=== PATIENT | female | born 1940 | race Caucasian/White ===

== ENCOUNTER → 2016-03-11 | Outpatient (CLI) | payer MEDICARE, OTHER ==
[~2016-03-11] MED LIST: ACET-2267 PO; ALPR0.25 PO; ANTIBIOTIC; APIX5TAB PO; ASPI-84 PO; CIPRO; CLIN300C3 PO; DILT180C54 PO; DILT240C53 PO; DILT240C90 PO; DOXY100C2 PO; FURO40TA4 PO; HYDR-2997 PO; METO50TA7 PO; POTA10CA43 PO; POTA10TA10 PO; SULF1TAB35 PO; Sotalol Hcl PO; WRF5T PO
--- OUTSIDE RECORDS SUMMARY | 2016-03-11 11:47 | XMS REPORT | Continuity of Care Document ---
Author Author [facility] Organization [facility] Address Unknown Phone Unavailable Support Name Relationship Address Phone ZAHRAA LOPEZ Caregiver [address] [place] [address] JUAN INGRAM Next Of Kin [address] [place] [address] Insurance Providers Payer Name Policy Number Subscriber Name Relationship Wps Medicare [id number] EdgardoStacey Menard 18 Self / Same As Patient Enter Insurance Name [id number] Stacey Hayes 18 Self / Same As Patient Advance Directives Directive Response Recorded Date/Time Advance Directives No 01/20/10 8:50pm Health Care Power of Catering Chef No 01/20/10 8:50pm Problems No known problems or medical conditions. Medications Medication Dose Route Sig Days/Qty Instructions Order Date Discontinued Date Status Aspirin 81 Mg PO DAILY 07/02/09 Active Metoprolol Succinate 50 Mg PO DAILY 07/02/09 Active Warfarin Sodium 5 Mg PO DAILY@18 01/20/10 03/30/10 Discontinued [Cipro] 01/20/10 01/26/10 Discontinued [Another Antibiotic] 01/20/10 01/26/10 Discontinued Doxycycline Hyclate (Vibramycin) 1 Each PO TWICE A DAY 20 Qty 01/26/10 03/30/10 Discontinued Clindamycin HCl 1 Each PO THREE TIMES A DAY 21 Qty 01/26/10 03/30/10 Discontinued Acetaminophen/Hydrocodone Bitart 1 - 2 Each PO Q 4 - 6 HRS PRN 30 Qty 03/30/10 Active Social History Social History Problem Response Recorded Date/Time Recent Foreign Travel No 01/07/2014 1:13pm Hospital Discharge Instructions No hospital discharge instructions. Plan of Care No plan of care. Functional Status No functional status results. Allergies, Adverse Reactions, Alerts Allergen Type Severity Reaction Status Last Updated No Known Drug Allergies Active 07/06/09 Immunizations No immunization records. Vital Signs No known vital signs results. Results No known relevant diagnostic tests, laboratory data and/or discharge summary. Procedures Procedure Status Date Provider(s) 48 hour Holter monitoring completed 01/07/14 ZAHRAA LOPEZ DO 48 hour Holter monitoring completed 01/07/14 ZAHRAA LOPEZ DO Encounters Encounter Location Date/Time Discharged Recurring Via [facility] 01/07/14 1:15pm
--- NOTE | 2016-03-11 12:27 | Diagnostic Imaging Report ---
EXAMINATION: Bilateral lower extremity duplex venous ultrasound. TECHNIQUE: DVT protocol. Multiple sonographic images with color Doppler and waveform interrogation were performed of the lower extremity veins, bilaterally, with compression and augmentation maneuvers. INDICATION: Bilateral leg swelling. FINDINGS: The lower extremity veins from the common femoral veins to below the knee veins were examined with normal color-flow, compressibility and normal waveform demonstrated. The great saphenous vein bilaterally is patent. IMPRESSION: No evidence of DVT in either lower extremity. Dictated by: Dictated on workstation # [id number]
[2016-03-11 12:42] LABS: ANION GAP 9 MMOL/L (5-14); BLOOD UREA NITROGEN 13 MG/DL (7-18); BUN/CREATININE RATIO 16; CALCIUM 10.9 MG/DL (8.5-10.1); CARBON DIOXIDE 28 MMOL/L (21-32); CHLORIDE 102 MMOL/L (98-107); GFR ESTIMATED > 60; GLUCOSE 94 MG/DL (70-105); MAGNESIUM 2.3 MG/DL (1.8-2.4); POTASSIUM 3.6 MMOL/L (3.6-5.0); SODIUM 139 MMOL/L (135-145)
== END ==
LOC: RAD 11:45
PROVIDERS: ATTEND Nurse Practitioner Family
DX: R60.0 Localized edema (principal); I48.0 Paroxysmal atrial fibrillation; I50.33 Acute on chronic diastolic (congestive) heart failure; Z79.01 Long term (current) use of anticoagulants
CPT/HCPCS: 36415; 80048; 83735; 93970

== ENCOUNTER → 2016-03-18 | Outpatient (CLI) | payer MEDICARE, OTHER ==
--- OUTSIDE RECORDS SUMMARY | 2016-03-18 14:29 | XMS REPORT | Continuity of Care Document ---
Author Author [facility] Organization [facility] Address Unknown Phone Unavailable Support Name Relationship Address Phone ZAHRAA LOPEZ Caregiver [address] [place] [address] JUAN INGRAM Next Of Kin [address] [place] [address] Insurance Providers Payer Name Policy Number Subscriber Name Relationship Wps Medicare [id number] EdgardoStacey Menard 18 Self / Same As Patient Enter Insurance Name [id number] Stacey Hayes 18 Self / Same As Patient Advance Directives Directive Response Recorded Date/Time Advance Directives No 01/20/10 8:50pm Health Care Power of Pipe Organ Tuner And Repairer No 01/20/10 8:50pm Problems No known problems [...] Encounters Encounter Location Date/Time Discharged Recurring Via [facility] 01/07/14 1:15pm
[2016-03-18 15:01] LABS: ANION GAP 8 MMOL/L (5-14); BLOOD UREA NITROGEN 12 MG/DL (7-18); BUN/CREATININE RATIO 15; CARBON DIOXIDE 27 MMOL/L (21-32); CHLORIDE 101 MMOL/L (98-107); CREATININE SERUM 0.81 MG/DL (0.60-1.30); GFR ESTIMATED > 60; GLUCOSE 92 MG/DL (70-105); SODIUM 136 MMOL/L (135-145)
[2016-03-18 15:08] LABS: DIGOXIN 0.94 NG/ML (0.80-2.00)
== END ==
LOC: LAB 14:25
PROVIDERS: ATTEND Internal Medicine Cardiovascular Disease
DX: I50.33 Acute on chronic diastolic (congestive) heart failure (principal); I48.0 Paroxysmal atrial fibrillation; R60.0 Localized edema; Z79.01 Long term (current) use of anticoagulants
CPT/HCPCS: 36415; 80048; 80162

== ENCOUNTER → 2016-03-25 | Outpatient (CLI) | payer MEDICARE, OTHER ==
[~2016-03-25] MED LIST changes: +CATHETER FLUSH 10 ML SYR IV PRN; +REGADENOSON 0.4 MG/5 ML SYR (LEXISCAN) IV ONE
--- OUTSIDE RECORDS SUMMARY | 2016-03-25 07:17 | XMS REPORT | Continuity of Care Document ---
Author Author [facility] Organization [facility] Address Unknown Phone Unavailable Support Name Relationship Address Phone ZAHRAA LOPEZ Caregiver [address] [place] [address] JUAN INGRAM Next Of Kin [address] [place] [address] Insurance Providers Payer Name Policy Number Subscriber Name Relationship Wps Medicare [id number] EdgardoStacey Menard 18 Self / Same As Patient Enter Insurance Name [id number] Stacey Hayes 18 Self / Same As Patient Advance Directives Directive Response Recorded Date/Time Advance Directives No 01/20/10 8:50pm Health Care Power of Metal Casting Trades Worker No 01/20/10 8:50pm Problems No known problems [...] Encounters Encounter Location Date/Time Discharged Recurring Via [facility] 01/07/14 1:15pm
[2016-03-25 08:51] VITALS: BP 148/76
--- NOTE | 2016-03-29 10:23 | STRESS TEST ---
PROCEDURE PHYSICIAN: MADI SNEED RESTING AND POST REGADENOSON TECHNETIUM 99M TETROFOSMIN SPECT CT IMAGING DATE OF PROCEDURE: 03/25/2016 ORDERING PHYSICIAN: Radha Tena APRN PRIMARY PHYSICIAN: Dr. Weeks OTHER PHYSICIAN: Dr. Sneed CLINICAL DIAGNOSIS: Acute and chronic congestive heart failure, atrial fibrillation. Baseline images were carried out after injection of 10.97 mCi technetium 99m tetrofosmin. This was followed by 0.4 mg of regadenoson and 31.4 mCi of tetrofosmin for stress imaging. The electrocardiogram showed sinus rhythm with nonspecific ST abnormality at baseline that did not change significantly with regadenoson infusion. Review of images at rest and following stress, does not indicate perfusion defects consistent with significant myocardial ischemia or infarction. Gated images show normal global left ventricular systolic function with normal regional wall motion. Left ventricular ejection fraction is calculated to be 63%. Left end-diastolic volume is 42 mL. TID is absent (1.02). CONCLUSION: 1. No evidence of any significant myocardial ischemia or infarction on this study. 2. Normal regional wall motion. 3. Normal global left ventricular systolic function with a calculated ejection fraction of 63%. Job ID: [id number] Dictated Date: 03/29/2016 09:15:00 It Teacher Date: 03/29/2016 10:16:22 / jesus
== END ==
LOC: CARD 07:14
PROVIDERS: ATTEND Nurse Practitioner Family
DX: I48.0 Paroxysmal atrial fibrillation (principal); I50.33 Acute on chronic diastolic (congestive) heart failure; R60.0 Localized edema; Z79.01 Long term (current) use of anticoagulants
CPT/HCPCS: 78452; 93017

== ENCOUNTER → 2016-04-02 | Outpatient (CLI) | payer MEDICARE, OTHER ==
[~2016-04-02] MED LIST changes: -CATHETER FLUSH 10 ML SYR IV PRN; -REGADENOSON 0.4 MG/5 ML SYR (LEXISCAN) IV ONE
--- OUTSIDE RECORDS SUMMARY | 2016-04-02 12:49 | XMS REPORT | Continuity of Care Document ---
Author Author [facility] Organization [facility] Address Unknown Phone Unavailable Support Name Relationship Address Phone ZAHRAA LOPEZ Caregiver [address] [place] [address] JUAN INGRAM Next Of Kin [address] [place] [address] Insurance Providers Payer Name Policy Number Subscriber Name Relationship Wps Medicare [id number] EdgardoStacey Menard 18 Self / Same As Patient Enter Insurance Name [id number] Stacey Hayes 18 Self / Same As Patient Advance Directives Directive Response Recorded Date/Time Advance Directives No 01/20/10 8:50pm Health Care Power of Marking Stitcher No 01/20/10 8:50pm Problems No known problems [...] Encounters Encounter Location Date/Time Discharged Recurring Via [facility] 01/07/14 1:15pm
== END ==
LOC: RT 12:46
PROVIDERS: ATTEND Internal Medicine Critical Care Medicine
DX: I48.91 Unspecified atrial fibrillation (principal); R00.2 Palpitations; R06.83 Snoring; E66.9 Obesity, unspecified
CPT/HCPCS: 94060; 94726; 94729

== ENCOUNTER 2016-04-13 13:14 | Day surgery (SDC) | payer MEDICARE, OTHER ==
[~2016-04-13] VITALS: Ht 162.6 cm; Wt 87.5 kg
[2016-04-13] VITALS (7 sets, daily range): BP systolic 134–148; BP diastolic 80–100
[~2016-04-13 13:14] MED LIST changes: -ACET-2267 PO; -DILT180C54 PO; -DILT240C53 PO; -FURO40TA4 PO; -POTA10CA43 PO; -POTA10TA10 PO; -SULF1TAB35 PO; -Sotalol Hcl PO
--- OUTSIDE RECORDS SUMMARY | 2016-04-13 13:18 | XMS REPORT | Continuity of Care Document ---
Author Author [facility] Organization [facility] Address Unknown Phone Unavailable Support Name Relationship Address Phone ZAHRAA LOPEZ Caregiver [address] [place] [address] JUAN INGRAM Next Of Kin [address] [place] [address] Insurance Providers Payer Name Policy Number Subscriber Name Relationship Wps Medicare [id number] EdgardoStacey Menard 18 Self / Same As Patient Enter Insurance Name [id number] Stacey Hayes 18 Self / Same As Patient Advance Directives Directive Response Recorded Date/Time Advance Directives No 01/20/10 8:50pm Health Care Power of Software Development Advisor No 01/20/10 8:50pm Problems No known problems [...] Encounters Encounter Location Date/Time Discharged Recurring Via [facility] 01/07/14 1:15pm
--- OUTSIDE RECORDS SUMMARY | 2016-04-13 13:18 | XMS REPORT | Continuity of Care Document ---
Author Author [facility] Organization [facility] Address Unknown Phone Unavailable Support Name Relationship Address Phone ZAHRAA LOPEZ Caregiver [address] [place] [address] JUAN INGRAM Next Of Kin [address] [place] [address] Insurance Providers Payer Name Policy Number Subscriber Name Relationship Wps Medicare [id number] EdgardoStacey Menard 18 Self / Same As Patient Enter Insurance Name [id number] Stacey Hayes 18 Self / Same As Patient Advance Directives Directive Response Recorded Date/Time Advance Directives No 01/20/10 8:50pm Health Care Power of Group Sales Coordinator No 01/20/10 8:50pm Problems No known problems [...] Encounters Encounter Location Date/Time Discharged Recurring Via [facility] 01/07/14 1:15pm
[2016-04-13] MEDS ORDERED: NS IV 1000 ML 1,000 ML ONE (13:52)
[2016-04-13] MEDS ORDERED: NS IV 1000 ML 1,000 ML IV SCH (14:15)
[2016-04-13] MEDS ORDERED: MIDAZOLAM 5 MG/5 ML (VERSED) VIAL ONE (14:31)
[2016-04-13] MEDS ORDERED: proPOfol 200 MG/20 ML (DIPRIVAN) VIAL IV ONE (14:31)
[2016-04-13] MEDS ORDERED: DILT240C53 PO (14:39)
[2016-04-13] MEDS ORDERED: FURO40TA4 PO (14:39)
[2016-04-13] MEDS ORDERED: APIX5TAB PO (14:39)
[2016-04-13] MEDS ORDERED: POTA10CA43 PO (14:39)
--- NOTE | 2016-04-13 14:58 | Progress Note-Standard ---
Standard Progress Note Progress Notes/Assess & Plan Progress/Assessment & Plan Anesthesia Note ([id number]) Called for sedation (MAC) for cardioversion. Versed 1 mg IV and Propofol 40 mg IV given. Pt adequately sedated and unable to open eyes prior to cardioversion. VSS and positive ETCO2 throughout procedure. Pt tolerated the procedure well and returned to SR after cardioversion times one. MARTIN MARRERO DO Apr 13, 2016 14:58
--- NOTE | 2016-04-13 15:41 | Cardiac Procedure Note-CS/ASA ---
Pre-Procedure Note Pre-Op Procedure Note H&P Reviewed The H&P was reviewed, patient examined and no changes noted. Date H&P Reviewed: Apr 13, 2016 Time H&P Reviewed: 15:00 Conscious Sedation Pre-Proced Time Reviewed: 15:00 ASA Class: 3 Airway Mallampati Classification: ([place] appropriate class) I. II. III, IV Lungs Heart ASA score ASA 1: a normal healthy patient ASA 2: a patient with a mild systemic disease (mid diabetes, controlled hypertension, obesity ASA 3: a patient with a severe systemic disease that limits activity (angina , COPD, prior Myocardial infarction) ASA 4: a patient with an incapacitating disease that is a constant threat to life (CHF, renal failure) ASA 5: a moribund patient not expected to survive 24 hrs. (ruptured aneurysm) ASA 6: a declared brain patient whose organs are being harvested. For emergent operations, add the letter E after the classification Grade 1 Sedation Plan: Analgesia, Amnesia, Plan communicated to team members, Discussed options with patient/fam, Discussed risks with patient/fam Note The patient is an appropriate candidate to undergo the planned procedure, sedation, and anesthesia. The patient immediately re-assessed prior to indication. Sailaja BHARDWAJ MD Apr 13, 2016 3:41 pm
--- NOTE | 2016-04-13 15:43 | Progress Note-Post Operative ---
Post-Operative Progess Note Pre-Operative Diagnosis AF with RVR Post-Operative Diagnosis Successful Cardioversion, Sinus rhythm Post-Op Procedure Note Date of Procedure: Apr 13, 2016 Name of Procedure: Direct electrical Cardioversion Procedure Note/Findings single synchronized 200J shock -> successful cardioversion to sinus rhythm. normal neurological exam post procedure. Anesthesia Type please see anesthesia note Sailaja BHARDWAJ MD Apr 13, 2016 3:43 pm
--- NOTE | 2016-04-14 13:25 | PROCEDURE REPORT ---
PROCEDURE PHYSICIAN: JOHNNA BHARDWAJ DIRECT ELECTRICAL CARDIOVERSION DATE OF PROCEDURE: 04/13/2016 PRIMARY MEDICAL SECRETARY TEACHER: Dr. Sneed INDICATION: Atrial fibrillation with rapid ventricular rate. PREOPERATIVE DIAGNOSIS: Atrial fibrillation with rapid ventricular rate. POSTOPERATIVE DIAGNOSIS: Sinus rhythm, successful electrical cardioversion. HISTORY: Ms. Reynoso is a 76-year-old lady with history of atrial fibrillation with rapid ventricular rate. Atrial fibrillation initiated most likely in the last 6 months. Left atrial size is not significantly enlarged. Rhythm controlled therapy is recommended. The patient has been on uninterrupted oral anticoagulation therapy with Eliquis for at least a month. Direct electrical cardioversion was recommended. ANESTHESIA: By anesthesia services. COMPLICATIONS: None. SPECIMENS: None. CONTRAST: None. FLUOROSCOPY: None. PROCEDURE DETAILS: The patient was brought to the Abrading Machine Tender after informed consent was taken. All the risks and complications were explained including the risk of stroke. Electrical cardioversion was carried out with anesthesia support with propofol and benzodiazepine. 200 joules of synchronized shock was delivered through external patches which promptly restored sinus rhythm. The patient tolerated the procedure well and did not have any neurological complication. CONCLUSION: 1. Successful cardioversion. 2. Continue Eliquis and calcium channel liilya. 3. Follow-up office in 10 days. Job ID: [id number] Dictated Date: 04/13/2016 15:11:08 Music Engraver Date: 04/14/2016 13:20:34 / jesus
== END 2016-04-13 16:00 | disposition home or self-care (01) ==
LOC: CATH 13:14
PROVIDERS: ATTEND Internal Medicine Interventional Cardiology
DX: I48.91 Unspecified atrial fibrillation (principal); I10 Essential (primary) hypertension; Z79.01 Long term (current) use of anticoagulants; Z79.899 Other long term (current) drug therapy; Z86.718 Personal history of other venous thrombosis and embolism
CPT/HCPCS: 92960; 93005

== ENCOUNTER 2016-04-28 19:40 | Outpatient (CLI) | payer MEDICARE, OTHER ==
[~2016-04-28 19:40] MED LIST changes: +DILT240C53 PO; +FURO40TA4 PO; +POTA10CA43 PO
--- OUTSIDE RECORDS SUMMARY | 2016-04-28 19:50 | XMS REPORT | Continuity of Care Document ---
Author Author [facility] Organization [facility] Address Unknown Phone Unavailable Support Name Relationship Address Phone ZAHRAA LOPEZ Caregiver [address] [place] [address] JUAN INGRAM Next Of Kin [address] [place] [address] Insurance Providers Payer Name Policy Number Subscriber Name Relationship Wps Medicare [id number] EdgardoStacey Menard 18 Self / Same As Patient Enter Insurance Name [id number] Stacey Hayes 18 Self / Same As Patient Advance Directives Directive Response Recorded Date/Time Advance Directives No 01/20/10 8:50pm Health Care Power of Spread Cutter No 01/20/10 8:50pm Problems No known problems [...] Encounters Encounter Location Date/Time Discharged Recurring Via [facility] 01/07/14 1:15pm
== END 2016-04-29 06:20 | disposition home or self-care (01) ==
LOC: SLEEP 19:40
PROVIDERS: ATTEND Nurse Practitioner Family
DX: G47.9 Sleep disorder, unspecified (principal); R06.83 Snoring; I48.91 Unspecified atrial fibrillation; E66.9 Obesity, unspecified
CPT/HCPCS: 95810

== ENCOUNTER 2016-04-30 08:58 | Outpatient (RCR) | payer MEDICARE, OTHER ==
--- OUTSIDE RECORDS SUMMARY | 2016-04-30 09:01 | XMS REPORT | Continuity of Care Document ---
Author Author [facility] Organization [facility] Address Unknown Phone Unavailable Care Team Providers Care Mill Tender Warm Up Name Role Phone ZAHRAA LOPEZ DO PCP Insurance Providers Payer Name Policy Number Subscriber Name Relationship Wps Medicare [id number] Stacey Hayes 18 Self / Same As Patient Enter Insurance Name [id number] Stacey Hayes 18 Self / Same As Patient Advance Directives Directive Response Recorded Date/Time Advance Directives No 04/13/16 2:07pm Health Care Power of Spoke Maker No 04/13/16 2:07pm Organ Donor No 04/13/16 2:07pm Problems Active Problems Medical Problem Onset Date Status Paroxysmal a-fib Unknown Acute Medications Current Home Medications Medication Dose Units Route Directions Days/Qty Instructions Start Date Alprazolam 0.25 Mg 0.25 Mg Oral Bedtime as needed for Anxiety Apixaban 5 Mg 5 Mg Oral Twice A Day 04/13/16 Diltiazem Hcl 240 Mg 240 Mg Oral Daily 04/13/16 Furosemide 40 Mg 40 Mg Oral Daily as needed for Swelling 04/13/16 Potassium Chloride 10 Meq 10 Meq Oral Prn With Furosemide 04/13/16 Past Home Medications Medication Directions Ordered Status Aspirin 81 Mg Tablet., 81 Mg Oral Daily 07/02/09 Discontinued Metoprolol Succinate 50 Mg Tab, 50 Mg Oral Daily 07/02/09 Discontinued Warfarin Sodium 5 Mg Tab, 5 Mg Oral Daily@18 01/20/10 Discontinued [Cipro] , 01/20/10 Discontinued [Another Antibiotic] , 01/20/10 Discontinued Doxycycline Hyclate (Vibramycin) 100 Mg Capsule, 1 Each Oral Twice A Day 26/12 Discontinued Clindamycin Hcl 300 Mg Capsule, 1 Each Oral Three Times A Day 01/26/10 Discontinued Acetaminophen/Hydrocodone Bitart 1 Tab Tablet, 1 - 2 Each Oral Q 4 - 6 Hrs Prn 03/30/10 Discontinued Diltiazem Hcl 240 Mg Cap.er.24h, 240 Mg Oral Daily 02/21/16 Discontinued Apixaban 5 Mg Tablet, 5 Mg Oral Bid@02/21/16 Discontinued Social History Social History Problem Response Recorded Date/Time Recent Foreign Travel No 03/29/2016 9:44am Recent Hopitalizations No 02/19/2016 5:22pm Hospital Discharge Instructions No hospital discharge instructions. Plan of Care Discharge Date 04/29/16 6:20am Prescriptions See Medication Section Functional Status No functional status results. Allergies, Adverse Reactions, Alerts No known allergies. Immunizations No immunization records. Vital Signs Acute Vital Signs Vital Response Date/Time Temperature (Fahrenheit) 97.6 degrees F (97.6 - 99.5) 04/13/2016 2:08pm Temperature (Calculated Celsius) 36.68824 degrees C (36.4 - 37.5) 04/13/2016 2:08pm Temperature Source Tympanic 04/13/2016 2:08pm Pulse Rate (adult) 81 bpm (60 - 90) 04/13/2016 3:32pm Respiratory Rate 16 bpm (12 - 24) 04/13/2016 3:32pm O2 Sat by Pulse Oximetry 98 % (88 - 100) 04/13/2016 3:32pm Blood Pressure 144/80 mm Hg 04/13/2016 3:32pm Blood Pressure Mean 101 mm Hg 04/13/2016 3:32pm Pain Numeric Pain Scale 0-No Pain 04/13/2016 3:40pm Height (Feet) 5 feet 04/13/2016 2:12pm Height (Inches) 4.00 inches 04/13/2016 2:12pm Height (Calculated Centimeters) 162.539231 cm 04/13/2016 2:12pm Weight (Pounds) 193 pounds 04/13/2016 2:12pm Weight (Ounces) 0.0 oz 04/13/2016 2:12pm Weight (Calculated Grams) 93944.33 gm 04/13/2016 2:12pm Weight (Calculated Kilograms) 87.367254 kilograms 04/13/2016 2:12pm Calculated BMI 33.1 04/13/2016 2:12pm Results No known relevant diagnostic tests, laboratory data and/or discharge summary. Procedures Procedure Status Date Provider(s) Tracing only of electrocardiogram Completed 04/13/16 Sailaja BHARDWAJ MD Tracing only of electrocardiogram Completed 04/13/16 Sailaja BHARDWAJ MD Encounters Encounter Location Arrival/Admit Date Discharge/Depart Date Attending Provider Departed Clinic [facility] 04/28/16 7:40pm 04/29/16 6: 20am DAREK TORRES APRN Departed [facility] 04/13/16 1:14pm 4:00pm Sailaja BHARDWAJ MD Registered Clinic [facility] 04/02/16 12:46pm SINCERE PULIDO DO
[2016-06-30] MEDS ORDERED: DILT180C54 PO (08:30)
[2016-06-30] MEDS ORDERED: ACET-2267 PO (08:30)
[2016-06-30] MEDS ORDERED: POTA10TA10 PO (08:30)
[2016-07-03] MEDS ORDERED: Sotalol Hcl PO (07:48)
[2016-07-03] MEDS ORDERED: SULF1TAB35 PO (09:30)
== END 2016-07-29 | disposition home or self-care (01) ==
LOC: CARD 08:58
PROVIDERS: ATTEND Internal Medicine Interventional Cardiology
DX: I48.0 Paroxysmal atrial fibrillation (principal)
CPT/HCPCS: 93270

== ENCOUNTER → 2016-05-01 | Outpatient (CLI) | payer MEDICARE, OTHER ==
[~2016-05-01] MED LIST changes: +ACET-2267 PO; +DILT180C54 PO; +POTA10TA10 PO; +SULF1TAB35 PO; +Sotalol Hcl PO
--- OUTSIDE RECORDS SUMMARY | 2016-05-01 09:16 | XMS REPORT | Continuity of Care Document ---
Author Author [facility] Organization [facility] Address Unknown Phone Unavailable Care Team Providers Care Enterer Name Role Phone ZAHRAA LOPEZ DO PCP Insurance Providers Payer Name Policy Number Subscriber Name Relationship Wps Medicare [id number] Stacey Hayes 18 Self / Same As Patient Enter Insurance Name [id number] Stacey Hayes 18 Self / Same As Patient Advance Directives Directive Response Recorded Date/Time Advance Directives No 04/13/16 2:07pm Health Care Power of Computational Physicist No 04/13/16 2:07pm Organ Donor No 04/13/16 [...] - 99.5) 04/13/2016 2:08pm Temperature (Calculated Celsius) 36.45836 degrees C (36.4 - 37.5) 04/13/2016 2:08pm [...] 4.00 inches 04/13/2016 2:12pm Height (Calculated Centimeters) 162.727869 cm 04/13/2016 2:12pm Weight (Pounds) 193 pounds 04/13/2016 2:12pm Weight (Ounces) 0.0 oz 04/13/2016 2:12pm Weight (Calculated Grams) 71057.33 gm 04/13/2016 2:12pm Weight (Calculated Kilograms) 87.533401 kilograms 04/13/2016 2:12pm Calculated BMI 33.1 04/13/2016 2:12pm Results No known relevant diagnostic tests, laboratory data and/or discharge summary. Procedures Procedure Status Date Provider(s) Tracing only of electrocardiogram Completed 04/13/16 Sailaja BHARDWAJ MD Tracing only of electrocardiogram Completed 04/13/16 Sailaja BHARDWAJ MD Encounters Encounter Location Arrival/Admit Date Discharge/Depart Date Attending Provider Departed Clinic [facility] 04/28/16 7:40pm 04/29/16 6: 20am DAREK TORRES APRN Departed Surgical Day [facility] 04/13/16 1:14pm 4:00pm Sailaja BHARDWAJ MD Registered Clinic [facility] 04/02/16 12:46pm SINCERE PULIDO DO
--- NOTE | 2016-05-01 13:51 | Diagnostic Imaging Report ---
PROCEDURE: MRI left joint lower extremity without contrast. TECHNIQUE: Multiplanar, multisequence non contrast-enhanced MRI of the left lower extremity was accomplished. EXAMINATION: MRI of the left knee without contrast 05/01/2016. FINDINGS: There is diffuse heterogeneity of the bone marrow signal nonspecific in nature but perhaps normal for patient. An infiltrative process or anemic process can cause a similar appearance and clinical correlation is recommended. The ACL and PCL are intact. Extensor mechanism is unremarkable. The MCL is intact. The lateral collateral ligament complex is also intact. There is a moderate sized joint effusion. Moderate-sized Pennington's cyst is also seen which contains multiple septations. There is adjacent edema tracking medially and inferiorly into the calf perhaps due to recent leakage. There are cystic collections within the posterior aspect of the knee most consistent with ganglia. Some of these contain internal hypointensities consistent with most likely loose bodies. Similar findings noted adjacent to the fibular head. There is nonspecific edema within the anterior soft tissues of the knee. There is diffuse high signal throughout the posterior horn of the medial meniscus consistent with a horizontal oblique tear with a radial component also noted. This extends to involve portions of the meniscal body as well. There is high signal within the posterior horn and anterior horn of the lateral meniscus also seen. These appear to represent myxoid degeneration. There is diffuse subchondral edema within the medial tibial plateau. A more focal cystic changes within the medial tibial plateau noted perhaps subchondral cyst associated with degenerative disease. The more diffuse edema is likely reactive less likely due to bone contusion correlate for any recent injury. There is loss of cartilage in the medial joint compartment with a small focal defects of at least 75% cartilaginous loss along the medial femoral condyle and adjacent medial tibial plateau. Moderate thinning of the cartilage in the lateral joint compartment also noted. There is marked loss of cartilage in the patellofemoral joint space with areas of near complete loss of cartilage overlying the patella. Subchondral edema and cystic change in the patella also seen. IMPRESSION: 1. 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 2. Ligaments and tendons intact. 3. 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 4. Moderate-sized Pennington's cyst with other incidental findings as discussed above. 5. Nonspecific edema within the tibial plateau medially most likely due to the adjacent degenerative findings. If there's been recent injury focal contusion is another possibility. No fracture line appreciated. Other bone marrow changes as discussed above. Dictated by: Dictated on workstation # [id number]
== END ==
LOC: RAD 09:11
PROVIDERS: ATTEND Orthopaedic Surgery
DX: M17.12 Unilateral primary osteoarthritis, left knee (principal)
CPT/HCPCS: 73721

== ENCOUNTER → 2016-06-10 | Day surgery (SDC) | payer MEDICARE, OTHER ==
[~2016-06-10] VITALS: Ht 162.6 cm; Wt 87.5 kg
[~2016-06-10] MED LIST changes: +LIDOCAINE 1% INJ 20 ML (XYLOCAINE) VIAL ONE
--- NOTE | 2016-06-10 11:44 | Cardiac Procedure Note-CS/ASA ---
Pre-Procedure Note Pre-Op Procedure Note H&P Reviewed The H&P was reviewed, patient examined and no changes noted. Date H&P Reviewed: Jun 10, 2016 Time H&P Reviewed: 11:00 Conscious Sedation Pre-Proced Time Reviewed: 11:00 ASA Class: 2 Airway Mallampati Classification: ([place] appropriate class) I. II. III, IV Lungs Heart ASA score ASA 1: a normal healthy patient ASA 2: a patient with a mild systemic disease (mid diabetes, controlled hypertension, obesity ASA 3: a patient with a severe systemic disease that limits activity (angina , COPD, prior Myocardial infarction) ASA 4: a patient with an incapacitating disease that is a constant threat to life (CHF, renal failure) ASA 5: a moribund patient not expected to survive 24 hrs. (ruptured aneurysm) ASA 6: a declared brain patient whose organs are being harvested. For emergent operations, add the letter E after the classification Grade 1 Sedation Plan: Analgesia (with local anesthesia only), Plan communicated to team members, Discussed options with patient/fam, Discussed risks with patient/ fam Note The patient is an appropriate candidate to undergo the planned procedure, sedation, and anesthesia. The patient immediately re-assessed prior to indication. Sailaja BHARDWAJ MD Jun 10, 2016 11:44 am
--- NOTE | 2016-06-10 11:46 | Cardiology Post Procedure Note ---
Post-Procedure Note Post-Op Procedure Note Procedure Start Date: Jun 10, 2016 Procedure Start Time: 11:30 Name of Procedure: Implantable loop Recorder placement Findings/Procedure Note [facility] surveillance recommended for atrial fibrillation. Biotronik implantable loop recorder placed. Estimated blood loss (mL): none Contrast Amount: none Post-Operative Diagnosis Post-operative diagnosis: successful ILR placement Sailaja BHARDWAJ MD Jun 10, 2016 11:46 am
[2016-06-10 12:03] VITALS: BP 145/77
--- NOTE | 2016-06-11 08:08 | PROCEDURE REPORT ---
PROCEDURE PHYSICIAN: JOHNNA KING IMPLANTABLE LOOP RECORDER DATE OF PROCEDURE: 06/10/2016 PERFORMING PHYSICIAN: Dr. Clement King. 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 PREOPERATIVE DIAGNOSIS: Atrial fibrillation. POSTOPERATIVE DIAGNOSIS: Atrial fibrillation, status post implantation of a Biotronik implantable loop recorder. PROCEDURE DETAILS: The patient is a 76-year-old lady with a history of possible atrial fibrillation. 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 Implantable loop recorder was discussed and agreed with the patient. Informed consent was taken. All the risks and complications were discussed at length. The patient was draped and prepped in the usual sterile fashion. Local anesthesia was with lidocaine, which was given in the substernal area close to the 4th intercostal space. Biotronik loop monitor was implanted according to the protocol. The wound was closed with Dermabond and three non-reabsorbable sutures. There were no complications at procedure. The patient tolerated the procedure. The device was interrogated with voltage of 1.38 mini volt of R-wave ANESTHESIA: Local anesthesia with lidocaine. COMPLICATIONS: None. Contrast/fluoroscopy: None. CONCLUSION: 1. 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 2. No complication and the patient tolerated the procedure well. 3. The patient will come to our office for suture removal in one week. Job ID: [id number] Dictated Date: 06/10/2016 13:24:27 Bag Filler Date: 06/11/2016 08:02:13 / jesus
--- OUTSIDE RECORDS SUMMARY | 2016-07-11 21:16 | XMS REPORT | Continuity of Care Document ---
Author Author [facility] Organization [facility] Address Unknown Phone Unavailable Allergies Active Description Code Type Severity Reaction Onset Reported/Identified Relationship to Patient Clinical Status Yes No Known Drug Allergies [id number] Drug Allergy Unknown N/ A 07/06/2009 Medications Problems Date Dx Coded Attending Type Code Diagnosis Diagnosed By 11/12/2009 Ot 453.40 01/25/2010 Ot 401.9 01/25/2010 Ot 682.2 01/25/2010 Ot 682.6 01/25/2010 Ot 790.92 01/25/2010 Ot V12.51 01/25/2010 Ot V58.61 03/10/2010 Ot 453.40 03/30/2010 Ot 922.1 03/30/2010 Ot 923.00 03/30/2010 Ot 923.03 03/30/2010 Ot 959.11 03/30/2010 Ot E000.8 03/30/2010 Ot E029.9 03/30/2010 Ot E849.0 03/30/2010 Ot E888.8 03/06/2014 GELLENDER DOZAHRAA Ot 785.1 04/07/2014 GELLENDER DOZAHRAA Ot 785.1 PALPITATIONS 04/10/2014 Ot 729.81 04/10/2014 Ot V12.51 04/10/2014 GELLENDER DOZAHRAA Ot 786.2 04/10/2014 GELLENDER DOZAHRAA Ot 729.5 04/10/2014 GELLENDER DOZAHRAA Ot V76.12 04/10/2014 GELLENDER DOZAHRAA Ot 785.1 04/10/2014 GELLENDER DOZAHRAA Ot 959.3 04/10/2014 GELLENDER DOZAHRAA Ot E000.8 04/10/2014 GELLENDER DOZAHRAA Ot E849.0 04/10/2014 GELLENDER DOZAHRAA Ot E888.9 04/10/2014 GELLENDER DOZAHRAA Ot 959.3 04/10/2014 GELLENDER DO, ZAHRAA Suero Ot E000.8 04/10/2014 GELLENDER DO, ZAHRAA Suero Ot E849.0 04/10/2014 GELLENDER DO, ZAHRAA Suero Ot E888.9 05/01/2014 GELLENDER DO, ZAHRAA Suero Ot 959.3 05/01/2014 GELLENDER DO, ZAHRAA Suero Ot E000.8 05/01/2014 GELLENDER DO, ZAHRAA Suero Ot E849.0 05/01/2014 GELLENDER DO, ZAHRAA Suero Ot E888.9 06/13/2014 Ot 729.81 06/13/2014 Ot V12.51 06/13/2014 GELLENDER DO, ZAHRAA Suero Ot 786.2 06/13/2014 GELLENDER DO, ZAHRAA Suero Ot 729.5 06/13/2014 GELLENDER DO, ZAHRAA Suero Ot V76.12 06/13/2014 GELLENDER DO, ZAHRAA Suero Ot 785.1 06/13/2014 GELLENDER DO, ZAHRAA Suero Ot 959.3 06/13/2014 GELLENDER DO, ZAHRAA Suero Ot E000.8 06/13/2014 GELLENDER DO, ZAHRAA Suero Ot E849.0 06/13/2014 GELLENDER DO, ZAHRAA Suero Ot E888.9 06/13/2014 GELLENDER DO, ZAHRAA Suero Ot 813.42 06/13/2014 GELLENDER DO, ZAHRAA Suero Ot 815.02 06/13/2014 GELLENDER DO, ZAHRAA Suero Ot E000.8 06/13/2014 GELLENDER DO, ZAHRAA Suero Ot E849.8 06/13/2014 GELLENDER DO, ZAHRAA Suero Ot E888.9 06/17/2014 Ot 793.81 06/17/2014 Ot V10.3 06/17/2014 Ot V12.51 06/17/2014 Ot 453.40 06/17/2014 Ot 453.40 06/17/2014 Ot 793.81 06/17/2014 Ot 453.40 06/17/2014 Ot 793.82 06/17/2014 Ot V76.12 06/17/2014 Ot 793.80 06/17/2014 Ot 729.5 06/17/2014 Ot 729.81 06/17/2014 Ot V12.51 06/17/2014 Ot 729.81 06/17/2014 Ot V12.51 06/17/2014 GELLENDER DO, ZAHRAA Suero Ot 786.2 06/17/2014 GELLENDER DO, ZAHRAA Suero Ot 729.5 06/17/2014 GELLENDER DO, ZAHRAA Suero Ot V76.12 06/17/2014 GELLENDER DO, ZAHRAA Suero Ot 785.1 06/17/2014 GELLENDER DO, ZAHRAA Suero Ot 959.3 06/17/2014 GELLENDER DO, ZAHRAA Suero Ot E000.8 06/17/2014 GELLENDER DO, ZAHRAA Suero Ot E849.0 06/17/2014 GELLENDER DO, ZAHRAA Suero Ot E888.9 06/17/2014 GELLENDER DO, ZAHRAA Suero Ot 813.42 06/17/2014 GELLENDER DO, ZAHRAA Suero Ot 815.02 06/17/2014 GELLENDER DO, ZAHRAA Suero Ot E000.8 06/17/2014 GELLENDER DO, ZAHRAA Suero Ot E849.8 06/17/2014 GELLENDER DO, ZAHRAA Suero Ot E888.9 07/03/2014 GELLENDER DO, ZAHRAA Suero Ot 813.42 07/03/2014 GELLENDER DO, ZAHRAA Suero Ot 815.02 07/03/2014 GELLENDER DO, ZAHRAA Suero Ot E000.8 07/03/2014 GELLENDER DO, ZAHRAA Suero Ot E849.8 07/03/2014 GELLENDER DO, ZAHRAA Suero Ot E888.9 08/04/2014 GELLENDER DO, ZAHRAA Suero Ot 729.81 08/04/2014 GELLENDER DO, ZAHRAA Suero Ot V45.89 10/10/2014 GELLENDER DO, ZAHRAA Suero Ot 727.51 10/10/2014 GELLENDER DO, ZAHRAA Suero Ot 729.81 01/05/2016 Ot 793.82 INCONCLUSIVE MAMMOGRAM 01/05/2016 Ot V76.12 OTH SCREEN MAMMO-MALIGN NEOPLASM OF AGUSTO 01/05/2016 Ot 793.80 UNSPEC ABNORMAL MAMMOGRAM 01/05/2016 Ot 729.5 PAIN IN LIMB 01/05/2016 Ot 729.81 SWELLING OF LIMB 01/05/2016 Ot V12.51 HX-VENOUS THROMBOSIS EMBOLISM 01/05/2016 Ot 729.81 SWELLING OF LIMB 01/05/2016 Ot V12.51 HX-VENOUS THROMBOSIS EMBOLISM 01/05/2016 GELLENDER DO, ZAHRAA Suero Ot 786.2 COUGH 01/05/2016 GELLENDER DO, ZAHRAA Suero Ot 729.5 PAIN IN LIMB 01/05/2016 GELLENDER DO, ZAHRAA Suero Ot V76.12 OTH SCREEN MAMMO-MALIGN NEOPLASM OF [place]USTO 01/05/2016 GELLENDER DO, ZAHRAA Suero Ot 785.1 PALPITATIONS 01/05/2016 GELLENDER DO, ZAHRAA Suero Ot 959.3 ELB/FOREARM/WRST INJ NOS 01/05/2016 GELLENDER DO, ZAHRAA Suero Ot E000.8 OTHER EXTERNAL CAUSE STATUS 01/05/2016 GELLENDER DO, ZAHRAA Suero Ot E849.0 ACCIDENT IN HOME 01/05/2016 GELLENDER DO, ZAHRAA Suero Ot E888.9 FALL NOS 01/05/2016 GELLENDER DO, ZAHRAA Suero Ot 813.42 FX DISTAL RADIUS NEC-CL 01/05/2016 GELLENDER DO, ZAHRAA Suero Ot 815.02 FX METACARP BASE NEC-CL 01/05/2016 GELLENDER DO, ZAHRAA Suero Ot E000.8 OTHER EXTERNAL CAUSE STATUS 01/05/2016 GELLENDER DO, ZAHRAA Suero Ot E849.[address] NEC 01/05/2016 GELLENDER DO, ZAHRAA Suero Ot E888.9 FALL NOS 01/05/2016 KAYLALENDER DO, ZAHRAA Suero Ot 729.81 SWELLING OF LIMB 01/05/2016 GELLENDER DO, ZAHRAA Suero Ot V45.89 POSTSURGICAL STATES NEC 01/05/2016 GELLENDER DO, ZAHRAA Suero Ot 727.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 01/05/2016 GELLENDER DO, ZAHRAA Suero Ot 729.81 SWELLING OF LIMB 01/06/2016 GELLENDER DO, ZAHRAA Suero Ot R07.89 OTHER CHEST PAIN 01/11/2016 GELLENDER DO, ZAHRAA Sueor Ot R07.89 OTHER CHEST PAIN 01/27/2016 GELLENDER DOZAHRAA Ot R07.89 OTHER CHEST PAIN 02/21/2016 GELLENDER DO, ZAHRAA Suero Ot I05.9 RHEUMATIC MITRAL VALVE DISEASE, UNSPECIF 02/21/2016 GELLENDER DOZAHRAA Ot I11.0 HYPERTENSIVE HEART DISEASE WITH HEART FA 02/21/2016 GELLENDER DOZAHRAA Ot I48.0 PAROXYSMAL ATRIAL FIBRILLATION 02/21/2016 GELLENDER DO, ZAHRAA A Ot I50.31 ACUTE DIASTOLIC (CONGESTIVE) HEART FAILU 02/21/2016 GELLENDER DO, ZAHRAA Suero Ot I87.2 VENOUS INSUFFICIENCY (CHRONIC) ( PERIPHER 02/21/2016 GELLENDER DO, ZAHRAA Suero Ot Z86.718 PERSONAL HISTORY OF OTHER VENOUS THROMBO 02/21/2016 GELLENDER DO, ZAHRAA Suero Ot I05.9 RHEUMATIC MITRAL VALVE DISEASE, UNSPECIF 02/21/2016 GELLENDER DO, ZAHRAA A Ot I11.0 HYPERTENSIVE HEART DISEASE WITH HEART FA 02/21/2016 GELLENDER DO, ZAHRAA A Ot I48.0 PAROXYSMAL ATRIAL FIBRILLATION 02/21/2016 GELLENDER DO, ZAHRAA A Ot I50.31 ACUTE DIASTOLIC (CONGESTIVE) HEART FAILU 02/21/2016 GELLENDER DO, ZAHRAA Suero Ot I87.2 VENOUS INSUFFICIENCY (CHRONIC) ( PERIPHER 02/21/2016 GELLENDER DO, ZAHRAA Suero Ot Z86.718 PERSONAL HISTORY OF OTHER VENOUS THROMBO 02/21/2016 GELLENDER DO, ZAHRAA Suero Ot I05.9 RHEUMATIC MITRAL VALVE DISEASE, UNSPECIF 02/21/2016 GELLENDER DO, ZAHRAA Suero Ot I11.0 HYPERTENSIVE HEART DISEASE WITH HEART FA 02/21/2016 GELLENDER DO, ZAHRAA A Ot I48.0 PAROXYSMAL ATRIAL FIBRILLATION 02/21/2016 GELLENDER DO, ZAHRAA A Ot I50.31 ACUTE DIASTOLIC (CONGESTIVE) HEART FAILU 02/21/2016 GELLENDER DO, ZAHRAA Suero Ot I87.2 VENOUS INSUFFICIENCY (CHRONIC) ( PERIPHER 02/21/2016 GELLENDER DO, ZAHRAA Suero Ot Z86.718 PERSONAL HISTORY OF OTHER VENOUS THROMBO 02/21/2016 GELLENDER DO, ZAHRAA Suero Ot I05.9 RHEUMATIC MITRAL VALVE DISEASE, UNSPECIF 02/21/2016 GELLENDER DO, ZAHRAA A Ot I11.0 HYPERTENSIVE HEART DISEASE WITH HEART FA 02/21/2016 GELLENDER DO, ZAHRAA A Ot I48.0 PAROXYSMAL ATRIAL FIBRILLATION 02/21/2016 GELLENDER DO, ZAHRAA A Ot I50.31 ACUTE DIASTOLIC (CONGESTIVE) HEART FAILU 02/21/2016 GELLENDER DO, ZAHRAA A Ot I87.2 VENOUS INSUFFICIENCY (CHRONIC) ( PERIPHER 02/21/2016 GELLENDER DO, ZAHRAA Nimo Ot Z86.718 PERSONAL HISTORY OF OTHER VENOUS THROMBO 03/04/2016 FRANCISCO GALARZA Ot I07.1 RHEUMATIC TRICUSPID INSUFFICIENCY 03/04/2016 BAIMATROYFRANCISCO L SANITATION ENGINEER Ot I34.0 NONRHEUMATIC MITRAL (VALVE) INSUFFICIENC 03/04/2016 BAIMA, FRANCISCO L SANITATION ENGINEER Ot I48.0 PAROXYSMAL ATRIAL FIBRILLATION 03/04/2016 BAIMA, FRANCISCO L SANITATION ENGINEER Ot Z79.01 MCC (CURRENT) USE OF ANTICOAGULANT 03/04/2016 BAIMA, FRANCISCO L SANITATION ENGINEER Ot I07.1 RHEUMATIC TRICUSPID INSUFFICIENCY 03/04/2016 BAIMA, FRANCISCO L SANITATION ENGINEER Ot I34.0 NONRHEUMATIC MITRAL (VALVE) INSUFFICIENC 03/04/2016 BAIMA, FRANCISCO L SANITATION ENGINEER Ot I48.0 PAROXYSMAL ATRIAL FIBRILLATION 03/04/2016 BAIMA, FRANCISCO L SANITATION ENGINEER Ot Z79.01 MCC (CURRENT) USE OF ANTICOAGULANT 03/05/2016 BAIMATROYFRANCISCO L SANITATION ENGINEER Ot I07.1 RHEUMATIC TRICUSPID INSUFFICIENCY 03/05/2016 BAIMA, FRANCISCO L SANITATION ENGINEER Ot I34.0 NONRHEUMATIC MITRAL (VALVE) INSUFFICIENC 03/05/2016 BAIMA FRANCISCO L SANITATION ENGINEER Ot I48.0 PAROXYSMAL ATRIAL FIBRILLATION 03/05/2016 BAIMA, FRANCISCO L SANITATION ENGINEER Ot Z79.01 MACHINERY MECHANIC (CURRENT) USE OF ANTICOAGULANT 03/05/2016 NATHANIELMAFRANCISCO L SANITATION ENGINEER Ot I07.1 RHEUMATIC TRICUSPID INSUFFICIENCY 03/05/2016 BAIMA, FRANCISCO L SANITATION ENGINEER Ot I34.0 NONRHEUMATIC MITRAL (VALVE) INSUFFICIENC 03/05/2016 BAIMA, FRANCISCO L SANITATION ENGINEER Ot I48.0 PAROXYSMAL ATRIAL FIBRILLATION 03/05/2016 BAIMA, FRANCISCO L SANITATION ENGINEER Ot Z79.01 MACHINERY MECHANIC (CURRENT) USE OF ANTICOAGULANT 03/12/2016 BAIMA, FRANCISCO L SANITATION ENGINEER Ot I48.0 PAROXYSMAL ATRIAL FIBRILLATION 03/12/2016 BAIMA, FRANCISCO L SANITATION ENGINEER Ot I50.33 ACUTE ON CHRONIC DIASTOLIC (CONGESTIVE ) 03/12/2016 BAIMA, FRANCISCO L SANITATION ENGINEER Ot R60.0 LOCALIZED EDEMA 03/12/2016 BAIMA, FRANCISCO L SANITATION ENGINEER Ot Z79.01 MACHINERY MECHANIC (CURRENT) USE OF ANTICOAGULANT 03/12/2016 BAIMA, FRANCISCO L SANITATION ENGINEER Ot I48.0 PAROXYSMAL ATRIAL FIBRILLATION 03/12/2016 BAIMA, FRANCISCO L SANITATION ENGINEER Ot I50.33 ACUTE ON CHRONIC DIASTOLIC (CONGESTIVE ) 03/12/2016 BAIFRANCISCO RODRIGUEZ L SANITATION ENGINEER Ot R60.0 LOCALIZED EDEMA 03/12/2016 BAIMA, FRANCISCO L SANITATION ENGINEER Ot Z79.01 MACHINERY MECHANIC (CURRENT) USE OF ANTICOAGULANT 03/17/2016 BAIMA, FRANCISCO L SANITATION ENGINEER Ot I48.0 PAROXYSMAL ATRIAL FIBRILLATION 03/17/2016 BAIMA, FRANCISCO L SANITATION ENGINEER Ot I50.33 ACUTE ON CHRONIC DIASTOLIC (CONGESTIVE ) 03/17/2016 BAIMATROYFRANCISCO L SANITATION ENGINEER Ot R60.0 LOCALIZED EDEMA 03/17/2016 BAIMA, FRANCISOC L SANITATION ENGINEER Ot Z79.01 MACHINERY MECHANIC (CURRENT) USE OF ANTICOAGULANT 03/19/2016 TANNA ECHAVARRIA FACBladimir, ALI FACP CCDS Ot I48.0 PAROXYSMAL ATRIAL FIBRILLATION 03/19/2016 TANNA ECHAVARRIA FACBladimir, ALI FACP CCDS Ot I50.33 ACUTE ON CHRONIC DIASTOLIC ( CONGESTIVE) 03/19/2016 TANNA ECHAVARRIA FACBladimir, ALI FACP CCDS Ot R60.0 LOCALIZED EDEMA 03/19/2016 TANNA ECHAVARRIA FACBladimir, ALI FACP CCDS Ot Z79.01 MACHINERY MECHANIC (CURRENT) USE OF ANTICOAGULANT 03/26/2016 NATHANIELFRANCISCO RODRIGUEZ L SANITATION ENGINEER Ot I07.1 RHEUMATIC TRICUSPID INSUFFICIENCY 03/26/2016 BAIMAFRANCISCO L SANITATION ENGINEER Ot I34.0 NONRHEUMATIC MITRAL (VALVE) INSUFFICIENC 03/26/2016 BAIMATROYFRANCISCO L SANITATION ENGINEER Ot I48.0 PAROXYSMAL ATRIAL FIBRILLATION 03/26/2016 BAIMA, FRANCICSO L SANITATION ENGINEER Ot Z79.01 MACHINERY MECHANIC (CURRENT) USE OF ANTICOAGULANT 03/26/2016 BAIMA FRANCISCO L SANITATION ENGINEER Ot I48.0 PAROXYSMAL ATRIAL FIBRILLATION 03/26/2016 BAIMA, FRANCISCO L SANITATION ENGINEER Ot I50.33 ACUTE ON CHRONIC DIASTOLIC (CONGESTIVE ) 03/26/2016 BAIMAFRANCISCO L SANITATION ENGINEER Ot R60.0 LOCALIZED EDEMA 03/26/2016 BAIMA, FRANCISCO L SANITATION ENGINEER Ot Z79.01 MACHINERY MECHANIC (CURRENT) USE OF ANTICOAGULANT 03/26/2016 BAIMA, FRANCISCO L SANITATION ENGINEER Ot I48.0 PAROXYSMAL ATRIAL FIBRILLATION 03/26/2016 BAIMA, FRANCISCO L SANITATION ENGINEER Ot I50.33 ACUTE ON CHRONIC DIASTOLIC (CONGESTIVE ) 03/26/2016 BAIMA FRANCISCO L SANITATION ENGINEER Ot R60.0 LOCALIZED EDEMA 03/26/2016 BAIMAFRANCISCO SANITATION ENGINEER Ot Z79.01 MCC (CURRENT) USE OF ANTICOAGULANT 03/29/2016 BAIMAFRANCISCO L SANITATION ENGINEER Ot I48.0 PAROXYSMAL ATRIAL FIBRILLATION 03/29/2016 BAIMAFRANCISCO L SANITATION ENGINEER Ot I50.33 ACUTE ON CHRONIC DIASTOLIC (CONGESTIVE ) 03/29/2016 BAIMAFRANCISCO L SANITATION ENGINEER Ot R60.0 LOCALIZED EDEMA 03/29/2016 BAIMA FRANCISCO L SANITATION ENGINEER Ot Z79.01 MCC (CURRENT) USE OF ANTICOAGULANT 04/01/2016 BAIMAFRANCISCO L SANITATION ENGINEER Ot I48.0 PAROXYSMAL ATRIAL FIBRILLATION 04/01/2016 BAIMATROYFRANCISCO L SANITATION ENGINEER Ot I50.33 ACUTE ON CHRONIC DIASTOLIC (CONGESTIVE ) 04/01/2016 BAIMAFRANCISCO SANITATION ENGINEER Ot R60.0 LOCALIZED EDEMA 04/01/2016 BAIMAFRANCISCO SANITATION ENGINEER Ot Z79.01 MCC (CURRENT) USE OF ANTICOAGULANT 04/02/2016 DAREK TORRES APRN Ot E66.9 OBESITY, UNSPECIFIED 04/02/2016 DAREK TORRES IT DISASTER RECOVERY MANAGER Ot G47.9 SLEEP DISORDER, UNSPECIFIED 04/02/2016 DAREK TORRES IT DISASTER RECOVERY MANAGER Ot I48.91 UNSPECIFIED ATRIAL FIBRILLATION 04/05/2016 SINCERE PULIDO DO Ot E66.9 OBESITY, UNSPECIFIED 04/05/2016 SINCERE PULIDO DO Ot I48.91 UNSPECIFIED ATRIAL FIBRILLATION 04/05/2016 SINCERE PULIDO DO Ot R00.2 PALPITATIONS 04/05/2016 SINCERE PULIDO DO Ot R06.83 SNORING 04/08/2016 TANNA ECHAVARRIA FACC, MADI KIMP CCDS Ot I48.0 PAROXYSMAL ATRIAL FIBRILLATION 04/08/2016 TANNA ECHAVARRIA FACC, MADI FACP CCDS Ot I50.33 ACUTE ON CHRONIC DIASTOLIC ( CONGESTIVE) 04/08/2016 TANNA ECHAVARRIA FACC, MADI FACP CCDS Ot R60.0 LOCALIZED EDEMA 04/08/2016 TANNA ECHAVARRIA FACC, ALI FACP CCDS Ot Z79.01 MACHINERY MECHANIC (CURRENT) USE OF ANTICOAGULANT 04/13/2016 Sailaja BHARDWAJ MD Ot I10 ESSENTIAL (PRIMARY) HYPERTENSION 04/13/2016 Sailaja BHARDWAJ MD Ot I48.91 UNSPECIFIED ATRIAL FIBRILLATION 04/13/2016 Sailaja BHARDWAJ MD Ot Z79.01 MCC (CURRENT) USE OF ANTICOAGULANT 04/13/2016 Sailaja BHARDWAJ MD Ot Z79.899 OTHER MACHINERY MECHANIC (CURRENT) DRUG THERAPY 04/13/2016 Sailaja BHARDWAJ MD Ot Z86.718 PERSONAL HISTORY OF OTHER VENOUS THROMBO 04/15/2016 FRANCISCO GALARZA SANITATION ENGINEER Ot I48.0 PAROXYSMAL ATRIAL FIBRILLATION 04/15/2016 FRANCISCO GALARZA SANITATION ENGINEER Ot I50.33 ACUTE ON CHRONIC DIASTOLIC (CONGESTIVE ) 04/15/2016 FRANCISCO GALARZA SANITATION ENGINEER Ot R60.0 LOCALIZED EDEMA 04/15/2016 FRANCISCO GALARZAP Ot Z79.01 MACHINERY MECHANIC (CURRENT) USE OF ANTICOAGULANT 04/15/2016 Sailaja BHARDWAJ MD Ot I10 ESSENTIAL (PRIMARY) HYPERTENSION 04/15/2016 Sailaja BHARDWAJ MD Ot I48.91 UNSPECIFIED ATRIAL FIBRILLATION 04/15/2016 Sailaja BHARDWAJ MD Ot Z79.01 MACHINERY MECHANIC (CURRENT) USE OF ANTICOAGULANT 04/15/2016 Sailaja BHARDWAJ MD Ot Z79.899 OTHER MCC (CURRENT) DRUG THERAPY 04/15/2016 Sailaja BHARDWAJ MD Ot Z86.718 PERSONAL HISTORY OF OTHER VENOUS THROMBO 04/27/2016 SINCERE PULIDO DO Ot E66.9 OBESITY, UNSPECIFIED 04/27/2016 SINCERE PULIDO DO Ot I48.91 UNSPECIFIED ATRIAL FIBRILLATION 04/27/2016 SINCERE PULIDO DO Ot R00.2 PALPITATIONS 04/27/2016 SINCERE PULIDO DO Ot R06.83 SNORING 04/29/2016 DAREK TORRES APRN Ot E66.9 OBESITY, UNSPECIFIED 04/29/2016 DAREK TORRES APRN Ot G47.9 SLEEP DISORDER, UNSPECIFIED 04/29/2016 DAREK TORRES APRN Ot I48.91 UNSPECIFIED ATRIAL FIBRILLATION 04/29/2016 DAREK TORRES APRN Ot R06.83 SNORING 05/04/2016 ALFONZO ALVAREZ DO Ot M17.12 UNILATERAL PRIMARY OSTEOARTHRITIS, LEFT 05/05/2016 DAREK TORRES IT DISASTER RECOVERY MANAGER Ot E66.9 OBESITY, UNSPECIFIED 05/05/2016 MELISSABUD PARKSINE Cliff IT DISASTER RECOVERY MANAGER Ot G47.9 SLEEP DISORDER, UNSPECIFIED 05/05/2016 MELISSABUDDAREK Cliff IT DISASTER RECOVERY MANAGER Ot I48.91 UNSPECIFIED ATRIAL FIBRILLATION 05/05/2016 MELISSABUDDAREK Cliff IT DISASTER RECOVERY MANAGER Ot R06.83 SNORING 05/05/2016 MELISSABUD PARKSINE Cliff IT DISASTER RECOVERY MANAGER Ot E66.9 OBESITY, UNSPECIFIED 05/05/2016 MELISSA DAREK Cliff IT DISASTER RECOVERY MANAGER Ot G47.9 SLEEP DISORDER, UNSPECIFIED 05/05/2016 MELISSABUDDAREK Cliff IT DISASTER RECOVERY MANAGER Ot I48.91 UNSPECIFIED ATRIAL FIBRILLATION 05/05/2016 BUD TORRESINE Cliff IT DISASTER RECOVERY MANAGER Ot R06.83 SNORING 05/06/2016 ANTONIO DO, ALFONZO F Ot M17.12 UNILATERAL PRIMARY OSTEOARTHRITIS, LEFT 05/07/2016 ANTONIO DO, ALFONZO F Ot M17.12 UNILATERAL PRIMARY OSTEOARTHRITIS, LEFT 05/27/2016 ANTONIO DO, ALFONZO F Ot M17.12 UNILATERAL PRIMARY OSTEOARTHRITIS, LEFT 06/14/2016 LASHAE ECHAVARRIA, Sailaja JEFFERS Ot I48.0 PAROXYSMAL ATRIAL FIBRILLATION 07/02/2016 GELLENDER DO, ZAHRAA Suero Ot G89.18 OTHER ACUTE POSTPROCEDURAL PAIN 07/02/2016 GELLENDER DOZAHRAA Ot I10 ESSENTIAL (PRIMARY) HYPERTENSION 07/02/2016 GELLENDER DO, ZAHRAA Suero Ot I34.9 NONRHEUMATIC MITRAL VALVE DISORDER, UNSP 07/02/2016 GELLENDER DO, ZAHRAA Suero Ot I48.0 PAROXYSMAL ATRIAL FIBRILLATION 07/02/2016 GELLENDER DO, ZAHRAA Suero Ot I95.9 HYPOTENSION, UNSPECIFIED 07/02/2016 GELLENDER DO, ZAHRAA Suero Ot M19.91 PRIMARY OSTEOARTHRITIS, UNSPECIFIED SITE 07/02/2016 GELLENDER DOZAHRAA Ot M79.662 PAIN IN LEFT LOWER LEG 07/02/2016 GELLENDER DOZAHRAA Ot R12 HEARTBURN 07/02/2016 GELLENDER DOZAHRAA Ot R19.5 OTHER FECAL ABNORMALITIES 07/02/2016 GELLENDER DOZAHRAA Ot Z79.01 MCC (CURRENT) USE OF ANTICOAGULANT 07/03/2016 GELLENDER DOZAHRAA Ot G89.18 OTHER ACUTE POSTPROCEDURAL PAIN 07/03/2016 GELLENDER DO, ZAHRAA Suero Ot I10 ESSENTIAL (PRIMARY) HYPERTENSION 07/03/2016 GELLENDER DO, ZAHRAA Suero Ot I34.9 NONRHEUMATIC MITRAL VALVE DISORDER, UNSP 07/03/2016 GELLENDER DO, ZAHRAA Suero Ot I48.0 PAROXYSMAL ATRIAL FIBRILLATION 07/03/2016 GELLENDER DO, ZAHRAA Suero Ot I95.9 HYPOTENSION, UNSPECIFIED 07/03/2016 GELLENDER DO, ZAHRAA Suero Ot M19.91 PRIMARY OSTEOARTHRITIS, UNSPECIFIED SITE 07/03/2016 GELLENDER DO, ZAHRAA Suero Ot M79.662 PAIN IN LEFT LOWER LEG 07/03/2016 GELLENDER DO, ZAHRAA Suero Ot R12 HEARTBURN 07/03/2016 GELLENDER DO, ZAHRAA Suero Ot R19.5 OTHER FECAL ABNORMALITIES 07/03/2016 GELLENDER DO, ZAHRAA Suero Ot Z79.01 MCC (CURRENT) USE OF ANTICOAGULANT 07/03/2016 GELLENDER DO, ZAHRAA Suero Ot G89.18 OTHER ACUTE POSTPROCEDURAL PAIN 07/03/2016 GELLENDER DO, ZAHRAA Suero Ot I08.1 RHEUMATIC DISORDERS OF BOTH MITRAL AND T 07/03/2016 GELLENDER DO, ZAHRAA Suero Ot I10 ESSENTIAL (PRIMARY) HYPERTENSION 07/03/2016 GELLENDER DO, ZAHRAA Suero Ot I48.0 PAROXYSMAL ATRIAL FIBRILLATION 07/03/2016 GELLENDER DO, ZAHRAA Suero Ot I95.9 HYPOTENSION, UNSPECIFIED 07/03/2016 GELLENDER DO, ZAHRAA Suero Ot J32.9 CHRONIC SINUSITIS, UNSPECIFIED 07/03/2016 GELLENDER DO, ZAHRAA Suero Ot M19.91 PRIMARY OSTEOARTHRITIS, UNSPECIFIED SITE 07/03/2016 GELLENDER DO, ZAHRAA Suero Ot M79.662 PAIN IN LEFT LOWER LEG 07/03/2016 GELLENDER DO, ZAHRAA Suero Ot R12 HEARTBURN 07/03/2016 GELLENDER DO, ZAHRAA Suero Ot R19.5 OTHER FECAL ABNORMALITIES 07/03/2016 GELLENDER DO, ZAHRAA Suero Ot Z79.01 MCC (CURRENT) USE OF ANTICOAGULANT 07/05/2016 GELLENDER DO, ZAHRAA Suero Ot R05 COUGH 07/08/2016 GELLENDER DO, ZAHRAA Suero Ot R05 COUGH Procedures Code Description Performed By Performed On [id number] HINDU OF CARDIAC RHYTHM, SINGLE 07/01/2016 Results Test Result Range Serum or plasma troponin i.cardiac measurement (mass/volume) - 01/05/16 15:50 Serum or plasma troponin i.cardiac measurement (mass/volume) < ng/mL <0.30 Complete blood count (CBC) with automated white blood cell (WBC) differential - 02/19/16 12:55 Blood leukocytes automated count (number/volume) 4.5 10*3/ uL 4.3-11.0 Blood erythrocytes automated count (number/volume) 3.85 10*6 /uL 4.35-5.85 Venous blood hemoglobin measurement (mass/volume) 12.3 g/dL 11.5-16.0 Blood hematocrit (volume fraction) 38 % 35-52 Automated erythrocyte mean corpuscular volume 98 [foz_us] 80-99 Automated erythrocyte mean corpuscular hemoglobin (mass per erythrocyte) 32 pg 25-34 Automated erythrocyte mean corpuscular hemoglobin concentration measurement ( mass/volume) 33 g/dL 32-36 Automated erythrocyte distribution width ratio 14.9 % 10.0-14.5 Automated blood platelet count (count/volume) 217 10*3/uL 130-400 Automated blood platelet mean volume measurement 10.7 [foz_ us] 7.4-10.4 Automated blood neutrophils/100 leukocytes 56 % 42-75 Automated blood lymphocytes/100 leukocytes 32 % 12-44 Blood monocytes/100 leukocytes 10 % 0-12 Automated blood eosinophils/100 leukocytes 2 % 0-10 Automated blood basophils/100 leukocytes 0 % 0-10 Blood neutrophils automated count (number/volume) 2.5 10*3 1.8-7.8 Blood lymphocytes automated count (number/volume) 1.4 10*3 1.0-4.0 Blood monocytes automated count (number/volume) 0.4 10*3 0.0-1.0 Automated eosinophil count 0.1 10*3/uL 0.0-0.3 Automated blood basophil count (count/volume) 0.0 10*3/uL 0.0-0.1 Comprehensive metabolic panel - 02/19/16 12:55 Serum or plasma sodium measurement (moles/volume) 141 mmol/ L 135-145 Serum or plasma potassium measurement (moles/volume) 3.9 mmol/L 3.6-5.0 Serum or plasma chloride measurement (moles/volume) 107 mmol /L 98-107 Carbon dioxide 27 mmol/L 21-32 Serum or plasma anion gap determination (moles/volume) 7 mmol/L 5-14 Serum or plasma urea nitrogen measurement (mass/volume) 15 mg/dL 7-18 Serum or plasma creatinine measurement (mass/volume) 0.77 mg /dL 0.60-1.30 Serum or plasma urea nitrogen/creatinine mass ratio 19 NRG Serum or plasma creatinine measurement with calculation of estimated glomerular filtration rate > NRG Serum or plasma glucose measurement (mass/volume) 99 mg/dL 70-105 Serum or plasma calcium measurement (mass/volume) 10.8 mg/ dL 8.5-10.1 Serum or plasma total bilirubin measurement (mass/volume) 0.5 mg/dL 0.1-1.0 Serum or plasma alkaline phosphatase measurement (enzymatic activity/volume) 64 U/L 40-136 Serum or plasma aspartate aminotransferase measurement (enzymatic activity/ volume) 35 U/L 5-34 Serum or plasma alanine aminotransferase measurement (enzymatic activity/volume ) 45 U/L 0-55 Serum or plasma protein measurement (mass/volume) 6.8 g/dL 6.4-8.2 Serum or plasma albumin measurement (mass/volume) 4.0 g/dL 3.2-4.5 Magnesium - 02/19/16 12:55 Magnesium 2.0 mg/dL 1.8-2.4 Serum or plasma troponin i.cardiac measurement (mass/volume) - 02/19/16 12:55 Serum or plasma troponin i.cardiac measurement (mass/volume) < ng/mL <0.30 THYROID STIMULATING HORMONE - 02/19/16 12:55 THYROID STIMULATING HORMONE 1.94 u[iU]/mL 0.35-4.94 Serum or plasma lithium measurement (moles/volume) - 02/19/16 12:55 BNP level 240.0 pg/mL <100.0 Fibrin D-dimer FEU measurement in platelet poor plasma (mass/volume) - 12:55 Fibrin D-dimer FEU measurement in platelet poor plasma (mass/volume) 1.51 ug/mL 0.00-0.49 Complete urinalysis with reflex to culture - 02/19/16 13:55 Urine color determination YELLOW NRG Urine clarity determination CLEAR NRG Urine pH measurement by test strip 7 5- 9 Specific gravity of urine by test strip 1.015 1.016-1.022 Urine protein assay by test strip, semi-quantitative NEGATIVE NEGATIVE Urine glucose detection by automated test strip NEGATIVE NEGATIVE Erythrocytes detection in urine sediment by light microscopy NEGATIVE NEGATIVE Urine ketones detection by automated test strip NEGATIVE NEGATIVE Urine nitrite detection by test strip NEGATIVE NEGATIVE Urine total bilirubin detection by test strip NEGATIVE NEGATIVE Urine urobilinogen measurement by automated test strip (mass/volume) NORMAL NORMAL Urine leukocyte esterase detection by dipstick NEGATIVE NEGATIVE Automated urine sediment erythrocyte count by microscopy (number/high power field) NONE NRG Automated urine sediment leukocyte count by microscopy (number/high power field ) NONE NRG Bacteria detection in urine sediment by light microscopy NEGATIVE NRG Squamous epithelial cells detection in urine sediment by light microscopy RARE NRG Crystals detection in urine sediment by light microscopy NONE NRG Casts detection in urine sediment by light microscopy NONE NRG Mucus detection in urine sediment by light microscopy NEGATIVE NRG Complete urinalysis with reflex to culture NO NRG Complete blood count (CBC) with automated white blood cell (WBC) differential - 02/20/16 04:15 Blood leukocytes automated count (number/volume) 3.9 10*3/ uL 4.3-11.0 Blood erythrocytes automated count (number/volume) 3.49 10*6 /uL 4.35-5.85 Venous blood hemoglobin measurement (mass/volume) 11.1 g/dL 11.5-16.0 Blood hematocrit (volume fraction) 34 % 35-52 Automated erythrocyte mean corpuscular volume 98 [foz_us] 80-99 Automated erythrocyte mean corpuscular hemoglobin (mass per erythrocyte) 32 pg 25-34 Automated erythrocyte mean corpuscular hemoglobin concentration measurement ( mass/volume) 33 g/dL 32-36 Automated erythrocyte distribution width ratio 14.9 % 10.0-14.5 Automated blood platelet count (count/volume) 196 10*3/uL 130-400 Automated blood platelet mean volume measurement 10.2 [foz_ us] 7.4-10.4 Automated blood neutrophils/100 leukocytes 44 % 42-75 Automated blood lymphocytes/100 leukocytes 42 % 12-44 Blood monocytes/100 leukocytes 11 % 0-12 Automated blood eosinophils/100 leukocytes 3 % 0-10 Automated blood basophils/100 leukocytes 0 % 0-10 Blood neutrophils automated count (number/volume) 1.7 10*3 1.8-7.8 Blood lymphocytes automated count (number/volume) 1.6 10*3 1.0-4.0 Blood monocytes automated count (number/volume) 0.4 10*3 0.0-1.0 Automated eosinophil count 0.1 10*3/uL 0.0-0.3 Automated blood basophil count (count/volume) 0.0 10*3/uL 0.0-0.1 Whole blood basic metabolic panel - 02/20/16 04:15 Serum or plasma sodium measurement (moles/volume) 141 mmol/ L 135-145 Serum or plasma potassium measurement (moles/volume) 3.4 mmol/L 3.6-5.0 Serum or plasma chloride measurement (moles/volume) 108 mmol /L 98-107 Carbon dioxide 25 mmol/L 21-32 Serum or plasma anion gap determination (moles/volume) 8 mmol/L 5-14 Serum or plasma urea nitrogen measurement (mass/volume) 13 mg/dL 7-18 Serum or plasma creatinine measurement (mass/volume) 0.61 mg /dL 0.60-1.30 Serum or plasma urea nitrogen/creatinine mass ratio 21 NRG Serum or plasma creatinine measurement with calculation of estimated glomerular filtration rate > NRG Serum or plasma glucose measurement (mass/volume) 87 mg/dL 70-105 Serum or plasma calcium measurement (mass/volume) 9.7 mg/dL 8.5-10.1 Serum or plasma phosphate measurement (mass/volume) - 02/20/16 04:15 Serum or plasma phosphate measurement (mass/volume) 2.6 mg/ dL 2.3-4.7 Magnesium - 02/20/16 04:15 Magnesium 2.1 mg/dL 1.8-2.4 Complete blood count (CBC) with automated white blood cell (WBC) differential - 02/21/16 04:16 Blood leukocytes automated count (number/volume) 4.8 10*3/ uL 4.3-11.0 Blood erythrocytes automated count (number/volume) 3.61 10*6 /uL 4.35-5.85 Venous blood hemoglobin measurement (mass/volume) 11.5 g/dL 11.5-16.0 Blood hematocrit (volume fraction) 36 % 35-52 Automated erythrocyte mean corpuscular volume 98 [foz_us] 80-99 Automated erythrocyte mean corpuscular hemoglobin (mass per erythrocyte) 32 pg 25-34 Automated erythrocyte mean corpuscular hemoglobin concentration measurement ( mass/volume) 32 g/dL 32-36 Automated erythrocyte distribution width ratio 15.0 % 10.0-14.5 Automated blood platelet count (count/volume) 202 10*3/uL 130-400 Automated blood platelet mean volume measurement 10.5 [foz_ us] 7.4-10.4 Automated blood neutrophils/100 leukocytes 47 % 42-75 Automated blood lymphocytes/100 leukocytes 41 % 12-44 Blood monocytes/100 leukocytes 9 % 0-12 Automated blood eosinophils/100 leukocytes 3 % 0-10 Automated blood basophils/100 leukocytes 0 % 0-10 Blood neutrophils automated count (number/volume) 2.3 10*3 1.8-7.8 Blood lymphocytes automated count (number/volume) 2.0 10*3 1.0-4.0 Blood monocytes automated count (number/volume) 0.5 10*3 0.0-1.0 Automated eosinophil count 0.1 10*3/uL 0.0-0.3 Automated blood basophil count (count/volume) 0.0 10*3/uL 0.0-0.1 Comprehensive metabolic panel - 02/21/16 04:16 Serum or plasma sodium measurement (moles/volume) 139 mmol/ L 135-145 Serum or plasma potassium measurement (moles/volume) 3.9 mmol/L 3.6-5.0 Serum or plasma chloride measurement (moles/volume) 111 mmol /L 98-107 Carbon dioxide 22 mmol/L 21-32 Serum or plasma anion gap determination (moles/volume) 6 mmol/L 5-14 Serum or plasma urea nitrogen measurement (mass/volume) 13 mg/dL 7-18 Serum or plasma creatinine measurement (mass/volume) 0.66 mg /dL 0.60-1.30 Serum or plasma urea nitrogen/creatinine mass ratio 20 NRG Serum or plasma creatinine measurement with calculation of estimated glomerular filtration rate > NRG Serum or plasma glucose measurement (mass/volume) 92 mg/dL 70-105 Serum or plasma calcium measurement (mass/volume) 9.6 mg/dL 8.5-10.1 Serum or plasma total bilirubin measurement (mass/volume) 0.5 mg/dL 0.1-1.0 Serum or plasma alkaline phosphatase measurement (enzymatic activity/volume) 59 U/L 40-136 Serum or plasma aspartate aminotransferase measurement (enzymatic activity/ volume) 24 U/L 5-34 Serum or plasma alanine aminotransferase measurement (enzymatic activity/volume ) 31 U/L 0-55 Serum or plasma protein measurement (mass/volume) 5.6 g/dL 6.4-8.2 Serum or plasma albumin measurement (mass/volume) 3.4 g/dL 3.2-4.5 Serum or plasma phosphate measurement (mass/volume) - 02/21/16 04:16 Serum or plasma phosphate measurement (mass/volume) 2.1 mg/ dL 2.3-4.7 Magnesium - 02/21/16 04:16 Magnesium 2.2 mg/dL 1.8-2.4 Complete blood count (CBC) with automated white blood cell (WBC) differential - 06/29/16 18:25 Blood leukocytes automated count (number/volume) 9.4 10*3/ uL 4.3-11.0 Blood erythrocytes automated count (number/volume) 4.30 10*6 /uL 4.35-5.85 Venous blood hemoglobin measurement (mass/volume) 13.4 g/dL 11.5-16.0 Blood hematocrit (volume fraction) 41 % 35-52 Automated erythrocyte mean corpuscular volume 95 [foz_us] 80-99 Automated erythrocyte mean corpuscular hemoglobin (mass per erythrocyte) 31 pg 25-34 Automated erythrocyte mean corpuscular hemoglobin concentration measurement ( mass/volume) 33 g/dL 32-36 Automated erythrocyte distribution width ratio 15.0 % 10.0-14.5 Automated blood platelet count (count/volume) 286 10*3/uL 130-400 Automated blood platelet mean volume measurement 9.9 [foz_us ] 7.4-10.4 Automated blood neutrophils/100 leukocytes 49 % 42-75 Automated blood lymphocytes/100 leukocytes 40 % 12-44 Blood monocytes/100 leukocytes 10 % 0-12 Automated blood eosinophils/100 leukocytes 1 % 0-10 Automated blood basophils/100 leukocytes 0 % 0-10 Blood neutrophils automated count (number/volume) 4.6 10*3 1.8-7.8 Blood lymphocytes automated count (number/volume) 3.7 10*3 1.0-4.0 Blood monocytes automated count (number/volume) 0.9 10*3 0.0-1.0 Automated eosinophil count 0.1 10*3/uL 0.0-0.3 Automated blood basophil count (count/volume) 0.0 10*3/uL 0.0-0.1 Comprehensive metabolic panel - 06/29/16 18:25 Serum or plasma sodium measurement (moles/volume) 140 mmol/ L 135-145 Serum or plasma potassium measurement (moles/volume) 4.0 mmol/L 3.6-5.0 Serum or plasma chloride measurement (moles/volume) 106 mmol /L 98-107 Carbon dioxide 23 mmol/L 21-32 Serum or plasma anion gap determination (moles/volume) 11 mmol/L 5-14 Serum or plasma urea nitrogen measurement (mass/volume) 15 mg/dL 7-18 Serum or plasma creatinine measurement (mass/volume) 0.79 mg /dL 0.60-1.30 Serum or plasma urea nitrogen/creatinine mass ratio 19 NRG Serum or plasma creatinine measurement with calculation of estimated glomerular filtration rate > NRG Serum or plasma glucose measurement (mass/volume) 114 mg/dL 70-105 Serum or plasma calcium measurement (mass/volume) 10.8 mg/ dL 8.5-10.1 Serum or plasma total bilirubin measurement (mass/volume) 0.3 mg/dL 0.1-1.0 Serum or plasma alkaline phosphatase measurement (enzymatic activity/volume) 78 U/L 40-136 Serum or plasma aspartate aminotransferase measurement (enzymatic activity/ volume) 32 U/L 5-34 Serum or plasma alanine aminotransferase measurement (enzymatic activity/volume ) 41 U/L 0-55 Serum or plasma protein measurement (mass/volume) 6.9 g/dL 6.4-8.2 Serum or plasma albumin measurement (mass/volume) 3.9 g/dL 3.2-4.5 Serum or plasma troponin i.cardiac measurement (mass/volume) - 06/29/16 18:25 Serum or plasma troponin i.cardiac measurement (mass/volume) < ng/mL <0.30 Serum or plasma thyrotropin measurement by detection limit <=0.05 miu/l (units/ volume) - 06/29/16 18:25 Serum or plasma thyrotropin measurement by detection limit <=0.05 miu/l (units/ volume) 0.97 u[iU]/mL 0.35-4.94 Magnesium - 06/29/16 18:28 Magnesium 2.2 mg/dL 1.8-2.4 Complete blood count (CBC) with automated white blood cell (WBC) differential - 06/30/16 04:38 Blood leukocytes automated count (number/volume) 6.0 10*3/ uL 4.3-11.0 Blood erythrocytes automated count (number/volume) 3.76 10*6 /uL 4.35-5.85 Venous blood hemoglobin measurement (mass/volume) 11.8 g/dL 11.5-16.0 Blood hematocrit (volume fraction) 36 % 35-52 Automated erythrocyte mean corpuscular volume 96 [foz_us] 80-99 Automated erythrocyte mean corpuscular hemoglobin (mass per erythrocyte) 31 pg 25-34 Automated erythrocyte mean corpuscular hemoglobin concentration measurement ( mass/volume) 33 g/dL 32-36 Automated erythrocyte distribution width ratio 15.2 % 10.0-14.5 Automated blood platelet count (count/volume) 227 10*3/uL 130-400 Automated blood platelet mean volume measurement 9.9 [foz_us ] 7.4-10.4 Automated blood neutrophils/100 leukocytes 40 % 42-75 Automated blood lymphocytes/100 leukocytes 49 % 12-44 Blood monocytes/100 leukocytes 9 % 0-12 Automated blood eosinophils/100 leukocytes 2 % 0-10 Automated blood basophils/100 leukocytes 0 % 0-10 Blood neutrophils automated count (number/volume) 2.4 10*3 1.8-7.8 Blood lymphocytes automated count (number/volume) 2.9 10*3 1.0-4.0 Blood monocytes automated count (number/volume) 0.5 10*3 0.0-1.0 Automated eosinophil count 0.1 10*3/uL 0.0-0.3 Automated blood basophil count (count/volume) 0.0 10*3/uL 0.0-0.1 Whole blood basic metabolic panel - 06/30/16 04:38 Serum or plasma sodium measurement (moles/volume) 142 mmol/ L 135-145 Serum or plasma potassium measurement (moles/volume) 3.9 mmol/L 3.6-5.0 Serum or plasma chloride measurement (moles/volume) 111 mmol /L 98-107 Carbon dioxide 23 mmol/L 21-32 Serum or plasma anion gap determination (moles/volume) 8 mmol/L 5-14 Serum or plasma urea nitrogen measurement (mass/volume) 14 mg/dL 7-18 Serum or plasma creatinine measurement (mass/volume) 0.71 mg /dL 0.60-1.30 Serum or plasma urea nitrogen/creatinine mass ratio 20 NRG Serum or plasma creatinine measurement with calculation of estimated glomerular filtration rate > NRG Serum or plasma glucose measurement (mass/volume) 95 mg/dL 70-105 Serum or plasma calcium measurement (mass/volume) 10.1 mg/ dL 8.5-10.1 Serum or plasma phosphate measurement (mass/volume) - 06/30/16 04:38 Serum or plasma phosphate measurement (mass/volume) 2.5 mg/ dL 2.3-4.7 Magnesium - 06/30/16 04:38 Magnesium 2.1 mg/dL 1.8-2.4 Occult blood panel - gastric fluid - 06/30/16 08:05 Gastric fluid gastrointestinal hemoglobin detection POSITIVE NEGATIVE Complete blood count (CBC) with automated white blood cell (WBC) differential - 07/01/16 03:14 Blood leukocytes automated count (number/volume) 6.9 10*3/ uL 4.3-11.0 Blood erythrocytes automated count (number/volume) 3.89 10*6 /uL 4.35-5.85 Venous blood hemoglobin measurement (mass/volume) 12.2 g/dL 11.5-16.0 Blood hematocrit (volume fraction) 38 % 35-52 Automated erythrocyte mean corpuscular volume 96 [foz_us] 80-99 Automated erythrocyte mean corpuscular hemoglobin (mass per erythrocyte) 31 pg 25-34 Automated erythrocyte mean corpuscular hemoglobin concentration measurement ( mass/volume) 33 g/dL 32-36 Automated erythrocyte distribution width ratio 15.1 % 10.0-14.5 Automated blood platelet count (count/volume) 247 10*3/uL 130-400 Automated blood platelet mean volume measurement 10.1 [foz_ us] 7.4-10.4 Automated blood neutrophils/100 leukocytes 46 % 42-75 Automated blood lymphocytes/100 leukocytes 42 % 12-44 Blood monocytes/100 leukocytes 9 % 0-12 Automated blood eosinophils/100 leukocytes 2 % 0-10 Automated blood basophils/100 leukocytes 0 % 0-10 Blood neutrophils automated count (number/volume) 3.1 10*3 1.8-7.8 Blood lymphocytes automated count (number/volume) 2.9 10*3 1.0-4.0 Blood monocytes automated count (number/volume) 0.6 10*3 0.0-1.0 Automated eosinophil count 0.2 10*3/uL 0.0-0.3 Automated blood basophil count (count/volume) 0.0 10*3/uL 0.0-0.1 Whole blood basic metabolic panel - 07/01/16 03:14 Serum or plasma sodium measurement (moles/volume) 143 mmol/ L 135-145 Serum or plasma potassium measurement (moles/volume) 4.4 mmol/L 3.6-5.0 Serum or plasma chloride measurement (moles/volume) 110 mmol /L 98-107 Carbon dioxide 27 mmol/L 21-32 Serum or plasma anion gap determination (moles/volume) 6 mmol/L 5-14 Serum or plasma urea nitrogen measurement (mass/volume) 15 mg/dL 7-18 Serum or plasma creatinine measurement (mass/volume) 0.81 mg /dL 0.60-1.30 Serum or plasma urea nitrogen/creatinine mass ratio 19 NRG Serum or plasma creatinine measurement with calculation of estimated glomerular filtration rate > NRG Serum or plasma glucose measurement (mass/volume) 98 mg/dL 70-105 Serum or plasma calcium measurement (mass/volume) 10.3 mg/ dL 8.5-10.1 Serum or plasma phosphate measurement (mass/volume) - 07/01/16 03:14 Serum or plasma phosphate measurement (mass/volume) 2.6 mg/ dL 2.3-4.7 Magnesium - 07/01/16 03:14 Magnesium 2.1 mg/dL 1.8-2.4 Complete blood count (CBC) with automated white blood cell (WBC) differential - 07/02/16 03:35 Blood leukocytes automated count (number/volume) 9.3 10*3/ uL 4.3-11.0 Blood erythrocytes automated count (number/volume) 3.70 10*6 /uL 4.35-5.85 Venous blood hemoglobin measurement (mass/volume) 11.5 g/dL 11.5-16.0 Blood hematocrit (volume fraction) 36 % 35-52 Automated erythrocyte mean corpuscular volume 96 [foz_us] 80-99 Automated erythrocyte mean corpuscular hemoglobin (mass per erythrocyte) 31 pg 25-34 Automated erythrocyte mean corpuscular hemoglobin concentration measurement ( mass/volume) 32 g/dL 32-36 Automated erythrocyte distribution width ratio 15.2 % 10.0-14.5 Automated blood platelet count (count/volume) 239 10*3/uL 130-400 Automated blood platelet mean volume measurement 10.1 [foz_ us] 7.4-10.4 Automated blood neutrophils/100 leukocytes 62 % 42-75 Automated blood lymphocytes/100 leukocytes 28 % 12-44 Blood monocytes/100 leukocytes 9 % 0-12 Automated blood eosinophils/100 leukocytes 1 % 0-10 Automated blood basophils/100 leukocytes 0 % 0-10 Blood neutrophils automated count (number/volume) 5.7 10*3 1.8-7.8 Blood lymphocytes automated count (number/volume) 2.6 10*3 1.0-4.0 Blood monocytes automated count (number/volume) 0.9 10*3 0.0-1.0 Automated eosinophil count 0.1 10*3/uL 0.0-0.3 Automated blood basophil count (count/volume) 0.0 10*3/uL 0.0-0.1 Whole blood basic metabolic panel - 07/02/16 03:35 Serum or plasma sodium measurement (moles/volume) 141 mmol/ L 135-145 Serum or plasma potassium measurement (moles/volume) 4.2 mmol/L 3.6-5.0 Serum or plasma chloride measurement (moles/volume) 109 mmol /L 98-107 Carbon dioxide 24 mmol/L 21-32 Serum or plasma anion gap determination (moles/volume) 8 mmol/L 5-14 Serum or plasma urea nitrogen measurement (mass/volume) 13 mg/dL 7-18 Serum or plasma creatinine measurement (mass/volume) 0.71 mg /dL 0.60-1.30 Serum or plasma urea nitrogen/creatinine mass ratio 18 NRG Serum or plasma creatinine measurement with calculation of estimated glomerular filtration rate > NRG Serum or plasma glucose measurement (mass/volume) 94 mg/dL 70-105 Serum or plasma calcium measurement (mass/volume) 10.4 mg/ dL 8.5-10.1 Serum or plasma phosphate measurement (mass/volume) - 07/02/16 03:35 Serum or plasma phosphate measurement (mass/volume) 3.3 mg/ dL 2.3-4.7 Magnesium - 07/02/16 03:35 Magnesium 2.0 mg/dL 1.8-2.4 Complete blood count (CBC) with automated white blood cell (WBC) differential - 07/03/16 03:44 Blood leukocytes automated count (number/volume) 10.4 10*3/ uL 4.3-11.0 Blood erythrocytes automated count (number/volume) 3.71 10*6 /uL 4.35-5.85 Venous blood hemoglobin measurement (mass/volume) 11.7 g/dL 11.5-16.0 Blood hematocrit (volume fraction) 36 % 35-52 Automated erythrocyte mean corpuscular volume 96 [foz_us] 80-99 Automated erythrocyte mean corpuscular hemoglobin (mass per erythrocyte) 32 pg 25-34 Automated erythrocyte mean corpuscular hemoglobin concentration measurement ( mass/volume) 33 g/dL 32-36 Automated erythrocyte distribution width ratio 14.9 % 10.0-14.5 Automated blood platelet count (count/volume) 242 10*3/uL 130-400 Automated blood platelet mean volume measurement 10.1 [foz_ us] 7.4-10.4 Automated blood neutrophils/100 leukocytes 72 % 42-75 Automated blood lymphocytes/100 leukocytes 17 % 12-44 Blood monocytes/100 leukocytes 10 % 0-12 Automated blood eosinophils/100 leukocytes 1 % 0-10 Automated blood basophils/100 leukocytes 0 % 0-10 Blood neutrophils automated count (number/volume) 7.5 10*3 1.8-7.8 Blood lymphocytes automated count (number/volume) 1.8 10*3 1.0-4.0 Blood monocytes automated count (number/volume) 1.1 10*3 0.0-1.0 Automated eosinophil count 0.1 10*3/uL 0.0-0.3 Automated blood basophil count (count/volume) 0.0 10*3/uL 0.0-0.1 Whole blood basic metabolic panel - 07/03/16 03:44 Serum or plasma sodium measurement (moles/volume) 141 mmol/ L 135-145 Serum or plasma potassium measurement (moles/volume) 4.0 mmol/L 3.6-5.0 Serum or plasma chloride measurement (moles/volume) 108 mmol /L 98-107 Carbon dioxide 25 mmol/L 21-32 Serum or plasma anion gap determination (moles/volume) 8 mmol/L 5-14 Serum or plasma urea nitrogen measurement (mass/volume) 12 mg/dL 7-18 Serum or plasma creatinine measurement (mass/volume) 0.70 mg /dL 0.60-1.30 Serum or plasma urea nitrogen/creatinine mass ratio 17 NRG Serum or plasma creatinine measurement with calculation of estimated glomerular filtration rate > NRG Serum or plasma glucose measurement (mass/volume) 103 mg/dL 70-105 Serum or plasma calcium measurement (mass/volume) 10.3 mg/ dL 8.5-10.1 Serum or plasma phosphate measurement (mass/volume) - 07/03/16 03:44 Serum or plasma phosphate measurement (mass/volume) 2.3 mg/ dL 2.3-4.7 Magnesium - 07/03/16 03:44 Magnesium 1.9 mg/dL 1.8-2.4 Complete urinalysis with reflex to culture - 07/03/16 05:15 Urine color determination YELLOW NRG Urine clarity determination CLEAR NRG Urine pH measurement by test strip 6.5 5 -9 Specific gravity of urine by test strip 1.010 1.016-1.022 Urine protein assay by test strip, semi-quantitative NEGATIVE NEGATIVE Urine glucose detection by automated test strip NEGATIVE NEGATIVE Erythrocytes detection in urine sediment by light microscopy 1+ NEGATIVE Urine ketones detection by automated test strip NEGATIVE NEGATIVE Urine nitrite detection by test strip NEGATIVE NEGATIVE Urine total bilirubin detection by test strip NEGATIVE NEGATIVE Urine urobilinogen measurement by automated test strip (mass/volume) NORMAL NORMAL Urine leukocyte esterase detection by dipstick 1+ NEGATIVE Automated urine sediment erythrocyte count by microscopy (number/high power field) [HPF] NRG Automated urine sediment leukocyte count by microscopy (number/high power field ) [HPF] NRG Bacteria detection in urine sediment by light microscopy TRACE NRG Squamous epithelial cells detection in urine sediment by light microscopy 0-2 NRG Crystals detection in urine sediment by light microscopy NONE NRG Casts detection in urine sediment by light microscopy NONE NRG Mucus detection in urine sediment by light microscopy NEGATIVE NRG Complete urinalysis with reflex to culture NO NRG Blood CBC with ordered manual differential panel - 07/05/16 17:58 Blood leukocytes automated count (number/volume) 8.6 10*3/ uL 4.3-11.0 Blood erythrocytes automated count (number/volume) 3.84 10*6 /uL 4.35-5.85 Venous blood hemoglobin measurement (mass/volume) 11.8 g/dL 11.5-16.0 Blood hematocrit (volume fraction) 36 % 35-52 Automated erythrocyte mean corpuscular volume 95 [foz_us] 80-99 Automated erythrocyte mean corpuscular hemoglobin (mass per erythrocyte) 31 pg 25-34 Automated erythrocyte mean corpuscular hemoglobin concentration measurement ( mass/volume) 33 g/dL 32-36 Automated erythrocyte distribution width ratio 14.6 % 10.0-14.5 Automated blood platelet count (count/volume) 273 10*3/uL 130-400 Automated blood platelet mean volume measurement 9.7 [foz_us ] 7.4-10.4 Automated blood neutrophils/100 leukocytes 69 % 42-75 Automated blood lymphocytes/100 leukocytes 22 % 12-44 Blood monocytes/100 leukocytes 5 % NRG Automated blood eosinophils/100 leukocytes 1 % 0-10 Automated blood basophils/100 leukocytes 0 % 0-10 Blood neutrophils automated count (number/volume) 5.9 10*3 1.8-7.8 Blood lymphocytes automated count (number/volume) 1.9 10*3 1.0-4.0 Blood monocytes automated count (number/volume) 0.7 10*3 0.0-1.0 Automated eosinophil count 0.1 10*3/uL 0.0-0.3 Automated blood basophil count (count/volume) 0.0 10*3/uL 0.0-0.1 Manual blood segmented neutrophils/100 leukocytes 69 % NRG Blood band neutrophils/100 leukocytes 0 % NRG Manual blood lymphocytes/100 leukocytes 27 % NRG Manual eosinophils/100 leukocytes in nose 1 % NRG Manual blood basophils/100 leukocytes 0 % NRG Blood lymphocytes variant/100 leukocytes 3 % NRG Blood erythrocyte morphology finding identification NORMAL NRG Encounters ACCT No. Visit Date/Time Discharge Status Pt. Type Provider Facility Loc./Unit Complaint [id number] 06/29/2016 19:31:00 2016 11:45:00 DIS Outpatient ZAHRAA LOPEZ DO [facility] ICU AFIB WITH RVR,PAROXISENAL AFIB,POST OP SIRISHA [id number] 04/28/2016 19:40:00 2016 06:20:00 DIS Outpatient DAREK TORRES APRN [facility] SLEEP PALPITATIONS,SNORING,AFIB [id number] 04/13/2016 13:14:00 2016 16:00:00 DIS Outpatient Sailaja BHARDWAJ MD [facility] CATH AFIB,PALPIATION,SOB [id number] 02/19/2016 16:34:00 2015 13:24:00 DIS Inpatient OMARMARISSA ZAHRAA XIONG [facility] 4TH NEW ONSET A FIB RVR [id number] 09/19/2014 11:33:00 2014 23:59:59 CLS Outpatient JESSICA XIONGZAHRAA Nimo [facility] RAD RIGHT LEG, ANGLE,FOOT SWELLING [id number] 06/17/2014 14:05:00 2014 23:59:59 CLS Outpatient JESSICA XIONGZAHRAA Niom [facility] RAD RT LEG SWELLING [id number] 06/05/2014 13:32:00 2014 23:59:59 CLS Outpatient JESSICA XIONG ZAHRAA Nimo [facility] RAD FELL THIS AM,HURT R WRIST FOREARM [id number] 04/08/2014 14:46:00 2014 23:59:59 CLS Outpatient JESSICA XIONG ZAHRAA Nimo [facility] RAD FALL LAST WEEK HURT R WRIST [id number] 04/08/2014 13:30:00 2014 23:59:59 CLS Preadmit JESSICA XIONG ZAHRAA Nimo [facility] CARD PALPITATIONS [id number] 01/07/2014 13:15:00 2014 00:01:00 DIS Outpatient JESSICA XIONG ZAHRAA Nimo [facility] CARD PALPITATIONS [id number] 12/13/2012 09:17:00 2012 23:59:59 CLS Outpatient JESSICA XIONG ZAHRAA Nimo [facility] RAD SCREENING [id number] 11/29/2012 14:08:00 2012 23:59:59 CLS Outpatient ZAHRAA LOPEZ DO [facility] RAD LT LEG AND THIGH PAIN, KNOT IN LT LEG [id number] 10/09/2012 16:53:00 2012 23:59:59 CLS Outpatient ZAHRAA LOPEZ DO [facility] RAD COUGH NOT GETTING BETTER [id number] 07/05/2016 17:37:00 ACT Outpatient ZAHRAA LOPEZ DO [facility] RAD COUGH, ELEV TEMP [id number] 06/10/2016 10:38:00 ACT Outpatient Sailaja BHARDWAJ MD [facility] CATH PALPITATIONS [id number] 05/01/2016 09:11:00 ACT Outpatient ANTONIO XIONG ALFONZO Johnson [facility] RAD PRIMARY OA LEFT KNEE [id number] 04/30/2016 08:58:00 ACT Outpatient Sailaja BHARDWAJ MD [facility] CARD ATRIAL FIBRILLATION [id number] 04/02/2016 12:46:00 ACT Outpatient SINCERE PULIDO DO [facility] RT PALPITATIONS,SNORING,OBESITY,ATRIAL FIBRILLATION [id number] 03/25/2016 07:14:00 ACT Outpatient FRANCISCO GALARZA [facility] CARD AF,ACUTE ON CHRONIC DIASTOLIC CHF [id number] 03/18/2016 14:25:00 ACT Outpatient TANNA ECHAVARRIA FACC, MADI JEAN CCDS [facility] LAB AF,CHF,BILATERAL EDEMA,CHRONIC ANTICOAGULATION [id number] 03/11/2016 11:45:00 ACT Outpatient FRANCISCO GALARZA [facility] RAD AF,ACUTE ON CHRONIC DIASTOLIC CHF, [id number] 03/03/2016 09:37:00 ACT Outpatient FRANCISCO GALARZA [facility] CARD PAF,CHRONIC ANTICOAGULATION [id number] 01/05/2016 15:39:00 ACT Outpatient ZAHRAA LOPEZ DO [facility] LAB CHEST PAIN [id number] 06/17/2014 14:05:00 Document Registration [id number] 06/17/2014 14:05:00 Document Registration [id number] 06/17/2014 14:05:00 Document Registration [id number] 06/17/2014 14:05:00 Document Registration [id number] 03/22/2012 15:16:00 Document Registration [id number] 02/10/2011 14:38:00 Document Registration [id number] 08/12/2010 08:20:00 Document Registration [id number] 08/05/2010 07:31:00 Document Registration [id number] 03/30/2010 21:20:00 Document Registration [id number] 03/11/2010 00:00:00 Document Registration [id number] 12/10/2009 14:30:00 Document Registration [id number] 11/12/2009 10:56:00 Document Registration [id number] 07/21/2009 10:26:00 Document Registration [id number] 07/17/2009 12:06:00 Document Registration [id number] 01/20/2009 14:30:00 Document Registration
== END ==
LOC: CATH 10:38
PROVIDERS: ATTEND Internal Medicine Interventional Cardiology
DX: I48.91 Unspecified atrial fibrillation (principal); R00.2 Palpitations; Z79.01 Long term (current) use of anticoagulants; Z79.899 Other long term (current) drug therapy
CPT/HCPCS: 33282

== ENCOUNTER 2016-06-29 18:17 | Inpatient (IN) | payer MEDICARE, OTHER ==
[2016-06-29] VITALS (9 sets, daily range): BP systolic 97–125; BP diastolic 56–81
[~2016-06-29] VITALS: Ht 160 cm; Wt 91.1 kg
[~2016-06-29 18:17] MED LIST changes: -ACET-2267 PO; -DILT180C54 PO; -LIDOCAINE 1% INJ 20 ML (XYLOCAINE) VIAL ONE; -POTA10TA10 PO; -SULF1TAB35 PO; -Sotalol Hcl PO
[2016-06-29] MEDS ORDERED: DILTIAZEM 25 MG/5 ML INJ (CARDIZEM) VIAL IVP ONE (18:30)
[2016-06-29] MEDS ORDERED: DILTIAZEM DRIP 100 MG in SODIUM CHLORIDE (ADD-VANTAGE) 100 ML IV SCH (18:30)
[2016-06-29 18:33] LABS: BASOPHILS % (AUTO) 0 % (0-10); EOSINOPHILS # (AUTO) 0.1 10^3/uL (0.0-0.3); EOSINOPHILS % (AUTO) 1 % (0-10); LYMPHOCYTES # (AUTO) 3.7 X 10^3 (1.0-4.0); LYMPHOCYTES % (AUTO) 40 % (12-44); MEAN CORPUSCULAR HEMOGLOBIN 31 PG (25-34); MEAN CORPUSCULAR HGB CONC 33 G/DL (32-36); MEAN CORPUSCULAR VOLUME 95 FL (80-99); MEAN PLATELET VOLUME 9.9 FL (7.4-10.4); MONOCYTES # (AUTO) 0.9 X 10^3 (0.0-1.0); MONOCYTES % (AUTO) 10 % (0-12); NEUTROPHILS # (AUTO) 4.6 X 10^3 (1.8-7.8); NEUTROPHILS % (AUTO) 49 % (42-75); PLATELET COUNT 286 10^3/uL (130-400); WHITE BLOOD COUNT 9.4 10^3/uL (4.3-11.0)
[2016-06-29 18:53] LABS: ALANINE AMINOTRANSFERASE 41 U/L (0-55); ALBUMIN 3.9 G/DL (3.2-4.5); ANION GAP 11 MMOL/L (5-14); ASPARTATE AMINO TRANSFERASE 32 U/L (5-34); BILIRUBIN,TOTAL 0.3 MG/DL (0.1-1.0); BLOOD UREA NITROGEN 15 MG/DL (7-18); BUN/CREATININE RATIO 19; CALCIUM 10.8 MG/DL (8.5-10.1); CARBON DIOXIDE 23 MMOL/L (21-32); CHLORIDE 106 MMOL/L (98-107); CREATININE SERUM 0.79 MG/DL (0.60-1.30); GFR ESTIMATED > 60; GLUCOSE 114 MG/DL (70-105); SODIUM 140 MMOL/L (135-145); TOTAL PROTEIN 6.9 G/DL (6.4-8.2)
--- NOTE | 2016-06-29 18:53 | Diagnostic Imaging Report ---
EXAMINATION: Chest radiograph, portable AP view. DATE: June 29, 2016, at 1840 hours. INDICATION: A 76-year-old female, palpitations for three days. COMPARISON: February 21, 2016. FINDINGS: Stable overall appearance of the cardiomediastinal silhouette. There is no identified pneumothorax. There is no large pleural effusion. There is no identified focal airspace consolidation. IMPRESSION: No identified acute cardiopulmonary abnormality. Dictated by: Dictated on workstation # [id number]
[2016-06-29 19:13] LABS: TROPONIN I < 0.30 NG/ML (<0.30)
--- NOTE | 2016-06-29 19:14 | ED Cardiac General ---
History of Present Illness General Chief Complaint: Cardiac/General Problems Stated Complaint: AFIB Nursing Triage Note: Patient reports that she has an implanted manager telemarketing, patient reports that she has been in and out of afib since tuesday and seen her harness fitter tuesday and had her dose increased. patient reports going back into afib 45 minutes ago with SOA. Source: patient, old records Exam Limitations: no limitations History of Present Illness Time seen by provider: 18:20 Initial Comments This 76-year-old woman presents to the emergency room with complaints of atrial fibrillation with rapid ventricular rate. She has a history of paroxysmal atrial fibrillation requiring electrocardioversion in the past. She has an implanted manager telemarketing and knows that she has been in atrial fibrillation since yesterday. She was seen at Dr. King's office and her Cartia XL dose was increased. She took a 240 mg dose yesterday morning, again yesterday afternoon, and then increase to a 360 mg dose today. She remains in RVR despite increased in dosing. She is anticoagulated with Eliquis. She has had recent surgery including the implanted manager telemarketing about 3 weeks ago and a knee arthroscopically last Tuesday. Heart rate is in the 130s and 140s upon assessment. She denies any chest pain but has been experiencing shortness of breath. Allergies and Home Medications Allergies Coded Allergies: No Known Drug Allergies (Verified , 07/06/09) Home Medications Alprazolam 0.25 Mg Tablet, 0.25 MG PO HS PRN for ANXIETY, (Reported) Apixaban 5 Mg Tablet, 5 MG PO BID, (Reported) Diltiazem HCl 240 Mg Cap.er.24h, 240 MG PO DAILY, (Reported) Furosemide 40 Mg Tablet, 40 MG PO DAILY PRN for SWELLING, (Reported) Potassium Chloride 10 Meq Capsule.er, 10 MEQ PO PRN WITH FUROSEMIDE, (Reported) Review of Systems Constitutional: no symptoms reported EENTM: No Symptoms Reported Respiratory: See HPI Cardiovascular: See HPI Gastrointestinal: No Symptoms Reported Genitourinary: No Symptoms Reported Musculoskeletal: see HPI Skin: no symptoms reported Psychiatric/Neurological: No Symptoms Reported Endocrine: No Symptoms Reported Hematologic/Lymphatic: No Symptoms Reported Past Tnnkuam-Stdgnv-Dzslkh Hx Patient Social History Alcohol Use: Denies Use Recreational Drug Use: No Smoking Status: Never a Smoker Recent Foreign Travel: No Contact w/Someone Who Travel: No Recent Infectious Disease Expo: No Recent Hopitalizations: No Immunizations Up To Date Date of Pneumonia Vaccine: Jan 06, 2016 Date of Influenza Vaccine: Dec 17, 2015 Seasonal Allergies Seasonal Allergies: No Surgeries HX Surgeries: Yes (right rotator cuff tear repair 04/11/09, left rotator cuff repair 5 yrs ago, left knee arthroscopically, implanted manager telemarketing) Surgeries: Appendectomy, Gallbladder, Orthopedic Respiratory Hx Respiratory Disorders: No Cardiovascular Hx Cardiac Disorders: Yes (mitral valve) Cardiac Disorders: Atrial Fibrillation (paroxysmal), Hypertension, Valvular Heart Disease Neurological Hx Neurological Disorders: No Reproductive System Hx Reproductive Disorders: No Genitourinary Hx Genitourinary Disorders: No Gastrointestinal Hx Gastrointestinal Disorders: No Musculoskeletal Hx Musculoskeletal Disorders: Yes Musculoskeletal Disorders: Arthritis Endocrine Hx Endocrine Disorders: No HEENT HX ENT Disorders: No Cancer Hx Cancer: No Psychosocial Hx Psychiatric Problems: No Integumentary HX Skin/Integumentary Disorder: No Blood Transfusions Hx Blood Disorders: No Family Medical History Family Medial History: Diabetes mellitus 19 MOTHER G8 BROTHER G8 SISTER FH: heart disease G8 BROTHER Parkinson's disease G8 BROTHER Physical Exam Vital Signs Vital Sign - Last 12Hours 06/29/16 18:19 Temp 98.8 Pulse 156 Resp 21 B/P (MAP) 131/96 Pulse Ox 98 Capillary Refill : Less Than 3 Seconds General Appearance: No Apparent Distress, WD/WN HEENT: PERRL/EOMI, Normal ENT Inspection Neck: Normal Inspection Respiratory: Lungs Clear, Normal Breath Sounds, No Accessory Muscle Use, No Respiratory Distress Cardiovascular: No Murmur, Irregularly Irregular, Tachycardia Gastrointestinal: Normal Bowel Sounds, Non Tender, Soft Extremity: Swelling (mild lower extremity edema equal bilaterally, left knee edema with well-healing surgical incisions) Neurologic/Psychiatric: Alert, Oriented x3, No Motor/Sensory Deficits, Normal 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/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, 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 Norm as Tested Skin: Normal Color, Warm/Dry, Ecchymosis (over left chest at the implant site) Progress/Results/Core Measures Results/Orders Lab Results Laboratory Tests Test 06/29/16 18:25 06/29/16 18:28 Range/Units White Blood Count 9.4 4.3-11.0 10^3/uL Red Blood Count 4.30 L 4.35-5.85 10^6/uL Hemoglobin 13.4 11.5-16.0 G/DL Hematocrit 41 35-52 % Mean Corpuscular Volume 95 80-99 FL Mean Corpuscular Hemoglobin 31 25-34 PG Mean Corpuscular Hemoglobin Concent 33 32-36 G/DL Red Cell Distribution Width 15.0 H 10.0-14.5 % Platelet Count 286 130-400 10^3/uL Mean Platelet Volume 9.9 7.4-10.4 FL Neutrophils (%) (Auto) 49 42-75 % Lymphocytes (%) (Auto) 40 12-44 % Monocytes (%) (Auto) 10 0-12 % Eosinophils (%) (Auto) 1 0-10 % Basophils (%) (Auto) 0 0-10 % Neutrophils # (Auto) 4.6 1.8-7.8 X 10^3 Lymphocytes # (Auto) 3.7 1.0-4.0 X 10^3 Monocytes # (Auto) 0.9 0.0-1.0 X 10^3 Eosinophils # (Auto) 0.1 0.0-0.3 10^3/uL Basophils # (Auto) 0.0 0.0-0.1 10^3/uL Sodium Level 140 135-145 MMOL/L Potassium Level 4.0 3.6-5.0 MMOL/L Chloride Level 106 98-107 MMOL/L Carbon Dioxide Level 23 21-32 MMOL/L Anion Gap 11 5-14 MMOL/L Blood Urea Nitrogen 15 7-18 MG/DL Creatinine 0.79 0.60-1.30 MG/DL Estimat Glomerular Filtration Rate > 60 BUN/Creatinine Ratio 19 Glucose Level 114 H 70-105 MG/DL Calcium Level 10.8 H 8.5-10.1 MG/DL Total Bilirubin 0.3 0.1-1.0 MG/DL Aspartate Amino Transf (AST/SGOT) 32 5-34 U/L Alanine Aminotransferase (ALT/SGPT) 41 0-55 U/L Alkaline Phosphatase 78 40-136 U/L Troponin I < 0.30 <0.30 NG/ML Total Protein 6.9 6.4-8.2 G/DL Albumin 3.9 3.2-4.5 G/DL TSH [place] Testing 0.97 0.35-4.94 UIU/ML Magnesium Level 2.2 1.8-2.4 MG/DL My Orders Orders - MAURILIO ARCHIBALD MD Saline Lock/Iv-Start (06/29/16 18:27) Ekg Tracing (06/29/16 18:27) Monitor-Rhythm Ecg Trace Only (06/29/16 18:27) Cbc With Automated Diff (06/29/16 18:27) Comprehensive Metabolic Panel (06/29/16 18:27) Thyroid Analyzer (06/29/16 18:27) Troponin I (06/29/16 18:27) Chest 1 View, Ap/Pa Only (06/29/16 18:27) Diltiazem Injection (Cardizem Injection) (06/29/16 18:30) Sodium Chloride (Ad... W/Diltiazem Drip (06/29/16 18:30) Magnesium (06/29/16 18:36) Medications Given in ED Current Medications Medications Dose Ordered Sig/Edgard Route Start Time Stop Time Status Last Admin Dose Admin Diltiazem HCl 10 mg ONCE ONCE IVP 06/29/16 18:30 06/29/16 18:31 DC 06/29/16 18:33 10 MG Vital Signs/I&O Vital Sign - Last 12Hours 06/29/16 06/29/16 18:19 18:33 Temp 98.8 Pulse 156 125 Resp 21 22 B/P (MAP) 131/96 115/85 Pulse Ox 98 99 Blood Pressure Mean: 108 Progress Note #1: Time: 19:15 Progress Note Patient was started on a Cardizem drip with a 10 mg bolus followed by 10 mg per hour. Heart rate is now ranging from the 90s to 120s. The rate has been titrated up to 15 mg per hour. Blood pressure is now 134/94. Progress Note #2: Time: 19:41 Progress Note Patient is being admitted to the ICU on Cardizem drip. Family comments that Dr. King thought postoperative pain may have been a contributing factor to entry and atrial fibrillation. I have written orders for Tylenol for mild pain and hydrocodone for moderate to severe pain. I've also written for elevation of the knee and icing as needed. ECG Initial ECG Impression Date: Jun 29, 2016 Initial ECG Impression Time: 18:21 Initial ECG Rate: 137 Initial ECG Rhythm: A Fib/Flutter Initial ECG Impression: Atrial Fibrillation w/RVR Comment Atrial fibrillation with RVR. No acute ischemic changes. Diagnostic Imaging Diagonstic Imaging: Xray Plain Films/CT/US/NM/MRI: chest Comments Chest x-ray viewed by me and report reviewed. See report below: NAME: DARYA HAYES [facility] REC#: [id number] PT STATUS: REG ER : 1940 PHYSICIAN: MAURILIO ARCHIBALD MD ADMIT DATE: 06/29/16/ER Draft Date of Exam:06/29/16 CHEST 1 VIEW, AP/PA ONLY EXAMINATION: Chest radiograph, portable AP view. DATE: June 29, 2016, at 1840 hours. INDICATION: A 76-year-old female, palpitations for three days. COMPARISON: February 21, 2016. FINDINGS: Stable overall appearance of the cardiomediastinal silhouette. There is no identified pneumothorax. There is no large pleural effusion. There is no identified focal airspace consolidation. IMPRESSION: No identified acute cardiopulmonary abnormality. Dictated on workstation # [id number] Dict: 06/29/161849 Trans: 06/29/161851 [id number] [id number] Interpreted by: GALI BRISCOE MD Departure Communication Time/Spoke to Admitting Phy: 19:25 Communication Case reviewed with Dr. Lopez who is agreeable to admission and cardiology consultation. Time/Spoke to Consulting Physi: 19:20 Communication/Consulting Case reviewed with Dr. Sneed who would like Dr. King consulted for cardiology. Dr. Sneed will take calls until morning. He agrees with the Cardize drip and requests that the patient be NPO after a clear liquid breakfast in preparation for possible electrocardioversion. Impression Impression: Primary Impression: Paroxysmal a-fib Additional Impressions: Atrial fibrillation with rapid ventricular response Postoperative pain, acute, knee Qualified Codes: M25.562 - Pain in left knee Disposition: ADMITTED INPATIENT Condition: Improved Decision to Admit Reason: Admit from ER (General) Decision to Admit/Date: Jun 29, 2016 Time/Decision to Admit Time: 19:00 Departure-Patient Inst. Referrals: ZAHRAA LOPEZ DO (PCP/Family) Primary Care Physician MAURILIO ARCHIBALD MD Jun 29, 2016 19:14
[2016-06-29] MEDS ORDERED: HYDROcodone/APAP 5 MG/325 MG (LORTAB) TAB PO PRN (20:30)
[2016-06-29] MEDS ORDERED: ACETAMINOPHEN 500 MG TAB (TYLENOL) PO PRN (20:30)
[2016-06-29] MEDS: ALPRAZolam 0.25 MG (XANAX) TAB PO SCH (21:08)
[2016-06-29] MEDS: APIXABAN 5 MG (ELIQUIS) TABLET PO SCH (21:09)
[2016-06-30] VITALS (23 sets, daily range): BP systolic 92–126; BP diastolic 51–90
[2016-06-30] MEDS: DILTIAZEM DRIP 100 MG/NS 100 ML IV SCH ×4 (00:25→17:03)
[2016-06-30 04:49] LABS: BASOPHILS % (AUTO) 0 % (0-10); EOSINOPHILS # (AUTO) 0.1 10^3/uL (0.0-0.3); EOSINOPHILS % (AUTO) 2 % (0-10); LYMPHOCYTES # (AUTO) 2.9 X 10^3 (1.0-4.0); LYMPHOCYTES % (AUTO) 49 % (12-44); MEAN CORPUSCULAR HEMOGLOBIN 31 PG (25-34); MEAN CORPUSCULAR HGB CONC 33 G/DL (32-36); MEAN CORPUSCULAR VOLUME 96 FL (80-99); MEAN PLATELET VOLUME 9.9 FL (7.4-10.4); MONOCYTES # (AUTO) 0.5 X 10^3 (0.0-1.0); MONOCYTES % (AUTO) 9 % (0-12); NEUTROPHILS # (AUTO) 2.4 X 10^3 (1.8-7.8); NEUTROPHILS % (AUTO) 40 % (42-75); PLATELET COUNT 227 10^3/uL (130-400); RED BLOOD COUNT 3.76 10^6/uL (4.35-5.85); RED CELL DISTRIBUTION WIDTH 15.2 % (10.0-14.5)
[2016-06-30 05:13] LABS: ANION GAP 8 MMOL/L (5-14); BLOOD UREA NITROGEN 14 MG/DL (7-18); BUN/CREATININE RATIO 20; CALCIUM 10.1 MG/DL (8.5-10.1); CARBON DIOXIDE 23 MMOL/L (21-32); CHLORIDE 111 MMOL/L (98-107); CREATININE SERUM 0.71 MG/DL (0.60-1.30); GFR ESTIMATED > 60; GLUCOSE 95 MG/DL (70-105); MAGNESIUM 2.1 MG/DL (1.8-2.4); PHOSPHORUS 2.5 MG/DL (2.3-4.7); POTASSIUM 3.9 MMOL/L (3.6-5.0); SODIUM 142 MMOL/L (135-145)
[2016-06-30] MEDS: POTASSIUM CL 10MEQ/50ML IVPB 50 ML IV SCH (06:54)
[2016-06-30] MEDS: MAGNESIUM 1 GM/100 ML IVPB 100 ML IV SCH (06:55)
[2016-06-30] MEDS: KCL 20 MEQ TAB (K-DUR) PO SCH (06:55)
--- NOTE | 2016-06-30 08:13 | History & Physicial ---
History of Present Illness History of Present Illness Reason for visit/HPI patient has been in and out of A. fib since last Tuesday. Patient seen measurer on Tuesday and increased Cardizem 240 to360 mg. Patient hasn't implant the assembler latches and springs. Last Tuesday patient had knee surgery arthroscopic patient came out to the emergency room. Patient in A. fib with RVR. Patient admitted. Previous surgeries gallbladder. Patient short of the air with A. fib with RVR Date of Admission Jun 29, 2016 at 19:31 I consulted on this patient on 06/30/16 08:08 Attending Physician Paolo Lopez DO Admitting Physician Paolo Lopez DO Consult Allergies and Home Medications Allergies Coded Allergies: No Known Drug Allergies (Verified , 07/06/09) Home Medications Alprazolam 0.25 Mg Tablet, 0.25 MG PO HS PRN for ANXIETY, (Reported) Apixaban 5 Mg Tablet, 5 MG PO BID, (Reported) Diltiazem HCl 240 Mg Cap.er.24h, 240 MG PO DAILY, (Reported) Furosemide 40 Mg Tablet, 40 MG PO DAILY PRN for SWELLING, (Reported) Potassium Chloride 10 Meq Capsule.er, 10 MEQ PO PRN WITH FUROSEMIDE, (Reported) Past Spzfpms-Twbmjg-Qgpkmn Hx Patient Social History Marrital Status: Employed/Student: employed Alcohol Use: Denies Use Recreational Drug Use: No Smoking Status: Never a Smoker Physical Abuse Screen: No Sexual Abuse: No Recent Foreign Travel: No Contact w/other who traveled: No Recent Hopitalizations: No Recent Infectious Disease Expo: No Immunizations Up To Date Date of Pneumonia Vaccine: Jan 06, 2016 Date of Influenza Vaccine: Dec 17, 2015 Seasonal Allergies Seasonal Allergies: No Surgeries HX Surgeries: Yes (right rotator cuff tear repair 04/11/09, left rotator cuff repair 5 yrs ago, left knee arthroscopically, implanted assembler latches and springs) Surgeries: Appendectomy, Gallbladder, Orthopedic Respiratory Hx Respiratory Disorders: No Cardiovascular Hx Cardiovascular Disorders: Yes (mitral valve) Cardiac Disorders: Atrial Fibrillation (paroxysmal), Hypertension, Valvular Heart Disease Neurological Hx Neurological Disorders: No Reproductive System Hx Reproductive Disorders: No Sexually Transmitted Disease: No HIV/AIDS: No Genitourinary Hx Genitourinary Disorders: No Gastrointestinal Hx Gastrointestinal Disorders: No Musculoskeletal Hx Musculoskeletal Disorders: Yes Musculoskeletal Disorders: Arthritis Endocrine Hx Endocrine Disorders: No HEENT HX ENT Disorders: No Cancer Hx Cancer: No Psychosocial Hx Psychiatric Problems: No Integumentary HX Skin/Integumentary Disorder: No Blood Transfusions Hx Blood Disorders: No Adverse Reaction to a Blood Tr: No Family Medical History Family Hx: Diabetes mellitus 19 MOTHER G8 BROTHER G8 SISTER FH: heart disease G8 BROTHER Parkinson's disease G8 BROTHER Constitutional: weakness EENTM: no symptoms reported Respiratory: short of breath Cardiovascular: other (A. fib with RVR) Gastrointestinal: no symptoms reported, vomiting Genitourinary: no symptoms reported Physical Exam Vital Signs Vital Sign - Last 12Hours 06/29/16 06/29/16 18:19 20:15 Temp 98.8 Pulse 156 Resp 21 B/P (MAP) 131/96 Pulse Ox 98 O2 Delivery Room Air Capillary Refill : Less Than 3 Seconds General Appearance: No Apparent Distress, WD/WN Eyes: Bilateral Eye Normal Inspection HEENT: Normal ENT Inspection Neck: Full Range of Motion, Normal Inspection Respiratory: Chest Non Tender, Lungs Clear, Normal Breath Sounds, No Accessory Muscle Use, No Respiratory Distress Cardiovascular: Irregularly Irregular Gastrointestinal: Non Tender, Soft Assessment/Plan Assessment and Plan A. fib with RVR. Short of the air. Recent knee surgery arthroscopic last Tuesday Problems: Clinical Quality Measures DVT/VTE Risk/Contraindication: Risk Factor Score Per Nursin RFS Level Per Nursing on Admit: 2=Moderate PAOLO LOPEZ DO Jun 30, 2016 08:13
[2016-06-30 08:24] LABS: OCCULT BLOOD NEGATIVE QC NEGATIVE (NEGATIVE); OCCULT BLOOD POSITIVE QC POSITIVE (POSITIVE); OCCULT BLOOD,GASTRIC FLUID POSITIVE (NEGATIVE)
[2016-06-30] MEDS ORDERED: DILT180C54 PO ×2 (08:30)
[2016-06-30] MEDS ORDERED: ACET-2267 PO ×2 (08:30)
[2016-06-30] MEDS ORDERED: POTA10TA10 PO ×2 (08:30)
[2016-06-30] MEDS: APIXABAN 5 MG (ELIQUIS) TABLET PO SCH ×2 (08:54→21:22)
--- NOTE | 2016-06-30 09:04 | Diagnostic Imaging Report ---
EXAMINATION: Portable upright radiograph of the chest. INDICATION: Dyspnea. COMPARISON: 06/29/2016. FINDINGS: The lungs appear clear. There is a track man again seen. The heart size is normal. No effusion or pneumothorax. The mediastinum and trevor appear unremarkable. IMPRESSION: No acute process. Dictated by: Dictated on workstation # [id number]
--- NOTE | 2016-06-30 13:42 | Consultation-Cardiology ---
HPI-Cardiology Cardiology Consultation: Date of Consultation 06/30/16 Date of Admission Attending Physician Paolo Weeks DO Admitting Physician Paolo Weeks DO Consulting Physician Sailaja KING MD HPI: Chief Complaint: Atrial fibrillation with rapid ventricular rate this is a pleasant 75-year-old lady who has history of atrial fibrillation. She was admitted to the hospital on February 18 last year for atrial fibrillation with rapid ventricular rate. According to the patient she was having pounding heart beating, shortness of breath for at least 5 weeks before her admission. She also told me that she was feeling more weak for at least 3 months before the admission. She was started on Eliquis, digoxin and diltiazem. She has been better since the cardioversion with improved functional capacity and less symptoms. However she occasionally feels brief episodes of palpitations. She denies having diabetes or smoking. She has history of hypertension. Her mother had an TN over the age of 65 and also had a permanent pacemaker placement. She has history of DVT. she had a implantable loop recorder recently. Recently she had an episode of significant palpitations with weakness. Device interrogation shows atrial fibrillation with rapid ventricular rate. She is still in atrial fibrillation. I saw her in the office on Tuesday and increase her dose of Cardizem from 240 mg per day to 360 mg a day. However she came to the ER yesterday because of palpitations which were significantly worse. Therefore she was admitted. Review of Systems-Cardiology Review of Systems Constitutional: No As described under HPI, No no symptoms reported, No chills, No fever, No lightheadedness, No malaise, No tiredness, No weight loss, No weight gain, No other Eyes: No As described under HPI, No no symptoms reported, No blindness, No blurred vision, No contact lenses, No drainage, No decreased acuity, No foreign body sensation, No glasses, No inflammation, No pain, No photophobia, No previous injury, No shadows, No tunnel vision, No other, No vision change Ears/Nose/Throat: No As described under HPI, No no symptoms reported, No chronic hearing loss, No epistaxis, No ear discharge, No ear pain, No loose teeth, No mouth pain, No mouth swelling, No nasal drainage, No nose pain, No recent hearing loss, No throat pain, No throat swelling, No ulcerations, No other Respiratory: No no symptoms reported, No As described under HPI, No cough, No orthopnea, No shortness of breath, No SOB with excertion, No SOB at rest, No stridor, No wheezing, No other Cardiovascular: irregular heart rate, palpitations Gastrointestinal: No no symptoms reported, No As described under HPI, No abdomen distended, No abdominal pain, No blood streaked bowels, No constipation , No diarrhea, No difficulty swallowing, No nausea, No poor appetite, No poor fluid intake, No rectal bleeding, No vomiting, No other, No nausea/vomiting/ diarrhea, No stool coloration changes Genitourinary: No no symptoms reported, No As described under HPI, No burning, No dysuria, No discharge, No frequency, No flank pain, No hematuria, No incontinence, No pain, No urgency, No other, No urine frequency changes, No urine coloration changes Musculoskeletal: No no symptoms reported, No As describe under HPI, No back pain, No gout, joint pain, No joint swelling, No muscle pain, No muscle stiffness, No neck pain, No other Skin: No no symptoms reported, No As described under HPI, No change in color, No change in hair/nails, No dryness, No lesions, No lumps, No rash, No other, No skin related problems, No ulcerations, No rash on exposed areas, No ulcerations on exposed areas Psychiatric/Neurological: No As described under HPI, No anxiety, No depression , No emotional problems, No focal weakness, No headache, No no symptoms reported , No numbness, No other, No pre-existing deficit, No seizure, No syncope, No tingling, No tremors, No weakness [id number] Hx Patient Social History Marrital Status: Employed/Student: employed Alcohol Use: Denies Use Recreational Drug Use: No Smoking Status: Never a Smoker Recent Foreign Travel: No Recent Infectious Disease Expo: No Hospitalization with Isolation: Denies Physical Abuse Screen: No Sexual Abuse: No Immunizations Up To Date Date of Pneumonia Vaccine: Jan 06, 2016 Date of Influenza Vaccine: Dec 17, 2015 Past Medical History PMH As described under Assessment. Family Medical History Family History: Diabetes mellitus 19 MOTHER G8 BROTHER G8 SISTER FH: heart disease G8 BROTHER Parkinson's disease G8 BROTHER Allergies and Home Medications Allergies Coded Allergies: No Known Drug Allergies (Verified , 07/06/09) Home Medications Acetaminophen 500 Mg Tablet, 500 MG PO Q4H PRN for PAIN-MILD, (Reported) Alprazolam 0.25 Mg Tablet, 0.25 MG PO HS, (Reported) Apixaban 5 Mg Tablet, 5 MG PO 1000,2200, (Reported) Diltiazem HCl 180 Mg Cap.er.24h, 180 MG PO BID, (Reported) Furosemide 40 Mg Tablet, 40 MG PO DAILY PRN for SWELLING, (Reported) Potassium Chloride 10 Meq Tablet.er, 10 MEQ PO DAILY PRN for WHEN TAKING FUROSEMIDE, (Reported) Physical Exam-Cardiology Physical Exam Vital Signs/I&O Vital Sign - Last 12Hours 06/30/16 06/30/16 06/30/16 06/30/16 02:00 03:00 04:00 05:00 Pulse 75 65 63 73 Resp 14 13 13 14 B/P (MAP) 105/71 97/55 105/59 100/68 Pulse Ox 96 96 95 98 O2 Delivery Room Air Room Air Room Air Room Air 06/30/16 06/30/16 06/30/16 06/30/16 06:00 07:00 08:00 08:00 Temp 97.0 97.7 Pulse 73 79 80 Resp 11 16 B/P (MAP) 114/74 106/59 Pulse Ox 98 97 97 O2 Delivery Room Air Room Air 06/30/16 11:18 Temp 98.6 Intake and Output 06/30/16 00:00 Intake Total 100 ml Balance 100 ml Capillary Refill : Less Than 3 Seconds Constitutional: AAO x 3, well-developed, well-nourished HEENT: PERRL, normal ENT inspection, EOMI Neck: No non-tender, No full range of motion, No supple, No normal inspection, No carotid bruit, No limited range of motion, No lymphadenopathy (R), No lymphadenopathy (L), No tender lateral, No tender midline, No thyromegaly, No other, No carotid pulses are 2 + bilaterally, No with good upstrokes Respiratory: chest expansion is symmetric, chest is bilaterally symmetric, lungs clear to percussion, lungs clear to auscultation Cardiovascular: irregularly irregular, S1 and S2, other (no murmur) Gastrointestinal: No tender, No soft, No round, No distended, No pulsatile mass , No organomegaly, No guarding, No rebound, No tenderness, No hernia, No mass, No audible bowel sounds, No abnormal bowel sounds, No abdominal bruits, No spleenomegaly, No other Rectal: deferred Extremities: No normal range of motion, No non-tender, No normal inspection, No pedal edema, No calf tenderness, No normal capillary refill, No pelvis stable , No calf tenderness, No inflammation, No pedal edema, No slow capillary refill , No swelling, No other, No abrasion, No clubbing, No cyanosis, No ecchymosis, No laceration, No no lower extremity edema bilateral, No significant edema, No tenderness, No wound Neurologic/Psychiatric: No light armored reconnaissance officer II-XII nml as tested, No no motor/sensory deficits, No alert, No normal mood/affect, No oriented x 3, No abnormal cerebellar tests, No abnormal light armored reconnaissance officer II-XII, No abnormal gait, No aphasia, No EOM palsy, No facial droop, No motor weakness, No sensory deficit, No depressed affect, No disoriented x 3, No other, No grossly intact, No power is 5/5 both on sides Skin: No normal color, No warm/dry, No cyanosis, No cool, No diaphoresis, No damp, No ecchymosis, No jaundice, No mottled, No pallor, No rash, No tattoos/ piercings, No ulcerations, No rash on exposed areas, No ulcerations on exposed areas, No other Data Review Labs Laboratory Tests 06/29/16 18:25: White Blood Count 9.4, Red Blood Count 4.30L, Hemoglobin 13.4, Hematocrit 41, Mean Corpuscular Volume 95, Mean Corpuscular Hemoglobin 31, Mean Corpuscular Hemoglobin Concent 33, Red Cell Distribution Width 15.0H, Platelet Count 286, Mean Platelet Volume 9.9, Neutrophils (%) (Auto) 49, Lymphocytes (%) (Auto) 40, Monocytes (%) (Auto) 10, Eosinophils (%) (Auto) 1, Basophils (%) (Auto) 0, Neutrophils # (Auto) 4.6, Lymphocytes # (Auto) 3.7, Monocytes # (Auto) 0.9, Eosinophils # (Auto) 0.1, Basophils # (Auto) 0.0, Sodium Level 140, Potassium Level 4.0, Chloride Level 106, Carbon Dioxide Level 23, Anion Gap 11, Blood Urea Nitrogen 15, Creatinine 0.79, Estimat Glomerular Filtration Rate > 60, BUN/ Creatinine Ratio 19, Glucose Level 114H, Calcium Level 10.8H, Total Bilirubin 0.3, Aspartate Amino Transf (AST/SGOT) 32, Alanine Aminotransferase (ALT/SGPT) 41, Alkaline Phosphatase 78, Troponin I < 0.30, Total Protein 6.9, Albumin 3.9, TSH [place] Testing 0.97 06/29/16 18:28: Magnesium Level 2.2 06/30/16 04:38: White Blood Count 6.0, Red Blood Count 3.76L, Hemoglobin 11.8, Hematocrit 36, Mean Corpuscular Volume 96, Mean Corpuscular Hemoglobin 31, Mean Corpuscular Hemoglobin Concent 33, Red Cell Distribution Width 15.2H, Platelet Count 227, Mean Platelet Volume 9.9, Neutrophils (%) (Auto) 40L, Lymphocytes (%) (Auto) 49H , Monocytes (%) (Auto) 9, Eosinophils (%) (Auto) 2, Basophils (%) (Auto) 0, Neutrophils # (Auto) 2.4, Lymphocytes # (Auto) 2.9, Monocytes # (Auto) 0.5, Eosinophils # (Auto) 0.1, Basophils # (Auto) 0.0, Sodium Level 142, Potassium Level 3.9, Chloride Level 111H, Carbon Dioxide Level 23, Anion Gap 8, Blood Urea Nitrogen 14, Creatinine 0.71, Estimat Glomerular Filtration Rate > 60, BUN/ Creatinine Ratio 20, Glucose Level 95, Calcium Level 10.1, Magnesium Level 2.1, Phosphorus Level 2.5 06/30/16 08:05: Gastric Fluid Occult Blood POSITIVE ECG Impression ECG Initial ECG Impression: Atrial Fibrillation w/RVR A/P-Cardiology Assessment/Admission Diagnosis Atrial fibrillation with rapid ventricular rate Plan She was admitted on February 19, 2016 for atrial fibrillation with rapid ventricular rate. She was started on Eliquis, diltiazem and digoxin with improvement in symptoms. It is likely that her atrial fibrillation initiated around nov 2015 when she started to feel weak. few weeks ago she started to have significant palpitations which led to her admission. She has high blood pressure. Her CHADSVASC score is 4 for age, gender, hypertension. Therefore she does have elevated risk for stroke. Her echocardiogram shows normal ejection fraction with no severe valvular heart disease and left atrial size of 4.9 cm. she does have moderate tricuspid regurgitation. PA pressure was 35 mmHg. Nuclear stress test was performed previously, which did not show any perfusion abnormalities. Holter monitor showed few PVCs and numerous episodes of atrial fibrillation with rapid ventricular rate. Since last weekend she has had atrial fibrillation with rapid ventricular rate. She also complained of fatigue as well. Device interrogation also revealed atrial fibrillation with rapid ventricular rate. Currently her heart rate is well controlled on Cardizem infusion. She is on a small dose of Cardizem infusion 2.5 mg per hour. We will therefore give her her outpatient dose of Cardizem 360 mg and discontinue Cardizem infusion in 4 hours. She will also continue Eliquis. This episode of atrial fibrillation is likely a combination from her knee surgery on Tuesday and post op pain. Transesophageal echocardiogram and electrical cardioversion will be done tomorrow. Informed consent was taken. All the risks and complication were explained in detail. Including the risk of stroke. Thank you for your consultation. Please call me if you have any questions. Amita King MD, FACP, FACC, FSCAI, FHRS, CCDS Interventional Cardiology Cardiac Electrophysiology Vascular Medicine and Endovascular Interventions Clinical Quality Measures DVT/VTE Risk/Contraindication: Risk Factor Score Per Nursin RFS Level Per Nursing on Admit: 2=Moderate Contraindications-Pharm: Other *list below* Sailaja KING MD Jun 30, 2016 1:42 pm
[2016-06-30] MEDS: DILTIAZEM 180 MG (CARDIZEM CD) CAP PO SCH ×2 (15:02→21:22)
[2016-06-30] MEDS: ALPRAZolam 0.25 MG (XANAX) TAB PO SCH (21:22)
[2016-07-01] VITALS (24 sets, daily range): BP systolic 78–142; BP diastolic 46–86
[2016-07-01 03:35] LABS: BASOPHILS % (AUTO) 0 % (0-10); EOSINOPHILS # (AUTO) 0.2 10^3/uL (0.0-0.3); EOSINOPHILS % (AUTO) 2 % (0-10); LYMPHOCYTES # (AUTO) 2.9 X 10^3 (1.0-4.0); LYMPHOCYTES % (AUTO) 42 % (12-44); MEAN CORPUSCULAR HEMOGLOBIN 31 PG (25-34); MEAN CORPUSCULAR HGB CONC 33 G/DL (32-36); MEAN CORPUSCULAR VOLUME 96 FL (80-99); MEAN PLATELET VOLUME 10.1 FL (7.4-10.4); MONOCYTES # (AUTO) 0.6 X 10^3 (0.0-1.0); MONOCYTES % (AUTO) 9 % (0-12); NEUTROPHILS # (AUTO) 3.1 X 10^3 (1.8-7.8); NEUTROPHILS % (AUTO) 46 % (42-75); PLATELET COUNT 247 10^3/uL (130-400); RED BLOOD COUNT 3.89 10^6/uL (4.35-5.85); RED CELL DISTRIBUTION WIDTH 15.1 % (10.0-14.5); WHITE BLOOD COUNT 6.9 10^3/uL (4.3-11.0)
[2016-07-01 04:02] LABS: ANION GAP 6 MMOL/L (5-14); BLOOD UREA NITROGEN 15 MG/DL (7-18); BUN/CREATININE RATIO 19; CALCIUM 10.3 MG/DL (8.5-10.1); CARBON DIOXIDE 27 MMOL/L (21-32); CHLORIDE 110 MMOL/L (98-107); CREATININE SERUM 0.81 MG/DL (0.60-1.30); GFR ESTIMATED > 60; GLUCOSE 98 MG/DL (70-105); MAGNESIUM 2.1 MG/DL (1.8-2.4); PHOSPHORUS 2.6 MG/DL (2.3-4.7); POTASSIUM 4.4 MMOL/L (3.6-5.0); SODIUM 143 MMOL/L (135-145)
[2016-07-01] MEDS: KCL 20 MEQ TAB (K-DUR) PO SCH (04:42)
[2016-07-01] MEDS: MAGNESIUM 1 GM/100 ML IVPB 100 ML IV SCH (04:42)
[2016-07-01] MEDS: POTASSIUM CL 10MEQ/50ML IVPB 50 ML IV SCH (04:42)
--- NOTE | 2016-07-01 07:42 | Progress Note (SOAP) ---
Subjective Subjective/Events-last exam A. fib with RVR. Hypotension today. Gastric outlet blood positive. Put on Protonix. Patient feeling good today. Patient positive. Patient recently been having heartburn at home Objective Exam Vital Signs Date Time Temp Pulse Resp B/P (MAP) Pulse Ox O2 Delivery O2 Flow Rate FiO2 07/01/16 06:00 70 13 78/49 96 Room Air 07/01/16 05:00 81 23 101/69 97 Room Air 07/01/16 04:00 69 16 97/66 94 Room Air 07/01/16 03:00 75 15 92/46 97 Room Air 07/01/16 02:00 83 14 83/56 95 Room Air 07/01/16 01:00 93 12 105/74 95 Room Air 07/01/16 01:00 93 07/01/16 00:00 97.7 93 18 103/66 94 Room Air 06/30/16 23:00 80 18 112/90 95 Room Air 06/30/16 22:00 92 18 121/70 97 Room Air 06/30/16 21:00 90 20 117/74 97 Room Air 06/30/16 20:00 105 20 103/70 92 Room Air 06/30/16 19:00 105 20 103/70 92 Room Air 06/30/16 19:00 105 06/30/16 18:00 92 19 108/61 96 Room Air 06/30/16 17:00 106 14 96/51 96 Room Air 06/30/16 16:00 90 20 106/73 92 Room Air 06/30/16 16:00 98.3 Room Air 06/30/16 15:00 96 19 104/73 96 Room Air 06/30/16 14:00 93 16 113/86 96 Room Air 06/30/16 13:00 80 14 126/85 96 Room Air 06/30/16 13:00 83 06/30/16 11:18 98.6 06/30/16 11:00 80 23 117/83 96 Room Air 06/30/16 10:00 76 23 116/75 92 Room Air 06/30/16 09:00 73 16 116/72 95 Room Air 06/30/16 08:00 97 06/30/16 08:00 97.7 80 16 106/59 97 Room Air I & O 07/01/16 07:00 Intake Total 1250 ml Output Total 2530 ml Balance -1280 ml Capillary Refill : Less Than 3 Seconds General Appearance: No Apparent Distress, WD/WN HEENT: Normal ENT Inspection Neck: Normal Inspection Respiratory: Chest Non Tender, Lungs Clear, Normal Breath Sounds, No Accessory Muscle Use, No Respiratory Distress Cardiovascular: Irregularly Irregular, Other (rate under control) Gastrointestinal: non tender, soft Results Lab Laboratory Tests 06/30/16 08:05: Gastric Fluid Occult Blood POSITIVE 07/01/16 03:14: White Blood Count 6.9, Red Blood Count 3.89L, Hemoglobin 12.2, Hematocrit 38, Mean Corpuscular Volume 96, Mean Corpuscular Hemoglobin 31, Mean Corpuscular Hemoglobin Concent 33, Red Cell Distribution Width 15.1H, Platelet Count 247, Mean Platelet Volume 10.1, Neutrophils (%) (Auto) 46, Lymphocytes (%) (Auto) 42 , Monocytes (%) (Auto) 9, Eosinophils (%) (Auto) 2, Basophils (%) (Auto) 0, Neutrophils # (Auto) 3.1, Lymphocytes # (Auto) 2.9, Monocytes # (Auto) 0.6, Eosinophils # (Auto) 0.2, Basophils # (Auto) 0.0, Sodium Level 143, Potassium Level 4.4, Chloride Level 110H, Carbon Dioxide Level 27, Anion Gap 6, Blood Urea Nitrogen 15, Creatinine 0.81, Estimat Glomerular Filtration Rate > 60, BUN/ Creatinine Ratio 19, Glucose Level 98, Calcium Level 10.3H, Phosphorus Level 2.6 , Magnesium Level 2.1 Assessment/Plan Assessment/Plan Assess & Plan/Chief Complaint A. fib with RVR. Gastric outlet positive for blood. Hypotension Clinical Quality Measures DVT/VTE Risk/Contraindication: Risk Factor Score Per Nursin RFS Level Per Nursing on Admit: 2=Moderate Contraindications-Pharm: Other *list below* ZAHRAA OLPEZ DO Jul 01, 2016 07:42
[2016-07-01] MEDS ORDERED: PANTOPRAZOLE 40 MG (PROTONIX) TAB PO NR (08:00)
[2016-07-01] MEDS: APIXABAN 5 MG (ELIQUIS) TABLET PO SCH ×2 (08:09→21:36)
[2016-07-01] MEDS: DILTIAZEM 180 MG (CARDIZEM CD) CAP PO SCH ×2 (08:09→21:36)
--- NOTE | 2016-07-01 08:21 | Diagnostic Imaging Report ---
Portable upright radiograph of the chest. INDICATION: Dyspnea. FINDINGS: The lungs are clear. The heart size is normal. No effusion or pneumothorax The mediastinum and trevor appear unremarkable. There is a panel monitor seen. IMPRESSION: Unremarkable exam. Dictated by: Dictated on workstation # [id number]
[2016-07-01] MEDS ORDERED: NS IV 500 ML 500 ML ONE (10:14)
[2016-07-01] MEDS ORDERED: MIDAZOLAM 2 MG/2 ML (VERSED) VIAL ONE (10:21)
[2016-07-01] MEDS ORDERED: LIDOCAINE 2% VISCOUS 15 ML UDC ONE (10:21)
[2016-07-01] MEDS ORDERED: proPOfol 200 MG/20 ML (DIPRIVAN) VIAL IV ONE (10:22)
--- NOTE | 2016-07-01 12:38 | Cardiology Progress Note ---
Cardiology SOAP Progress Note Subjective: Improved cardiac-dudley after better rate control. Objective: I&O/Vital Signs Vital Sign - Last 12Hours 07/01/16 07/01/16 07/01/16 07/01/16 01:00 01:00 02:00 03:00 Pulse 93 93 83 75 Resp 12 14 15 B/P (MAP) 105/74 83/56 92/46 Pulse Ox 95 95 97 O2 Delivery Room Air Room Air Room Air 07/01/16 07/01/16 07/01/16 07/01/16 04:00 05:00 06:00 07:01 Pulse 69 81 70 73 Resp 16 23 13 B/P (MAP) 97/66 101/69 78/49 Pulse Ox 94 97 96 O2 Delivery Room Air Room Air Room Air 07/01/16 07/01/16 08:10 11:33 Temp 97.4 Pulse 81 Resp 16 B/P (MAP) 110/71 Pulse Ox 96 94 O2 Delivery Room Air Nasal Cannula O2 Flow Rate 2.00 Intake and Output 07/01/16 00:00 Intake Total 1250 ml Output Total 1300 ml Balance -50 ml Weight (Pounds): 199 Weight (Ounces): 1.0 Weight (Calculated Kilograms): [id number] Constitutional: AAO x 3, well-developed, well-nourished Respiratory: chest expansion is symmetric, chest is bilaterally symmetric, lungs clear to percussion, lungs clear to auscultation Cardiovascular: irregularly irregular, S1 and S2, other (no murmur) Gastrointestional: No tender, No soft, No round, No distended, No pulsatile mass, No organomegaly, No guarding, No rebound, No tenderness, No hernia, No mass, No audible bowel sounds, No abnormal bowel sounds, No abdominal bruits, No spleenomegaly, No other Extremities: No normal range of motion, No non-tender, No normal inspection, No pedal edema, No calf tenderness, No normal capillary refill, No pelvis stable , No calf tenderness, No inflammation, No pedal edema, No slow capillary refill , No swelling, No other, No abrasion, No clubbing, No cyanosis, No ecchymosis, No laceration, No no lower extremity edema bilateral, No significant edema, No tenderness, No wound Neurologic/Psychiatric: No tobacco cutter II-XII nml as tested, No no motor/sensory deficits, No alert, No normal mood/affect, No oriented x 3, No abnormal cerebellar tests, No abnormal tobacco cutter II-XII, No abnormal gait, No aphasia, No EOM palsy, No facial droop, No motor weakness, No sensory deficit, No depressed affect, No disoriented x 3, No other, No grossly intact, No power is 5/5 both on sides Skin: No normal color, No warm/dry, No cyanosis, No cool, No diaphoresis, No damp, No ecchymosis, No jaundice, No mottled, No pallor, No rash, No tattoos/ piercings, No ulcerations, No rash on exposed areas, No ulcerations on exposed areas, No other Results/Procedures: Labs Laboratory Tests 07/01/16 03:14: White Blood Count 6.9, Red Blood Count 3.89L, Hemoglobin 12.2, Hematocrit 38, Mean Corpuscular Volume 96, Mean Corpuscular Hemoglobin 31, Mean Corpuscular Hemoglobin Concent 33, Red Cell Distribution Width 15.1H, Platelet Count 247, Mean Platelet Volume 10.1, Neutrophils (%) (Auto) 46, Lymphocytes (%) (Auto) 42 , Monocytes (%) (Auto) 9, Eosinophils (%) (Auto) 2, Basophils (%) (Auto) 0, Neutrophils # (Auto) 3.1, Lymphocytes # (Auto) 2.9, Monocytes # (Auto) 0.6, Eosinophils # (Auto) 0.2, Basophils # (Auto) 0.0, Sodium Level 143, Potassium Level 4.4, Chloride Level 110H, Carbon Dioxide Level 27, Anion Gap 6, Blood Urea Nitrogen 15, Creatinine 0.81, Estimat Glomerular Filtration Rate > 60, BUN/ Creatinine Ratio 19, Glucose Level 98, Calcium Level 10.3H, Phosphorus Level 2.6 , Magnesium Level 2.1 A/P: Assessment/Dx: Atrial fibrillation with rapid ventricular rate Plan: She was admitted on February 19, 2016 for atrial fibrillation with rapid ventricular rate. She was started on Eliquis, diltiazem and digoxin with improvement in symptoms. It is likely that her atrial fibrillation initiated around nov 2015 when she started to feel weak. few weeks ago she started to have significant palpitations which led to her admission. She has high blood pressure. Her CHADSVASC score is 4 for age, gender, hypertension. Therefore she does have elevated risk for stroke. Her echocardiogram shows normal ejection fraction with no severe valvular heart disease and left atrial size of 4.9 cm. she does have moderate tricuspid regurgitation. PA pressure was 35 mmHg. Nuclear stress test was performed previously, which did not show any perfusion abnormalities. Holter monitor showed few PVCs and numerous episodes of atrial fibrillation with rapid ventricular rate. Atrial fibrillation with rapid ventricular rate. On by mouth Cardizem 360 mg daily. Eliquis for stroke prevention. Transesophageal echocardiogram and cardioversion today. Will start sotalol 80 mg twice a day. She will need to stay inpatient till Tuesday. Thank you for your consultation. Please call me if you have any questions. Amita Bhardwaj MD, FACP, FACC, FSCAI, FHRS, CCDS Interventional Cardiology Cardiac Electrophysiology Vascular Medicine and Endovascular Interventions Sailaja BHARDWAJ MD Jul 01, 2016 12:38 pm
--- NOTE | 2016-07-01 13:00 | Progress Note-Standard ---
Standard Progress Note Progress Notes/Assess & Plan Progress/Assessment & Plan Consulted for sedation during NESTOR/Cardioversion. History obtained from chart and patient. Supplies gathered, pt on monitors and O2. Versed 2mg IV, a total of 150mg of propofol IV given over the time of procedure. Pt tolerated well, VSS. Report to RN care assumed. KAYLA SAUCEDO CRNA Jul 01, 2016 13:00
[2016-07-01] MEDS ORDERED: SOTALOL 80 MG (BETAPACE) TAB PO ONE (14:00)
[2016-07-01] MEDS: ALPRAZolam 0.25 MG (XANAX) TAB PO SCH (21:36)
[2016-07-01] MEDS: SOTALOL 80 MG (BETAPACE) TAB PO SCH (21:36)
[2016-07-01] MEDS: ACETAMINOPHEN 500 MG TAB (TYLENOL) PO PRN (21:57)
[2016-07-02] VITALS (25 sets, daily range): BP systolic 80–132; BP diastolic 50–98
[2016-07-02 04:18] LABS: BASOPHILS % (AUTO) 0 % (0-10); EOSINOPHILS # (AUTO) 0.1 10^3/uL (0.0-0.3); EOSINOPHILS % (AUTO) 1 % (0-10); LYMPHOCYTES # (AUTO) 2.6 X 10^3 (1.0-4.0); LYMPHOCYTES % (AUTO) 28 % (12-44); MEAN CORPUSCULAR HEMOGLOBIN 31 PG (25-34); MEAN CORPUSCULAR HGB CONC 32 G/DL (32-36); MEAN CORPUSCULAR VOLUME 96 FL (80-99); MEAN PLATELET VOLUME 10.1 FL (7.4-10.4); MONOCYTES # (AUTO) 0.9 X 10^3 (0.0-1.0); MONOCYTES % (AUTO) 9 % (0-12); NEUTROPHILS # (AUTO) 5.7 X 10^3 (1.8-7.8); NEUTROPHILS % (AUTO) 62 % (42-75); PLATELET COUNT 239 10^3/uL (130-400); RED CELL DISTRIBUTION WIDTH 15.2 % (10.0-14.5); WHITE BLOOD COUNT 9.3 10^3/uL (4.3-11.0)
--- NOTE | 2016-07-02 04:24 | OPERATIVE REPORT ---
DATE OF SERVICE: 07/01/2016 PROCEDURE: Direct electrical cardioversion. INDICATION: Atrial fibrillation with rapid ventricular rate. PREOPERATIVE DIAGNOSIS: Atrial fibrillation with rapid ventricular rate. POSTOPERATIVE DIAGNOSIS: Successful cardioversion to sinus rhythm. HISTORY: The patient is a 76-year-old lady who presented with atrial fibrillation with rapid ventricular rate. Transesophageal echocardiogram showed no evidence of left atrial or left atrial appendage clot. Therefore, direct electrical cardioversion was recommended. The patient is on Eliquis. ANESTHESIA GIVEN BY: Anesthesia service. COMPLICATION: None. SPECIMENS: None. CONTRAST: None. FLUOROSCOPY: None. PROCEDURE DETAILS: The procedure was done in the ICU after an informed consent was taken. All risks and complications were explained in details especially the risk of stroke. Electrical cardioversion was carried out with anesthesia support with propofol immediately after transesophageal echocardiogram, which did not show any intracardiac thrombus. Then 200 joules of synchronized shock were delivered to external batches which promptly restored sinus rhythm. The patient tolerated the procedure well. CONCLUSION: 1. Successful cardioversion. 2. Continue Eliquis. 3. Start sotalol 80 mg twice a day. Job ID: [id number] DocumentID: [id number] Dictated Date: 07/01/2016 12:58:33 Ammunition Supervisor Date: 07/02/2016 03:24:39 Dictated By: JOHNNA BHARDWAJ MD
[2016-07-02 04:42] LABS: ANION GAP 8 MMOL/L (5-14); BLOOD UREA NITROGEN 13 MG/DL (7-18); BUN/CREATININE RATIO 18; CALCIUM 10.4 MG/DL (8.5-10.1); CARBON DIOXIDE 24 MMOL/L (21-32); CHLORIDE 109 MMOL/L (98-107); CREATININE SERUM 0.71 MG/DL (0.60-1.30); GFR ESTIMATED > 60; GLUCOSE 94 MG/DL (70-105); PHOSPHORUS 3.3 MG/DL (2.3-4.7); POTASSIUM 4.2 MMOL/L (3.6-5.0); SODIUM 141 MMOL/L (135-145)
[2016-07-02] MEDS: MAGNESIUM 1 GM/100 ML IVPB 100 ML IV SCH (06:00)
[2016-07-02] MEDS: POTASSIUM CL 10MEQ/50ML IVPB 50 ML IV SCH (06:00)
[2016-07-02] MEDS: KCL 20 MEQ TAB (K-DUR) PO SCH (06:00)
--- NOTE | 2016-07-02 06:22 | TEE REPORT ---
DATE OF SERVICE: 07/01/2016 PROCEDURE: TRANSESOPHAGEAL ECHOCARDIOGRAM ATTENDING PHYSICIAN: Dr. Weeks. DIAGNOSIS: Atrial fibrillation with rapid ventricular rate. PREOPERATIVE DIAGNOSIS: Atrial fibrillation with rapid ventricular rate. POSTOPERATIVE DIAGNOSES: Atrial fibrillation with rapid ventricular rate, no thrombus noted in left atrium or left atrial appendage. Successful cardioversion. HISTORY OF PRESENT ILLNESS: The patient is a 76-year-old lady who presented with atrial fibrillation with rapid ventricular rate. Since she was not on uninterrupted Eliquis for at least a month: Therefore direct electrical cardioversion is planned after transesophageal echocardiogram. PROCEDURE NOTE: After explaining the procedure to the patient, all pros and cons were explained. All questions were answered. The patient signed an informed consent. The oropharynx was anesthetized using Xylocaine spray. Conscious sedation was performed with the help of anesthesia who gave propofol. Transesophageal echocardiogram probe was introduced through the oropharynx into the esophagus. Multiple views were obtained. At the end of the procedure the NESTOR probe was removed. There was no complication noted. FINDINGS: 1. The study was performed in atrial fibrillation. 2. The left ventricle is normal in size with good contractility with preserved ejection fraction. 3. The left atrium is mildly enlarged. There is no clot or thrombus seen within the left atrium. The left atrial appendage also does not have any evidence of thrombus. Measured velocities in the left atrial appendage are 50 cm/second. 4. The right atrium and RV were also normal in size. 5. The mitral valve is normal in morphology. There is mild to moderate mitral regurgitation noted on color Doppler flow. There is no mitral valve prolapse or stenosis noted. 6. The aortic valve is trileaflet with normal morphology. There is trace aortic regurgitation noted. 7. The tricuspid valve is normal in morphology with trace tricuspid regurgitation. 8. There is no pericardial effusion. 9. The interatrial septum was evaluated using color Doppler flow and agitated saline as a contrast media. There is no evidence of intracardiac shunting including ASD or PFO. 10. Portions of the aorta were evaluated and mild aortic plaque was noted. In the area evaluated there was no dissection or aneurysm seen. CONCLUSION: 1. Study performed in atrial fibrillation. 2. Normal LV systolic function with an EF of 60%. 3. No evidence of left atrial or left atrial appendage clot. 4. Moderate mitral regurgitation is noted. 5. Direct electrical cardioversion is recommended. Job ID: [id number] DocumentID: [id number] Dictated Date: 07/01/2016 12:55:48 Undercover Operator Date: 07/01/2016 17:05:59 Dictated By: JOHNNA BHARDWAJ MD
[2016-07-02] MEDS: PANTOPRAZOLE 40 MG (PROTONIX) TAB PO SCH (07:30)
--- NOTE | 2016-07-02 07:44 | Progress Note (SOAP) ---
Subjective Subjective/Events-last exam patient feeling good today. Patient to be discharged tomorrow morning. Patient was cardioverted yesterday. Patient in sinus rhythm now area Patient put on Sotalol Objective Exam Vital Signs Date Time Temp Pulse Resp B/P (MAP) Pulse Ox O2 Delivery O2 Flow Rate FiO2 07/02/16 06:00 63 17 102/61 96 Room Air 07/02/16 05:00 70 17 82/58 92 Room Air 07/02/16 04:00 62 17 95/60 97 Room Air 07/02/16 03:00 61 13 85/52 94 Room Air 07/02/16 02:00 66 14 88/50 93 Room Air 07/02/16 01:00 66 15 80/53 97 Room Air 07/02/16 01:00 66 07/02/16 00:00 70 14 89/50 95 Room Air 07/01/16 23:00 75 18 102/57 97 Room Air 07/01/16 22:00 80 15 121/74 96 Room Air 07/01/16 21:00 87 21 117/61 97 Room Air 07/01/16 20:00 86 24 132/80 98 Room Air 07/01/16 19:00 92 18 127/70 96 Room Air 07/01/16 19:00 92 07/01/16 18:00 95 27 115/86 95 Room Air 07/01/16 17:00 84 12 113/65 97 Room Air 07/01/16 16:00 98.2 79 17 124/68 98 Room Air 07/01/16 15:37 77 07/01/16 15:00 79 17 119/59 94 Room Air 07/01/16 14:00 82 07/01/16 14:00 84 24 127/70 91 Room Air 07/01/16 13:00 91 11 142/82 100 Room Air 07/01/16 12:15 97.8 07/01/16 12:00 66 15 129/72 99 Room Air 07/01/16 11:33 94 Nasal Cannula 2.00 07/01/16 11:11 84 07/01/16 11:00 89 11 114/72 90 Room Air 07/01/16 10:00 83 26 120/71 99 Room Air 07/01/16 09:00 82 9 114/71 98 Room Air 07/01/16 08:10 97.4 81 16 110/71 96 Room Air I & O 07/02/16 07:00 Intake Total 1680 ml Output Total 1975 ml Balance -295 ml Capillary Refill : Less Than 3 Seconds General Appearance: No Apparent Distress HEENT: Normal ENT Inspection Neck: Full Range of Motion, Normal Inspection Respiratory: Chest Non Tender, Lungs Clear, Normal Breath Sounds, No Accessory Muscle Use, No Respiratory Distress Cardiovascular: Regular Rate, Rhythm, No Murmur Gastrointestinal: non tender, soft Results Lab Laboratory Tests 07/02/16 03:35 Laboratory Tests 07/02/16 03:35: White Blood Count 9.3, Red Blood Count 3.70L, Hemoglobin 11.5, Hematocrit 36, Mean Corpuscular Volume 96, Mean Corpuscular Hemoglobin 31, Mean Corpuscular Hemoglobin Concent 32, Red Cell Distribution Width 15.2H, Platelet Count 239, Mean Platelet Volume 10.1, Neutrophils (%) (Auto) 62, Lymphocytes (%) (Auto) 28 , Monocytes (%) (Auto) 9, Eosinophils (%) (Auto) 1, Basophils (%) (Auto) 0, Neutrophils # (Auto) 5.7, Lymphocytes # (Auto) 2.6, Monocytes # (Auto) 0.9, Eosinophils # (Auto) 0.1, Basophils # (Auto) 0.0, Sodium Level 141, Potassium Level 4.2, Chloride Level 109H, Carbon Dioxide Level 24, Anion Gap 8, Blood Urea Nitrogen 13, Creatinine 0.71, Estimat Glomerular Filtration Rate > 60, BUN/ Creatinine Ratio 18, Glucose Level 94, Calcium Level 10.4H, Phosphorus Level 3.3 , Magnesium Level 2.0 Assessment/Plan Assessment/Plan Assess & Plan/Chief Complaint A. fib with RVR. Gastric outlet positive for blood. Hypotension. . 07/02/16. A. fib with RVR. Patient converted to sinus rhythm yesterday. Patient feeling better. Patient voices no complaints. Patient to be discharged on Tuesday Clinical Quality Measures DVT/VTE Risk/Contraindication: Risk Factor Score Per Nursin RFS Level Per Nursing on Admit: 2=Moderate Contraindications-Pharm: Other *list below* ZAHRAA LOPEZ DO Jul 02, 2016 07:43
--- NOTE | 2016-07-02 08:26 | Cardiology Progress Note ---
Subjective Subjective/Events-last exam patient is laying down in bed, feeling better, denied any chest pain or shortness of breath, still in sinus rhythm Review of Systems General: No Chills, No Night Sweats, No Fatigue, No Malaise, No Appetite, No Other HEENT: No Head Aches, No Visual Changes, No Eye Pain, No Ear Pain, No Dysphasia , No Sinus Congestion, No Post Nasal Drip, No Sore Throat, No Other Pulmonary: No Dyspnea, No Cough, No Pleuritic Chest Pain, No Other Cardiovascular: No: Chest Pain, Edema, Lt Headedness, Orthopnea, Other, Palpitations, Paroxysmal Noc. Dyspnea Objective-Cardiology Exam Last Set of Vital Signs Vital Signs 07/01/16 07/01/16 07/02/16 11:33 16:00 06:00 Temp 98.2 Pulse 63 Resp 17 B/P (MAP) 102/61 Pulse Ox 96 O2 Delivery Room Air O2 Flow Rate 2.00 Capillary Refill : Less Than 3 Seconds I&O Intake and Output 07/02/16 00:00 Intake Total 1280 ml Output Total 2475 ml Balance -1195 ml Intake Oral 1080 ml IV Total 200 ml Output Urine Total 2475 ml General: Alert, Oriented X3, Cooperative HEENT: Atraumatic, PERRLA Neck: Supple, No JVD, No Thyromegaly Lungs: Clear to Auscultation, Normal Air Movement Heart: Regular Rate, Normal S1, Normal S2, No Murmurs Abdomen: Normal Bowel Sounds, Soft, No Tenderness, No Hepatosplenomegaly, No Masses Extremities: No Clubbing, No Cyanosis, No Edema, Normal Pulses, No Tenderness/ Swelling Skin: No Rashes, No Breakdown, No Significant Lesion Neuro: Normal Gait, Normal Speech, Strength at 5/5 X4 Ext, Normal Tone, Sensation Intact Psych/Mental Status: Mental Status NL, Mood NL Results Lab Laboratory Tests 07/02/16 03:35 A/P-Cardiology Admission Diagnosis Paroxysmal atrial fibrillation Palpitation Hypotension Assessment/Plan Paroxysmal atrial fibrillation status post NESTOR with electrical cardioversion, started on sotalol and tolerating it well. EKG showed QT interval to be less than 500, continue to monitor today, possible discharge in the morning. Palpitation, tachycardia, heart rate is better. Hypotension, hold Cardizem and continue on sotalol. Clinical Quality Measures DVT/VTE Risk/Contraindication: Risk Factor Score Per Nursin RFS Level Per Nursing on Admit: 2=Moderate Contraindications-Pharm: Other *list below* HERMINIA GARNICA MD Jul 02, 2016 08:26
--- NOTE | 2016-07-02 08:44 | Diagnostic Imaging Report ---
EXAMINATION: Portable upright radiograph of the chest. INDICATION: Atrial fibrillation. FINDINGS: The heart size is normal. A television receiver analyzer is seen. The lungs are clear. No effusion or pneumothorax. The mediastinum and trevor appear unremarkable. IMPRESSION: No acute process. Dictated by: Dictated on workstation # [id number]
[2016-07-02] MEDS: APIXABAN 5 MG (ELIQUIS) TABLET PO SCH ×2 (09:31→21:29)
[2016-07-02] MEDS: SOTALOL 80 MG (BETAPACE) TAB PO SCH ×2 (09:31→21:29)
[2016-07-02] MEDS: ALPRAZolam 0.25 MG (XANAX) TAB PO SCH (21:29)
[2016-07-02] MEDS: ACETAMINOPHEN 500 MG TAB (TYLENOL) PO PRN (23:39)
[2016-07-03] VITALS (8 sets, daily range): BP systolic 99–121; BP diastolic 40–71
[2016-07-03] MEDS: ACETAMINOPHEN 500 MG TAB (TYLENOL) PO PRN (04:09)
[2016-07-03 04:20] LABS: BASOPHILS % (AUTO) 0 % (0-10); EOSINOPHILS # (AUTO) 0.1 10^3/uL (0.0-0.3); EOSINOPHILS % (AUTO) 1 % (0-10); LYMPHOCYTES # (AUTO) 1.8 X 10^3 (1.0-4.0); LYMPHOCYTES % (AUTO) 17 % (12-44); MEAN CORPUSCULAR HEMOGLOBIN 32 PG (25-34); MEAN CORPUSCULAR HGB CONC 33 G/DL (32-36); MEAN CORPUSCULAR VOLUME 96 FL (80-99); MEAN PLATELET VOLUME 10.1 FL (7.4-10.4); MONOCYTES # (AUTO) 1.1 X 10^3 (0.0-1.0); MONOCYTES % (AUTO) 10 % (0-12); NEUTROPHILS # (AUTO) 7.5 X 10^3 (1.8-7.8); NEUTROPHILS % (AUTO) 72 % (42-75); PLATELET COUNT 242 10^3/uL (130-400); RED BLOOD COUNT 3.71 10^6/uL (4.35-5.85); RED CELL DISTRIBUTION WIDTH 14.9 % (10.0-14.5); WHITE BLOOD COUNT 10.4 10^3/uL (4.3-11.0)
[2016-07-03 04:38] LABS: ANION GAP 8 MMOL/L (5-14); BLOOD UREA NITROGEN 12 MG/DL (7-18); BUN/CREATININE RATIO 17; CALCIUM 10.3 MG/DL (8.5-10.1); CARBON DIOXIDE 25 MMOL/L (21-32); CHLORIDE 108 MMOL/L (98-107); GFR ESTIMATED > 60; GLUCOSE 103 MG/DL (70-105); MAGNESIUM 1.9 MG/DL (1.8-2.4); PHOSPHORUS 2.3 MG/DL (2.3-4.7); SODIUM 141 MMOL/L (135-145)
[2016-07-03 05:25] LABS: BILIRUBIN,URINE NEGATIVE (NEGATIVE); KETONES,URINE NEGATIVE (NEGATIVE); LEUKOCYTE ESTERASE ,URINE 1+ (NEGATIVE); NITRITE,URINE NEGATIVE (NEGATIVE); PH,URINE 6.5 (5-9); PROTEIN,URINE NEGATIVE (NEGATIVE); UROBILINOGEN,URINE NORMAL (NORMAL)
[2016-07-03 05:32] LABS: SQUAMOUS EPITHELIAL CELL,UR 0-2 /HPF; WBC,URINE 0-2 /HPF
[2016-07-03] MEDS: MAGNESIUM 1 GM/100 ML IVPB 100 ML IV SCH (06:24)
[2016-07-03] MEDS: PANTOPRAZOLE 40 MG (PROTONIX) TAB PO SCH (06:24)
[2016-07-03] MEDS: POTASSIUM CL 10MEQ/50ML IVPB 50 ML IV SCH (06:24)
[2016-07-03] MEDS: KCL 20 MEQ TAB (K-DUR) PO SCH (06:24)
[2016-07-03] MEDS ORDERED: Sotalol Hcl PO ×2 (07:48)
--- NOTE | 2016-07-03 07:49 | Cardiology Progress Note ---
Subjective Subjective/Events-last exam patient is in bed, feeling well. No new complaint. Denied any chest pain or shortness of breath. Review of Systems General: No Chills, No Night Sweats, No Fatigue, No Malaise, No Appetite, No Other HEENT: No Head Aches, No Visual Changes, No Eye Pain, No Ear Pain, No Dysphasia , No Sinus Congestion, No Post Nasal Drip, No Sore Throat, No Other Pulmonary: No Dyspnea, No Cough, No Pleuritic Chest Pain, No Other Cardiovascular: No: Chest Pain, Edema, Lt Headedness, Orthopnea, Other, Palpitations, Paroxysmal Noc. Dyspnea Objective-Cardiology Exam Last Set of Vital Signs Vital Signs 07/01/16 07/03/16 07/03/16 11:33 06:00 07:29 Temp 99.8 Pulse 75 Resp 19 B/P (MAP) 109/55 Pulse Ox 94 O2 Delivery Room Air O2 Flow Rate 2.00 Capillary Refill : Less Than 3 Seconds I&O Intake and Output 07/03/16 00:00 Intake Total 2925 ml Output Total 3150 ml Balance -225 ml Intake Oral 2925 ml Output Urine Total 3150 ml # Voids 1 General: Alert, Oriented X3, Cooperative HEENT: Atraumatic, PERRLA Neck: Supple, No JVD, No Thyromegaly Lungs: Clear to Auscultation, Normal Air Movement Heart: Regular Rate, Normal S1, Normal S2, No Murmurs Abdomen: Normal Bowel Sounds, Soft, No Tenderness, No Hepatosplenomegaly, No Masses Extremities: No Clubbing, No Cyanosis, No Edema, Normal Pulses, No Tenderness/ Swelling Skin: No Rashes, No Breakdown, No Significant Lesion Neuro: Normal Gait, Normal Speech, Strength at 5/5 X4 Ext, Normal Tone, Sensation Intact Psych/Mental Status: Mental Status NL, Mood NL Results Lab Laboratory Tests 07/03/16 03:44 A/P-Cardiology Admission Diagnosis Paroxysmal atrial fibrillation Palpitation Hypotension Assessment/Plan Paroxysmal atrial fibrillation status post NESTOR with electrical cardioversion, started on sotalol and tolerating it well. EKG showed QT interval to be less than 500, okay for discharge from cardiology standpoint Palpitation, tachycardia, heart rate is better. Hypotension, better, continue without Cardizem, okay for discharge from cardiology standpoint Clinical Quality Measures DVT/VTE Risk/Contraindication: Risk Factor Score Per Nursin RFS Level Per Nursing on Admit: 2=Moderate Contraindications-Pharm: Other *list below* HERMINIA GARNICA MD Jul 03, 2016 07:49
--- NOTE | 2016-07-03 08:03 | Diagnostic Imaging Report ---
INDICATION: Dyspnea. Comparison is made with prior examination from 07/02/16. FINDINGS: The heart size, mediastinal configuration, and pulmonary vascularity are within normal limits. There is no pleural effusion, pneumothorax, or pneumonia. The osseous structures are unremarkable. IMPRESSION: No acute cardiopulmonary abnormality. Dictated by: Dictated on workstation # [id number]
[2016-07-03] MEDS: SOTALOL 80 MG (BETAPACE) TAB PO SCH (08:06)
[2016-07-03] MEDS: APIXABAN 5 MG (ELIQUIS) TABLET PO SCH (08:06)
--- NOTE | 2016-07-03 09:22 | Progress Note (SOAP) ---
Subjective Subjective/Events-last exam pt reports that she is feeling well, she denies chest pain, shortness of breath , dizziness, abdominal pain, nausea. Review of Systems General: No Chills, Fatigue HEENT: No Head Aches Pulmonary: No Dyspnea, No Cough Cardiovascular: No: Chest Pain, Edema Gastrointestinal: No: Nausea Neurological: No: Confusion, Weakness Objective Exam Vital Signs Date Time Temp Pulse Resp B/P (MAP) Pulse Ox O2 Delivery O2 Flow Rate FiO2 07/03/16 07:29 99.8 07/03/16 07:00 80 07/03/16 06:00 75 19 109/55 94 Room Air 07/03/16 05:00 86 17 99/40 90 Room Air 07/03/16 04:00 80 21 109/62 94 Room Air 07/03/16 03:00 82 20 105/54 93 Room Air 07/03/16 02:00 85 19 108/65 94 Room Air 07/03/16 01:15 100.7 07/03/16 01:00 84 17 121/71 93 Room Air 07/03/16 01:00 85 07/03/16 00:00 85 21 108/54 95 Room Air 07/03/16 00:00 101.1 07/02/16 23:00 77 20 119/64 99 Room Air 07/02/16 22:00 78 20 120/62 99 Room Air 07/02/16 21:00 79 20 111/62 97 Room Air 07/02/16 20:00 100.3 07/02/16 20:00 85 10 117/98 93 Room Air 07/02/16 19:00 85 31 105/61 Room Air 07/02/16 19:00 82 07/02/16 18:00 77 21 132/72 99 Room Air 07/02/16 17:00 76 27 129/72 Room Air 07/02/16 16:00 73 10 124/66 97 Room Air 07/02/16 15:20 98.9 76 20 109/55 99 Room Air 07/02/16 15:00 72 23 109/55 Room Air 07/02/16 14:00 70 21 124/67 96 Room Air 07/02/16 13:00 67 07/02/16 13:00 74 10 125/69 100 Room Air 07/02/16 12:00 63 18 115/62 Room Air 07/02/16 11:58 97.0 63 21 121/67 98 Room Air 07/02/16 10:00 71 25 111/58 91 Room Air I & O 07/03/16 07:00 Intake Total 3050 ml Output Total 4025 ml Balance -975 ml Capillary Refill : Less Than 3 Seconds General Appearance: No Apparent Distress, WD/WN HEENT: PERRL/EOMI, Pharynx Normal Neck: Full Range of Motion, Supple Respiratory: Chest Non Tender, Lungs Clear, Normal Breath Sounds Cardiovascular: Irregularly Irregular Gastrointestinal: normal bowel sounds, non tender, soft, no organomegaly, no pulsatile mass Extremity: Pedal Edema (trace) Neurologic/Psychiatric: Alert, Oriented x3, No Motor/Sensory Deficits, Normal Mood/Affect Skin: Warm/Dry Lymphatic: No Adenopathy Results Lab Laboratory Tests 07/03/16 03:44: White Blood Count 10.4, Red Blood Count 3.71L, Hemoglobin 11.7, Hematocrit 36, Mean Corpuscular Volume 96, Mean Corpuscular Hemoglobin 32, Mean Corpuscular Hemoglobin Concent 33, Red Cell Distribution Width 14.9H, Platelet Count 242, Mean Platelet Volume 10.1, Neutrophils (%) (Auto) 72, Lymphocytes (%) (Auto) 17 , Monocytes (%) (Auto) 10, Eosinophils (%) (Auto) 1, Basophils (%) (Auto) 0, Neutrophils # (Auto) 7.5, Lymphocytes # (Auto) 1.8, Monocytes # (Auto) 1.1H, Eosinophils # (Auto) 0.1, Basophils # (Auto) 0.0, Sodium Level 141, Potassium Level 4.0, Chloride Level 108H, Carbon Dioxide Level 25, Anion Gap 8, Blood Urea Nitrogen 12, Creatinine 0.70, Estimat Glomerular Filtration Rate > 60, BUN/ Creatinine Ratio 17, Glucose Level 103, Calcium Level 10.3H, Phosphorus Level 2.3, Magnesium Level 1.9 07/03/16 05:15: Urine Color YELLOW, Urine Clarity CLEAR, Urine pH 6.5, Urine Specific [place] 1.010L, Urine Protein NEGATIVE, Urine Glucose (UA) NEGATIVE, Urine Ketones NEGATIVE, Urine Nitrite NEGATIVE, Urine Bilirubin NEGATIVE, Urine Urobilinogen NORMAL, Urine Leukocyte Esterase 1+H, Urine RBC (Auto) 1+H, Urine RBC 0-2, Urine WBC 0-2, Urine Squamous Epithelial Cells 0-2, Urine Crystals NONE, Urine Bacteria TRACE, Urine Casts NONE, Urine Mucus NEGATIVE, Urine Culture Indicated NO Assessment/Plan Assessment/Plan Assess & Plan/Chief Complaint atrial fibrillation with rvr hypotension fever sinusitis pt on eliquis, heart rate controlled - continue with current medical regimen on discharge for treatment of afib. hypotension - resolved fever with sinusitis - rx for bactrim on discharge. Clinical Quality Measures DVT/VTE Risk/Contraindication: Risk Factor Score Per Nursin RFS Level Per Nursing on Admit: 2=Moderate Contraindications-Pharm: Other *list below* REY BROWN MD Jul 03, 2016 09:22
[2016-07-03] MEDS ORDERED: SULF1TAB35 PO ×2 (09:30)
[2016-07-03] MEDS ORDERED: cefTRIAXone INJECTION 1,000 MG in NS (IVPB) 50 ML IV ONE (09:30)
--- NOTE | 2016-07-05 18:37 | Discharge Summary ---
Diagnosis/Chief Complaint Date of Admission Jun 29, 2016 at 19:31 Date of Discharge Jul 03, 2016 at 11:45 Discharge Date: Jul 03, 2016 Discharge Time: 1030 Admission Diagnosis Admission Diagnosis A. fib with RVR. Short of the air. Recent knee surgery arthroscopic last Tuesday Discharge Diagnosis A. fib with RVR. Short of breath. Hypotension. Proximal atrial fibrillation. Osteoarthritis. Recent laparoscopic of knee Reason Hospital Visit patient has been in and out of A. fib since last Tuesday. Patient seen garnett fixer on Tuesday and increased Cardizem 240 to360 mg. Patient hasn't implant the manager cardiac. Last Tuesday patient had knee surgery arthroscopic patient came out to the emergency room. Patient in A. fib with RVR. Patient admitted. Previous surgeries gallbladder. Patient short of the air with A. fib with RVR Discharge Summary Procedures cardioversion and NESTOR Consultations garnett fixer Discharge Physical Examination Allergies: Coded Allergies: No Known Drug Allergies (Verified , 07/06/09) Vitals & I&Os Vital Signs Date Time Temp Pulse Resp B/P (MAP) Pulse Ox O2 Delivery O2 Flow Rate FiO2 07/03/16 11:45 07/03/16 10:00 85 20 07/03/16 09:00 98 Room Air 07/03/16 07:29 99.8 07/01/16 11:33 2.00 Hospital Course Labs (last 24 hrs) Laboratory Tests 06/29/16 18:25: White Blood Count 9.4, Red Blood Count 4.30L, Hemoglobin 13.4, Hematocrit 41, Mean Corpuscular Volume 95, Mean Corpuscular Hemoglobin 31, Mean Corpuscular Hemoglobin Concent 33, Red Cell Distribution Width 15.0H, Platelet Count 286, Mean Platelet Volume 9.9, Neutrophils (%) (Auto) 49, Lymphocytes (%) (Auto) 40, Monocytes (%) (Auto) 10, Eosinophils (%) (Auto) 1, Basophils (%) (Auto) 0, Neutrophils # (Auto) 4.6, Lymphocytes # (Auto) 3.7, Monocytes # (Auto) 0.9, Eosinophils # (Auto) 0.1, Basophils # (Auto) 0.0, Sodium Level 140, Potassium Level 4.0, Chloride Level 106, Carbon Dioxide Level 23, Anion Gap 11, Blood Urea Nitrogen 15, Creatinine 0.79, Estimat Glomerular Filtration Rate > 60, BUN/ Creatinine Ratio 19, Glucose Level 114H, Calcium Level 10.8H, Total Bilirubin 0.3, Aspartate Amino Transf (AST/SGOT) 32, Alanine Aminotransferase (ALT/SGPT) 41, Alkaline Phosphatase 78, Troponin I < 0.30, Total Protein 6.9, Albumin 3.9, TSH Wales Testing 0.97 06/29/16 18:28: Magnesium Level 2.2 06/30/16 04:38: White Blood Count 6.0, Red Blood Count 3.76L, Hemoglobin 11.8, Hematocrit 36, Mean Corpuscular Volume 96, Mean Corpuscular Hemoglobin 31, Mean Corpuscular Hemoglobin Concent 33, Red Cell Distribution Width 15.2H, Platelet Count 227, Mean Platelet Volume 9.9, Neutrophils (%) (Auto) 40L, Lymphocytes (%) (Auto) 49H , Monocytes (%) (Auto) 9, Eosinophils (%) (Auto) 2, Basophils (%) (Auto) 0, Neutrophils # (Auto) 2.4, Lymphocytes # (Auto) 2.9, Monocytes # (Auto) 0.5, Eosinophils # (Auto) 0.1, Basophils # (Auto) 0.0, Sodium Level 142, Potassium Level 3.9, Chloride Level 111H, Carbon Dioxide Level 23, Anion Gap 8, Blood Urea Nitrogen 14, Creatinine 0.71, Estimat Glomerular Filtration Rate > 60, BUN/ Creatinine Ratio 20, Glucose Level 95, Calcium Level 10.1, Magnesium Level 2.1, Phosphorus Level 2.5 06/30/16 08:05: Gastric Fluid Occult Blood POSITIVE 07/01/16 03:14: White Blood Count 6.9, Red Blood Count 3.89L, Hemoglobin 12.2, Hematocrit 38, Mean Corpuscular Volume 96, Mean Corpuscular Hemoglobin 31, Mean Corpuscular Hemoglobin Concent 33, Red Cell Distribution Width 15.1H, Platelet Count 247, Mean Platelet Volume 10.1, Neutrophils (%) (Auto) 46, Lymphocytes (%) (Auto) 42 , Monocytes (%) (Auto) 9, Eosinophils (%) (Auto) 2, Basophils (%) (Auto) 0, Neutrophils # (Auto) 3.1, Lymphocytes # (Auto) 2.9, Monocytes # (Auto) 0.6, Eosinophils # (Auto) 0.2, Basophils # (Auto) 0.0, Sodium Level 143, Potassium Level 4.4, Chloride Level 110H, Carbon Dioxide Level 27, Anion Gap 6, Blood Urea Nitrogen 15, Creatinine 0.81, Estimat Glomerular Filtration Rate > 60, BUN/ Creatinine Ratio 19, Glucose Level 98, Calcium Level 10.3H, Phosphorus Level 2.6 , Magnesium Level 2.1 07/02/16 03:35: White Blood Count 9.3, Red Blood Count 3.70L, Hemoglobin 11.5, Hematocrit 36, Mean Corpuscular Volume 96, Mean Corpuscular Hemoglobin 31, Mean Corpuscular Hemoglobin Concent 32, Red Cell Distribution Width 15.2H, Platelet Count 239, Mean Platelet Volume 10.1, Neutrophils (%) (Auto) 62, Lymphocytes (%) (Auto) 28 , Monocytes (%) (Auto) 9, Eosinophils (%) (Auto) 1, Basophils (%) (Auto) 0, Neutrophils # (Auto) 5.7, Lymphocytes # (Auto) 2.6, Monocytes # (Auto) 0.9, Eosinophils # (Auto) 0.1, Basophils # (Auto) 0.0, Sodium Level 141, Potassium Level 4.2, Chloride Level 109H, Carbon Dioxide Level 24, Anion Gap 8, Blood Urea Nitrogen 13, Creatinine 0.71, Estimat Glomerular Filtration Rate > 60, BUN/ Creatinine Ratio 18, Glucose Level 94, Calcium Level 10.4H, Phosphorus Level 3.3 , Magnesium Level 2.0 07/03/16 03:44: White Blood Count 10.4, Red Blood Count 3.71L, Hemoglobin 11.7, Hematocrit 36, Mean Corpuscular Volume 96, Mean Corpuscular Hemoglobin 32, Mean Corpuscular Hemoglobin Concent 33, Red Cell Distribution Width 14.9H, Platelet Count 242, Mean Platelet Volume 10.1, Neutrophils (%) (Auto) 72, Lymphocytes (%) (Auto) 17 , Monocytes (%) (Auto) 10, Eosinophils (%) (Auto) 1, Basophils (%) (Auto) 0, Neutrophils # (Auto) 7.5, Lymphocytes # (Auto) 1.8, Monocytes # (Auto) 1.1H, Eosinophils # (Auto) 0.1, Basophils # (Auto) 0.0, Sodium Level 141, Potassium Level 4.0, Chloride Level 108H, Carbon Dioxide Level 25, Anion Gap 8, Blood Urea Nitrogen 12, Creatinine 0.70, Estimat Glomerular Filtration Rate > 60, BUN/ Creatinine Ratio 17, Glucose Level 103, Calcium Level 10.3H, Phosphorus Level 2.3, Magnesium Level 1.9 07/03/16 05:15: Urine Color YELLOW, Urine Clarity CLEAR, Urine pH 6.5, Urine Specific Alice 1.010L, Urine Protein NEGATIVE, Urine Glucose (UA) NEGATIVE, Urine Ketones NEGATIVE, Urine Nitrite NEGATIVE, Urine Bilirubin NEGATIVE, Urine Urobilinogen NORMAL, Urine Leukocyte Esterase 1+H, Urine RBC (Auto) 1+H, Urine RBC 0-2, Urine WBC 0-2, Urine Squamous Epithelial Cells 0-2, Urine Crystals NONE, Urine Bacteria TRACE, Urine Casts NONE, Urine Mucus NEGATIVE, Urine Culture Indicated NO Laboratory Tests 06/29/16 18:25 06/30/16 04:38 07/01/16 03:14 07/02/16 03:35 07/03/16 03:44 Pending Labs Laboratory Tests 06/29/16 18:25: White Blood Count 9.4, Red Blood Count 4.30, Hemoglobin 13.4, Hematocrit 41, Mean Corpuscular Volume 95, Mean Corpuscular Hemoglobin 31, Mean Corpuscular Hemoglobin Concent 33, Red Cell Distribution Width 15.0, Platelet Count 286, Mean Platelet Volume 9.9, Neutrophils (%) (Auto) 49, Lymphocytes (%) (Auto) 40, Monocytes (%) (Auto) 10, Eosinophils (%) (Auto) 1, Basophils (%) (Auto) 0, Neutrophils # (Auto) 4.6, Lymphocytes # (Auto) 3.7, Monocytes # (Auto) 0.9, Eosinophils # (Auto) 0.1, Basophils # (Auto) 0.0, Sodium Level 140, Potassium Level 4.0, Chloride Level 106, Carbon Dioxide Level 23, Anion Gap 11, Blood Urea Nitrogen 15, Creatinine 0.79, Estimat Glomerular Filtration Rate > 60, BUN/ Creatinine Ratio 19, Glucose Level 114, Calcium Level 10.8, Total Bilirubin 0.3 , Aspartate Amino Transf (AST/SGOT) 32, Alanine Aminotransferase (ALT/SGPT) 41, Alkaline Phosphatase 78, Troponin I < 0.30, Total Protein 6.9, Albumin 3.9, TSH Wales Testing 0.97 06/29/16 18:28: Magnesium Level 2.2 06/30/16 04:38: White Blood Count 6.0, Red Blood Count 3.76, Hemoglobin 11.8, Hematocrit 36, Mean Corpuscular Volume 96, Mean Corpuscular Hemoglobin 31, Mean Corpuscular Hemoglobin Concent 33, Red Cell Distribution Width 15.2, Platelet Count 227, Mean Platelet Volume 9.9, Neutrophils (%) (Auto) 40, Lymphocytes (%) (Auto) 49, Monocytes (%) (Auto) 9, Eosinophils (%) (Auto) 2, Basophils (%) (Auto) 0, Neutrophils # (Auto) 2.4, Lymphocytes # (Auto) 2.9, Monocytes # (Auto) 0.5, Eosinophils # (Auto) 0.1, Basophils # (Auto) 0.0, Sodium Level 142, Potassium Level 3.9, Chloride Level 111, Carbon Dioxide Level 23, Anion Gap 8, Blood Urea Nitrogen 14, Creatinine 0.71, Estimat Glomerular Filtration Rate > 60, BUN/ Creatinine Ratio 20, Glucose Level 95, Calcium Level 10.1, Magnesium Level 2.1, Phosphorus Level 2.5 06/30/16 08:05: Gastric Fluid Occult Blood POSITIVE 07/01/16 03:14: White Blood Count 6.9, Red Blood Count 3.89, Hemoglobin 12.2, Hematocrit 38, Mean Corpuscular Volume 96, Mean Corpuscular Hemoglobin 31, Mean Corpuscular Hemoglobin Concent 33, Red Cell Distribution Width 15.1, Platelet Count 247, Mean Platelet Volume 10.1, Neutrophils (%) (Auto) 46, Lymphocytes (%) (Auto) 42 , Monocytes (%) (Auto) 9, Eosinophils (%) (Auto) 2, Basophils (%) (Auto) 0, Neutrophils # (Auto) 3.1, Lymphocytes # (Auto) 2.9, Monocytes # (Auto) 0.6, Eosinophils # (Auto) 0.2, Basophils # (Auto) 0.0, Sodium Level 143, Potassium Level 4.4, Chloride Level 110, Carbon Dioxide Level 27, Anion Gap 6, Blood Urea Nitrogen 15, Creatinine 0.81, Estimat Glomerular Filtration Rate > 60, BUN/ Creatinine Ratio 19, Glucose Level 98, Calcium Level 10.3, Phosphorus Level 2.6 , Magnesium Level 2.1 07/02/16 03:35: White Blood Count 9.3, Red Blood Count 3.70, Hemoglobin 11.5, Hematocrit 36, Mean Corpuscular Volume 96, Mean Corpuscular Hemoglobin 31, Mean Corpuscular Hemoglobin Concent 32, Red Cell Distribution Width 15.2, Platelet Count 239, Mean Platelet Volume 10.1, Neutrophils (%) (Auto) 62, Lymphocytes (%) (Auto) 28 , Monocytes (%) (Auto) 9, Eosinophils (%) (Auto) 1, Basophils (%) (Auto) 0, Neutrophils # (Auto) 5.7, Lymphocytes # (Auto) 2.6, Monocytes # (Auto) 0.9, Eosinophils # (Auto) 0.1, Basophils # (Auto) 0.0, Sodium Level 141, Potassium Level 4.2, Chloride Level 109, Carbon Dioxide Level 24, Anion Gap 8, Blood Urea Nitrogen 13, Creatinine 0.71, Estimat Glomerular Filtration Rate > 60, BUN/ Creatinine Ratio 18, Glucose Level 94, Calcium Level 10.4, Phosphorus Level 3.3 , Magnesium Level 2.0 07/03/16 03:44: White Blood Count 10.4, Red Blood Count 3.71, Hemoglobin 11.7, Hematocrit 36, Mean Corpuscular Volume 96, Mean Corpuscular Hemoglobin 32, Mean Corpuscular Hemoglobin Concent 33, Red Cell Distribution Width 14.9, Platelet Count 242, Mean Platelet Volume 10.1, Neutrophils (%) (Auto) 72, Lymphocytes (%) (Auto) 17 , Monocytes (%) (Auto) 10, Eosinophils (%) (Auto) 1, Basophils (%) (Auto) 0, Neutrophils # (Auto) 7.5, Lymphocytes # (Auto) 1.8, Monocytes # (Auto) 1.1, Eosinophils # (Auto) 0.1, Basophils # (Auto) 0.0, Sodium Level 141, Potassium Level 4.0, Chloride Level 108, Carbon Dioxide Level 25, Anion Gap 8, Blood Urea Nitrogen 12, Creatinine 0.70, Estimat Glomerular Filtration Rate > 60, BUN/ Creatinine Ratio 17, Glucose Level 103, Calcium Level 10.3, Phosphorus Level 2.3 , Magnesium Level 1.9 07/03/16 05:15: Urine Color YELLOW, Urine Clarity CLEAR, Urine pH 6.5, Urine Specific Alice 1.010, Urine Protein NEGATIVE, Urine Glucose (UA) NEGATIVE, Urine Ketones NEGATIVE, Urine Nitrite NEGATIVE, Urine Bilirubin NEGATIVE, Urine Urobilinogen NORMAL, Urine Leukocyte Esterase 1+, Urine RBC (Auto) 1+, Urine RBC 0-2, Urine WBC 0-2, Urine Squamous Epithelial Cells 0-2, Urine Crystals NONE, Urine Bacteria TRACE, Urine Casts NONE, Urine Mucus NEGATIVE, Urine Culture Indicated NO Radiology Reviewed chest x-ray on admission no acute process. Chest x-ray 07/03 no active disease Discharge Home Medications: Active Scripts Active Bactrim Ds Tablet (Sulfamethoxazole/Trimethoprim) 1 Each Tablet 1 Each PO BID 7 Days [Sotalol Hcl] 80 MG Tab 80 Mg PO BID Reported Tylenol Extra Strength (Acetaminophen) 500 Mg Tablet 500 Mg PO Q4H PRN Potassium Chloride 10 Meq Tablet.er 10 Meq PO DAILY PRN Furosemide 40 Mg Tablet 40 Mg PO DAILY PRN Eliquis (Apixaban) 5 Mg Tablet 5 Mg PO 1000,2200 Xanax (Alprazolam) 0.25 Mg Tablet 0.25 Mg PO HS Instructions to patient/family Please see electonic discharge instructions given to patient. Clinical Quality Measures DVT/VTE Risk/Contraindication: Risk Factor Score Per Nursin RFS Level Per Nursing on Admit: 2=Moderate Contraindications-Pharm: Other *list below* ZAHRAA LOPEZ DO July 05, 2016 18:37
== END 2016-07-03 11:45 | disposition home or self-care (01) | DRG 310 ==
LOC: EDUNIT# 18:17 → ER 18:18 → ICU 19:31 → ENPENDDIS 07-03 10:30
PROVIDERS: ADMIT Family Medicine; ATTEND Family Medicine
PROC: 5A2204Z Restoration of Cardiac Rhythm, Single (ICD-10-PCS; principal; 2016-07-01)
DX: I48.0 Paroxysmal atrial fibrillation (principal); I10 Essential (primary) hypertension; R19.5 Other fecal abnormalities; R12 Heartburn; I95.9 Hypotension, unspecified; I08.1 Rheumatic disorders of both mitral and tricuspid valves; G89.18 Other acute postprocedural pain; M79.662 Pain in left lower leg; M19.91 Primary osteoarthritis, unspecified site; Z79.01 Long term (current) use of anticoagulants; J32.9 Chronic sinusitis, unspecified
CPT/HCPCS: 36415; 71010; 80048; 80053; 81000; 82271; 83735; 84100; 84443; 84484; 85025; 93005; 93041; 93321; 93325; 96374

== ENCOUNTER → 2016-07-05 | Outpatient (CLI) | payer MEDICARE, OTHER ==
[~2016-07-05] MED LIST changes: +ACET-2267 PO; +DILT180C54 PO; +POTA10TA10 PO; +SULF1TAB35 PO; +Sotalol Hcl PO
[2016-07-05 18:04] LABS: BASOPHILS % (AUTO) 0 % (0-10); EOSINOPHILS # (AUTO) 0.1 10^3/uL (0.0-0.3); EOSINOPHILS % (AUTO) 1 % (0-10); LYMPHOCYTES # (AUTO) 1.9 X 10^3 (1.0-4.0); LYMPHOCYTES % (AUTO) 22 % (12-44); MEAN CORPUSCULAR HEMOGLOBIN 31 PG (25-34); MEAN CORPUSCULAR HGB CONC 33 G/DL (32-36); MEAN CORPUSCULAR VOLUME 95 FL (80-99); MEAN PLATELET VOLUME 9.7 FL (7.4-10.4); MONOCYTES # (AUTO) 0.7 X 10^3 (0.0-1.0); MONOCYTES % (AUTO) 8 % (0-12); NEUTROPHILS # (AUTO) 5.9 X 10^3 (1.8-7.8); NEUTROPHILS % (AUTO) 69 % (42-75); PLATELET COUNT 273 10^3/uL (130-400); RED BLOOD COUNT 3.84 10^6/uL (4.35-5.85); RED CELL DISTRIBUTION WIDTH 14.6 % (10.0-14.5); WHITE BLOOD COUNT 8.6 10^3/uL (4.3-11.0)
--- NOTE | 2016-07-05 18:18 | Diagnostic Imaging Report ---
INDICATION: Cough and congestion x1 week. TECHNIQUE: Two view chest 6:17 p.m. CORRELATION STUDY: 07/03/2016. FINDINGS: The heart size, mediastinal configuration and pulmonary vasculature are within normal limits. Electronic monitor again noted over the left aspect of the heart. The lungs are clear with no consolidating infiltrate. There is no significant pleural effusion or pneumothorax. Surgical changes of bilateral shoulder anchors and screws over the humeral heads. IMPRESSION: 1. Negative for acute findings of the chest. Dictated by: Dictated on workstation # [id number]
[2016-07-05 18:20] LABS: BAND NEUTROPHILS 0 %; BASOPHILS % (MANUAL) 0 %; EOSINOPHILS % (MANUAL) 1 %; LYMPHOCYTES % (MANUAL) 27 %; NEUTROPHILS % (MANUAL) 69 %; REACTIVE LYMPHOCYTES 3 %
== END ==
LOC: RAD 17:37
PROVIDERS: ATTEND Family Medicine
DX: R05 Cough (principal)
CPT/HCPCS: 36415; 71020; 85007; 85027

== ENCOUNTER → 2016-08-23 | Outpatient (CLI) | payer MEDICARE, OTHER ==
--- NOTE | 2016-08-23 15:10 | Diagnostic Imaging Report ---
PROCEDURE: CT chest without contrast. TECHNIQUE: Multiple contiguous axial images were obtained through the chest without the use of intravenous contrast. INDICATION: Follow-up pulmonary nodule. COMPARISON: 02/19/2016. FINDINGS: Lungs and airway: No endoluminal lesion in the trachea or central bronchi. No pulmonary mass, new nodule, or consolidation. Previously seen nodule in the right lower lobe has decreased in size and density. There is a 3 mm nodule in the anterior left lower lobe which is also unchanged. Pleura: No pleural effusion or pneumothorax. Heart and mediastinum: Visualized thyroid is normal. No supraclavicular or axillary lymphadenopathy. No mediastinal, hilar or juxtaphrenic lymphadenopathy. Stable nrgwh-eb-vpnejgoi hiatus hernia. Normal heart size without pericardial effusion. Normal-caliber thoracic aorta. Upper abdomen: Visualized aspects of the upper abdomen are grossly normal by noncontrast imaging. Musculoskeletal: No concerning focal osseous lesions in the thorax. IMPRESSION: 1. Right lower lobe pulmonary nodule is less dense and decreased in size and likely represents a focus of atelectasis. 2. No new pulmonary nodule or mass to suggest neoplastic process. 3. No intrathoracic lymphadenopathy. Dictated by: Dictated on workstation # [id number]
== END ==
LOC: RAD 13:44
PROVIDERS: ATTEND Internal Medicine Critical Care Medicine
DX: R91.1 Solitary pulmonary nodule (principal); R06.02 Shortness of breath; I48.0 Paroxysmal atrial fibrillation; R06.83 Snoring
CPT/HCPCS: 71250

== ENCOUNTER → 2016-09-27 | Outpatient (CLI) | payer MEDICARE, OTHER ==
--- NOTE | 2016-09-27 17:28 | Diagnostic Imaging Report ---
INDICATION: Dropped rock on foot; medial joint pain, swelling, and bruising. FINDINGS: There is soft tissue swelling about the ankle, medial greater than lateral. The medial, lateral, and posterior malleoli appeared intact. The plafond and talar dome are intact. There are degenerative changes to the ankle and hindfoot. No fracture, however, identified. IMPRESSION: Soft tissue swelling and arthritic changes, but no fracture or acute bony abnormality apparent. No retained opaque foreign body identified. Dictated by: Dictated on workstation # [id number]
== END ==
LOC: RAD 17:08
PROVIDERS: ATTEND Family Medicine
DX: S99.912A Unspecified injury of left ankle, initial encounter (principal); W22.8XXA Striking against or struck by other objects, initial encounter; Y99.8 Other external cause status
CPT/HCPCS: 73610

== ENCOUNTER 2016-11-27 10:06 | Observation (INO) | payer MEDICARE, OTHER ==
[~2016-11-27] VITALS: Ht 162.6 cm; Wt 88.0 kg
[2016-11-27] MEDS ORDERED: ASPIRIN 81 MG CHEW (CHILDREN'S ASA) ONE (10:11)
[2016-11-27] MEDS ORDERED: NITROGLYCERIN 0.4 MG SL TABS BTL 25'S SL ONE (10:12)
[2016-11-27] MEDS: RX-NITROGLYCERIN 0.4 MG TAB BTL 25'S SL PRN ×2 (10:23→10:31)
[2016-11-27 10:27] LABS: BASOPHILS % (AUTO) 1 % (0-10); EOSINOPHILS # (AUTO) 0.1 10^3/uL (0.0-0.3); EOSINOPHILS % (AUTO) 3 % (0-10); LYMPHOCYTES # (AUTO) 1.7 X 10^3 (1.0-4.0); LYMPHOCYTES % (AUTO) 33 % (12-44); MEAN CORPUSCULAR HEMOGLOBIN 32 PG (25-34); MEAN CORPUSCULAR HGB CONC 34 G/DL (32-36); MEAN CORPUSCULAR VOLUME 96 FL (80-99); MEAN PLATELET VOLUME 10.1 FL (7.4-10.4); MONOCYTES # (AUTO) 0.4 X 10^3 (0.0-1.0); MONOCYTES % (AUTO) 8 % (0-12); NEUTROPHILS # (AUTO) 2.9 X 10^3 (1.8-7.8); NEUTROPHILS % (AUTO) 56 % (42-75); PLATELET COUNT 236 10^3/uL (130-400); RED BLOOD COUNT 4.07 10^6/uL (4.35-5.85); RED CELL DISTRIBUTION WIDTH 13.7 % (10.0-14.5); WHITE BLOOD COUNT 5.2 10^3/uL (4.3-11.0)
[2016-11-27] MEDS ORDERED: RX-NITROGLYCERIN 0.4 MG TAB BTL 25'S SL PRN (10:30)
[2016-11-27] MEDS ORDERED: ASPIRIN 81 MG CHEW (CHILDREN'S ASA) PO ONE ×2 (10:30)
[2016-11-27 10:44] LABS: ALANINE AMINOTRANSFERASE 16 U/L (0-55); ALBUMIN 3.9 GM/DL (3.2-4.5); ANION GAP 8 MMOL/L (5-14); ASPARTATE AMINO TRANSFERASE 22 U/L (5-34); BILIRUBIN,TOTAL 0.7 MG/DL (0.1-1.0); BLOOD UREA NITROGEN 10 MG/DL (7-18); BUN/CREATININE RATIO 14; CALCIUM 10.6 MG/DL (8.5-10.1); CARBON DIOXIDE 24 MMOL/L (21-32); CHLORIDE 108 MMOL/L (98-107); CREATININE SERUM 0.71 MG/DL (0.60-1.30); GFR ESTIMATED > 60; GLUCOSE 90 MG/DL (70-105); MAGNESIUM 2.1 MG/DL (1.8-2.4); POTASSIUM 4.4 MMOL/L (3.6-5.0); SODIUM 140 MMOL/L (135-145); TOTAL PROTEIN 7.1 GM/DL (6.4-8.2)
[2016-11-27 10:45] LABS: INR 1.2 (0.8-1.4); PROTHROMBIN TIME PATIENT 15.4 SEC (12.2-14.7)
[2016-11-27 10:50] LABS: MYOGLOBIN SERUM 55.7 NG/ML (10.0-92.0)
--- NOTE | 2016-11-27 11:17 | Diagnostic Imaging Report ---
INDICATION: Centralized chest pain starting this morning. History of atrial fibrillation. EXAMINATION: Chest dated 11/27/2016. COMPARISONS: 07/05/2016. FINDINGS: There is a metallic density overlying the chest stable from previous imaging. The heart is unremarkable. Pulmonary vasculature normal in appearance. The lungs are clear with no infiltrates or effusions. There is no pneumothorax. IMPRESSION: Stable appearance of the chest. No acute process. Dictated by: Dictated on workstation # [id number]
--- NOTE | 2016-11-27 11:19 | ED Chest Pain ---
General Chief Complaint: Chest Pain Stated Complaint: CP Nursing Triage Note: ARRIVED VIA AMB FROM HOME WITH OFF AND ON CHEST PAIN SINCE 2AM. Nursing Sepsis Screen: No Definite Risk Source: patient, family Exam Limitations: no limitations History of Present Illness Time seen by provider: 11:15 Initial Comments 76-year-old white female presents with a complaint of chest pain. The chest pain awoke her from sleep in the middle of the night. The patient has a history of atrial fibrillation. She has not had a cardiac catheterization. Her metal roaster is Dr. King. The patient has not used nitroglycerin. She is on Eliquis for intermittent atrial fibrillation diagnosed within the last year. Patient has a history reflux but states that the chest pain is different than her typical reflux discomfort. Patient describes the chest pain is sharp in nature. It is intermittent. It lasts for approximately 1 minute at a time. It is made worse by exertion. Patient states that the chest pain as moderately severe when it occurs. Patient 's chest pain is located over the anterior chest without radiation. Allergies and Home Medications Allergies Coded Allergies: No Known Drug Allergies (Verified , 07/06/09) Home Medications Acetaminophen 500 Mg Tablet, 500 MG PO Q4H PRN for PAIN-MILD, (Reported) Alprazolam 0.25 Mg Tablet, 0.25 MG PO HS, (Reported) Apixaban 5 Mg Tablet, 5 MG PO 1000,2200, (Reported) Furosemide 40 Mg Tablet, 40 MG PO DAILY PRN for SWELLING, (Reported) Potassium Chloride 10 Meq Tablet.er, 10 MEQ PO DAILY PRN for WHEN TAKING FUROSEMIDE, (Reported) [Sotalol Hcl] 80 MG TAB, 80 MG PO BID, #60 Ref 4 Prescribed by: HERMINIA GARNICA on 07/03/16 0748 Review of Systems Constitutional: No chills, diaphoresis, No fever EENTM: No Blurred Vision Respiratory: Denies Cough, Shortness of Air Cardiovascular: Chest Pain, Irregular Heart Rate Gastrointestinal: Nausea Genitourinary: Denies Burning Musculoskeletal: No back pain Skin: No rash Psychiatric/Neurological: No Symptoms Reported Endocrine: No Symptoms Reported Hematologic/Lymphatic: No Symptoms Reported Past Ersusxl-Ygkpvc-Lkrlnt Hx Patient Social History Alcohol Use: Denies Use Recreational Drug Use: No Smoking Status: Never a Smoker Recent Foreign Travel: No Contact w/Someone Who Travel: No Recent Infectious Disease Expo: No Recent Hopitalizations: No Immunizations Up To Date Date of Pneumonia Vaccine: Jan 06, 2016 Date of Influenza Vaccine: Dec 17, 2015 Seasonal Allergies Seasonal Allergies: No Surgeries History of Surgeries: Yes (right rotator cuff tear repair 04/11/09, left rotator cuff repair 5 yrs ago) Surgeries: Appendectomy, Gallbladder, Orthopedic Respiratory History of Respiratory Disorde: No Cardiovascular History of Cardiac Disorders: Yes (mitral valve) Cardiac Disorders: Atrial Fibrillation, Hypertension, Valvular Heart Disease Neurological History of Neurological Disord: No Reproductive System Hx Reproductive Disorders: No Sexually Transmitted Disease: No HIV/AIDS: No Gastrointestinal History of Gastrointestinal Di: No Musculoskeletal History of Musculoskeletal Dis: Yes Musculoskeletal Disorders: Arthritis Endocrine History of Endocrine Disorders: No Cancer History of Cancer: No Psychosocial History of Psychiatric Problem: No Integumentary History of Skin or Integumenta: No Blood Transfusions History of Blood Disorders: No Adverse Reaction to a Blood Tr: No Reviewed Nursing Assessment Reviewed/Agree w Nursing PMH: Yes Family Medical History Family Medial History: Diabetes mellitus 19 MOTHER G8 BROTHER G8 SISTER FH: heart disease G8 BROTHER Parkinson's disease G8 BROTHER Physical Exam Vital Signs Vital Sign - Last 12Hours 11/27/16 10:06 Temp 98.0 Pulse 68 Resp 18 B/P (MAP) 172/97 Pulse Ox 98 O2 Delivery Room Air Capillary Refill : Less Than 3 Seconds General Appearance: No Apparent Distress, WD/WN HEENT: Normal ENT Inspection Neck: Normal Inspection Respiratory: Lungs Clear Cardiovascular: Regular Rate, Rhythm, No Murmur, Normal Peripheral Pulses Gastrointestinal: Normal Bowel Sounds, No Pulsatile Mass, Non Tender Extremity: Normal Capillary Refill, Normal Inspection, Normal Range of Motion Neurologic/Psychiatric: Alert, Oriented x3, No Motor/Sensory Deficits, Normal Mood/Affect Skin: Normal Color, Warm/Dry Progress/Results/Core Measures Results/Orders Lab Results Laboratory Tests Test 11/27/16 10:15 Range/Units White Blood Count 5.2 4.3-11.0 10^3/uL Red Blood Count 4.07 L 4.35-5.85 10^6/uL Hemoglobin 13.1 11.5-16.0 G/DL Hematocrit 39 35-52 % Mean Corpuscular Volume 96 80-99 FL Mean Corpuscular Hemoglobin 32 25-34 PG Mean Corpuscular Hemoglobin Concent 34 32-36 G/DL Red Cell Distribution Width 13.7 10.0-14.5 % Platelet Count 236 130-400 10^3/uL Mean Platelet Volume 10.1 7.4-10.4 FL Neutrophils (%) (Auto) 56 42-75 % Lymphocytes (%) (Auto) 33 12-44 % Monocytes (%) (Auto) 8 0-12 % Eosinophils (%) (Auto) 3 0-10 % Basophils (%) (Auto) 1 0-10 % Neutrophils # (Auto) 2.9 1.8-7.8 X 10^3 Lymphocytes # (Auto) 1.7 1.0-4.0 X 10^3 Monocytes # (Auto) 0.4 0.0-1.0 X 10^3 Eosinophils # (Auto) 0.1 0.0-0.3 10^3/uL Basophils # (Auto) 0.0 0.0-0.1 10^3/uL Prothrombin Time 15.4 H 12.2-14.7 SEC INR Comment 1.2 0.8-1.4 Activated Partial Thromboplast Time 31 24-35 SEC Sodium Level 140 135-145 MMOL/L Potassium Level 4.4 3.6-5.0 MMOL/L Chloride Level 108 H 98-107 MMOL/L Carbon Dioxide Level 24 21-32 MMOL/L Anion Gap 8 5-14 MMOL/L Blood Urea Nitrogen 10 7-18 MG/DL Creatinine 0.71 0.60-1.30 MG/DL Estimat Glomerular Filtration Rate > 60 BUN/Creatinine Ratio 14 Glucose Level 90 70-105 MG/DL Calcium Level 10.6 H 8.5-10.1 MG/DL Magnesium Level 2.1 1.8-2.4 MG/DL Total Bilirubin 0.7 0.1-1.0 MG/DL Aspartate Amino Transf (AST/SGOT) 22 5-34 U/L Alanine Aminotransferase (ALT/SGPT) 16 0-55 U/L Alkaline Phosphatase 60 40-136 U/L Myoglobin 55.7 10.0-92.0 NG/ML Troponin I < 0.30 <0.30 NG/ML Total Protein 7.1 6.4-8.2 GM/DL Albumin 3.9 3.2-4.5 GM/DL My Orders Orders - SYDNI DUPONT MD Ekg Tracing (11/27/16 10:07) Aspirin Chewable Tablet (Baby Aspirin Ch (11/27/16 10:11) Nitroglycerin 0.4 Mg Btl 25's (Nitrostat (11/27/16 10:12) Cbc With Automated Diff (11/27/16 10:20) Magnesium (11/27/16 10:20) Chest 1 View, Ap/Pa Only (11/27/16 10:20) Cardiac Profile 1 (11/27/16 10:20) Comprehensive Metabolic Panel (11/27/16 10:20) Myoglobin Serum (11/27/16 10:20) Protime With Inr (11/27/16 10:20) Partial Thromboplastin Time (11/27/16 10:20) O2 (11/27/16 10:20) Monitor-Rhythm Ecg Trace Only (11/27/16 10:20) Lipid Panel (11/28/16 06:00) Aspirin Chewable Tablet (Baby Aspirin Ch (11/27/16 10:30) Rx-Nitroglycerin Sl Tabs (Rx-Nitrostat S (11/27/16 10:30) Saline Lock/Iv-Start (11/27/16 10:20) O2 (11/27/16 10:30) Aspirin Chewable Tablet (Baby Aspirin Ch (11/27/16 10:30) Rx-Nitroglycerin Sl Tabs (Rx-Nitrostat S (11/27/16 10:30) Saline Lock/Iv-Start (11/27/16 10:30) Ekg Tracing (11/27/16 10:34) Medications Given in ED Current Medications Medications Dose Ordered Sig/Edgard Route Start Time Stop Time Status Last Admin Dose Admin Aspirin 81 mg STK-MED ONCE .ROUTE 11/27/16 10:11 11/27/16 10:19 DC 11/27/16 10:22 324 MG Nitroglycerin 0.4 mg PRN PRN SL 11/27/16 10:30 11/27/16 10:31 0.4 MG Nitroglycerin 0.4 mg STK-MED ONCE SL 11/27/16 10:12 11/27/16 10:20 DC 11/27/16 10:22 0.4 MG Vital Signs/I&O Vital Sign - Last 12Hours 11/27/16 10:06 Temp 98.0 Pulse 68 Resp 18 B/P (MAP) 172/97 Pulse Ox 98 O2 Delivery Room Air Blood Pressure Mean: 122 Progress Note : Time: 11:36 Progress Note Patient's EKG demonstrated normal sinus rhythm without acute current of injury. Patient's laboratory evaluation included a normal CBC and troponin. Chest x- ray was unremarkable. The patient was given nitroglycerin without improvement in her episodes of chest pain. I discussed the patient's presentation with her metal roaster, Dr. King, who was kind enough to admit the patient for observation. Orders were written and the patient was transferred to a monitor bed. Departure Communication (Admissions) Time/Spoke to Admitting Phy: 11:[address] King. Impression Impression: Primary Impression: Chest pain Qualified Codes: R07.9 - Chest pain, unspecified Disposition: ADMITTED INPATIENT Condition: Unchanged Admissions Decision to Admit Reason: Admit from ER (General) Decision to Admit/Date: Nov 27, 2016 Time/Decision to Admit Time: 11:40 Departure-Patient Inst. Referrals: ZAHRAA LOPEZ DO (PCP/Family) Primary Care Physician SYDNI DUPONT MD Nov 27, 2016 11:19
[2016-11-27 12:45] VITALS: BP 191/71
[2016-11-27] MEDS ORDERED: CATHETER FLUSH 10 ML SYR IV PRN (14:00)
[2016-11-27] MEDS ORDERED: morphine INJ 4 MG/ML 1 ML (VIAL/SYRINGE) IV PRN (14:00)
[2016-11-27] MEDS ORDERED: NITROGLYCERIN 0.4 MG SL TABS BTL 25'S SL PRN (14:00)
--- NOTE | 2016-11-27 14:16 | Consultation-Cardiology ---
HPI-Cardiology Cardiology Consultation: Date of Consultation 11/27/16 Date of Admission Attending Physician Paolo Weeks DO Admitting Physician Paolo Weeks DO Consulting Physician Sailaja KING MD HPI: Time Seen by Provider: 14:13 Chief Complaint: Chest pain This is a 76-year-old lady who is a patient of mine. I follow her for paroxysmal atrial fibrillation. She is in sinus rhythm after transesophageal echocardiogram and cardioversion. She continues to be on oral anticoagulation. She has normal LV function. She presented with brief episodes of chest pain this morning. These are recurrent episodes with no radiation. No excessive bending or relieving factors. No associated shortness of breath or palpitations. Moderate intensity. Review of Systems-Cardiology Review of Systems Constitutional: No As described under HPI, No no symptoms reported, No chills, No fever, No lightheadedness, No malaise, No tiredness, No weight loss, No weight gain, No other Eyes: No As described under HPI, No no symptoms reported, No blindness, No blurred vision, No contact lenses, No drainage, No decreased acuity, No foreign body sensation, No glasses, No inflammation, No pain, No photophobia, No previous injury, No shadows, No tunnel vision, No other, No vision change Ears/Nose/Throat: No As described under HPI, No no symptoms reported, No chronic hearing loss, No epistaxis, No ear discharge, No ear pain, No loose teeth, No mouth pain, No mouth swelling, No nasal drainage, No nose pain, No recent hearing loss, No throat pain, No throat swelling, No ulcerations, No other Respiratory: No no symptoms reported, No As described under HPI, No cough, No orthopnea, No shortness of breath, No SOB with excertion, No SOB at rest, No stridor, No wheezing, No other Cardiovascular: chest pain Gastrointestinal: No no symptoms reported, No As described under HPI, No abdomen distended, No abdominal pain, No blood streaked bowels, No constipation , No diarrhea, No difficulty swallowing, No nausea, No poor appetite, No poor fluid intake, No rectal bleeding, No vomiting, No other, No nausea/vomiting/ diarrhea, No stool coloration changes Genitourinary: No no symptoms reported, No As described under HPI, No burning, No dysuria, No discharge, No frequency, No flank pain, No hematuria, No incontinence, No pain, No urgency, No other, No urine frequency changes, No urine coloration changes Musculoskeletal: No no symptoms reported, No As describe under HPI, No back pain, No gout, No joint pain, No joint swelling, No muscle pain, No muscle stiffness, No neck pain, No other Skin: No no symptoms reported, No As described under HPI, No change in color, No change in hair/nails, No dryness, No lesions, No lumps, No rash, No other, No skin related problems, No ulcerations, No rash on exposed areas, No ulcerations on exposed areas Psychiatric/Neurological: No no symptoms reported, No As described under HPI, No anxiety, No depression, No emotional problems, No headache, No numbness, No pre-existing deficit, No seizure, No tingling, No tremors, No weakness, No other , No focal weakness, No syncope Hematologic: No no symptoms reported, No As described under HPI, No anemia, No blood clots, No easy bleeding, No easy bruising, No swollen glands, No other, No bleeding abnormalities JMQ-Qcuyan-Mhddvj Hx Patient Social History Alcohol Use: Denies Use Recreational Drug Use: No Smoking Status: Never a Smoker Recent Foreign Travel: No Recent Infectious Disease Expo: No Hospitalization with Isolation: Denies Physical Abuse Screen: No Sexual Abuse: No Immunizations Up To Date Date of Pneumonia Vaccine: Jan 06, 2016 Date of Influenza Vaccine: Nov 25, 2016 Past Medical History PMH As described under Assessment. Family Medical History Family History: Diabetes mellitus 19 MOTHER G8 BROTHER G8 SISTER FH: heart disease G8 BROTHER Parkinson's disease G8 BROTHER Allergies and Home Medications Allergies Coded Allergies: No Known Drug Allergies (Verified , 07/06/09) Home Medications Acetaminophen 500 Mg Tablet, 500 MG PO Q4H PRN for PAIN-MILD, (Reported) Alprazolam 0.25 Mg Tablet, 0.25 MG PO HS, (Reported) Apixaban 5 Mg Tablet, 5 MG PO 1000,2200, (Reported) Furosemide 40 Mg Tablet, 40 MG PO DAILY PRN for SWELLING, (Reported) Potassium Chloride 10 Meq Tablet.er, 10 MEQ PO DAILY PRN for WHEN TAKING FUROSEMIDE, (Reported) [Sotalol Hcl] 80 MG TAB, 80 MG PO BID, #60 Ref 4 Prescribed by: HERMINIA GARNICA on 07/03/16 0748 Physical Exam-Cardiology Physical Exam Vital Signs/I&O Vital Sign - Last 12Hours 11/27/16 11/27/16 11/27/16 10:06 10:06 12:37 Temp 98.0 Pulse 68 54 Resp 18 18 B/P (MAP) 172/97 Pulse Ox 98 98 O2 Delivery Nasal Cannula Room Air Nasal Cannula Capillary Refill : Less Than 3 Seconds Constitutional: No appears stated age, No AAO x 3, No apparent distress, No PERRL, No well-developed, No well-nourished, No other HEENT: No PERRL, No normal ENT inspection, No TMs normal, No pharynx normal, No scleral icterus (R), No scleral icterus (L), No pale conjunctivae (R), No pale conjunctivae (L), No photophobia, No TM abnormal (R), No TM abnormal (L), No pharyngeal erythema, No tonsillar exudate, No other, No discharge, No EOMI, No hearing is well preserved, No hard of hearing, No oral hygience is good, No ulceration, No xanthelasmas are seen Neck: No non-tender, No full range of motion, No supple, No normal inspection, No carotid bruit, No limited range of motion, No lymphadenopathy (R), No lymphadenopathy (L), No tender lateral, No tender midline, No thyromegaly, No other, No carotid pulses are 2 + bilaterally, No with good upstrokes Respiratory: No accessory muscle use, No respiratory distress, No chest tender , No chest expansion is symmetric, No chest is bilaterally symmetric, No lungs clear to percussion, No lungs clear to auscultation, No crackles, No rhonchi, No rales, No stridor, No wheezing, No pleural rub, No other Cardiovascular: No regular rate-rhythm, No irregularly irregular, No extra beats, No parasternal heave is noted, No JVD, No edema, No bradycardia, No tachycardia, No point of maximal impulse, No cardiac thrills are palpable, No S1 and S2, No gallop/S3, No gallop/S4, No diastolic murmur, No systolic murmur, No friction rub, No click, No other Gastrointestinal: No tender, No soft, No round, No distended, No pulsatile mass , No organomegaly, No guarding, No rebound, No tenderness, No hernia, No mass, No audible bowel sounds, No abnormal bowel sounds, No abdominal bruits, No spleenomegaly, No other Rectal: deferred Extremities: No normal range of motion, No non-tender, No normal inspection, No pedal edema, No calf tenderness, No normal capillary refill, No pelvis stable , No calf tenderness, No inflammation, No pedal edema, No slow capillary refill , No swelling, No other, No abrasion, No clubbing, No cyanosis, No ecchymosis, No laceration, No no lower extremity edema bilateral, No significant edema, No tenderness, No wound Neurologic/Psychiatric: No cabin outfitter II-XII nml as tested, No no motor/sensory deficits, No alert, No normal mood/affect, No oriented x 3, No abnormal cerebellar tests, No abnormal cabin outfitter II-XII, No abnormal gait, No aphasia, No EOM palsy, No facial droop, No motor weakness, No sensory deficit, No depressed affect, No disoriented x 3, No other, No grossly intact, No power is 5/5 both on sides Data Review Labs Laboratory Tests 11/27/16 10:15: White Blood Count 5.2, Red Blood Count 4.07L, Hemoglobin 13.1, Hematocrit 39, Mean Corpuscular Volume 96, Mean Corpuscular Hemoglobin 32, Mean Corpuscular Hemoglobin Concent 34, Red Cell Distribution Width 13.7, Platelet Count 236, Mean Platelet Volume 10.1, Neutrophils (%) (Auto) 56, Lymphocytes (%) (Auto) 33 , Monocytes (%) (Auto) 8, Eosinophils (%) (Auto) 3, Basophils (%) (Auto) 1, Neutrophils # (Auto) 2.9, Lymphocytes # (Auto) 1.7, Monocytes # (Auto) 0.4, Eosinophils # (Auto) 0.1, Basophils # (Auto) 0.0, Prothrombin Time 15.4H, INR Comment 1.2, Activated Partial Thromboplast Time 31, Sodium Level 140, Potassium Level 4.4, Chloride Level 108H, Carbon Dioxide Level 24, Anion Gap 8, Blood Urea Nitrogen 10, Creatinine 0.71, Estimat Glomerular Filtration Rate > 60 , BUN/Creatinine Ratio 14, Glucose Level 90, Calcium Level 10.6H, Magnesium Level 2.1, Total Bilirubin 0.7, Aspartate Amino Transf (AST/SGOT) 22, Alanine Aminotransferase (ALT/SGPT) 16, Alkaline Phosphatase 60, Myoglobin 55.7, Troponin I < 0.30, Total Protein 7.1, Albumin 3.9 ECG Impression ECG Initial ECG Rhythm: Normal Sinus A/P-Cardiology Assessment/Admission Diagnosis Chest pain, paroxysmal atrial fibrillation Plan Baseline EKG shows sinus rhythm with no acute ST-T wave abnormalities. First set of cardiac enzymes is negative. She has been admitted for observation. Will perform serial cardiac enzymes. Continue home medications including oral anticoagulation. Thank you for your consultation. Please call me if you have any questions. Amita King MD, FACP, FACC, FSCAI, FHRS, CCDS Interventional Cardiology Cardiac Electrophysiology Vascular Medicine and Endovascular Interventions Clinical Quality Measures AMI/AHF: ASA po Prior to arrival: Sailaja Devlin MD Nov 27, 2016 2:16 pm
[2016-11-27] MEDS: NS IV 1000 ML 1,000 ML IV SCH (14:36)
[2016-11-27] MEDS ORDERED: ACETAMINOPHEN 500 MG TAB (TYLENOL) PO PRN (14:45)
[2016-11-27] MEDS ORDERED: FUROSEMIDE 40 MG (LASIX) TAB PO PRN (14:45)
[2016-11-27] MEDS ORDERED: KCL 10 MEQ TAB (MICRO K) PO PRN (14:45)
[2016-11-27 16:00] VITALS: BP 134/68
[2016-11-27 20:00] VITALS: BP 140/71
[2016-11-27] MEDS ORDERED: SOTALOL 80 MG (BETAPACE) TAB ONE (20:55)
[2016-11-27] MEDS ORDERED: SOTALOL 80 MG PO SCH (21:00)
[2016-11-27] MEDS ORDERED: ALPRAZolam 0.25 MG (XANAX) TAB PO SCH (21:00)
[2016-11-27] MEDS: APIXABAN 5 MG (ELIQUIS) TABLET PO SCH (22:21)
[2016-11-28] VITALS: BP 138/72
[2016-11-28 04:00] VITALS: BP 112/57
[2016-11-28 07:25] LABS: CHOLESTEROL 177 MG/DL (< 200); DIRECT LDL 121 MG/DL (1-129); TRIGLYCERIDES 97 MG/DL (<150); VLDL CHOLESTEROL 19 MG/DL (5-40)
[2016-11-28 08:00] VITALS: BP 125/74
[2016-11-28] MEDS ORDERED: ASPIRIN E.C. 325 MG (ECOTRIN) TABLET PO SCH (09:00)
[2016-11-28] MEDS ORDERED: SOTALOL 80 MG (BETAPACE) TAB PO SCH (09:00)
[2016-11-28] MEDS: APIXABAN 5 MG (ELIQUIS) TABLET PO SCH (10:12)
[2016-11-28] MEDS: NS IV 1000 ML 1,000 ML IV SCH (10:25)
[2016-11-28 12:00] VITALS: BP 135/72
--- NOTE | 2016-11-28 12:19 | Short Stay Summary-Hospitalist ---
HPI History of Present Illness: HPI/Chief Complaint CC: Chest pain HPI: This is a 76-year-old white female clinic patient of Dr. Weeks with a past medical history of atrial fibrillation the presents to the emergency room with vague type of chest pain suspicious for angina. She was admitted for risk stratification and observation on telemetry and cardiology is in the mist of completing their workup and disposition will be up to cardiology. She denies any more pain and is walking around the hospital well. Source: patient Exam Limitations: no limitations Date Seen 11/28/16 Time Seen by Provider: 10:30 Attending Physician Paolo Weeks DO PCP Paolo Weeks DO Referring Physician Date of Admission Nov 27, 2016 at 12:02 Home Medications & Allergies Home Medications Reviewed patient Home Medication Reconciliation Form Allergies Allergies Coded Allergies No Known Drug Allergies (Verified07/06/09) Past Tuxeemd-Jnqmyd-Gpofxd Hx Patient Social History Employed/Student: retired Alcohol Use: Denies Use Recreational Drug Use: No Smoking Status: Never a Smoker Physical Abuse Screen: No Sexual Abuse: No Recent Foreign Travel: No Contact w/other who traveled: No Recent Hopitalizations: No Recent Infectious Disease Expo: No Immunizations Up To Date Pediatric: Yes Date of Pneumonia Vaccine: Jan 06, 2016 Date of Influenza Vaccine: Nov 25, 2016 Seasonal Allergies Seasonal Allergies: No Surgeries Yes (right rotator cuff tear repair 04/11/09, left rotator cuff repair 5 yrs ago) Appendectomy, Gallbladder, Orthopedic Respiratory No Currently Using CPAP: No Currently Using BIPAP: No Cardiovascular Yes (mitral valve) Atrial Fibrillation, Hypertension, Valvular Heart Disease Neurological No Reproductive System Hx Reproductive Disorders: No Sexually Transmitted Disease: No HIV/AIDS: No Genitourinary No Gastrointestinal Yes Gastroesophageal Reflux Musculoskeletal Yes Arthritis Endocrine History of Endocrine Disorders: No HEENT History of HEENT Disorders: No Cancer No Psychosocial History of Psychiatric Problem: No Integumentary History of Skin or Integumenta: No Blood Transfusions History of Blood Disorders: No Adverse Reaction to a Blood Tr: No Reviewed Nursing Assessment Reviewed/Agree w Nursing PMH: Yes Family Medical History Family Hx: Diabetes mellitus 19 MOTHER G8 BROTHER G8 SISTER FH: heart disease G8 BROTHER Parkinson's disease G8 BROTHER Review of Systems Constitutional: no symptoms reported EENTM: no symptoms reported Respiratory: no symptoms reported Cardiovascular: chest pain Gastrointestinal: no symptoms reported Genitourinary: no symptoms reported Musculoskeletal: no symptoms reported Skin: no symptoms reported Psychiatric/Neurological: No Symptoms Reported All Other Systems Reviewed Negative Unless Noted: Yes Physical Exam Physical Exam Vital Signs Vital Sign - Last 12Hours 11/27/16 10:06 Temp 98.0 Pulse 68 Resp 18 B/P (MAP) 172/97 Pulse Ox 98 O2 Delivery Nasal Cannula Capillary Refill : Less Than 3 Seconds General Appearance: No Apparent Distress, WD/WN Eyes: Bilateral Eye Normal Inspection, Bilateral Eye PERRL HEENT: PERRL/EOMI, Normal ENT Inspection, Pharynx Normal Neck: Full Range of Motion, Normal Inspection, Non Tender, Supple, Carotid Bruit Respiratory: Chest Non Tender, Lungs Clear, Normal Breath Sounds, No Accessory Muscle Use, No Respiratory Distress Cardiovascular: No Edema, No Gallop, No JVD, No Murmur, Normal Peripheral Pulses, Irregularly Irregular Gastrointestinal: Normal Bowel Sounds, No Organomegaly, No Pulsatile Mass, Non Tender, Soft Back: Normal Inspection, No CVA Tenderness, No Vertebral Tenderness Extremity: Normal Capillary Refill, Normal Inspection, Normal Range of Motion, Non Tender, No Calf Tenderness, No Pedal Edema Neurologic/Psychiatric: Alert, Oriented x3, No Motor/Sensory Deficits, Normal Mood/Affect Skin: Normal Color, Warm/Dry Lymphatic: No Adenopathy Results Results/Procedures Lab Laboratory Tests 11/27/16 10:15 Short Stay Diagnosis Discharge Diagnosis-Short Stay Admission Diagnosis Assessment: Chest pain Atrial fibrillation on stroke prophylaxis anticoagulation Hypertension Hyperlipidemia Final Discharge Diagnosis Assessment: Chest pain Atrial fibrillation on stroke prophylaxis anticoagulation Hypertension Hyperlipidemia Conclusion Plan Plan: Cardiology for risk stratification and disposition per cardiology Diagnosis/Problems Diagnosis/Problems (1) Chest pain Status: Acute Assessment & Plan: Cardiology for risk stratification Qualifiers: Qualified Codes: R07.9 - Chest pain, unspecified (2) Hypertension Status: Chronic Qualifiers: Qualified Codes: I10 - Essential (primary) hypertension (3) Paroxysmal a-fib Status: Chronic Assessment & Plan: Maintained on home meds Clinical Quality Measures AMI/AHF: ASA po Prior to arrival: No DVT/VTE Risk/Contraindication: Risk Factor Score Per Nursin RFS Level Per Nursing on Admit: 3=High MEÑO CARLSON DO Nov 28, 2016 12:19
--- NOTE | 2016-11-28 12:37 | Cardiology Progress Note ---
Cardiology SOAP Progress Note Subjective: No further chest discomfort Objective: I&O/Vital Signs Vital Sign - Last 12Hours 11/28/16 11/28/16 11/28/16 11/28/16 01:00 04:00 07:02 08:00 Temp 96.4 98.0 Pulse 53 56 67 58 Resp 18 18 B/P (MAP) 112/57 125/74 Pulse Ox 100 99 O2 Delivery Room Air Room Air Weight (Pounds): 194 Weight (Ounces): 1.0 Weight (Calculated Kilograms): 88.539291 Constitutional: No appears stated age, No AAO x 3, No apparent distress, No PERRL, No well-developed, No well-nourished, No other Respiratory: No accessory muscle use, No respiratory distress, No chest tender , No chest expansion is symmetric, No chest is bilaterally symmetric, No lungs clear to percussion, No lungs clear to auscultation, No crackles, No rhonchi, No rales, No stridor, No wheezing, No pleural rub, No other Cardiovascular: No regular rate-rhythm, No irregularly irregular, No extra beats, No parasternal heave is noted, No JVD, No edema, No bradycardia, No tachycardia, No point of maximal impulse, No cardiac thrills are palpable, No S1 and S2, No gallop/S3, No gallop/S4, No diastolic murmur, No systolic murmur, No friction rub, No click, No other Gastrointestional: No tender, No soft, No round, No distended, No pulsatile mass, No organomegaly, No guarding, No rebound, No tenderness, No hernia, No mass, No audible bowel sounds, No abnormal bowel sounds, No abdominal bruits, No spleenomegaly, No other Extremities: No normal range of motion, No non-tender, No normal inspection, No pedal edema, No calf tenderness, No normal capillary refill, No pelvis stable , No calf tenderness, No inflammation, No pedal edema, No slow capillary refill , No swelling, No other, No abrasion, No clubbing, No cyanosis, No ecchymosis, No laceration, No no lower extremity edema bilateral, No significant edema, No tenderness, No wound Neurologic/Psychiatric: No machine bander and cellophaner helper II-XII nml as tested, No no motor/sensory deficits, No alert, No normal mood/affect, No oriented x 3, No abnormal cerebellar tests, No abnormal machine bander and cellophaner helper II-XII, No abnormal gait, No aphasia, No EOM palsy, No facial droop, No motor weakness, No sensory deficit, No depressed affect, No disoriented x 3, No other, No grossly intact, No power is 5/5 both on sides Results/Procedures: Labs Laboratory Tests 11/27/16 18:42: Troponin I < 0.30 11/28/16 00:35: Troponin I < 0.30 11/28/16 06:47: Troponin I < 0.30, Triglycerides Level 97, Cholesterol Level 177, LDL Cholesterol Direct 121, VLDL Cholesterol 19, HDL Cholesterol 42 A/P: Assessment/Dx: Chest pain, paroxysmal atrial fibrillation Plan: Baseline EKG shows sinus rhythm with no acute ST-T wave abnormalities. ACS ruled out with negative serial troponins. Continue home medications including oral anticoagulation. ok to discharge. I will see her in the office on tuesday. Thank you for your consultation. Please call me if you have any questions. Amita King MD, FACP, FACC, FSCAI, FHRS, CCDS Interventional Cardiology Cardiac Electrophysiology Vascular Medicine and Endovascular Interventions Diagnosis/Problems Diagnosis/Problems (1) Chest pain Status: Acute Assessment & Plan: Cardiology for risk stratification Qualifiers: Qualified Codes: R07.9 - Chest pain, unspecified (2) Hypertension Status: Chronic Qualifiers: Qualified Codes: I10 - Essential (primary) hypertension (3) Paroxysmal a-fib Status: Chronic Assessment & Plan: Maintained on home meds Clinical Quality Measures AMI/AHF: ASA po Prior to arrival: Sailaja Devlin MD Nov 28, 2016 12:37 pm
[2016-11-28 13:50] VITALS: BP 135/72
== END 2016-11-28 12:30 | disposition home or self-care (01) ==
LOC: EDUNIT# 10:06 → ER 10:07 → UNDOADMOB 12:02 → 4TH 12:02 → UNDODISOB 11-28 13:50
PROVIDERS: ADMIT Internal Medicine Interventional Cardiology; ATTEND Family Medicine
DX: R07.9 Chest pain, unspecified (principal); I48.0 Paroxysmal atrial fibrillation; I10 Essential (primary) hypertension; I34.9 Nonrheumatic mitral valve disorder, unspecified; E78.5 Hyperlipidemia, unspecified; K21.9 Gastro-esophageal reflux disease without esophagitis; Z79.01 Long term (current) use of anticoagulants; Z79.899 Other long term (current) drug therapy
CPT/HCPCS: 36415; 71010; 80053; 80061; 83735; 83874; 84484; 85025; 85610; 85730; 93005; 93041; G0378

== ENCOUNTER → 2017-08-12 | Outpatient (CLI) | payer MEDICARE, OTHER ==
--- NOTE | 2017-08-12 13:50 | Diagnostic Imaging Report ---
EXAM: Bilateral screening mammogram with 3D tomosynthesis. The current study was also evaluated with a Computer Aided Detection (CAD) system. COMPARISON: This study was compared to the prior exam of 12/13/2012. Currently, there are no complaints. FINDINGS: The fibroglandular tissue in both breasts is heterogeneously dense. This does limit the sensitivity of this exam. Overall, there does not appear to have been any significant change when compared to the prior study. There is no primary or secondary sign of malignancy noted. However, in the interval since the prior exam, a cardiac monitoring electrode has been inserted into the medial aspect of the left breast. Consequently, a portion of the left breast is obscured. IMPRESSION: 1. The breasts, where visualized, show no evidence of malignancy. A followup exam in 1 year would be recommended for continued evaluation. 2. There is now a cardiac monitoring device in place in the medial aspect of the left breast. ACR BI-RADS Category 1: Negative. Result letter will be mailed to the patient. Note: At least 10% of breast cancer is not imaged by mammography. Dictated by: Dictated on workstation # [id number]
== END ==
LOC: RAD 07:52
PROVIDERS: ATTEND Family Medicine
DX: Z12.31 Encounter for screening mammogram for malignant neoplasm of breast (principal); Z95.818 Presence of other cardiac implants and grafts
CPT/HCPCS: 77067

== ENCOUNTER → 2017-09-19 | Outpatient (CLI) | payer MEDICARE, OTHER | LOC: CARD 09:37 | PROVIDERS: ATTEND Internal Medicine Interventional Cardiology | DX: R06.02 Shortness of breath (principal); I27.20 Pulmonary hypertension, unspecified; I07.1 Rheumatic tricuspid insufficiency; I10 Essential (primary) hypertension; I48.91 Unspecified atrial fibrillation | CPT/HCPCS: 93306 ==

== ENCOUNTER → 2017-11-23 | Outpatient (CLI) | payer MEDICARE, OTHER ==
[~2017-11-23] MED LIST changes: +SOTA80TA PO
[2017-11-23 14:47] LABS: BUN/CREATININE RATIO 18; CREATININE SERUM 0.76 MG/DL (0.60-1.30); GFR ESTIMATED > 60
== END ==
LOC: LAB 14:20
PROVIDERS: ATTEND Family Medicine
DX: N28.9 Disorder of kidney and ureter, unspecified (principal)
CPT/HCPCS: 36415; 82565; 84520

== ENCOUNTER → 2017-11-28 | Outpatient (CLI) | payer MEDICARE, OTHER ==
[~2017-11-28] MED LIST changes: +IOHEXOL 350 MG/ML 100 ML (OMNIPAQUE 350) VIAL IV ONE; +NS 250 ML (IVPB) BAG IV ONE
--- NOTE | 2017-11-28 16:04 | Diagnostic Imaging Report ---
CLINICAL INDICATION: Patient with lymph nodes swollen per doctor. EXAM: Axial CT scan of the neck performed with 75 cc of Omnipaque 350 IV contrast. Coronal and sagittal reformatted images are created. COMPARISON: None. FINDINGS: There are no significant lymph nodes seen on the neck CT exam. Marker lymph node is seen in the left level 2a region which measures 13 mm x 6 mm. Nasopharynx, oropharynx, hypopharynx, and laryngeal soft tissue structures are unremarkable. Visualized oral cavity, tongue, sublingual space, submandibular regions are unremarkable. The bilateral salivary glands and thyroid gland shows no significant abnormality. There is atherosclerotic disease of the bilateral carotid arteries. Visualized upper lung lombardi are clear. There are degenerative spurs involving the cervical spine. There is suggestion of diffuse disc bulges at the C3 through C7 levels with bilateral uncinate spurs causing multilevel jgfuimsc-qu-aqdgyd bilateral neural foramen narrowing. There is at least moderate central canal narrowing seen at the C3-C4 level. IMPRESSION: 1: Unremarkable CT scan of the neck for age. There is no evidence of lymphadenopathy. 2: Cdgzzzux-ol-uacuhc multilevel cervical spine degenerative disease. Dictated by: Dictated on workstation # [id number]
== END ==
LOC: RAD 12:26
PROVIDERS: ATTEND Family Medicine
DX: R59.0 Localized enlarged lymph nodes (principal); M47.812 Spondylosis without myelopathy or radiculopathy, cervical region; N28.9 Disorder of kidney and ureter, unspecified
CPT/HCPCS: 70491

== ENCOUNTER → 2018-02-13 | Outpatient (CLI) | payer MEDICARE, OTHER ==
[~2018-02-13] MED LIST changes: -IOHEXOL 350 MG/ML 100 ML (OMNIPAQUE 350) VIAL IV ONE; -NS 250 ML (IVPB) BAG IV ONE
--- NOTE | 2018-02-13 15:49 | Diagnostic Imaging Report ---
EXAMINATION: PA and lateral Chest at 3:06 p.m. INDICATION: Cough. FINDINGS: The heart size is within normal limits and stable when compared to 11/27/2016. The lungs are generally clear. There is no evidence for failure, pneumonia, or pleural effusion. The mediastinum is not widened. The osseous structures are intact. The loop recorder device overlying the left thorax seen previously is again visualized. IMPRESSION: There is no evidence for active disease. Dictated by: Dictated on workstation # [id number]
== END ==
LOC: RAD 14:24
PROVIDERS: ATTEND Family Medicine
DX: R05 Cough (principal); R06.2 Wheezing
CPT/HCPCS: 71046

== ENCOUNTER 2018-06-26 02:41 | Emergency (ER) | payer MEDICARE, OTHER ==
[~2018-06-26] VITALS: Ht 170.2 cm; Wt 81.2 kg
[2018-06-26] MEDS ORDERED: ASPIRIN 81 MG CHEW (CHILDREN'S ASA) ONE (03:40)
[2018-06-26] MEDS ORDERED: NITROGLYCERIN 0.4 MG SL TABS BTL 25'S SL ONE (03:40)
[2018-06-26] MEDS ORDERED: ASPIRIN 81 MG CHEW (CHILDREN'S ASA) PO ONE (03:45)
[2018-06-26 03:48] LABS: BASOPHILS % (AUTO) 1 % (0-10); EOSINOPHILS # (AUTO) 0.1 10^3/uL (0.0-0.3); EOSINOPHILS % (AUTO) 2 % (0-10); HEMATOCRIT 38 % (35-52); HEMOGLOBIN 12.5 G/DL (11.5-16.0); LYMPHOCYTES # (AUTO) 2.1 X 10^3 (1.0-4.0); LYMPHOCYTES % (AUTO) 37 % (12-44); MEAN CORPUSCULAR HEMOGLOBIN 32 PG (25-34); MEAN CORPUSCULAR HGB CONC 33 G/DL (32-36); MEAN CORPUSCULAR VOLUME 96 FL (80-99); MONOCYTES # (AUTO) 0.6 X 10^3 (0.0-1.0); MONOCYTES % (AUTO) 10 % (0-12); NEUTROPHILS # (AUTO) 2.8 X 10^3 (1.8-7.8); NEUTROPHILS % (AUTO) 50 % (42-75); PLATELET COUNT 213 10^3/uL (130-400); RED CELL DISTRIBUTION WIDTH 13.9 % (10.0-14.5); WHITE BLOOD COUNT 5.6 10^3/uL (4.3-11.0)
[2018-06-26] MEDS ORDERED: ANTACID SUSP 30 ML UDC (MYLANTA) PO ONE (04:00)
[2018-06-26] MEDS ORDERED: LIDOCAINE 2% VISCOUS 15 ML UDC PO ONE (04:00)
[2018-06-26 04:01] LABS: INR 1.1 (0.8-1.4); PROTHROMBIN TIME PATIENT 14.7 SEC (12.2-14.7)
[2018-06-26 04:04] LABS: ALANINE AMINOTRANSFERASE 41 U/L (0-55); ALBUMIN 3.8 GM/DL (3.2-4.5); ALKALINE PHOSPHATASE 69 U/L (40-136); BILIRUBIN,TOTAL 0.4 MG/DL (0.1-1.0); BUN/CREATININE RATIO 25; CARBON DIOXIDE 25 MMOL/L (21-32); CHLORIDE 105 MMOL/L (98-107); CREATININE SERUM 0.81 MG/DL (0.60-1.30); GFR ESTIMATED > 60; GLUCOSE 101 MG/DL (70-105); MAGNESIUM 2.1 MG/DL (1.8-2.4); POTASSIUM 3.7 MMOL/L (3.6-5.0); SODIUM 140 MMOL/L (135-145); TOTAL PROTEIN 6.6 GM/DL (6.4-8.2)
--- NOTE | 2018-06-26 04:13 | ED Chest Pain ---
General Chief Complaint: Cardiac/General Problems Stated Complaint: PAIN IN DIAPHRAM Nursing Triage Note: PT STATES SHE WAS AWOKE FROM A SLEEP BY SUBSTERNAL/EPIGASTRIC PAIN THAT SHE DESCRIBED FEELING LIKE HEARTBURN, PT STATES SHE TOOK SOME OTC PRILOSEC, REPORTED MILD RELIEF. PT VERBALIZED A HX OF A-FIB. PT STATES SHE DID FEEL SOB MOMENTARILY, DENIES SOB UPON PRESENTATION Nursing Sepsis Screen: No Definite Risk Source: patient Exam Limitations: no limitations History of Present Illness Date Seen by Provider: Jun 26, 2018 Time Seen by Provider: 03:41 Initial Comments Here with report of pain in the epigastric low sternal area that woke her up from sleep about an hour ago. States that it felt like heartburn. She took a Prilosec wdbs-wep-bklhlre tablets states that may be helping a little bit. Did have a little bit of shortness of breath with the pain. Pain was different than she would get with her atrial fibrillation. States that it actually radiated down in her abdomen. Does have history of A. fib and is on Eliquis. Has event recorder. Does not believe she is having A. fib problems currently. Denies nausea or vomiting. Timing/Duration: 1-3 hours Severity/Quality: moderate, burning, ingestion Location: central, epigastric Radiation: back, other (abdomen) Activities at Onset: sleep Prior CP/Workup: cardiac cath, echocardiography, pulmonary embolism Modifying Factors: improves with rest ASA po SOAP INSPECTOR: No NTG SL SOAP INSPECTOR: No Associated Symptoms: abdominal pain, back pain; No nausea/vomiting, No shortness of breath Allergies and Home Medications Allergies Coded Allergies: No Known Drug Allergies (Verified , 07/06/09) Home Medications Acetaminophen 500 Mg Tablet, 500 MG PO Q4H PRN for PAIN-MILD, (Reported) Alprazolam 0.25 Mg Tablet, 0.25 MG PO HS, (Reported) Apixaban 5 Mg Tablet, 5 MG PO 1000,2200, (Reported) Furosemide 40 Mg Tablet, 40 MG PO DAILY PRN for SWELLING, (Reported) Potassium Chloride 10 Meq Tablet.er, 10 MEQ PO DAILY PRN for WHEN TAKING FUROSEMIDE, (Reported) Sotalol HCl 80 Mg Tablet, 80 MG PO BID, (Reported) Patient Home Medication List Home Medication List Reviewed: Yes Review of Systems Review of Systems Constitutional: see HPI; No chills, No fever EENTM: No Symptoms Reported Respiratory: See HPI; Denies Cough, Denies Wheezing Cardiovascular: Chest Pain; Denies Lightheadedness Gastrointestinal: Abdominal Pain; Denies Diarrhea, Denies Nausea, Denies Vomiting Genitourinary: No Symptoms Reported Musculoskeletal: see HPI; No neck pain Skin: no symptoms reported All Other Systems Reviewed Negative Unless Noted: Yes Past Ibbdpyt-Ytdjef-Oqzbqq Hx Past Med/Social Hx: Reviewed Nursing Past Med/Soc Hx Patient Social History Alcohol Use: Denies Use Recreational Drug Use: No Smoking Status: Never a Smoker Recent Foreign Travel: No Contact w/Someone Who Travel: No Recent Infectious Disease Expo: No Recent Hopitalizations: No Immunizations Up To Date Tetanus Booster (TDap): Unknown PED Vaccines UTD: Yes Date of Pneumonia Vaccine: Jan 06, 2016 Date of Influenza Vaccine: Nov 25, 2016 Seasonal Allergies Seasonal Allergies: Yes Past Medical History Surgeries: Yes (bilat rotator cuff repair, bilat CTR, L knee scope, L arm fx) Appendectomy, Gallbladder, Orthopedic Respiratory: No Currently Using CPAP: No Currently Using BIPAP: No Cardiac: Yes (mitral valve) Atrial Fibrillation, Hypertension, Valvular Heart Disease Neurological: No : No Reproductive Disorders: No [employer] History: Menopausal Sexually Transmitted Disease: No HIV/AIDS: No Genitourinary: No Gastrointestinal: Yes Gastroesophageal Reflux Musculoskeletal: Yes Arthritis Endocrine: No HEENT: No Cancer: No Psychosocial: No Integumentary: No Blood Disorders: No Adverse Reaction/Blood Tranf: No Family Medical History Reviewed Nursing Family Hx Diabetes mellitus 19 MOTHER G8 BROTHER G8 SISTER FH: heart disease G8 BROTHER Parkinson's disease G8 BROTHER Physical Exam Vital Signs Vital Signs - First Documented 06/26/18 03:22 Temp 97.7 Pulse 71 Resp 20 B/P (MAP) 141/80 (100) Pulse Ox 95 O2 Delivery Room Air Capillary Refill : Less Than 3 Seconds Height, Weight, BMI Height: 5'7.00" Weight: 179lbs. 0.0oz. 81.372159uu; 31.9 BMI Method:Stated General Appearance: No Apparent Distress, WD/WN HEENT: PERRL/EOMI, Pharynx Normal Neck: Non Tender, Supple Respiratory: Lungs Clear, Normal Breath Sounds Cardiovascular: Regular Rate, Rhythm, No Murmur Gastrointestinal: Soft; No Guarding, No Rebound; Tenderness (epigastric) Extremity: Normal Inspection, Normal Range of Motion, Non Tender Neurologic/Psychiatric: Alert, Oriented x3 Skin: Normal Color, Warm/Dry Progress/Results/Core Measures Results/Orders Lab Results Laboratory Tests Test 06/26/18 03:30 06/26/18 05:48 Range/Units White Blood Count 5.6 4.3-11.0 10^3/uL Red Blood Count 3.93 L 4.35-5.85 10^6/uL Hemoglobin 12.5 11.5-16.0 G/DL Hematocrit 38 35-52 % Mean Corpuscular Volume 96 80-99 FL Mean Corpuscular Hemoglobin 32 25-34 PG Mean Corpuscular Hemoglobin Concent 33 32-36 G/DL Red Cell Distribution Width 13.9 10.0-14.5 % Platelet Count 213 130-400 10^3/uL Mean Platelet Volume 10.0 7.4-10.4 FL Neutrophils (%) (Auto) 50 42-75 % Lymphocytes (%) (Auto) 37 12-44 % Monocytes (%) (Auto) 10 0-12 % Eosinophils (%) (Auto) 2 0-10 % Basophils (%) (Auto) 1 0-10 % Neutrophils # (Auto) 2.8 1.8-7.8 X 10^3 Lymphocytes # (Auto) 2.1 1.0-4.0 X 10^3 Monocytes # (Auto) 0.6 0.0-1.0 X 10^3 Eosinophils # (Auto) 0.1 0.0-0.3 10^3/uL Basophils # (Auto) 0.0 0.0-0.1 10^3/uL Prothrombin Time 14.7 12.2-14.7 SEC INR Comment 1.1 0.8-1.4 Activated Partial Thromboplast Time 35 24-35 SEC D-Dimer 0.46 0.00-0.49 UG/ML Sodium Level 140 135-145 MMOL/L Potassium Level 3.7 3.6-5.0 MMOL/L Chloride Level 105 98-107 MMOL/L Carbon Dioxide Level 25 21-32 MMOL/L Anion Gap 10 5-14 MMOL/L Blood Urea Nitrogen 20 H 7-18 MG/DL Creatinine 0.81 0.60-1.30 MG/DL Estimat Glomerular Filtration Rate > 60 BUN/Creatinine Ratio 25 Glucose Level 101 70-105 MG/DL Calcium Level 11.0 H 8.5-10.1 MG/DL Corrected Calcium 11.2 H 8.5-10.1 MG/DL Magnesium Level 2.1 1.8-2.4 MG/DL Total Bilirubin 0.4 0.1-1.0 MG/DL Aspartate Amino Transf (AST/SGOT) 74 H 5-34 U/L Alanine Aminotransferase (ALT/SGPT) 41 0-55 U/L Alkaline Phosphatase 69 40-136 U/L Myoglobin 32.7 10.0-92.0 NG/ML Troponin I < 0.028 < 0.028 <0.028 NG/ML B-Type Natriuretic Peptide 27.5 <100.0 PG/ML Total Protein 6.6 6.4-8.2 GM/DL Albumin 3.8 3.2-4.5 GM/DL Lipase 48 8-78 U/L My Orders Orders - JULIETTE MILES MD Cbc With Automated Diff (06/26/18 03:40) Magnesium (06/26/18 03:40) Chest 1 View, Ap/Pa Only (06/26/18 03:40) Ekg Tracing (06/26/18 03:40) Cardiac Profile 1 (06/26/18 03:40) Comprehensive Metabolic Panel (06/26/18 03:40) Myoglobin Serum (06/26/18 03:40) Protime With Inr (06/26/18 03:40) Partial Thromboplastin Time (06/26/18 03:40) O2 (06/26/18 03:40) Monitor-Rhythm Ecg Trace Only (06/26/18 03:40) Lipid Panel (06/27/18 06:00) Ed Iv/Invasive Line Start (06/26/18 03:40) BNP (06/26/18 03:40) Fibrin Degradation Products (06/26/18 03:40) Aspirin Chewable Tablet (Baby Aspirin Ch (06/26/18 03:45) Nitroglycerin 0.4 Mg Btl 25's (Nitrostat (06/26/18 03:40) Aspirin Chewable Tablet (Baby Aspirin Ch (06/26/18 03:40) Lidocaine 2% Viscous 15 Ml (Xylocaine Vi (06/26/18 04:00) Antacid Suspension (Mylanta Suspension (06/26/18 04:00) Lipase (06/26/18 03:50) Troponin I (06/26/18 05:19) Medications Given in ED Current Medications Medications Dose Ordered Sig/Edgard Route Start Time Stop Time Status Last Admin Dose Admin Al Hydrox/Mg Hydrox/Simethicone 30 ml ONCE ONCE PO 06/26/18 04:00 06/26/18 04:01 DC 06/26/18 04:02 30 ML Aspirin 324 mg ONCE ONCE PO 06/26/18 03:45 06/26/18 03:46 DC 06/26/18 03:39 324 MG Lidocaine HCl 15 ml ONCE ONCE PO 06/26/18 04:00 06/26/18 04:01 DC 06/26/18 04:02 15 ML Vital Signs/I&O 06/26/18 06/26/18 03:22 03:25 Temp 97.7 Pulse 71 Resp 20 B/P (MAP) 141/80 (100) Pulse Ox 95 95 O2 Delivery Room Air Room Air Blood Pressure Mean: 100 Progress Progress Note : Progress Note Seen and evaluated. IV, labs, EKG and x-ray ordered. ASA 324 mg by mouth ordered. GI cocktail ordered. Monitor patient. This did improve her pain. 0430: Initial set the labs are negative. We will repeat troponin at about 5:30 and if it still negative and she can go home if she has no other problems. 0623: Patient states overall she feels pretty good and has no chest pain. Repeat troponin negative. Labs don't show any significant findings otherwise. She states occasionally her stomach gets rumbly and she may be at the beginning stage of viral stomach illness. She states that she gets this occasionally. She has seen Dr. Ba in the past and had a positive polyp. She is instructed to follow-up with him again and his phone number was given. I will send a copy of the chart to him as well as to Dr. Lopez. I have recommended follow-up to both. Discharged home with return precautions. Patient and family verbalize understanding instructions and agreement with plan. Initial ECG Impression Date: Jun 26, 2018 Initial ECG Impression Time: 03:48 Initial ECG Rate: 65 Initial ECG Rhythm: Normal Sinus Initial ECG Impression: Normal Comment Sinus rhythm with normal axis. No evidence of ST elevation CT. Similar to . Interpreted by me. Diagnostic Imaging Diagonstic Imaging: Xray Plain Films/CT/US/NM/MRI: chest Comments No acute findings Reviewed: Reviewed by Me Departure Impression Primary Impression: Upper abdominal pain Additional Impression: Chest pain Qualified Codes: R07.9 - Chest pain, unspecified Disposition: 01 HOME, SELF-CARE Condition: Improved Departure-Patient Inst. Decision time for Depature: 06:31 Referrals: AUSTIN BA RICHARD A DO (PCP/Family) Primary Care Physician Patient Instructions: Acute Abdomen (Belly Pain), Adult (DC), Chest Pain (DC) Add. Discharge Instructions: All discharge instructions reviewed with patient and/or family. Voiced understanding. Clear liquid or light diet for the next 24 hours and then advance as tolerated. Follow-up with your DrCelia in a few days for recheck. Make follow-up appointment with Dr. Ba as well. Return for worse pain, fever, vomiting, weakness, breathing problems or other concerns as needed. F Copy Copies To 1: AUSTIN BA DO Copies To 2: ZAHRAA LOPEZ TIMOTHY D MD Jun 26, 2018 04:13
--- NOTE | 2018-06-26 05:32 | Diagnostic Imaging Report ---
INDICATION: Epigastric pain. Shortness of air. COMPARISON: 02/13/2018 FINDINGS: Single frontal view of the chest demonstrates normal heart size and pulmonary vascularity. The lungs are well aerated and clear. No large pleural effusion or pneumothorax is seen. The visualized osseous structures show no acute abnormalities. IMPRESSION: 1. No acute cardiopulmonary process. Dictated by: Dictated on workstation # [id number]
[2018-06-26 06:40] VITALS: BP 140/79
== END 2018-06-26 06:44 | disposition home or self-care (01) ==
LOC: EDUNIT# 02:41 → ER 02:44
DX: R10.13 Epigastric pain (principal); R07.9 Chest pain, unspecified; I48.91 Unspecified atrial fibrillation; I10 Essential (primary) hypertension; I35.9 Nonrheumatic aortic valve disorder, unspecified; K21.9 Gastro-esophageal reflux disease without esophagitis; Z79.01 Long term (current) use of anticoagulants; Z90.49 Acquired absence of other specified parts of digestive tract; Z82.49 Family history of ischemic heart disease and other diseases of the circulatory system; Z98.890 Other specified postprocedural states
CPT/HCPCS: 36415; 71045; 80053; 83690; 83735; 83874; 83880; 84484; 85025; 85379; 85610; 85730; 93005; 93041

== ENCOUNTER → 2018-07-17 | Outpatient (CLI) | payer MEDICARE, OTHER ==
[~2018-07-17] MED LIST changes: -SOTA80TA PO; +STL80T PO
--- NOTE | 2018-07-17 14:14 | Diagnostic Imaging Report ---
PROCEDURE: CT urinary tract, rule out kidney stone. TECHNIQUE: Multiple contiguous axial images were obtained through the abdomen and pelvis without the use of intravenous contrast. Auto Exposure Controls were utilized during the CT exam to meet ALARA standards for radiation dose reduction. INDICATION: Hematuria and back pain. COMPARISON: No prior studies are available for comparison. FINDINGS: The lung bases are clear. There appears to be a moderate-sized hiatal hernia. No discrete liver mass is identified. Gallbladder appears to be surgically absent. No biliary ductal dilatation is seen. The pancreas and spleen are unremarkable. No adrenal mass is detected. No renal calculi are identified. No ureteral calculi are detected. There are numerous calcifications in the pelvis; however, these all appear to lie outside the ureter and are most consistent with phleboliths. No bladder calculi are seen. There is no hydronephrosis. Aorta is calcified but nonaneurysmal. Small and large bowel loops are normal in caliber. There is no obstruction. There is no ascites. Uterus is unremarkable. IMPRESSION: 1. Hiatal hernia. 2. No evidence of urinary tract calculi or obstruction. 3. No acute feature is identified. Dictated by: Dictated on workstation # [id number]
== END ==
LOC: RAD 12:32
PROVIDERS: ATTEND Family Medicine
DX: K44.9 Diaphragmatic hernia without obstruction or gangrene (principal); R31.9 Hematuria, unspecified
CPT/HCPCS: 74176

== ENCOUNTER → 2018-12-12 | Outpatient (CLI) | payer MEDICARE, OTHER ==
--- NOTE | 2018-12-12 12:37 | Diagnostic Imaging Report ---
INDICATION: Routine screening. COMPARISON: Comparison is made with prior mammograms from 08/12/2017 and 12/13/2012. TECHNIQUE: 2-D and 3-D bilateral screening mammography was performed. The current study was also evaluated with a Computer Aided Detection (CAD) system. 3-D tomosynthesis was also performed and reviewed. FINDINGS: Scattered fibroglandular densities are identified bilaterally. Cardiac monitoring device in the medial left breast is again seen. No mass or malignant-appearing microcalcifications are seen. The axillae are unremarkable. IMPRESSION: No mammographic features suspicious for malignancy are identified. ACR BI-RADS Category 1: Negative. Result letter will be mailed to the patient. Note: At least 10% of breast cancer is not imaged by mammography. Dictated by: Dictated on workstation # [id number]
== END ==
LOC: RAD 10:52
PROVIDERS: ATTEND Family Medicine
DX: Z12.31 Encounter for screening mammogram for malignant neoplasm of breast (principal)
CPT/HCPCS: 77067

== ENCOUNTER → 2019-01-12 | Outpatient (CLI) | payer MEDICARE, OTHER ==
--- NOTE | 2019-01-12 11:36 | Diagnostic Imaging Report ---
EXAMINATION: Lumbar spine at 1057 hours. INDICATION: Fell one week ago. Back pain. AP lateral and spot lateral views were obtained. There are no prior studies available for comparison. The lateral view shows the vertebral body heights to be within normal limits. There is degenerative disc and bony disease at every level of the lumbar spine with relative sparing of the L2-L3 level. There is no fracture or acute bony abnormality appreciated. There is no sign of a paraspinal mass. 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 IMPRESSION: 1. There is no evidence for an acute bony abnormality. 2. If clinical concern regarding an underlying abnormality persists, then MRI would be recommended for further study. Dictated by: Dictated on workstation # [id number]
== END ==
LOC: RAD 10:39
PROVIDERS: ATTEND Family Medicine
DX: M54.9 Dorsalgia, unspecified (principal); W19.XXXD Unspecified fall, subsequent encounter
CPT/HCPCS: 72100

== ENCOUNTER 2019-08-04 14:22 | Emergency (ER) | payer MEDICARE, OTHER ==
[~2019-08-04] VITALS: Ht 160 cm; Wt 89.4 kg
--- OUTSIDE RECORDS SUMMARY | 2019-08-04 14:32 | XMS REPORT | Continuity of Care Document ---
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 SINCERE PULIDO DO Ot R00. 2 PALPITATIONS 09/14/2017 SINCERE PULIDO DO Ot R06. 83 SNORING 09/14/2017 ALFONZO ALVAREZ DO Ot M17.12 UNILATERAL PRIMARY OSTEOARTHRITIS, LEFT 09/14/2017 SINCERE PULIDO DO Ot I48. 0 PAROXYSMAL ATRIAL FIBRILLATION 09/14/2017 SINCERE PULIDO DO Ot R06. 02 SHORTNESS OF BREATH 09/14/2017 SINCERE PULIDO DO Ot R06. 83 SNORING 09/14/2017 SINCERE PULIDO DO Ot R91. 1 SOLITARY PULMONARY NODULE 09/14/2017 Sailaja BHARDWAJ MD Ot I48.91 UNSPECIFIED ATRIAL FIBRILLATION 09/14/2017 Sailaja BHARDWAJ MD Ot R00 .2 PALPITATIONS 09/14/2017 Sailaja BHARDWAJ MD Ot Z79.01 CUSTODIAL (CURRENT) USE OF ANTICOAGULANT 09/14/2017 Sailaja BHARDWAJ MD Ot Z79.899 OTHER CUSTODIAL (CURRENT) DRUG THERAPY 09/14/2017 JESSICA XIONGZAHRAA Ot R05 COUGH 09/14/2017 Sailaja BHARDWAJ MD Ot I48 .0 PAROXYSMAL ATRIAL FIBRILLATION 09/14/2017 ZAHRAA LOPEZ DO Nimo Ot S99.912A UNSPECIFIED INJURY OF LEFT ANKLE, INITIA 09/14/2017 AZHRAA LOPEZ DO Ot W22.8XXA STRIKING AGAINST OR STRUCK BY OTHER OBJE 09/14/2017 JESSICA XIONGZAHRAA Ot Y99.8 OTHER EXTERNAL CAUSE STATUS 09/14/2017 JESSICA XIONG ZAHRAA Nimo Ot Z12.31 ENCNTR SCREEN MAMMOGRAM FOR MALIGNANT NE 09/14/2017 JESSICA XIONGZAHRAA Ot Z95.818 PRESENCE OF OTHER CARDIAC IMPLANTS AND G 09/20/2017 Sailaja BHARDWAJ MD Ot I07 .1 RHEUMATIC TRICUSPID INSUFFICIENCY 09/20/2017 Sailaja BHARDWAJ MD Ot I10 ESSENTIAL (PRIMARY) HYPERTENSION 09/20/2017 Sailaja BHARDWAJ MD Ot I27.20 PULMONARY HYPERTENSION, UNSPECIFIED 09/20/2017 Sailaja BHARDWAJ MD Ot I48.91 UNSPECIFIED ATRIAL FIBRILLATION 09/20/2017 Sailaja BHARDWAJ MD Ot R06.02 SHORTNESS OF BREATH 10/28/2017 AUSTIN BA DO Ot Z01.818 ENCOUNTER FOR OTHER PREPROCEDURAL EXAMIN 11/01/2017 JESSICA XIONG, ZAHRAA Suero Ot 786.2 COUGH 11/01/2017 JESSICA XIONG, ZAHRAA Suero Ot 729.5 PAIN IN LIMB 11/01/2017 JESSICA XIONG, ZAHRAA Suero Ot V76.12 OTH SCREEN MAMMO-MALIGN NEOPLASM OF AGUSTO 11/01/2017 OMARDER DO, ZAHRAA Suero Ot 785.1 PALPITATIONS 11/01/2017 OMARDER DO, ZAHRAA Suero Ot 959.3 ELB/FOREARM/WRST INJ NOS 11/01/2017 JESSICA XIONG, ZAHRAA Suero Ot E000.8 OTHER EXTERNAL CAUSE STATUS 11/01/2017 JESSICA XIONG, ZAHRAA Suero Ot E849.0 ACCIDENT IN HOME 11/01/2017 JESSICA XIONG, ZAHRAA Suero Ot E888.9 FALL NOS 11/01/2017 JESSICA XIONG, ZAHRAA Suero Ot 813.42 FX DISTAL RADIUS NEC-CL 11/01/2017 OMARDER DO, ZAHRAA Suero Ot 815.02 FX METACARP BASE NEC-CL 11/01/2017 OMARDER DO, ZAHRAA Suero Ot E000.8 OTHER EXTERNAL CAUSE STATUS 11/01/2017 JESSICA XIONG, ZAHRAA Suero Ot E849.[address] NEC 11/01/2017 JESSICA XIONG, ZAHRAA Suero Ot E888.9 FALL NOS 11/01/2017 JESSICA XIONG, ZAHRAA Suero Ot 729.81 SWELLING OF LIMB 11/01/2017 JESSICA DO, ZAHRAA Suero Ot V45.89 POSTSURGICAL STATES NEC 11/01/2017 OMARDER DO, ZAHRAA Suero Ot 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.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 11/01/2017 OMARDER , ZAHRAA Nimo Ot 729.81 SWELLING OF LIMB 11/01/2017 JESSICA XIONG, ZAHRAA Suero Ot R07.89 OTHER CHEST PAIN 11/01/2017 FRANCISCO GALARZA SUGAR GRINDER Ot I07.1 RHEUMATIC TRICUSPID INSUFFICIENCY 11/01/2017 FRANCISCO GALARZA SUGAR GRINDER Ot I34.0 NONRHEUMATIC MITRAL (VALVE) INSUFFICIENC 11/01/2017 FRANCISCO GALARZA L SUGAR GRINDER Ot I48.0 PAROXYSMAL ATRIAL FIBRILLATION 11/01/2017 BAIMAFRANCISCO L SUGAR GRINDER Ot Z79.01 POLISHER ALUMINUM (CURRENT) USE OF ANTICOAGULANT 11/01/2017 BAIMAFRANCISCO L SUGAR GRINDER Ot I48.0 PAROXYSMAL ATRIAL FIBRILLATION 11/01/2017 BAIMA, FRANCISCO L SUGAR GRINDER Ot I50.33 ACUTE ON CHRONIC DIASTOLIC (CONGESTIVE) 11/01/2017 BAIMAFRANCISCO L SUGAR GRINDER Ot R60.0 LOCALIZED EDEMA 11/01/2017 BAIMA, FRANCISCO L SUGAR GRINDER Ot Z79.01 CUSTODIAL (CURRENT) USE OF ANTICOAGULANT 11/01/2017 BAIMA, FRANCISCO L SUGAR GRINDER Ot I48.0 PAROXYSMAL ATRIAL FIBRILLATION 11/01/2017 BAIMA, FRANCISCO L SUGAR GRINDER Ot I50.33 ACUTE ON CHRONIC DIASTOLIC (CONGESTIVE) 11/01/2017 BAIMAFRANCISCO L SUGAR GRINDER Ot R60.0 LOCALIZED EDEMA 11/01/2017 BAIMA, FRANCISCO L SUGAR GRINDER Ot Z79.01 CUSTODIAL (CURRENT) USE OF ANTICOAGULANT 11/01/2017 TANNA ECHAVARRIA FACC, ALI FACP CCDS Ot I48.0 PAROXYSMAL ATRIAL FIBRILLATION 11/01/2017 TANNA ECHAVARRIA FACC, ALI FACP CCDS Ot I50.33 ACUTE ON CHRONIC DIASTOLIC (CONGESTIVE) 11/01/2017 TANNA ECHAVARRIA FACC, ALI FACP CCDS Ot R60.0 LOCALIZED EDEMA 11/01/2017 TANNA ECHAVARRIA FACC, ALI FACP CCDS Ot Z79.01 POLISHER ALUMINUM (CURRENT) USE OF ANTICOAGULANT 11/01/2017 SINCERE PULIDO DO Ot E66. 9 OBESITY, UNSPECIFIED 11/01/2017 SINCERE PULIDO DO Ot I48. 91 UNSPECIFIED ATRIAL FIBRILLATION 11/01/2017 SINCERE PULIDO DO Ot R00. 2 PALPITATIONS 11/01/2017 SINCERE PULIDO DO Ot R06. 83 SNORING 11/01/2017 ALFONZO ALVAREZ DO Ot M17.12 UNILATERAL PRIMARY OSTEOARTHRITIS, LEFT 11/01/2017 SINCERE PULIDO DO Ot I48. 0 PAROXYSMAL ATRIAL FIBRILLATION 11/01/2017 SINCERE PULIDO DO Ot R06. 02 SHORTNESS OF BREATH 11/01/2017 SINCERE PULIDO DO Ot R06. 83 SNORING 11/01/2017 TESS DO, SINCERE M Ot R91. 1 SOLITARY PULMONARY NODULE 11/01/2017 Sailaja BHARDWAJ MD Ot I48.91 UNSPECIFIED ATRIAL FIBRILLATION 11/01/2017 Sailaja BHARDWAJ MD Ot R00 .2 PALPITATIONS 11/01/2017 Sailaja BHARDWAJ MD Ot Z79.01 CUSTODIAL (CURRENT) USE OF ANTICOAGULANT 11/01/2017 Sailaja BHARDWAJ MD Ot Z79.899 OTHER POLISHER ALUMINUM (CURRENT) DRUG THERAPY 11/01/2017 ZAHRAA LOPEZ DO Ot R05 COUGH 11/01/2017 Sailaja BHARDWAJ MD Ot I48 .0 PAROXYSMAL ATRIAL FIBRILLATION 11/01/[address] [facility] ZAHRAA XIONG Ot S99.912A UNSPECIFIED INJURY OF LEFT ANKLE, INITIA 11/01/2017 JESSICA XINOGZAHRAA Ot W22.8XXA STRIKING AGAINST OR STRUCK BY OTHER OBJE 11/01/2017 JESSICA ZAHRAA XIONG Ot Y99.8 OTHER EXTERNAL CAUSE STATUS 11/01/2017 Sailaja BHARDWAJ MD Ot I07 .1 RHEUMATIC TRICUSPID INSUFFICIENCY 11/01/2017 Sailaja BHARDWAJ MD Ot I10 ESSENTIAL (PRIMARY) HYPERTENSION 11/01/2017 Sailaja BHARDWAJ MD Ot I27.20 PULMONARY HYPERTENSION, UNSPECIFIED 11/01/2017 Sailaja BHARDWAJ MD Ot I48.91 UNSPECIFIED ATRIAL FIBRILLATION 11/01/2017 Sailaja BHARDWAJ MD Ot R06.02 SHORTNESS OF BREATH 11/01/2017 ZAHRAA LOPEZ DO Ot Z12.31 ENCNTR SCREEN MAMMOGRAM FOR MALIGNANT NE 11/01/2017 ZAHRAA LOPEZ DO Ot Z95.818 PRESENCE OF OTHER CARDIAC IMPLANTS AND G 11/01/2017 AUSTIN BA DO Ot 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 0 NONRHEUMATIC MITRAL (VALVE) INSUFFICIENC 11/01/2017 AUSTIN BA DO Ot I48. 91 UNSPECIFIED ATRIAL FIBRILLATION 11/01/2017 AUSTIN BA DO Ot K21. 9 GASTRO-ESOPHAGEAL REFLUX DISEASE WITHOUT 11/01/2017 BA AUSTIN XIOGN Ot K62. 1 RECTAL POLYP 11/01/2017 AUSTIN BA DO Ot R19. 5 OTHER FECAL ABNORMALITIES 11/01/2017 MINERAL AUSTIN XIONG Ot Z79. 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 0 NONRHEUMATIC MITRAL (VALVE) INSUFFICIENC 11/03/2017 BA AUSTIN XIONG Ot I48. 91 UNSPECIFIED ATRIAL FIBRILLATION 11/03/2017 AUSTIN BA DO Ot K21. 9 GASTRO-ESOPHAGEAL REFLUX DISEASE WITHOUT 11/03/2017 BA AUSTIN XIONG Ot K62. 1 RECTAL POLYP 11/03/2017 BA AUSTIN XIONG Ot R19. 5 OTHER FECAL ABNORMALITIES 11/03/2017 BA AUSTIN XIONG Ot Z79. 01 CUSTODIAL (CURRENT) USE OF ANTICOAGULANT 11/03/2017 BA AUSTIN XIONG Ot Z86.718 PERSONAL HISTORY OF OTHER VENOUS THROMBO 11/28/2017 ZAHRAA LOPEZ DO Ot N28.9 DISORDER OF KIDNEY AND URETER, UNSPECIFI 11/29/2017 ZAHRAA LOPEZ DO Ot M47.812 SPONDYLOSIS W/O MYELOPATHY OR RADICULOPA 11/29/2017 ZAHRAA LOPEZ DO Ot N28.9 DISORDER OF KIDNEY AND URETER, UNSPECIFI 11/29/2017 ZAHRAA LOPEZ DO Ot R59.0 LOCALIZED ENLARGED LYMPH NODES 12/14/2017 ZAHRAA LOPEZ DO Ot N28.9 DISORDER OF KIDNEY AND URETER, UNSPECIFI 12/20/2017 ZAHRAA LOPEZ DO Ot M47.812 SPONDYLOSIS W/O MYELOPATHY OR RADICULOPA 12/20/2017 ZAHRAA LOPEZ DO Ot N28.9 DISORDER OF KIDNEY AND URETER, UNSPECIFI 12/20/2017 GELLENDER DO, ZAHRAA Suero Ot R59.0 LOCALIZED ENLARGED LYMPH NODES 02/15/2018 GELLENDER DO, ZAHRAA Suero Ot R05 COUGH 02/15/2018 GELLENDER DO, ZAHRAA Suero Ot R06.2 WHEEZING 02/15/2018 GELLENDER DO, ZAHRAA Suero Ot R05 COUGH 02/15/2018 GELLENDER DO, ZAHRAA Suero Ot R06.2 WHEEZING 03/09/2018 GELLENDER DO, ZAHRAA Suero Ot R05 COUGH 03/09/2018 GELLENDER DO, ZAHRAA Suero Ot R06.2 WHEEZING 06/26/2018 JULIETTE MILES MD Ot I10 ESSENTIAL (PRIMARY) HYPERTENSION 06/26/2018 JULIETTE MILES MD Ot I35.9 NONRHEUMATIC AORTIC VALVE DISORDER, UNSP 06/26/2018 JULIETTE MILES MD Ot I48.91 UNSPECIFIED ATRIAL FIBRILLATION 06/26/2018 JULIETTE MILES MD Ot K21.9 GASTRO-ESOPHAGEAL REFLUX DISEASE WITHOUT 06/26/2018 JULIETTE MILES MD Ot R07.9 CHEST PAIN, UNSPECIFIED 06/26/2018 JULIETTE MILES MD Ot R10.13 EPIGASTRIC PAIN 06/26/2018 JULIETTE MILES MD Ot Z79.01 POLISHER ALUMINUM (CURRENT) USE OF ANTICOAGULANT 06/26/2018 JULIETTE MILES MD Ot Z82.49 FAMILY HX OF ISCHEM HEART DIS AND OTH DI 06/26/2018 JULIETTE MILES MD Ot Z90.49 ACQUIRED ABSENCE OF OTHER SPECIFIED PART 06/26/2018 JULIETTE MILES MD Ot Z98.890 OTHER SPECIFIED POSTPROCEDURAL STATES 06/29/2018 JULIETTE MILES MD Ot I10 ESSENTIAL (PRIMARY) HYPERTENSION 06/29/2018 JULIETTE MILES MD Ot I35.9 NONRHEUMATIC AORTIC VALVE DISORDER, UNSP 06/29/2018 JULIETTE MILES MD Ot I48.91 UNSPECIFIED ATRIAL FIBRILLATION 06/29/2018 JULIETTE MILES MD Ot K21.9 GASTRO-ESOPHAGEAL REFLUX DISEASE WITHOUT 06/29/2018 JULIETTE MILES MD Ot R07.9 CHEST PAIN, UNSPECIFIED 06/29/2018 JULIETTE MILES MD Ot R10.13 EPIGASTRIC PAIN 06/29/2018 JULIETTE MILES MD Ot Z79.01 POLISHER ALUMINUM (CURRENT) USE OF ANTICOAGULANT 06/29/2018 JULIETTE MILES MD Ot Z82.49 FAMILY HX OF ISCHEM HEART DIS AND OTH DI 06/29/2018 JULIETTE MILES MD, Ot Z90.49 ACQUIRED ABSENCE OF OTHER SPECIFIED PART 06/29/2018 JULIETTE MILES MD Ot Z98.890 OTHER SPECIFIED POSTPROCEDURAL STATES 07/18/2018 GELLENDER DO, ZAHRAA A Ot K44.9 DIAPHRAGMATIC HERNIA WITHOUT OBSTRUCTION 07/18/2018 GELLENDER DO, ZAHRAA A Ot R31.9 HEMATURIA, UNSPECIFIED 07/23/2018 GELLENDER DO, ZAHRAA A Ot K44.9 DIAPHRAGMATIC HERNIA WITHOUT OBSTRUCTION 07/23/2018 GELLENDER DO, ZAHRAA A Ot R31.9 HEMATURIA, UNSPECIFIED 08/08/2018 GELLENDER DO, ZAHRAA A Ot K44.9 DIAPHRAGMATIC HERNIA WITHOUT OBSTRUCTION 08/08/2018 GELLENDER DO, ZAHRAA A Ot R31.9 HEMATURIA, UNSPECIFIED 11/28/2018 Sailaja BHARDWAJ MD Ot 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, AORTIC 11/28/2018 Sailaja BHARDWAJ MD Ot I10 ESSENTIAL (PRIMARY) HYPERTENSION 11/28/2018 Sailaja BHARDWAJ MD Ot I27.20 PULMONARY HYPERTENSION, UNSPECIFIED 11/28/2018 Sailaja BHARDWAJ MD Ot I48.91 UNSPECIFIED ATRIAL FIBRILLATION 11/30/2018 Sailaja BHARDWAJ MD Ot 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, AORTIC 11/30/2018 Sailaja BHARDWAJ MD Ot I10 ESSENTIAL (PRIMARY) HYPERTENSION 11/30/2018 Sailaja BHARDWAJ MD Ot I27.20 PULMONARY HYPERTENSION, UNSPECIFIED 11/30/2018 Sailaja BHARDWAJ MD Ot I48.91 UNSPECIFIED ATRIAL FIBRILLATION 12/14/2018 Sailaja BHARDWAJ MD Ot 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, AORTIC 12/14/2018 Sailaja BHARDWAJ MD Ot I10 ESSENTIAL (PRIMARY) HYPERTENSION 12/14/2018 LASHAE ECHAVARRIA, Sailaja JEFFERS Ot I27.20 PULMONARY HYPERTENSION, UNSPECIFIED 12/14/2018 LASHAE ECHAVARRIA, Sailaja JEFFERS Ot I48.91 UNSPECIFIED ATRIAL FIBRILLATION 02/06/2019 ZAHRAA LOPEZ DO Ot M54.9 DORSALGIA, UNSPECIFIED 02/06/2019 ZAHRAA LOPEZ DO Ot W19.XXXD UNSPECIFIED FALL, SUBSEQUENT ENCOUNTER 03/05/2019 ZAHRAA LOPEZ DO Ot Z12.31 ENCNTR SCREEN MAMMOGRAM FOR MALIGNANT NE Procedures Code Description Performed By Per formed On [id number] RE STORATION OF CARDIAC RHYTHM, SINGLE 07/01/2016 Results Test Result Range Serum or plasma troponin i.cardiac measu rement (mass/volume) - 01/05/16 15:50 Serum or plasma troponin i.cardiac measurement (mass/v olume) < ng/mL <0.30 Complete blood count (CBC) with automate d white blood cell (WBC) differential - 02/19/16 12:55 Blood leukocytes automated count (number/volume) 4.5 10*3/uL 4.3-11.0 Blood erythrocytes automated count (number/volume) 3.85 10*6/uL 4.35-5.85 Venous blood hemoglobin measurement (mass/volume) 12.3 g/dL 11.5-16.0 Blood hematocrit (volume fraction) 38 % 35-52 Automated erythrocyte mean corpuscular volume 98 [ foz_us] 80-99 Automated erythrocyte mean corpuscular h emoglobin (mass per erythrocyte) 32 pg 25-34 Automated erythrocyte mean corpuscular h emoglobin concentration measurement (mass/volume) 33 g/dL 32-36 Automated erythrocyte distribution width ratio 14. 9 % 10.0- 14.5 Automated blood platelet count (count/volume) 217 10*3/uL 130-400 Automated blood platelet mean volume measurement 10.7 [foz_us] 7.4-10.4 Automated blood neutrophils/100 leukocytes 56 % 42-75 Automated blood lymphocytes/100 leukocytes 32 % 12-44 Blood monocytes/100 leukocytes 10 % 0-12 Automated blood eosinophils/100 leukocytes 2 % 0-10 Automated blood basophils/100 leukocytes 0 % 0-10 Blood neutrophils automated count (number/volume) 2.5 10*3 1.8-7.8 Blood lymphocytes automated count (number/volume) 1.4 10*3 1.0-4.0 Blood monocytes automated count (number/volume) 0. 4 10*3 0.0-1.0 Automated eosinophil count 0.1 10*3/uL 0 .0-0.3 Automated blood basophil count (count/volume) 0.0 10*3/uL 0.0-0.1 Comprehensive metabolic panel - 02/19/16 12:55 Serum or plasma sodium measurement (moles/volume) 141 mmol/L 135-145 Serum or plasma potassium measurement (moles/volume) 3.9 mmol/L 3.6-5.0 Serum or plasma chloride measurement (moles/volume) 107 mmol/L 98-107 Carbon dioxide 27 mmol/L 21-32 Serum or plasma anion gap determination (moles/volume) 7 mmol/L 5-14 Serum or plasma urea nitrogen measurement (mass/volume ) 15 mg/dL 7-18 Serum or plasma creatinine measurement (mass/volume) 0.77 mg/dL 0.60-1.30 Serum or plasma urea nitrogen/creatinine mass ratio 19 NRG Serum or plasma creatinine measurement w ith calculation of estimated glomerular filtration rate > NRG Serum or plasma glucose measurement (mass/volume) 99 mg/dL 70-105 Serum or plasma calcium measurement (mass/volume) 10.8 mg/dL 8.5-10.1 Serum or plasma total bilirubin measurement (mass/volu me) 0.5 mg/dL 0.1-1.0 Serum or plasma alkaline phosphatase mala surement (enzymatic activity/volume) 64 U/L 40-136 Serum or plasma aspartate aminotransfera se measurement (enzymatic activity/volume) 35 U/L 5-34 Serum or plasma alanine aminotransferase measurement (enzymatic activity/volume) 45 U/L 0-55 Serum or plasma protein measurement (mass/volume) 6.8 g/dL 6.4-8.2 Serum or plasma albumin measurement (mass/volume) 4.0 g/dL 3.2-4.5 Magnesium - 02/19/16 12:55 Magnesium 2.0 mg/dL 1.8-2.4 Serum or plasma troponin i.cardiac measu rement (mass/volume) - 02/19/16 12:55 Serum or plasma troponin i.cardiac measurement (mass/v olume) < ng/mL <0.30 THYROID STIMULATING HORMONE - 02/19/16 1 2:55 THYROID STIMULATING HORMONE 1.94 u[iU]/mL 0.35-4.94 Serum or plasma lithium measurement (mol es/volume) - 02/19/16 12:55 BNP level 240.0 pg/mL <100.0 Fibrin D-dimer FEU measurement in platel et poor plasma (mass/volume) - 02/19/16 12:55 Fibrin D-dimer FEU measurement in platelet poor plasma (mass/volume) 1.51 ug/mL 0.00-0.49 Complete urinalysis with reflex to cultu re - 02/19/16 13:55 Urine color determination YELLOW NRG Urine clarity determination CLEAR NR G Urine pH measurement by test strip 7 5-9 Specific gravity of urine by test strip 1.015 1.016-1.022 Urine protein assay by test strip, semi-quantitative NEGATIVE NEGATIVE Urine glucose detection by automated test strip NE GATIVE NEGATIVE Erythrocytes detection in urine sediment by light micr oscopy NEGATIVE NEGATIVE Urine ketones detection by automated test strip NE GATIVE NEGATIVE Urine nitrite detection by test strip NEGATIVE NEGATIVE Urine total bilirubin detection by test strip NEGA TIVE NEGATIVE Urine urobilinogen measurement by automated test strip (mass/volume) NORMAL NORMAL Urine leukocyte esterase detection by dipstick NEG ATIVE NEGATIVE Automated urine sediment erythrocyte cou nt by microscopy (number/high power field) NONE NRG Automated urine sediment leukocyte count by microscopy (number/high power field) NONE NRG Bacteria detection in urine sediment by light microsco py NEGATIVE NRG Squamous epithelial cells detection in u rine sediment by light microscopy RARE NRG Crystals detection in urine sediment by light microsco py NONE NRG Casts detection in urine sediment by light microscopy NONE NRG Mucus detection in urine sediment by light microscopy NEGATIVE NRG Complete urinalysis with reflex to culture NO NRG Complete blood count (CBC) with automate d white blood cell (WBC) differential - 02/20/16 04:15 Blood leukocytes automated count (number/volume) 3.9 10*3/uL 4.3-11.0 Blood erythrocytes automated count (number/volume) 3.49 10*6/uL 4.35-5.85 Venous blood hemoglobin measurement (mass/volume) 11.1 g/dL 11.5-16.0 Blood hematocrit (volume fraction) 34 % 35-52 Automated erythrocyte mean corpuscular volume 98 [ foz_us] 80-99 Automated erythrocyte mean corpuscular h emoglobin (mass per erythrocyte) 32 pg 25-34 Automated erythrocyte mean corpuscular h emoglobin concentration measurement (mass/volume) 33 g/dL 32-36 Automated erythrocyte distribution width ratio 14. 9 % 10.0- 14.5 Automated blood platelet count (count/volume) 196 10*3/uL 130-400 Automated blood platelet mean volume measurement 10.2 [foz_us] 7.4-10.4 Automated blood neutrophils/100 leukocytes 44 % 42-75 Automated blood lymphocytes/100 leukocytes 42 % 12-44 Blood monocytes/100 leukocytes 11 % 0-12 Automated blood eosinophils/100 leukocytes 3 % 0-10 Automated blood basophils/100 leukocytes 0 % 0-10 Blood neutrophils automated count (number/volume) 1.7 10*3 1.8-7.8 Blood lymphocytes automated count (number/volume) 1.6 10*3 1.0-4.0 Blood monocytes automated count (number/volume) 0. 4 10*3 0.0-1.0 Automated eosinophil count 0.1 10*3/uL 0 .0-0.3 Automated blood basophil count (count/volume) 0.0 10*3/uL 0.0-0.1 Whole blood basic metabolic panel - 02/04 08/20 04:15 Serum or plasma sodium measurement (moles/volume) 141 mmol/L 135-145 Serum or plasma potassium measurement (moles/volume) 3.4 mmol/L 3.6-5.0 Serum or plasma chloride measurement (moles/volume) 108 mmol/L 98-107 Carbon dioxide 25 mmol/L 21-32 Serum or plasma anion gap determination (moles/volume) 8 mmol/L 5-14 Serum or plasma urea nitrogen measurement (mass/volume ) 13 mg/dL 7-18 Serum or plasma creatinine measurement (mass/volume) 0.61 mg/dL 0.60-1.30 Serum or plasma urea nitrogen/creatinine mass ratio 21 NRG Serum or plasma creatinine measurement w ith calculation of estimated glomerular filtration rate > NRG Serum or plasma glucose measurement (mass/volume) 87 mg/dL 70-105 Serum or plasma calcium measurement (mass/volume) 9.7 mg/dL 8.5-10.1 Serum or plasma phosphate measurement (m ass/volume) - 02/20/16 04:15 Serum or plasma phosphate measurement (mass/volume) 2.6 mg/dL 2.3-4.7 Magnesium - 02/20/16 04:15 Magnesium 2.1 mg/dL 1.8-2.4 Complete blood count (CBC) with automate d white blood cell (WBC) differential - 02/21/16 04:16 Blood leukocytes automated count (number/volume) 4.8 10*3/uL 4.3-11.0 Blood erythrocytes automated count (number/volume) 3.61 10*6/uL 4.35-5.85 Venous blood hemoglobin measurement (mass/volume) 11.5 g/dL 11.5-16.0 Blood hematocrit (volume fraction) 36 % 35-52 Automated erythrocyte mean corpuscular volume 98 [ foz_us] 80-99 Automated erythrocyte mean corpuscular h emoglobin (mass per erythrocyte) 32 pg 25-34 Automated erythrocyte mean corpuscular h emoglobin concentration measurement (mass/volume) 32 g/dL 32-36 Automated erythrocyte distribution width ratio 15. 0 % 10.0- 14.5 Automated blood platelet count (count/volume) 202 10*3/uL 130-400 Automated blood platelet mean volume measurement 10.5 [foz_us] 7.4-10.4 Automated blood neutrophils/100 leukocytes 47 % 42-75 Automated blood lymphocytes/100 leukocytes 41 % 12-44 Blood monocytes/100 leukocytes 9 % 0-12 Automated blood eosinophils/100 leukocytes 3 % 0-10 Automated blood basophils/100 leukocytes 0 % 0-10 Blood neutrophils automated count (number/volume) 2.3 10*3 1.8-7.8 Blood lymphocytes automated count (number/volume) 2.0 10*3 1.0-4.0 Blood monocytes automated count (number/volume) 0. 5 10*3 0.0-1.0 Automated eosinophil count 0.1 10*3/uL 0 .0-0.3 Automated blood basophil count (count/volume) 0.0 10*3/uL 0.0-0.1 Comprehensive metabolic panel - 02/21/16 04:16 Serum or plasma sodium measurement (moles/volume) 139 mmol/L 135-145 Serum or plasma potassium measurement (moles/volume) 3.9 mmol/L 3.6-5.0 Serum or plasma chloride measurement (moles/volume) 111 mmol/L 98-107 Carbon dioxide 22 mmol/L 21-32 Serum or plasma anion gap determination (moles/volume) 6 mmol/L 5-14 Serum or plasma urea nitrogen measurement (mass/volume ) 13 mg/dL 7-18 Serum or plasma creatinine measurement (mass/volume) 0.66 mg/dL 0.60-1.30 Serum or plasma urea nitrogen/creatinine mass ratio 20 NRG Serum or plasma creatinine measurement w ith calculation of estimated glomerular filtration rate > NRG Serum or plasma glucose measurement (mass/volume) 92 mg/dL 70-105 Serum or plasma calcium measurement (mass/volume) 9.6 mg/dL 8.5-10.1 Serum or plasma total bilirubin measurement (mass/volu me) 0.5 mg/dL 0.1-1.0 Serum or plasma alkaline phosphatase mala surement (enzymatic activity/volume) 59 U/L 40-136 Serum or plasma aspartate aminotransfera se measurement (enzymatic activity/volume) 24 U/L 5-34 Serum or plasma alanine aminotransferase measurement (enzymatic activity/volume) 31 U/L 0-55 Serum or plasma protein measurement (mass/volume) 5.6 g/dL 6.4-8.2 Serum or plasma albumin measurement (mass/volume) 3.4 g/dL 3.2-4.5 Serum or plasma phosphate measurement (m ass/volume) - 02/21/16 04:16 Serum or plasma phosphate measurement (mass/volume) 2.1 mg/dL 2.3-4.7 Magnesium - 02/21/16 04:16 Magnesium 2.2 mg/dL 1.8-2.4 Complete blood count (CBC) with automate d white blood cell (WBC) differential - 06/29/16 18:25 Blood leukocytes automated count (number/volume) 9.4 10*3/uL 4.3-11.0 Blood erythrocytes automated count (number/volume) 4.30 10*6/uL 4.35-5.85 Venous blood hemoglobin measurement (mass/volume) 13.4 g/dL 11.5-16.0 Blood hematocrit (volume fraction) 41 % 35-52 Automated erythrocyte mean corpuscular volume 95 [ foz_us] 80-99 Automated erythrocyte mean corpuscular h emoglobin (mass per erythrocyte) 31 pg 25-34 Automated erythrocyte mean corpuscular h emoglobin concentration measurement (mass/volume) 33 g/dL 32-36 Automated erythrocyte distribution width ratio 15. 0 % 10.0- 14.5 Automated blood platelet count (count/volume) 286 10*3/uL 130-400 Automated blood platelet mean volume measurement 9.9 [foz_us] 7.4-10.4 Automated blood neutrophils/100 leukocytes 49 % 42-75 Automated blood lymphocytes/100 leukocytes 40 % 12-44 Blood monocytes/100 leukocytes 10 % 0-12 Automated blood eosinophils/100 leukocytes 1 % 0-10 Automated blood basophils/100 leukocytes 0 % 0-10 Blood neutrophils automated count (number/volume) 4.6 10*3 1.8-7.8 Blood lymphocytes automated count (number/volume) 3.7 10*3 1.0-4.0 Blood monocytes automated count (number/volume) 0. 9 10*3 0.0-1.0 Automated eosinophil count 0.1 10*3/uL 0 .0-0.3 Automated blood basophil count (count/volume) 0.0 10*3/uL 0.0-0.1 Comprehensive metabolic panel - 06/29/16 18:25 Serum or plasma sodium measurement (moles/volume) 140 mmol/L 135-145 Serum or plasma potassium measurement (moles/volume) 4.0 mmol/L 3.6-5.0 Serum or plasma chloride measurement (moles/volume) 106 mmol/L 98-107 Carbon dioxide 23 mmol/L 21-32 Serum or plasma anion gap determination (moles/volume) 11 mmol/L 5-14 Serum or plasma urea nitrogen measurement (mass/volume ) 15 mg/dL 7-18 Serum or plasma creatinine measurement (mass/volume) 0.79 mg/dL 0.60-1.30 Serum or plasma urea nitrogen/creatinine mass ratio 19 NRG Serum or plasma creatinine measurement w ith calculation of estimated glomerular filtration rate > NRG Serum or plasma glucose measurement (mass/volume) 114 mg/dL 70-105 Serum or plasma calcium measurement (mass/volume) 10.8 mg/dL 8.5-10.1 Serum or plasma total bilirubin measurement (mass/volu me) 0.3 mg/dL 0.1-1.0 Serum or plasma alkaline phosphatase mala surement (enzymatic activity/volume) 78 U/L 40-136 Serum or plasma aspartate aminotransfera se measurement (enzymatic activity/volume) 32 U/L 5-34 Serum or plasma alanine aminotransferase measurement (enzymatic activity/volume) 41 U/L 0-55 Serum or plasma protein measurement (mass/volume) 6.9 g/dL 6.4-8.2 Serum or plasma albumin measurement (mass/volume) 3.9 g/dL 3.2-4.5 Serum or plasma troponin i.cardiac measu rement (mass/volume) - 06/29/16 18:25 Serum or plasma troponin i.cardiac measurement (mass/v olume) < ng/mL <0.30 Serum or plasma thyrotropin measurement by detection limit <=0.05 miu/l (units/volume) - 06/29/16 18:25 Serum or plasma thyrotropin measurement by detection limit <=0.05 miu/l (units/volume) 0.97 u[iU]/mL 0.35-4.94 Magnesium - 06/29/16 18:28 Magnesium 2.2 mg/dL 1.8-2.4 Complete blood count (CBC) with automate d white blood cell (WBC) differential - 06/30/16 04:38 Blood leukocytes automated count (number/volume) 6.0 10*3/uL 4.3-11.0 Blood erythrocytes automated count (number/volume) 3.76 10*6/uL 4.35-5.85 Venous blood hemoglobin measurement (mass/volume) 11.8 g/dL 11.5-16.0 Blood hematocrit (volume fraction) 36 % 35-52 Automated erythrocyte mean corpuscular volume 96 [ foz_us] 80-99 Automated erythrocyte mean corpuscular h emoglobin (mass per erythrocyte) 31 pg 25-34 Automated erythrocyte mean corpuscular h emoglobin concentration measurement (mass/volume) 33 g/dL 32-36 Automated erythrocyte distribution width ratio 15. 2 % 10.0- 14.5 Automated blood platelet count (count/volume) 227 10*3/uL 130-400 Automated blood platelet mean volume measurement 9.9 [foz_us] 7.4-10.4 Automated blood neutrophils/100 leukocytes 40 % 42-75 Automated blood lymphocytes/100 leukocytes 49 % 12-44 Blood monocytes/100 leukocytes 9 % 0-12 Automated blood eosinophils/100 leukocytes 2 % 0-10 Automated blood basophils/100 leukocytes 0 % 0-10 Blood neutrophils automated count (number/volume) 2.4 10*3 1.8-7.8 Blood lymphocytes automated count (number/volume) 2.9 10*3 1.0-4.0 Blood monocytes automated count (number/volume) 0. 5 10*3 0.0-1.0 Automated eosinophil count 0.1 10*3/uL 0 .0-0.3 Automated blood basophil count (count/volume) 0.0 10*3/uL 0.0-0.1 Whole blood basic metabolic panel - 06/06 08/21 04:38 Serum or plasma sodium measurement (moles/volume) 142 mmol/L 135-145 Serum or plasma potassium measurement (moles/volume) 3.9 mmol/L 3.6-5.0 Serum or plasma chloride measurement (moles/volume) 111 mmol/L 98-107 Carbon dioxide 23 mmol/L 21-32 Serum or plasma anion gap determination (moles/volume) 8 mmol/L 5-14 Serum or plasma urea nitrogen measurement (mass/volume ) 14 mg/dL 7-18 Serum or plasma creatinine measurement (mass/volume) 0.71 mg/dL 0.60-1.30 Serum or plasma urea nitrogen/creatinine mass ratio 20 NRG Serum or plasma creatinine measurement w ith calculation of estimated glomerular filtration rate > NRG Serum or plasma glucose measurement (mass/volume) 95 mg/dL 70-105 Serum or plasma calcium measurement (mass/volume) 10.1 mg/dL 8.5-10.1 Serum or plasma phosphate measurement (m ass/volume) - 06/30/16 04:38 Serum or plasma phosphate measurement (mass/volume) 2.5 mg/dL 2.3-4.7 Magnesium - 06/30/16 04:38 Magnesium 2.1 mg/dL 1.8-2.4 Occult blood panel - gastric fluid - 08:05 Gastric fluid gastrointestinal hemoglobin detection POSITIVE NEGATIVE Complete blood count (CBC) with automate d white blood cell (WBC) differential - 07/01/16 03:14 Blood leukocytes automated count (number/volume) 6.9 10*3/uL 4.3-11.0 Blood erythrocytes automated count (number/volume) 3.89 10*6/uL 4.35-5.85 Venous blood hemoglobin measurement (mass/volume) 12.2 g/dL 11.5-16.0 Blood hematocrit (volume fraction) 38 % 35-52 Automated erythrocyte mean corpuscular volume 96 [ foz_us] 80-99 Automated erythrocyte mean corpuscular h emoglobin (mass per erythrocyte) 31 pg 25-34 Automated erythrocyte mean corpuscular h emoglobin concentration measurement (mass/volume) 33 g/dL 32-36 Automated erythrocyte distribution width ratio 15. 1 % 10.0- 14.5 Automated blood platelet count (count/volume) 247 10*3/uL 130-400 Automated blood platelet mean volume measurement 10.1 [foz_us] 7.4-10.4 Automated blood neutrophils/100 leukocytes 46 % 42-75 Automated blood lymphocytes/100 leukocytes 42 % 12-44 Blood monocytes/100 leukocytes 9 % 0-12 Automated blood eosinophils/100 leukocytes 2 % 0-10 Automated blood basophils/100 leukocytes 0 % 0-10 Blood neutrophils automated count (number/volume) 3.1 10*3 1.8-7.8 Blood lymphocytes automated count (number/volume) 2.9 10*3 1.0-4.0 Blood monocytes automated count (number/volume) 0. 6 10*3 0.0-1.0 Automated eosinophil count 0.2 10*3/uL 0 .0-0.3 Automated blood basophil count (count/volume) 0.0 10*3/uL 0.0-0.1 Whole blood basic metabolic panel - 06/06 09/20 03:14 Serum or plasma sodium measurement (moles/volume) 143 mmol/L 135-145 Serum or plasma potassium measurement (moles/volume) 4.4 mmol/L 3.6-5.0 Serum or plasma chloride measurement (moles/volume) 110 mmol/L 98-107 Carbon dioxide 27 mmol/L 21-32 Serum or plasma anion gap determination (moles/volume) 6 mmol/L 5-14 Serum or plasma urea nitrogen measurement (mass/volume ) 15 mg/dL 7-18 Serum or plasma creatinine measurement (mass/volume) 0.81 mg/dL 0.60-1.30 Serum or plasma urea nitrogen/creatinine mass ratio 19 NRG Serum or plasma creatinine measurement w ith calculation of estimated glomerular filtration rate > NRG Serum or plasma glucose measurement (mass/volume) 98 mg/dL 70-105 Serum or plasma calcium measurement (mass/volume) 10.3 mg/dL 8.5-10.1 Serum or plasma phosphate measurement (m ass/volume) - 07/01/16 03:14 Serum or plasma phosphate measurement (mass/volume) 2.6 mg/dL 2.3-4.7 Magnesium - 07/01/16 03:14 Magnesium 2.1 mg/dL 1.8-2.4 Complete blood count (CBC) with automate d white blood cell (WBC) differential - 07/02/16 03:35 Blood leukocytes automated count (number/volume) 9.3 10*3/uL 4.3-11.0 Blood erythrocytes automated count (number/volume) 3.70 10*6/uL 4.35-5.85 Venous blood hemoglobin measurement (mass/volume) 11.5 g/dL 11.5-16.0 Blood hematocrit (volume fraction) 36 % 35-52 Automated erythrocyte mean corpuscular volume 96 [ foz_us] 80-99 Automated erythrocyte mean corpuscular h emoglobin (mass per erythrocyte) 31 pg 25-34 Automated erythrocyte mean corpuscular h emoglobin concentration measurement (mass/volume) 32 g/dL 32-36 Automated erythrocyte distribution width ratio 15. 2 % 10.0- 14.5 Automated blood platelet count (count/volume) 239 10*3/uL 130-400 Automated blood platelet mean volume measurement 10.1 [foz_us] 7.4-10.4 Automated blood neutrophils/100 leukocytes 62 % 42-75 Automated blood lymphocytes/100 leukocytes 28 % 12-44 Blood monocytes/100 leukocytes 9 % 0-12 Automated blood eosinophils/100 leukocytes 1 % 0-10 Automated blood basophils/100 leukocytes 0 % 0-10 Blood neutrophils automated count (number/volume) 5.7 10*3 1.8-7.8 Blood lymphocytes automated count (number/volume) 2.6 10*3 1.0-4.0 Blood monocytes automated count (number/volume) 0. 9 10*3 0.0-1.0 Automated eosinophil count 0.1 10*3/uL 0 .0-0.3 Automated blood basophil count (count/volume) 0.0 10*3/uL 0.0-0.1 Whole blood basic metabolic panel - 06/06 10/21 03:35 Serum or plasma sodium measurement (moles/volume) 141 mmol/L 135-145 Serum or plasma potassium measurement (moles/volume) 4.2 mmol/L 3.6-5.0 Serum or plasma chloride measurement (moles/volume) 109 mmol/L 98-107 Carbon dioxide 24 mmol/L 21-32 Serum or plasma anion gap determination (moles/volume) 8 mmol/L 5-14 Serum or plasma urea nitrogen measurement (mass/volume ) 13 mg/dL 7-18 Serum or plasma creatinine measurement (mass/volume) 0.71 mg/dL 0.60-1.30 Serum or plasma urea nitrogen/creatinine mass ratio 18 NRG Serum or plasma creatinine measurement w ith calculation of estimated glomerular filtration rate > NRG Serum or plasma glucose measurement (mass/volume) 94 mg/dL 70-105 Serum or plasma calcium measurement (mass/volume) 10.4 mg/dL 8.5-10.1 Serum or plasma phosphate measurement (m ass/volume) - 07/02/16 03:35 Serum or plasma phosphate measurement (mass/volume) 3.3 mg/dL 2.3-4.7 Magnesium - 07/02/16 03:35 Magnesium 2.0 mg/dL 1.8-2.4 Complete blood count (CBC) with automate d white blood cell (WBC) differential - 07/03/16 03:44 Blood leukocytes automated count (number/volume) 10.4 10*3/uL 4.3-11.0 Blood erythrocytes automated count (number/volume) 3.71 10*6/uL 4.35-5.85 Venous blood hemoglobin measurement (mass/volume) 11.7 g/dL 11.5-16.0 Blood hematocrit (volume fraction) 36 % 35-52 Automated erythrocyte mean corpuscular volume 96 [ foz_us] 80-99 Automated erythrocyte mean corpuscular h emoglobin (mass per erythrocyte) 32 pg 25-34 Automated erythrocyte mean corpuscular h emoglobin concentration measurement (mass/volume) 33 g/dL 32-36 Automated erythrocyte distribution width ratio 14. 9 % 10.0- 14.5 Automated blood platelet count (count/volume) 242 10*3/uL 130-400 Automated blood platelet mean volume measurement 10.1 [foz_us] 7.4-10.4 Automated blood neutrophils/100 leukocytes 72 % 42-75 Automated blood lymphocytes/100 leukocytes 17 % 12-44 Blood monocytes/100 leukocytes 10 % 0-12 Automated blood eosinophils/100 leukocytes 1 % 0-10 Automated blood basophils/100 leukocytes 0 % 0-10 Blood neutrophils automated count (number/volume) 7.5 10*3 1.8-7.8 Blood lymphocytes automated count (number/volume) 1.8 10*3 1.0-4.0 Blood monocytes automated count (number/volume) 1. 1 10*3 0.0-1.0 Automated eosinophil count 0.1 10*3/uL 0 .0-0.3 Automated blood basophil count (count/volume) 0.0 10*3/uL 0.0-0.1 Whole blood basic metabolic panel - 06/06 11/21 03:44 Serum or plasma sodium measurement (moles/volume) 141 mmol/L 135-145 Serum or plasma potassium measurement (moles/volume) 4.0 mmol/L 3.6-5.0 Serum or plasma chloride measurement (moles/volume) 108 mmol/L 98-107 Carbon dioxide 25 mmol/L 21-32 Serum or plasma anion gap determination (moles/volume) 8 mmol/L 5-14 Serum or plasma urea nitrogen measurement (mass/volume ) 12 mg/dL 7-18 Serum or plasma creatinine measurement (mass/volume) 0.70 mg/dL 0.60-1.30 Serum or plasma urea nitrogen/creatinine mass ratio 17 NRG Serum or plasma creatinine measurement w ith calculation of estimated glomerular filtration rate > NRG Serum or plasma glucose measurement (mass/volume) 103 mg/dL 70-105 Serum or plasma calcium measurement (mass/volume) 10.3 mg/dL 8.5-10.1 Serum or plasma phosphate measurement (m ass/volume) - 07/03/16 03:44 Serum or plasma phosphate measurement (mass/volume) 2.3 mg/dL 2.3-4.7 Magnesium - 07/03/16 03:44 Magnesium 1.9 mg/dL 1.8-2.4 Complete urinalysis with reflex to cultu re - 07/03/16 05:15 Urine color determination YELLOW NRG Urine clarity determination CLEAR NR G Urine pH measurement by test strip 6.5 5-9 Specific gravity of urine by test strip 1.010 1.016-1.022 Urine protein assay by test strip, semi-quantitative NEGATIVE NEGATIVE Urine glucose detection by automated test strip NE GATIVE NEGATIVE Erythrocytes detection in urine sediment by light micr oscopy 1+ NEGATIVE Urine ketones detection by automated test strip NE GATIVE NEGATIVE Urine nitrite detection by test strip NEGATIVE NEGATIVE Urine total bilirubin detection by test strip NEGA TIVE NEGATIVE Urine urobilinogen measurement by automated test strip (mass/volume) NORMAL NORMAL Urine leukocyte esterase detection by dipstick 1+ NEGATIVE Automated urine sediment erythrocyte cou nt by microscopy (number/high power field) [HPF] NRG Automated urine sediment leukocyte count by microscopy (number/high power field) [HPF] NRG Bacteria detection in urine sediment by light microsco py TRACE NRG Squamous epithelial cells detection in u rine sediment by light microscopy 0-2 NRG Crystals detection in urine sediment by light microsco py NONE NRG Casts detection in urine sediment by light microscopy NONE NRG Mucus detection in urine sediment by light microscopy NEGATIVE NRG Complete urinalysis with reflex to culture NO NRG Blood CBC with ordered manual differenti al panel - 07/05/16 17:58 Blood leukocytes automated count (number/volume) 8.6 10*3/uL 4.3-11.0 Blood erythrocytes automated count (number/volume) 3.84 10*6/uL 4.35-5.85 Venous blood hemoglobin measurement (mass/volume) 11.8 g/dL 11.5-16.0 Blood hematocrit (volume fraction) 36 % 35-52 Automated erythrocyte mean corpuscular volume 95 [ foz_us] 80-99 Automated erythrocyte mean corpuscular h emoglobin (mass per erythrocyte) 31 pg 25-34 Automated erythrocyte mean corpuscular h emoglobin concentration measurement (mass/volume) 33 g/dL 32-36 Automated erythrocyte distribution width ratio 14. 6 % 10.0- 14.5 Automated blood platelet count (count/volume) 273 10*3/uL 130-400 Automated blood platelet mean volume measurement 9.7 [foz_us] 7.4-10.4 Automated blood neutrophils/100 leukocytes 69 % 42-75 Automated blood lymphocytes/100 leukocytes 22 % 12-44 Blood monocytes/100 leukocytes 5 % NRG Automated blood eosinophils/100 leukocytes 1 % 0-10 Automated blood basophils/100 leukocytes 0 % 0-10 Blood neutrophils automated count (number/volume) 5.9 10*3 1.8-7.8 Blood lymphocytes automated count (number/volume) 1.9 10*3 1.0-4.0 Blood monocytes automated count (number/volume) 0. 7 10*3 0.0-1.0 Automated eosinophil count 0.1 10*3/uL 0 .0-0.3 Automated blood basophil count (count/volume) 0.0 10*3/uL 0.0-0.1 Manual blood segmented neutrophils/100 leukocytes 69 % NRG Blood band neutrophils/100 leukocytes 0 % NRG Manual blood lymphocytes/100 leukocytes 27 % NRG Manual eosinophils/100 leukocytes in nose 1 % NRG Manual blood basophils/100 leukocytes 0 % NRG Blood lymphocytes variant/100 leukocytes 3 % NRG Blood erythrocyte morphology finding identification NORMAL NRG Complete blood count (CBC) with automate d white blood cell (WBC) differential - 11/27/16 10:15 Blood leukocytes automated count (number/volume) 5.2 10*3/uL 4.3-11.0 Blood erythrocytes automated count (number/volume) 4.07 10*6/uL 4.35-5.85 Venous blood hemoglobin measurement (mass/volume) 13.1 g/dL 11.5-16.0 Blood hematocrit (volume fraction) 39 % 35-52 Automated erythrocyte mean corpuscular volume 96 [ foz_us] 80-99 Automated erythrocyte mean corpuscular h emoglobin (mass per erythrocyte) 32 pg 25-34 Automated erythrocyte mean corpuscular h emoglobin concentration measurement (mass/volume) 34 g/dL 32-36 Automated erythrocyte distribution width ratio 13. 7 % 10.0- 14.5 Automated blood platelet count (count/volume) 236 10*3/uL 130-400 Automated blood platelet mean volume measurement 10.1 [foz_us] 7.4-10.4 Automated blood neutrophils/100 leukocytes 56 % 42-75 Automated blood lymphocytes/100 leukocytes 33 % 12-44 Blood monocytes/100 leukocytes 8 % 0-12 Automated blood eosinophils/100 leukocytes 3 % 0-10 Automated blood basophils/100 leukocytes 1 % 0-10 Blood neutrophils automated count (number/volume) 2.9 10*3 1.8-7.8 Blood lymphocytes automated count (number/volume) 1.7 10*3 1.0-4.0 Blood monocytes automated count (number/volume) 0. 4 10*3 0.0-1.0 Automated eosinophil count 0.1 10*3/uL 0 .0-0.3 Automated blood basophil count (count/volume) 0.0 10*3/uL 0.0-0.1 Comprehensive metabolic panel - 11/27/16 10:15 Serum or plasma sodium measurement (moles/volume) 140 mmol/L 135-145 Serum or plasma potassium measurement (moles/volume) 4.4 mmol/L 3.6-5.0 Serum or plasma chloride measurement (moles/volume) 108 mmol/L 98-107 Carbon dioxide 24 mmol/L 21-32 Serum or plasma anion gap determination (moles/volume) 8 mmol/L 5-14 Serum or plasma urea nitrogen measurement (mass/volume ) 10 mg/dL 7-18 Serum or plasma creatinine measurement (mass/volume) 0.71 mg/dL 0.60-1.30 Serum or plasma urea nitrogen/creatinine mass ratio 14 NRG Serum or plasma creatinine measurement w ith calculation of estimated glomerular filtration rate > NRG Serum or plasma glucose measurement (mass/volume) 90 mg/dL 70-105 Serum or plasma calcium measurement (mass/volume) 10.6 mg/dL 8.5-10.1 Serum or plasma total bilirubin measurement (mass/volu me) 0.7 mg/dL 0.1-1.0 Serum or plasma alkaline phosphatase mala surement (enzymatic activity/volume) 60 U/L 40-136 Serum or plasma aspartate aminotransfera se measurement (enzymatic activity/volume) 22 U/L 5-34 Serum or plasma alanine aminotransferase measurement (enzymatic activity/volume) 16 U/L 0-55 Serum or plasma protein measurement (mass/volume) 7.1 g/dL 6.4-8.2 Serum or plasma albumin measurement (mass/volume) 3.9 g/dL 3.2-4.5 Magnesium - 11/27/16 10:15 Magnesium 2.1 mg/dL 1.8-2.4 PT panel in platelet poor plasma by coag ulation assay - 11/27/16 10:15 Prothrombin time (PT) in platelet poor plasma by coagu lation assay 15.4 s 12.2-14.7 INR in platelet poor plasma or blood by coagulation as say 1.2 0.8-1.4 Activated partial thromboplastin time (a PTT) in platelet poor plasma bycoagulation assay - 11/27/16 10:15 Activated partial thromboplastin time (a PTT) in platelet poor plasma bycoagulation assay 31 s 24-35 Serum or plasma troponin i.cardiac measu rement (mass/volume) - 11/27/16 10:15 Serum or plasma troponin i.cardiac measurement (mass/v olume) < ng/mL <0.30 Myoglobin, serum - 11/27/16 10:15 Myoglobin, serum 55.7 ng/mL 10.0-92.0 Serum or plasma troponin i.cardiac measu rement (mass/volume) - 11/27/16 18:42 Serum or plasma troponin i.cardiac measurement (mass/v olume) < ng/mL <0.30 Serum or plasma troponin i.cardiac measu rement (mass/volume) - 11/28/16 00:35 Serum or plasma troponin i.cardiac measurement (mass/v olume) < ng/mL <0.30 Lipid 1996 panel - 11/28/16 06:47 Serum or plasma triglyceride measurement (mass/volume) 97 mg/dL <150 Serum or plasma cholesterol measurement (mass/volume) 177 mg/dL < 200 Serum or plasma cholesterol in HDL measurement (mass/v olume) 42 mg/dL 40-60 Cholesterol in LDL [mass/volume] in serum or plasma by direct assay 121 mg/dL 1-129 Serum or plasma cholesterol in VLDL measurement (mass/ volume) 19 mg/dL 5-40 Serum or plasma troponin i.cardiac measu rement (mass/volume) - 11/28/16 06:47 Serum or plasma troponin i.cardiac measurement (mass/v olume) < ng/mL <0.30 [id number] - 11/23/17 14:29 Serum or plasma urea nitrogen measurement (mass/volume ) 14 mg/dL 7-18 Serum or plasma creatinine measurement (mass/volume) 0.76 mg/dL 0.60-1.30 Serum or plasma urea nitrogen/creatinine mass ratio 18 NRG Serum or plasma creatinine measurement w ith calculation of estimated glomerular filtration rate > NRG Complete blood count (CBC) with automate d white blood cell (WBC) differential - 06/26/18 03:30 Blood leukocytes automated count (number/volume) 5.6 10*3/uL 4.3-11.0 Blood erythrocytes automated count (number/volume) 3.93 10*6/uL 4.35-5.85 Venous blood hemoglobin measurement (mass/volume) 12.5 g/dL 11.5-16.0 Blood hematocrit (volume fraction) 38 % 35-52 Automated erythrocyte mean corpuscular volume 96 [ foz_us] 80-99 Automated erythrocyte mean corpuscular h emoglobin (mass per erythrocyte) 32 pg 25-34 Automated erythrocyte mean corpuscular h emoglobin concentration measurement (mass/volume) 33 g/dL 32-36 Automated erythrocyte distribution width ratio 13. 9 % 10.0- 14.5 Automated blood platelet count (count/volume) 213 10*3/uL 130-400 Automated blood platelet mean volume measurement 10.0 [foz_us] 7.4-10.4 Automated blood neutrophils/100 leukocytes 50 % 42-75 Automated blood lymphocytes/100 leukocytes 37 % 12-44 Blood monocytes/100 leukocytes 10 % 0-12 Automated blood eosinophils/100 leukocytes 2 % 0-10 Automated blood basophils/100 leukocytes 1 % 0-10 Blood neutrophils automated count (number/volume) 2.8 10*3 1.8-7.8 Blood lymphocytes automated count (number/volume) 2.1 10*3 1.0-4.0 Blood monocytes automated count (number/volume) 0. 6 10*3 0.0-1.0 Automated eosinophil count 0.1 10*3/uL 0 .0-0.3 Automated blood basophil count (count/volume) 0.0 10*3/uL 0.0-0.1 PT panel in platelet poor plasma by coag ulation assay - 06/26/18 03:30 Prothrombin time (PT) in platelet poor plasma by coagu lation assay 14.7 s 12.2-14.7 INR in platelet poor plasma or blood by coagulation as say 1.1 0.8-1.4 Activated partial thromboplastin time (a PTT) in platelet poor plasma bycoagulation assay - 06/26/18 03:30 Activated partial thromboplastin time (a PTT) in platelet poor plasma bycoagulation assay 35 s 24-35 Fibrin D-dimer FEU measurement in platel et poor plasma (mass/volume) - 06/26/18 03:30 Fibrin D-dimer FEU measurement in platelet poor plasma (mass/volume) 0.46 ug/mL 0.00-0.49 Comprehensive metabolic panel - 06/26/18 03:30 Serum or plasma sodium measurement (moles/volume) 140 mmol/L 135-145 Serum or plasma potassium measurement (moles/volume) 3.7 mmol/L 3.6-5.0 Serum or plasma chloride measurement (moles/volume) 105 mmol/L 98-107 Carbon dioxide 25 mmol/L 21-32 Serum or plasma anion gap determination (moles/volume) 10 mmol/L 5-14 Serum or plasma urea nitrogen measurement (mass/volume ) 20 mg/dL 7-18 Serum or plasma creatinine measurement (mass/volume) 0.81 mg/dL 0.60-1.30 Serum or plasma urea nitrogen/creatinine mass ratio 25 NRG Serum or plasma creatinine measurement w ith calculation of estimated glomerular filtration rate > NRG Serum or plasma glucose measurement (mass/volume) 101 mg/dL 70-105 Serum or plasma calcium measurement (mass/volume) 11.0 mg/dL 8.5-10.1 Serum or plasma total bilirubin measurement (mass/volu me) 0.4 mg/dL 0.1-1.0 Serum or plasma alkaline phosphatase mala surement (enzymatic activity/volume) 69 U/L 40-136 Serum or plasma aspartate aminotransfera se measurement (enzymatic activity/volume) 74 U/L 5-34 Serum or plasma alanine aminotransferase measurement (enzymatic activity/volume) 41 U/L 0-55 Serum or plasma protein measurement (mass/volume) 6.6 g/dL 6.4-8.2 Serum or plasma albumin measurement (mass/volume) 3.8 g/dL 3.2-4.5 CALCIUM CORRECTED 11.2 mg/dL 8.5-10.1 Magnesium - 06/26/18 03:30 Magnesium 2.1 mg/dL 1.8-2.4 Lipase - 06/26/18 03:30 Lipase 48 U/L 8-78 Serum or plasma lithium measurement (mol es/volume) - 06/26/18 03:30 BNP level 27.5 pg/mL <100.0 Serum or plasma troponin i.cardiac measu rement (mass/volume) - 06/26/18 03:30 Serum or plasma troponin i.cardiac measurement (mass/v olume) < ng/mL <0.028 Myoglobin, serum - 06/26/18 03:30 Myoglobin, serum 32.7 ng/mL 10.0-92.0 Serum or plasma troponin i.cardiac measu rement (mass/volume) - 06/26/18 05:48 Serum or plasma troponin i.cardiac measurement (mass/v olume) < ng/mL <0.028 Encounters ACCT No. Visit Date/Time Discharge Status Pt. Type Provider Facility Loc./Unit Complaint [id number] 10/20/2016 09:45:57 10/20/2016 23:59:5 9 CLS Outpatient [id number] 01/12/2019 10:39:00 23:59:59 CLS Outpatient ZAHRAA LOPEZ DO [facility] RAD FALL [id number] 12/12/2018 10:52:00 23:59:59 CLS Outpatient ZAHRAA LOPEZ DO [facility] RAD SCREENING [id number] 11/24/2018 11:53:00 23:59:59 CLS Outpatient Sailaja BHARDWAJ MD [facility] CARD ATRIAL FIBRILLATION,PUL MONARY HYPERTENSION [id number] 07/17/2018 12:32:00 23:59:59 CLS Outpatient ZAHRAA LOPEZ DO [facility] RAD BLOOD IN URINE, BACK PAIN [id number] 06/26/2018 02:44:00 06:44:00 DIS JULIETTE Ge MD [facility] ER PAIN IN DIAPHRA M [id number] 02/13/2018 14:24:00 23:59:59 CLS Outpatient ZAHRAA LOPEZ DO [facility] RAD COUGH [id number] 11/28/2017 12:26:00 23:59:59 CLS Outpatient ZAHRAA LOPEZ DO [facility] RAD LYMPH NODES UND ER NECK [id number] 11/23/2017 14:20:00 23:59:59 CLS Outpatient ZAHRAA LOPEZ DO [facility] LAB RENAL INSUFF [id number] 11/01/2017 07:01:00 018 09:30:00 DIS Outpatient AUSTIN BA DO [facility] ENDO SCREENING [id number] 10/28/2017 10:19:00 018 10:40:00 DIS Outpatient AUSTIN BA DO [facility] PREOP COLONOSCOPY [id number] 09/19/2017 09:37:00 018 23:59:59 CLS Outpatient Sailaja BHARDWAJ MD [facility] CARD SOB,PULMONARY HTN [id number] 08/12/2017 07:52:00 018 23:59:59 CLS Outpatient ZAHRAA LOPEZ DO [facility] RAD YEARLY MAMMO [id number] 11/27/2016 12:02:00 017 13:50:00 DIS Inpatient ZAHRAA LOPEZ DO [facility] 4TH CHEST PAIN [id number] 09/27/2016 17:08:00 017 23:59:59 CLS Outpatient ZAHRAA LOPEZ DO [facility] RAD LT ANKLE PAIN [id number] 08/23/2016 13:44:00 017 23:59:59 CLS Outpatient SINCERE PULIDO DO [facility] RAD SOB,SNORING,AFIB [id number] 07/30/2016 09:15:00 017 23:59:59 CLS Preadmit Sailaja BHARDWAJ MD [facility] CARD ATRIAL FIBRILLATION [id number] 04/30/2016 08:58:00 017 00:01:00 DIS Outpatient Sailaja BHARDWAJ MD [facility] CARD ATRIAL FIBRILLATION [id number] 07/05/2016 17:37:00 017 23:59:59 CLS Outpatient ZAHRAA LOPEZ DO [facility] RAD COUGH, ELEV TEM P [id number] 06/29/2016 19:31:00 04/29/2 017 11:45:00 DIS Inpatient ZAHRAA LOPEZ DO [facility] ICU AFIB WITH RVR,P AROXISENAL AFIB,POST OP SIRISHA [id number] 06/10/2016 10:38:00 017 23:59:59 CLS Outpatient Sailaja BHARDWAJ MD [facility] CATH PALPITATIONS [id number] 05/01/2016 09:11:00 017 23:59:59 CLS Outpatient ALFONZO ALVAREZ DO [facility] RAD PRIMARY OA LEFT KNEE [id number] 04/28/2016 19:40:00 017 06:20:00 DIS Outpatient DAREK TORRES APRN [facility] SLEEP PALPITATIONS,SN ORING,AFIB [id number] 04/13/2016 13:14:00 017 16:00:00 DIS Outpatient Sailaja BHARDWAJ MD [facility] CATH AFIB,PALPIATION,SOB [id number] 04/02/2016 12:46:00 017 23:59:59 CLS Outpatient SINCERE PULIDO DO [facility] RT PALPITATIONS,SNORING,OB ESITY,ATRIAL FIBRILLATION [id number] 03/25/2016 07:14:00 017 23:59:59 CLS Outpatient FRANCISCO GALARZA [facility] CARD AF,ACUTE ON CHR ONIC DIASTOLIC CHF [id number] 03/18/2016 14:25:00 017 23:59:59 CLS Outpatient TANNA ECHAVARRIA FACC, MADI JEAN CC DS [facility] LAB AF,CHF,BILA TERAL EDEMA,CHRONIC ANTICOAGULATION [id number] 03/11/2016 11:45:00 017 23:59:59 CLS Outpatient FRANCISCO GALARZA [facility] RAD AF,ACUTE ON CHR ONIC DIASTOLIC CHF, [id number] 03/03/2016 09:37:00 016 23:59:59 CLS Outpatient FRANCISCO GALARZA [facility] CARD PAF,CHRONIC ANTICOAGULATION [id number] 02/19/2016 16:34:00 13:24:00 DIS Inpatient OMARMARISSA ZAHRAA XIONG [facility] 4TH NEW ONSET A FIB RVR [id number] 01/05/2016 15:39:00 23:59:59 CLS Outpatient JESSICA XIONG ZAHRAA Nimo [facility] LAB CHEST PAIN [id number] 09/19/2014 11:33:00 23:59:59 CLS Outpatient JESSICA XIONG ZAHRAA Nimo [facility] RAD RIGHT LEG, ANGL E,FOOT SWELLING [id number] 06/17/2014 14:05:00 23:59:59 CLS Outpatient JESSICA XIONG ZAHRAA Nimo [facility] RAD RT LEG SWELLING [id number] 06/05/2014 13:32:00 23:59:59 CLS Outpatient KAYLACARLOS XIONG ZAHRAA Nimo [facility] RAD FELL THIS AM,HU RT R WRIST FOREARM [id number] 04/08/2014 14:46:00 23:59:59 CLS Outpatient KAYLACARLOS XIONG ZAHRAA Nimo [facility] RAD FALL LAST WEEK HURT R WRIST [id number] 04/08/2014 13:30:00 23:59:59 CLS Preadmit JESSICA XIONG ZAHRAA Nimo [facility] CARD PALPITATIONS [id number] 01/07/2014 13:15:00 015 00:01:00 DIS Outpatient JESSICA XIONG ZAHRAA Nimo [facility] CARD PALPITATIONS [id number] 12/13/2012 09:17:00 23:59:59 CLS Outpatient JESSICA XIONG ZAHRAA Nimo [facility] RAD SCREENING [id number] 11/29/2012 14:08:00 23:59:59 CLS Outpatient ZAHRAA LOPEZ DO [facility] RAD LT LEG AND THIG H PAIN, KNOT IN LT LEG [id number] 10/09/2012 16:53:00 013 23:59:59 CLS Outpatient ZAHRAA LOPEZ DO [facility] RAD COUGH NOT GETTI NG BETTER [id number] 06/17/2014 14:05:00 Document Registration [id number] 06/17/2014 14:05:00 Document Registration [id number] 06/17/2014 14:05:00 Document Registration [id number] 06/17/2014 14:05:00 Document Registration [id number] 03/22/2012 15:16:00 Document Registration [id number] 02/10/2011 14:38:00 Document Registration [id number] 08/12/2010 08:20:00 Document Registration [id number] 08/05/2010 07:31:00 Document Registration [id number] 03/30/2010 21:20:00 Document Registration [id number] 03/11/2010 00:00:00 Document Registration [id number] 12/10/2009 14:30:00 Document Registration [id number] 11/12/2009 10:56:00 Document Registration [id number] 07/21/2009 10:26:00 Document Registration [id number] 07/17/2009 12:06:00 Document Registration [id number] 01/20/2009 14:30:00 Document Registration
[2019-08-04 15:17] VITALS: BP 176/91
[2019-08-04] MEDS ORDERED: LIDOCAINE 1% INJ 20 ML 20 ML VIAL INJ ONE (15:30)
[2019-08-04] MEDS ORDERED: cefTRIAXone 1,000 MG/2.86 ml vial (IM ONLY) IM ONE (15:30)
--- NOTE | 2019-08-04 15:39 | ED Lower Extremity ---
General Chief Complaint: Lower Extremity Stated Complaint: SORE ON R LEG Nursing Triage Note: PT AMB TO TRIAGE WITH COMPLAINT OF RIGHT LEG PAIN, SWELLING AND REDNESS. STATES SHE WAS WORKING IN THE GARDEN LAST NIGHT AND WAS BIT BY SOMETHING. STATES SHE HAD PAIN IN HER RIGHT INNER CALF AND ITCHING. LATER IN THE NIGHT, HER FOOT BECAME RED AND ITCHY. Nursing Sepsis Screen: No Definite Risk Source: patient Exam Limitations: no limitations History of Present Illness Date Seen by Provider: August 04, 2019 Time Seen by Provider: 15:22 Initial Comments Here with report of redness and swelling of the right leg that started after she was working in the garden yesterday and got bit by something. She is unsure what that was but does have raised area to the upper calf in the posterior medial area. Now has small black spot in the middle. Patient is on Eliquis for atrial fibrillation. Notes that she has redness to the the leg now including the ankle and foot and had itching of the foot and leg. She did do an absence all soak and that helped with the itching but it came back. She is worried about infection. Denies fever or chills. Denies upper respiratory symptoms. Onset: yesterday (evening) Severity: mild, moderate Pain/Injury Location: right leg Method of Injury: other (insect bite or sting) Modifying Factors: Improves With Rest Allergies and Home Medications Allergies Coded Allergies: No Known Drug Allergies (Verified , 07/06/09) Home Medications Acetaminophen 500 Mg Tablet, 500 MG PO Q4H PRN for PAIN-MILD, (Reported) Alprazolam 0.25 Mg Tablet, 0.25 MG PO HS, (Reported) Apixaban 5 Mg Tablet, 5 MG PO 1000,2200, (Reported) Furosemide 40 Mg Tablet, 40 MG PO DAILY PRN for SWELLING, (Reported) Potassium Chloride 10 Meq Tablet.er, 10 MEQ PO DAILY PRN for WHEN TAKING FUROSEMIDE, (Reported) Sotalol HCl 80 Mg Tablet, 80 MG PO BID, (Reported) Patient Home Medication List Home Medication List Reviewed: Yes Review of Systems Constitutional: see HPI; No chills, No fever Respiratory: no symptoms reported Cardiovascular: no symptoms reported Gastrointestinal: no symptoms reported Musculoskeletal: No joint pain; muscle pain Skin: change in color, lesions Psychiatric/Neurological: No Symptoms Reported Past Krtmonz-Kttmev-Lplxns Hx Past Med/Social Hx: Reviewed Nursing Past Med/Soc Hx Patient Social History Alcohol Use: Denies Use Recreational Drug Use: No Smoking Status: Never a Smoker Recent Foreign Travel: No Contact w/Someone Who Travel: No Recent Infectious Disease Expo: No Recent Hopitalizations: No Immunizations Up To Date Tetanus Booster (TDap): Unknown PED Vaccines UTD: Yes Date of Pneumonia Vaccine: Jan 06, 2016 Date of Influenza Vaccine: Nov 25, 2016 Seasonal Allergies Seasonal Allergies: Yes Past Medical History Surgeries: Yes (bilat rotator cuff repair, bilat CTR, L knee scope, L arm fx) Appendectomy, Gallbladder, Orthopedic Respiratory: No Currently Using CPAP: No Currently Using BIPAP: No Cardiac: Yes (mitral valve) Atrial Fibrillation, Hypertension, Valvular Heart Disease Neurological: No Reproductive Disorders: No [employer] History: Menopausal Sexually Transmitted Disease: No HIV/AIDS: No Genitourinary: No Gastrointestinal: Yes Gastroesophageal Reflux Musculoskeletal: Yes Arthritis Endocrine: No HEENT: No Cancer: No Psychosocial: No Integumentary: No Blood Disorders: No Adverse Reaction/Blood Tranf: No Family Medical History Reviewed Nursing Family Hx Diabetes mellitus 19 MOTHER G8 BROTHER G8 SISTER FH: heart disease G8 BROTHER Parkinson's disease G8 BROTHER Physical Exam Vital Signs Vital Signs - First Documented 08/04/19 15:17 Temp 36.7 Pulse 70 Resp 20 B/P (MAP) 176/91 (119) Pulse Ox 98 O2 Delivery Room Air Capillary Refill : Less Than 3 Seconds Height, Weight, BMI Height: 5'7.00" Weight: 179lbs. 0.0oz. 81.182607sx; 34.00 BMI Method:Stated General Appearance: WD/WN, no apparent distress Cardiovascular: no murmur, irregularly irregular Respiratory: lungs clear, normal breath sounds Legs: bilateral leg other (right leg with what appears to be insect bite to the upper medial posterior calf area. There is a central darkened area surrounded by approximately 3 cm of erythema. There is erythema noted to the ankle and foot of that leg as well. Mild swelling of both feet noted.) Neurologic/Psychiatric: alert, oriented x 3 Skin: warm/dry, other (erythema as described above) Progress/Results/Core Measures Results/Orders My Orders Orders - JULIETTE MILES MD Ceftriaxone For Im Use (Rocephin For Im (08/04/19 15:30) Lidocaine 1% Inj 20 Ml (Xylocaine 1% Inj (08/04/19 15:30) Vital Signs/I&O 08/04/19 15:17 Temp 36.7 Pulse 70 Resp 20 B/P (MAP) 176/91 (119) Pulse Ox 98 O2 Delivery Room Air Blood Pressure Mean: 119 Progress Progress Note : Progress Note Seen and evaluated. Findings are concerning for early cellulitis versus inflammatory response from insect bite or sting. We will initiate Rocephin 1 g IM now especially given her cardiac history. She has had cellulitis in this leg previously as well. We will then initiate outpatient antibiotic with doxycycline and given a few days of steroids to reduce the inflammatory response secondary to insect bite. This was discussed with the patient who agrees. Discharged home with return precautions. Patient verbalize understanding instructions and agreement with plan. Departure Impression Primary Impression: Cellulitis of right lower extremity Additional Impression: Insect bite or sting Disposition: HOME, SELF-CARE Condition: Stable Departure-Patient Inst. Decision time for Depature: 15:51 Referrals: ZAHRAA LOPEZ DO (PCP/Family) Primary Care Physician Patient Instructions: Cellulitis (Skin Infection), Adult (DC), Insect Bites and Stings (DC) Add. Discharge Instructions: All discharge instructions reviewed with patient and/or family. Voiced understanding. Take medications as directed. Elevate feet and legs tonight to reduce swelling. Take first dose of steroid when you pick that up this afternoon and you may take the next dose tomorrow morning. Take antibiotics as prescribed. Follow-up with your doctor early next week for recheck and further evaluation. Return for increasing redness, fever, red streaks up the leg, increasing pain or other concerns as needed. Scripts Prednisone (Prednisone) 20 Mg Tab 40 MG PO DAILY, #6 TAB 0 Refills Prov: JULIETTE MILES MD 08/04/19 Doxycycline Hyclate (Doxycycline Hyclate) 100 Mg Tablet 100 MG PO BID, #14 TAB 0 Refills Prov: JULIETTE MILES MD 08/04/19 JULIETTE MILES MD August 04, 2019 15:39
[2019-08-04] MEDS ORDERED: DOXY100T2 PO (15:51)
[2019-08-04] MEDS ORDERED: PRD20T PO (15:51)
== END 2019-08-04 16:05 | disposition home or self-care (01) ==
LOC: EDUNIT# 14:22 → ER 14:23
DX: S80.861A Insect bite (nonvenomous), right lower leg, initial encounter (principal); L03.115 Cellulitis of right lower limb; I48.91 Unspecified atrial fibrillation; I10 Essential (primary) hypertension; Z79.01 Long term (current) use of anticoagulants; Z82.49 Family history of ischemic heart disease and other diseases of the circulatory system; W57.XXXA Bitten or stung by nonvenomous insect and other nonvenomous arthropods, initial encounter; Y92.007 Garden or yard of unspecified non-institutional (private) residence as the place of occurrence of the external cause
CPT/HCPCS: 96372; 99284

== ENCOUNTER 2019-08-23 09:52 | Day surgery (SDC) | payer MEDICARE, OTHER ==
[~2019-08-23] VITALS: Ht 160 cm; Wt 89.4 kg
[~2019-08-23 09:52] MED LIST changes: +DOXY100T2 PO; +PRD20T PO
[2019-08-23] MEDS ORDERED: LIDOCAINE 1% INJ 20 ML 20 ML VIAL ONE (09:59)
[2019-08-23] MEDS ORDERED: LIDOCAINE 1% INJ 20 ML 20 ML VIAL INJ ONE (10:00)
[2019-08-23 10:07] VITALS: BP 154/87
--- OUTSIDE RECORDS SUMMARY | 2019-08-23 11:56 | XMS REPORT | Continuity of Care Document ---
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 TRICUSPID INSUFFICIENCY 03/04/2016 MICHELLTROYFRANCISCO L SHELLFISH CHECKER Ot I34.0 NONRHEUMATIC MITRAL (VALVE) INSUFFICIENC 03/04/2016 BAIMA, FRANCISCO L SHELLFISH CHECKER Ot I48.0 PAROXYSMAL ATRIAL FIBRILLATION 03/04/2016 BAIMA, FRANCISCO L SHELLFISH CHECKER Ot Z79.01 GRINDER SET UP OPERATOR UNIVERSAL (CURRENT) USE OF ANTICOAGULANT 03/04/2016 BAIMA, FRANCISCO L SHELLFISH CHECKER Ot I07.1 RHEUMATIC TRICUSPID INSUFFICIENCY 03/04/2016 BAIMA, FRANCISCO L SHELLFISH CHECKER Ot I34.0 NONRHEUMATIC MITRAL (VALVE) INSUFFICIENC 03/04/2016 BAIMA, FRANCISCO L SHELLFISH CHECKER Ot I48.0 PAROXYSMAL ATRIAL FIBRILLATION 03/04/2016 BAIMA, FRANCISCO L SHELLFISH CHECKER Ot Z79.01 GRINDER SET UP OPERATOR UNIVERSAL (CURRENT) USE OF ANTICOAGULANT 03/05/2016 BAIMATROYFRANCISCO L SHELLFISH CHECKER Ot I07.1 RHEUMATIC TRICUSPID INSUFFICIENCY 03/05/2016 BAIMA, FRANCISCO L SHELLFISH CHECKER Ot I34.0 NONRHEUMATIC MITRAL (VALVE) INSUFFICIENC 03/05/2016 BAIMA FRANCISCO L SHELLFISH CHECKER Ot I48.0 PAROXYSMAL ATRIAL FIBRILLATION 03/05/2016 BAIMA, FRANCSICO L SHELLFISH CHECKER Ot Z79.01 PENITENTIARY (CURRENT) USE OF ANTICOAGULANT 03/05/2016 NATHANIELMAFRANCISCO L SHELLFISH CHECKER Ot I07.1 RHEUMATIC TRICUSPID INSUFFICIENCY 03/05/2016 BAIMA, FRANCISCO L SHELLFISH CHECKER Ot I34.0 NONRHEUMATIC MITRAL (VALVE) INSUFFICIENC 03/05/2016 BAIMA, FRANCISCO L SHELLFISH CHECKER Ot I48.0 PAROXYSMAL ATRIAL FIBRILLATION 03/05/2016 BAIMA, FRANCISCO L SHELLFISH CHECKER Ot Z79.01 PENITENTIARY (CURRENT) USE OF ANTICOAGULANT 03/12/2016 BAIMA, FRANCISCO L SHELLFISH CHECKER Ot I48.0 PAROXYSMAL ATRIAL FIBRILLATION 03/12/2016 BAIMA, FRANCISCO L SHELLFISH CHECKER Ot I50.33 ACUTE ON CHRONIC DIASTOLIC (CONGESTIVE) 03/12/2016 BAIMA, FRANCISCO L SHELLFISH CHECKER Ot R60.0 LOCALIZED EDEMA 03/12/2016 BAIMA, FRANCISCO L SHELLFISH CHECKER Ot Z79.01 PENITENTIARY (CURRENT) USE OF ANTICOAGULANT 03/12/2016 BAIMA, FRANCISCO L SHELLFISH CHECKER Ot I48.0 PAROXYSMAL ATRIAL FIBRILLATION 03/12/2016 BAIMA, FRANCISCO L SHELLFISH CHECKER Ot I50.33 ACUTE ON CHRONIC DIASTOLIC (CONGESTIVE) 03/12/2016 FRANCISCO GALARZA L SHELLFISH CHECKER Ot R60.0 LOCALIZED EDEMA 03/12/2016 BAIMA FRANCISCO L SHELLFISH CHECKER Ot Z79.01 GRINDER SET UP OPERATOR UNIVERSAL (CURRENT) USE OF ANTICOAGULANT 03/17/2016 BAIMA FRANCISCO L SHELLFISH CHECKER Ot I48.0 PAROXYSMAL ATRIAL FIBRILLATION 03/17/2016 BAIMA, FRANCISCO L SHELLFISH CHECKER Ot I50.33 ACUTE ON CHRONIC DIASTOLIC (CONGESTIVE) 03/17/2016 BAIMAFRANCISCO L SHELLFISH CHECKER Ot R60.0 LOCALIZED EDEMA 03/17/2016 BAIMA, FRANCISCO L SHELLFISH CHECKER Ot Z79.01 GRINDER SET UP OPERATOR UNIVERSAL (CURRENT) USE OF ANTICOAGULANT 03/19/2016 TANNA ECHAVARRIA FACBladimir, ALI FACP CCDS Ot I48.0 PAROXYSMAL ATRIAL FIBRILLATION 03/19/2016 TANNA ECHAVARRIA FACBladimir, ALI FACP CCDS Ot I50.33 ACUTE ON CHRONIC DIASTOLIC (CONGESTIVE) 03/19/2016 TANNA ECHAVARRIA FACC, ALI FACP CCDS Ot R60.0 LOCALIZED EDEMA 03/19/2016 TANNA ECHAVARRIA FACC, ALI FACP CCDS Ot Z79.01 GRINDER SET UP OPERATOR UNIVERSAL (CURRENT) USE OF ANTICOAGULANT 03/26/2016 NATHANIELFRANCISCO RODRIGUEZ L SHELLFISH CHECKER Ot I07.1 RHEUMATIC TRICUSPID INSUFFICIENCY 03/26/2016 NATHANIELMAFRANCISCO L SHELLFISH CHECKER Ot I34.0 NONRHEUMATIC MITRAL (VALVE) INSUFFICIENC 03/26/2016 BAIMAFRANCISCO L SHELLFISH CHECKER Ot I48.0 PAROXYSMAL ATRIAL FIBRILLATION 03/26/2016 BAIMA FRANCISCO L SHELLFISH CHECKER Ot Z79.01 GRINDER SET UP OPERATOR UNIVERSAL (CURRENT) USE OF ANTICOAGULANT 03/26/2016 BAIMATROYFRANCISCO L SHELLFISH CHECKER Ot I48.0 PAROXYSMAL ATRIAL FIBRILLATION 03/26/2016 BAIMA, FRANCISCO L SHELLFISH CHECKER Ot I50.33 ACUTE ON CHRONIC DIASTOLIC (CONGESTIVE) 03/26/2016 BAIMAFRANCISCO L SHELLFISH CHECKER Ot R60.0 LOCALIZED EDEMA 03/26/2016 BAIMA, FRANCISCO L SHELLFISH CHECKER Ot Z79.01 PENITENTIARY (CURRENT) USE OF ANTICOAGULANT 03/26/2016 BAIMA FRANCISCO L SHELLFISH CHECKER Ot I48.0 PAROXYSMAL ATRIAL FIBRILLATION 03/26/2016 BAIMA, FRANCISCO L SHELLFISH CHECKER Ot I50.33 ACUTE ON CHRONIC DIASTOLIC (CONGESTIVE) 03/26/2016 BAIMA FRANCISCO L SHELLFISH CHECKER Ot R60.0 LOCALIZED EDEMA 03/26/2016 BAIMAFRANCISCO SHELLFISH CHECKER Ot Z79.01 GRINDER SET UP OPERATOR UNIVERSAL (CURRENT) USE OF ANTICOAGULANT 03/29/2016 BAIMAFRANCISCO L SHELLFISH CHECKER Ot I48.0 PAROXYSMAL ATRIAL FIBRILLATION 03/29/2016 BAIMAFRANCISCO L SHELLFISH CHECKER Ot I50.33 ACUTE ON CHRONIC DIASTOLIC (CONGESTIVE) 03/29/2016 BAIMAFRANCISCO L SHELLFISH CHECKER Ot R60.0 LOCALIZED EDEMA 03/29/2016 BAIMAFRANCISCO L SHELLFISH CHECKER Ot Z79.01 PENITENTIARY (CURRENT) USE OF ANTICOAGULANT 04/01/2016 BAIMAFRANCISCO L SHELLFISH CHECKER Ot I48.0 PAROXYSMAL ATRIAL FIBRILLATION 04/01/2016 BAIMAFRANCISCO L SHELLFISH CHECKER Ot I50.33 ACUTE ON CHRONIC DIASTOLIC (CONGESTIVE) 04/01/2016 BAIMAFRANCISCO SHELLFISH CHECKER Ot R60.0 LOCALIZED EDEMA 04/01/2016 BAIMAFRANCISCO SHELLFISH CHECKER Ot Z79.01 GRINDER SET UP OPERATOR UNIVERSAL (CURRENT) USE OF ANTICOAGULANT 04/02/2016 DAREK TORRES APRN Ot E66.9 OBESITY, UNSPECIFIED 04/02/2016 DAREK TORRES MANAGER SMALL BUSINESS Ot G47.9 SLEEP DISORDER, UNSPECIFIED 04/02/2016 DAREK TORRES MANAGER SMALL BUSINESS Ot I48.91 UNSPECIFIED ATRIAL FIBRILLATION 04/05/2016 SINCERE PULIDO DO Ot E66. 9 OBESITY, UNSPECIFIED 04/05/2016 SINCERE PULIDO DO Ot I48. 91 UNSPECIFIED ATRIAL FIBRILLATION 04/05/2016 SINCERE PULIDO DO Ot R00. 2 PALPITATIONS 04/05/2016 SINCERE PULIDO DO Ot R06. 83 SNORING 04/08/2016 TANNA ECHVAARRIA FACC, MADI KIMP CCDS Ot I48.0 PAROXYSMAL ATRIAL FIBRILLATION 04/08/2016 TANNA ECHAVARRIA FACC, MADI FACP CCDS Ot I50.33 ACUTE ON CHRONIC DIASTOLIC (CONGESTIVE) 04/08/2016 TANNA ECHAVARRIA FACC, MADI FACP CCDS Ot R60.0 LOCALIZED EDEMA 04/08/2016 TANNA ECHAVARRIA FACC, ALI FACP CCDS Ot Z79.01 GRINDER SET UP OPERATOR UNIVERSAL (CURRENT) USE OF ANTICOAGULANT 04/13/2016 Sailaja BHARDWAJ MD Ot I10 ESSENTIAL (PRIMARY) HYPERTENSION 04/13/2016 Sailaja BHARDWAJ MD Ot I48.91 UNSPECIFIED ATRIAL FIBRILLATION 04/13/2016 Sailaja BHARDWAJ MD Ot Z79.01 GRINDER SET UP OPERATOR UNIVERSAL (CURRENT) USE OF ANTICOAGULANT 04/13/2016 Sailaja BHARDWAJ MD Ot Z79.899 OTHER GRINDER SET UP OPERATOR UNIVERSAL (CURRENT) DRUG THERAPY 04/13/2016 Sailaja BHARDWAJ MD Ot Z86.718 PERSONAL HISTORY OF OTHER VENOUS THROMBO 04/15/2016 FRANCISCO GALARZA SHELLFISH CHECKER Ot I48.0 PAROXYSMAL ATRIAL FIBRILLATION 04/15/2016 FRANCISCO GALARZA SHELLFISH CHECKER Ot I50.33 ACUTE ON CHRONIC DIASTOLIC (CONGESTIVE) 04/15/2016 FRANCISCO GALARZA SHELLFISH CHECKER Ot R60.0 LOCALIZED EDEMA 04/15/2016 FRANCISCO GALARZAP Ot Z79.01 PENITENTIARY (CURRENT) USE OF ANTICOAGULANT 04/15/2016 Sailaja BHARDWAJ MD Ot I10 ESSENTIAL (PRIMARY) HYPERTENSION 04/15/2016 Sailaja BHARDWAJ MD Ot I48.91 UNSPECIFIED ATRIAL FIBRILLATION 04/15/2016 Sailaja BHARDWAJ MD Ot Z79.01 GRINDER SET UP OPERATOR UNIVERSAL (CURRENT) USE OF ANTICOAGULANT 04/15/2016 Sailaja BHARDWAJ MD Ot Z79.899 OTHER GRINDER SET UP OPERATOR UNIVERSAL (CURRENT) DRUG THERAPY 04/15/2016 Sailaja BHARDWAJ MD [...] PRIMARY OSTEOARTHRITIS, LEFT 05/05/2016 BUD TORRESINE Cliff MANAGER SMALL BUSINESS Ot E66.9 OBESITY, UNSPECIFIED 05/05/2016 BUD TORRESINE Cliff MANAGER SMALL BUSINESS Ot G47.9 SLEEP DISORDER, UNSPECIFIED 05/05/2016 BUD TORRESINE Cliff MANAGER SMALL BUSINESS Ot I48.91 UNSPECIFIED ATRIAL FIBRILLATION 05/05/2016 BUD TORRESINE Cliff MANAGER SMALL BUSINESS Ot R06.83 SNORING 05/05/2016 MELISSA DAREK Cliff MANAGER SMALL BUSINESS Ot E66.9 OBESITY, UNSPECIFIED 05/05/2016 MELISSABUDDAREK Cliff MANAGER SMALL BUSINESS Ot G47.9 SLEEP DISORDER, UNSPECIFIED 05/05/2016 MELISSABUD PARKSINE Cliff MANAGER SMALL BUSINESS Ot I48.91 UNSPECIFIED ATRIAL FIBRILLATION 05/05/2016 BUD TORRESINE Cliff MANAGER SMALL BUSINESS Ot R06.83 SNORING 05/06/2016 ANTONIO DO, ALFONZO [...] Ot I10 ESSENTIAL (PRIMARY) HYPERTENSION 07/02/2016 GELLENDER DOZAHARA Ot I34.9 NONRHEUMATIC MITRAL VALVE DISORDER, UNSP 07/02/2016 GELLENDER DOZAHRAA Ot I48.0 PAROXYSMAL ATRIAL FIBRILLATION 07/02/2016 GELLENDER DOZAHRAA Ot I95.9 HYPOTENSION, UNSPECIFIED 07/02/2016 GELLENDER DOZAHRAA Ot M19.91 PRIMARY OSTEOARTHRITIS, UNSPECIFIED SITE 07/02/2016 GELLENDER DOZAHRAA Ot M79.662 PAIN IN LEFT LOWER LEG 07/02/2016 GELLENDER DOZAHRAA Ot R12 HEARTBURN 07/02/2016 GELLENDER DOZAHRAA Ot R19.5 OTHER FECAL ABNORMALITIES 07/02/2016 GELLENDER DOZAHRAA Ot Z79.01 PENITENTIARY (CURRENT) USE OF ANTICOAGULANT 07/03/2016 GELLENDER DOZAHRAA [...] 07/03/2016 GELLENDER DO, ZAHRAA Suero Ot Z79.01 PENITENTIARY (CURRENT) USE OF ANTICOAGULANT 07/03/2016 GELLENDER DO, [...] 07/03/2016 GELLENDER DO, ZAHRAA Suero Ot Z79.01 PENITENTIARY (CURRENT) USE OF ANTICOAGULANT 07/05/2016 GELLENDER DO, ZAHRAA Suero Ot R05 COUGH 07/08/2016 GELLENDER DO, ZAHRAA Suero Ot R05 COUGH 07/19/2016 Sailaja BHARDWAJ MD Ot I48.91 UNSPECIFIED ATRIAL FIBRILLATION 07/19/2016 Sailaja BHARDWAJ MD Ot R00 .2 PALPITATIONS 07/19/2016 Sailaja BHARDWAJ MD Ot Z79.01 GRINDER SET UP OPERATOR UNIVERSAL (CURRENT) USE OF ANTICOAGULANT 07/19/2016 Sailaja BHARDWAJ MD Ot Z79.899 OTHER PENITENTIARY (CURRENT) DRUG THERAPY 07/28/2016 JESSICA XIONGZAHRAA Ot [...] OTHER CHEST PAIN 09/27/2016 FRANCISCO GALARZA L SHELLFISH CHECKER Ot I07.1 RHEUMATIC TRICUSPID INSUFFICIENCY 09/27/2016 TROY GALARZAHER L SHELLFISH CHECKER Ot I34.0 NONRHEUMATIC MITRAL (VALVE) INSUFFICIENC 09/27/2016 NATHANIELMA FRANCISCO L SHELLFISH CHECKER Ot I48.0 PAROXYSMAL ATRIAL FIBRILLATION 09/27/2016 NATHANIELMA, FRANCISCO L SHELLFISH CHECKER Ot Z79.01 PENITENTIARY (CURRENT) USE OF ANTICOAGULANT 09/27/2016 BAIMA, FRANCISCO L SHELLFISH CHECKER Ot I48.0 PAROXYSMAL ATRIAL FIBRILLATION 09/27/2016 BAIMA, FRANCISCO L SHELLFISH CHECKER Ot I50.33 ACUTE ON CHRONIC DIASTOLIC (CONGESTIVE) 09/27/2016 BAIMA FRANCISCO L SHELLFISH CHECKER Ot R60.0 LOCALIZED EDEMA 09/27/2016 BAIMA FRANCISCO L SHELLFISH CHECKER Ot Z79.01 PENITENTIARY (CURRENT) USE OF ANTICOAGULANT 09/27/2016 BAIMA, FRANCISCO L SHELLFISH CHECKER Ot I48.0 PAROXYSMAL ATRIAL FIBRILLATION 09/27/2016 BAIMA, FRANCISCO L SHELLFISH CHECKER Ot I50.33 ACUTE ON CHRONIC DIASTOLIC (CONGESTIVE) 09/27/2016 BAIMA, FRANCISCO L SHELLFISH CHECKER Ot R60.0 LOCALIZED EDEMA 09/27/2016 BAIMA FRANCISCO L SHELLFISH CHECKER Ot Z79.01 GRINDER SET UP OPERATOR UNIVERSAL (CURRENT) USE OF ANTICOAGULANT 09/27/2016 TANNA ECHAVARRIA FACC, MADI JEAN CCDS Ot I48.0 PAROXYSMAL ATRIAL FIBRILLATION 09/27/2016 TANNA ECHAVARRIA [facility], MADI KIMP CCDS Ot I50.33 ACUTE ON CHRONIC DIASTOLIC (CONGESTIVE) 09/27/2016 TANNA ECHAVARRIA [facility], [facility] Ot R60.0 LOCALIZED EDEMA 09/27/2016 TANNA ECHAVARRIA [facility], [facility] CCDS Ot Z79.01 PENITENTIARY (CURRENT) USE OF ANTICOAGULANT 09/27/2016 SINCERE PULIDO [...] PALPITATIONS 09/27/2016 Sailaja BHARDWAJ MD Ot Z79.01 PENITENTIARY (CURRENT) USE OF ANTICOAGULANT 09/27/2016 Sailaja BHARDWAJ MD Ot Z79.899 OTHER PENITENTIARY (CURRENT) DRUG THERAPY 09/27/2016 ZAHRAA LOPEZ DO [...] 11/28/2016 GELLENDER DO, ZAHRAA Suero Ot Z79.01 PENITENTIARY (CURRENT) USE OF ANTICOAGULANT 11/28/2016 GELLENDER DO, ZAHRAA Suero Ot Z79.899 OTHER PENITENTIARY (CURRENT) DRUG THERAPY 11/28/2016 GELLENDER DO, ZAHRAA [...] 11/28/2016 GELLENDER DO, ZAHRAA Suero Ot Z79.01 PENITENTIARY (CURRENT) USE OF ANTICOAGULANT 11/28/2016 GELLENDER DO, ZAHRAA Nimo Ot Z79.899 OTHER GRINDER SET UP OPERATOR UNIVERSAL (CURRENT) DRUG THERAPY 06/20/2017 FRANCISCO GALARZA SHELLFISH CHECKER Ot I48.0 PAROXYSMAL ATRIAL FIBRILLATION 06/20/2017 FRANCISCO GALARZA SHELLFISH CHECKER Ot I50.33 ACUTE ON CHRONIC DIASTOLIC (CONGESTIVE) 06/20/2017 FRANCISCO GALARZA SHELLFISH CHECKER Ot R60.0 LOCALIZED EDEMA 06/20/2017 FRANCISCO GALARZA SHELLFISH CHECKER Ot Z79.01 PENITENTIARY (CURRENT) USE OF ANTICOAGULANT 06/20/2017 FRANCISCO GALARZA SHELLFISH CHECKER Ot I48.0 PAROXYSMAL ATRIAL FIBRILLATION 06/20/2017 FRANCISCO GALARZA SHELLFISH CHECKER Ot I50.33 ACUTE ON CHRONIC DIASTOLIC (CONGESTIVE) 06/20/2017 FRANCISCO GALARZA SHELLFISH CHECKER Ot R60.0 LOCALIZED EDEMA 06/20/2017 BAIMAFRANCISCO SHELLFISH CHECKER Ot Z79.01 GRINDER SET UP OPERATOR UNIVERSAL (CURRENT) USE OF ANTICOAGULANT 06/20/2017 TANNA ECHAVARRIA FAC, ALI FACP CCDS Ot I48.0 PAROXYSMAL ATRIAL FIBRILLATION 06/20/2017 TANNA ECHAVARRIA FACC, ALI FACP CCDS Ot I50.33 ACUTE ON CHRONIC DIASTOLIC (CONGESTIVE) 06/20/2017 TANNA ECHAVARRIA FACC, ALI FACP CCDS Ot R60.0 LOCALIZED EDEMA 06/20/2017 TANNA ECHAVARRIA FACC, ALI FACP CCDS Ot Z79.01 PENITENTIARY (CURRENT) USE OF ANTICOAGULANT 06/20/2017 SINCERE PULIDO DO Ot E66. 9 OBESITY, UNSPECIFIED 06/20/2017 SINCERE PULIDO DO Ot I48. 91 UNSPECIFIED ATRIAL FIBRILLATION 06/20/2017 SINCERE PULIDO DO Ot R00. 2 PALPITATIONS 06/20/2017 SINCERE PULIDO DO Ot R06. 83 SNORING 06/20/2017 ALFONZO ALVAREZ DO Ot M17.12 UNILATERAL PRIMARY OSTEOARTHRITIS, LEFT 06/20/2017 SINCERE PULIDO DO Ot I48. 0 PAROXYSMAL ATRIAL FIBRILLATION 06/20/2017 SINECRE PULIDO DO Ot R06. 02 SHORTNESS OF BREATH 06/20/2017 SINCERE PULIDO DO Ot R06. 83 SNORING 06/20/2017 SINCERE PULIDO DO Ot R91. 1 SOLITARY PULMONARY NODULE 06/20/2017 Sailaja BHARDWAJ MD Ot I48.91 UNSPECIFIED ATRIAL FIBRILLATION 06/20/2017 Sailaja BHARDWAJ MD Ot R00 .2 PALPITATIONS 06/20/2017 Sailaja BHARDWAJ MD Ot Z79.01 PENITENTIARY (CURRENT) USE OF ANTICOAGULANT 06/20/2017 Sailaja BHARDWAJ MD Ot Z79.899 OTHER PENITENTIARY (CURRENT) DRUG THERAPY 06/20/2017 ZAHRAA LOPEZ DO [...] OTHER CHEST PAIN 09/14/2017 MICHELL FRANCISCO L SHELLFISH CHECKER Ot I07.1 RHEUMATIC TRICUSPID INSUFFICIENCY 09/14/2017 BAIMA FRANCISCO L SHELLFISH CHECKER Ot I34.0 NONRHEUMATIC MITRAL (VALVE) INSUFFICIENC 09/14/2017 BAIMA, FRANCISCO L SHELLFISH CHECKER Ot I48.0 PAROXYSMAL ATRIAL FIBRILLATION 09/14/2017 BAIMA, FRANCISCO L SHELLFISH CHECKER Ot Z79.01 PENITENTIARY (CURRENT) USE OF ANTICOAGULANT 09/14/2017 BAIMA, FRANCISCO L SHELLFISH CHECKER Ot I48.0 PAROXYSMAL ATRIAL FIBRILLATION 09/14/2017 BAIMA, FRANCISCO L SHELLFISH CHECKER Ot I50.33 ACUTE ON CHRONIC DIASTOLIC (CONGESTIVE) 09/14/2017 BAIMA FRANCISCO L SHELLFISH CHECKER Ot R60.0 LOCALIZED EDEMA 09/14/2017 BAIMA, FRANCISCO L SHELLFISH CHECKER Ot Z79.01 PENITENTIARY (CURRENT) USE OF ANTICOAGULANT 09/14/2017 BAIMA, FRANCISCO L SHELLFISH CHECKER Ot I48.0 PAROXYSMAL ATRIAL FIBRILLATION 09/14/2017 BAIMA, FRANCISCO L SHELLFISH CHECKER Ot I50.33 ACUTE ON CHRONIC DIASTOLIC (CONGESTIVE) 09/14/2017 BAIMA, FRANCISCO L SHELLFISH CHECKER Ot R60.0 LOCALIZED EDEMA 09/14/2017 BAIMA, FRANCISCO L SHELLFISH CHECKER Ot Z79.01 PENITENTIARY (CURRENT) USE OF ANTICOAGULANT 09/14/2017 TANNA ECHAVARRIA FACC, ALI FACP CCDS Ot I48.0 PAROXYSMAL ATRIAL FIBRILLATION 09/14/2017 TANNA ECHAVARRIA FACC, ALI FACP CCDS Ot I50.33 ACUTE ON CHRONIC DIASTOLIC (CONGESTIVE) 09/14/2017 TANNA ECHAVARRIA FACC, ALI FACP CCDS Ot R60.0 LOCALIZED EDEMA 09/14/2017 TANNA ECHAVARRIA FACC, ALI FACP CCDS Ot Z79.01 GRINDER SET UP OPERATOR UNIVERSAL (CURRENT) USE OF ANTICOAGULANT 09/14/2017 SINCERE PULIDO [...] PALPITATIONS 09/14/2017 Sailaja BHARDWAJ MD Ot Z79.01 PENITENTIARY (CURRENT) USE OF ANTICOAGULANT 09/14/2017 Sailaja BHARDWAJ MD Ot Z79.899 OTHER PENITENTIARY (CURRENT) DRUG THERAPY 09/14/2017 JESSICA XIONGZAHRAA Ot R05 COUGH 09/14/2017 Sailaja BHARDWAJ MD Ot I48 .0 PAROXYSMAL ATRIAL FIBRILLATION 09/14/2017 ZAHRAA LOPEZ DO Nimo Ot S99.912A UNSPECIFIED INJURY OF LEFT ANKLE, INITIA 09/14/2017 ZAHRAA LOPEZ DO Ot W22.8XXA STRIKING AGAINST [...] MD Ot I48.91 UNSPECIFIED ATRIAL FIBRILLATION 09/20/2017 Sailjaa BHARDWAJ MD Ot R06.02 SHORTNESS OF BREATH [...] R07.89 OTHER CHEST PAIN 11/01/2017 FRANCISCO GALARZA SHELLFISH CHECKER Ot I07.1 RHEUMATIC TRICUSPID INSUFFICIENCY 11/01/2017 FRANCISCO GALARZA SHELLFISH CHECKER Ot I34.0 NONRHEUMATIC MITRAL (VALVE) INSUFFICIENC 11/01/2017 FRANCISCO GALARZA L SHELLFISH CHECKER Ot I48.0 PAROXYSMAL ATRIAL FIBRILLATION 11/01/2017 BAIMAFRANCISCO L SHELLFISH CHECKER Ot Z79.01 GRINDER SET UP OPERATOR UNIVERSAL (CURRENT) USE OF ANTICOAGULANT 11/01/2017 BAIMAFRANCISCO L SHELLFISH CHECKER Ot I48.0 PAROXYSMAL ATRIAL FIBRILLATION 11/01/2017 BAIMA, FRANCISCO L SHELLFISH CHECKER Ot I50.33 ACUTE ON CHRONIC DIASTOLIC (CONGESTIVE) 11/01/2017 BAIMAFRANCISCO L SHELLFISH CHECKER Ot R60.0 LOCALIZED EDEMA 11/01/2017 BAIMA, FRANCISCO L SHELLFISH CHECKER Ot Z79.01 PENITENTIARY (CURRENT) USE OF ANTICOAGULANT 11/01/2017 BAIMA, FRANCISCO L SHELLFISH CHECKER Ot I48.0 PAROXYSMAL ATRIAL FIBRILLATION 11/01/2017 BAIMA, FRANCISCO L SHELLFISH CHECKER Ot I50.33 ACUTE ON CHRONIC DIASTOLIC (CONGESTIVE) 11/01/2017 BAIMAFRANCISCO L SHELLFISH CHECKER Ot R60.0 LOCALIZED EDEMA 11/01/2017 BAIMA, FRANCISCO L SHELLFISH CHECKER Ot Z79.01 PENITENTIARY (CURRENT) USE OF ANTICOAGULANT 11/01/2017 TANNA ECHAVARRIA FACC, ALI FACP CCDS Ot I48.0 PAROXYSMAL ATRIAL FIBRILLATION 11/01/2017 TANNA ECHAVARRIA FACC, ALI FACP CCDS Ot I50.33 ACUTE ON CHRONIC DIASTOLIC (CONGESTIVE) 11/01/2017 TANNA ECHAVARRIA FACC, ALI FACP CCDS Ot R60.0 LOCALIZED EDEMA 11/01/2017 TANNA ECHAVARRIA FACC, ALI FACP CCDS Ot Z79.01 GRINDER SET UP OPERATOR UNIVERSAL (CURRENT) USE OF ANTICOAGULANT 11/01/2017 SINCERE PULIDO [...] PALPITATIONS 11/01/2017 Sailaja BHARDWAJ MD Ot Z79.01 PENITENTIARY (CURRENT) USE OF ANTICOAGULANT 11/01/2017 Sailaja BHARDWAJ MD Ot Z79.899 OTHER GRINDER SET UP OPERATOR UNIVERSAL (CURRENT) DRUG THERAPY 11/01/2017 ZAHRAA LOPEZ DO Ot R05 COUGH 11/01/2017 Sailaja BHARDWAJ MD Ot I48 .0 PAROXYSMAL ATRIAL FIBRILLATION 11/01/2017 [facility] ZAHRAA XIONG Ot S99.912A UNSPECIFIED INJURY OF LEFT ANKLE, INITIA 11/01/2017 JESSICA XIONGZAHRAA Ot W22.8XXA STRIKING AGAINST OR STRUCK BY [...] GASTRO-ESOPHAGEAL REFLUX DISEASE WITHOUT 11/01/2017 BA AUSTIN XIONG Ot K62. 1 RECTAL POLYP 11/01/2017 [place] BA DO Ot R19. 5 OTHER FECAL ABNORMALITIES 11/01/2017 [place] AUSTIN XIONG Ot Z79. 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 0 NONRHEUMATIC MITRAL (VALVE) INSUFFICIENC 11/03/2017 BA [place]USTIN XIONG Ot I48. 91 UNSPECIFIED ATRIAL FIBRILLATION 11/03/2017 [place] BA DO Ot K21. 9 GASTRO-ESOPHAGEAL REFLUX DISEASE WITHOUT 11/03/2017 BA [place]USTIN XIONG Ot K62. 1 RECTAL POLYP 11/03/2017 BA [place]USTIN XIONG Ot R19. 5 OTHER FECAL ABNORMALITIES 11/03/2017 BA [place] XIONG Ot Z79. 01 PENITENTIARY (CURRENT) USE OF ANTICOAGULANT 11/03/2017 BA AUSTIN [...] PAIN 06/26/2018 JULIETTE MILES MD Ot Z79.01 GRINDER SET UP OPERATOR UNIVERSAL (CURRENT) USE OF ANTICOAGULANT 06/26/2018 JULIETTE MILES [...] PAIN 06/29/2018 JULIETTE MILES MD Ot Z79.01 GRINDER SET UP OPERATOR UNIVERSAL (CURRENT) USE OF ANTICOAGULANT 06/29/2018 JULIETTE MILES [...] Z12.31 ENCNTR SCREEN MAMMOGRAM FOR MALIGNANT NE 08/07/2019 JULIETTE MILES MD Ot I10 ESSENTIAL (PRIMARY) HYPERTENSION 08/07/2019 JULIETTE MILES MD Ot I48.91 UNSPECIFIED ATRIAL FIBRILLATION 08/07/2019 JULIETTE MILES MD Ot L03.115 CELLULITIS OF RIGHT LOWER LIMB 08/07/2019 JULIETTE MILES MD Ot S80.861A INSECT BITE (NONVENOMOUS), RIGHT LOWER L 08/07/2019 JULIETTE MILES MD Ot W57.XXXA BIT/STUNG BY NONVENOM INSECT OTH NONVE 08/07/2019 JULIETTE MILES MD, Ot Y92.007 [facility] NON-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 08/07/2019 JULIETTE MILES MD Ot Z82.49 FAMILY HX OF ISCHEM HEART DIS AND OTH DI Procedures Code Description Performed By Per formed On [id number] RE STORATION OF CARDIAC RHYTHM, SINGLE 07/01/2016 [...] 0.0-0.1 Whole blood basic metabolic panel - 12/1 6/16 04:15 Serum or plasma sodium measurement (moles/volume) [...] i.cardiac measurement (mass/v olume) < ng/mL <0.30 [id number] - 11/23/17 14:29 Serum or plasma urea [...] 10/20/2016 09:45:57 10/20/2016 23:59:5 9 CLS Outpatient [id number] 08/04/2019 14:23:00 16:05:00 DIS Outpatient JULIETTE MILES MD [facility] ER SORE ON R LEG [id number] 01/12/2019 10:39:00 23:59:59 CLS Outpatient ZAHRAA LOPEZ DO [facility] RAD FALL [id number] 12/12/2018 10:52:00 23:59:59 CLS Outpatient ZAHRAA LOPEZ DO [facility] RAD SCREENING [id number] 11/24/2018 11:53:00 09/20/2 019 23:59:59 CLS Outpatient LASHAE ECHAVARRIA, Sailaja JEFFERS [facility] CARD ATRIAL FIBRILLATION,PUL MONARY HYPERTENSION [id number] 07/17/2018 12:32:00 019 23:59:59 CLS Outpatient ZAHRAA LOPEZ DO [facility] RAD BLOOD IN URINE, BACK PAIN [id number] 06/26/2018 02:44:00 019 06:44:00 DIS Emergency JULIETTE MILES MD [facility] ER PAIN IN DIAPHRA M [id number] 02/13/2018 14:24:00 018 23:59:59 CLS Outpatient ZAHRAA LOPEZ DO [facility] RAD COUGH [id number] 11/28/2017 12:26:00 018 23:59:59 CLS Outpatient ZAHRAA LOPEZ DO [facility] RAD LYMPH NODES UND ER NECK [id number] 11/23/2017 14:20:00 018 23:59:59 CLS Outpatient ZAHRAA LOPEZ DO [facility] LAB RENAL INSUFF [id number] 11/01/2017 07:01:00 018 09:30:00 DIS Outpatient AUSTIN BA DO [facility] ENDO SCREENING [id number] 10/28/2017 10:19:00 018 10:40:00 DIS Outpatient AUSTIN BA DO [facility] PREOP COLONOSCOPY [id number] 09/19/2017 09:37:00 018 23:59:59 CLS Outpatient LASHAE ECHAVARRIA, Sailaja JEFFERS [facility] CARD SOB,PULMONARY HTN [id number] 08/12/2017 07:52:00 018 23:59:59 CLS Outpatient ZAHRAA LOPEZ DO [facility] RAD YEARLY MAMMO [id number] 11/27/2016 12:02:00 017 13:50:00 DIS Inpatient ZAHRAA LOPEZ DO [facility] 4TH CHEST PAIN [id number] 09/27/2016 17:08:00 017 23:59:59 CLS Outpatient ZAHRAA LOPEZ DO [facility] RAD LT ANKLE PAIN [id number] 08/23/2016 13:44:00 017 23:59:59 CLS Outpatient TESS XIONG SINCERE Sailaja [facility] RAD SOB,SNORING,AFIB [id number] 07/30/2016 09:15:00 017 23:59:59 CLS Preadmit Sailaja BHARDWAJ MD [facility] CARD ATRIAL FIBRILLATION [id number] 04/30/2016 08:58:00 017 00:01:00 DIS Outpatient Sailaja BHARDWAJ MD [facility] CARD ATRIAL FIBRILLATION [id number] 07/05/2016 17:37:00 017 23:59:59 CLS Outpatient ZAHRAA LOPEZ DO [facility] RAD COUGH, ELEV TEM P [id number] 06/29/2016 19:31:00 017 11:45:00 DIS Inpatient ZAHRAA LOPEZ DO [facility] ICU AFIB WITH RVR,P AROXISENAL AFIB,POST OP SIRISHA [id number] 06/10/2016 10:38:00 017 23:59:59 CLS Outpatient Sailaja BHARDWAJ MD [facility] CATH PALPITATIONS [id number] 05/01/2016 09:11:00 017 23:59:59 CLS Outpatient ALFONZO ALVAREZ DO [facility] RAD PRIMARY OA LEFT KNEE [id number] 04/28/2016 19:40:00 017 06:20:00 DIS Outpatient DAREK TORRES APRN [facility] SLEEP PALPITATIONS,SN ORING,AFIB [id number] 04/13/2016 13:14:00 017 16:00:00 DIS Outpatient Sailaja BHARDWAJ MD [facility] CATH AFIB,PALPIATION,SOB [id number] 04/02/2016 12:46:00 017 23:59:59 CLS Outpatient SINCERE PULIDO DO [facility] RT PALPITATIONS,SNORING,OB ESITY,ATRIAL FIBRILLATION [id number] 03/25/2016 07:14:00 017 23:59:59 CLS Outpatient FRANCISCO GALARZA [facility] CARD AF,ACUTE ON CHR ONIC DIASTOLIC CHF [id number] 03/18/2016 14:25:00 017 23:59:59 CLS Outpatient TANNA ECHAVARRIA FACC, MADI JEAN CC DS [facility] LAB AF,CHF,BILA TERAL EDEMA,CHRONIC ANTICOAGULATION [id number] 03/11/2016 11:45:00 017 23:59:59 CLS Outpatient FRANCISCO GALARZA [facility] RAD AF,ACUTE ON CHR ONIC DIASTOLIC CHF, [id number] 03/03/2016 09:37:00 016 23:59:59 CLS Outpatient FRANCISCO GALARZA [facility] CARD PAF,CHRONIC ANTICOAGULATION [id number] 02/19/2016 16:34:00 016 13:24:00 DIS Inpatient ZAHRAA LOPEZ DO [facility] 4TH NEW ONSET A FIB RVR [id number] 01/05/2016 15:39:00 016 23:59:59 CLS Outpatient ZAHRAA LOPEZ DO [facility] LAB CHEST PAIN [id number] 09/19/2014 11:33:00 015 23:59:59 CLS Outpatient ZAHRAA LOPEZ DO [facility] RAD RIGHT LEG, ANGL E,FOOT SWELLING [id number] 06/17/2014 14:05:00 015 23:59:59 CLS Outpatient ZAHRAA LOPEZ DO [facility] RAD RT LEG SWELLING [id number] 06/05/2014 13:32:00 23:59:59 CLS Outpatient KAYLALENZAHRAA ANN DO [facility] RAD FELL THIS AM,HU RT R WRIST FOREARM [id number] 04/08/2014 14:46:00 23:59:59 CLS Outpatient ZAHRAA LOPEZ DO [facility] RAD FALL LAST WEEK HURT R WRIST [id number] 04/08/2014 13:30:00 23:59:59 CLS Preadmit ZAHRAA LOPEZ DO [facility] CARD PALPITATIONS [id number] 01/07/2014 13:15:00 00:01:00 DIS Outpatient ZAHRAA LOPEZ DO [facility] CARD PALPITATIONS [id number] 12/13/2012 09:17:00 23:59:59 CLS Outpatient ZAHRAA LOPEZ DO [facility] RAD SCREENING [id number] 11/29/2012 14:08:00 23:59:59 CLS Outpatient ZAHRAA LOPEZ DO [facility] RAD LT LEG AND THIG H PAIN, KNOT IN LT LEG [id number] 10/09/2012 16:53:00 23:59:59 CLS Outpatient KAYLALENZAHRAA ANN DO [facility] RAD COUGH NOT GETTI NG BETTER [id number] 08/23/2019 11:00:00 P EN Preadmit Sailaja BHARDWAJ MD [facility] CATH PAF [id number] 06/17/2014 14:05:00 Document Registration [id number] 06/17/2014 14:05:00 Document Registration [id number] 06/17/2014 14:05:00 Document Registration [id number] 06/17/2014 14:05:00 Document Registration [id number] 03/22/2012 15:16:00 Document Registration [id number] 02/10/2011 14:38:00 Document Registration [id number] 08/12/2010 08:20:00 Document Registration [id number] 08/05/2010 07:31:00 Document Registration [id number] 03/30/2010 21:20:00 Document Registration [id number] 03/11/2010 00:00:00 Document Registration [id number] 12/10/2009 14:30:00 Document Registration [id number] 11/12/2009 10:56:00 Document Registration [id number] 07/21/2009 10:26:00 Document Registration [id number] 07/17/2009 12:06:00 Document Registration [id number] 01/20/2009 14:30:00 Document Registration
[2019-08-23 12:08] VITALS: BP 127/70
--- NOTE | 2019-08-23 12:59 | Implantation of Loop Monitor ---
Implant of Loop Monitior PROCEDURE PHYSICIAN: Amita King MD EXPLANTATION OF LOOP MONITOR AND RE-IMPLANTATION OF LOOP MONITOR REPORT DATE OF PROCEDURE: 08/23/19 PERFORMING PHYSICIAN: Dr. Clement King. INDICATION: Long-term surveillance of atrial fibrillation PREOP DIAGNOSIS: Long-term surveillance of atrial fibrillation POSTOP DIAGNOSIS: Atrial fibrillation, s/p implantation of loop recorder. PROCEDURE DETAILS: The patient is a 79 female with history of paroxysmal atrial fibrillation requiring long-term surveillance. She has previous Biotronik Loop monitor. Therefore implantable loop recorder was discussed and agreed with the patient. Informed consent was taken. All risks and complications were discussed at length. The patient was draped and prepped in the usual sterile fashion. Local anesthesia was lidocaine, which was given in the substernal area close to the 4th intercostal space. The previous loop monitor was explanted after small incision was made. A new Loop monitor was implanted according to the protocol. Steri-Strips were placed at the end of the procedure. There were no complications and the patient tolerated the procedure well. The device was interrogated with a voltage of 0.4mV. ANESTHESIA: Local anesthesia with lidocaine. COMPLICATIONS: None CONTRAST/FLUOROSCOPY: None CONCLUSION: 1. Successful explantation of previous loop monitor and re-implantation of loop monitor for paroxysmal atrial fibrillation. 2. No complication and the patient tolerated the procedure well. Amita King MD, [facility] Cardiac Electrophysiology Sailaja KING MD Aug 23, 2019 12:59
== END 2019-08-23 12:17 | disposition home or self-care (01) ==
LOC: CATH 09:52
PROVIDERS: ATTEND Internal Medicine Interventional Cardiology
DX: I48.0 Paroxysmal atrial fibrillation (principal); I10 Essential (primary) hypertension; I73.9 Peripheral vascular disease, unspecified; I08.3 Combined rheumatic disorders of mitral, aortic and tricuspid valves; I27.20 Pulmonary hypertension, unspecified; Z86.718 Personal history of other venous thrombosis and embolism; Z79.01 Long term (current) use of anticoagulants; Z79.899 Other long term (current) drug therapy
CPT/HCPCS: 33285; 33286; C1764

== ENCOUNTER → 2019-11-26 | Outpatient (CLI) | payer MEDICARE, OTHER | LOC: CARD 13:44 | PROVIDERS: ATTEND Internal Medicine Interventional Cardiology | DX: I27.20 Pulmonary hypertension, unspecified (principal); I11.9 Hypertensive heart disease without heart failure; I48.91 Unspecified atrial fibrillation; I08.3 Combined rheumatic disorders of mitral, aortic and tricuspid valves | CPT/HCPCS: 93306 ==

== ENCOUNTER → 2019-12-17 | Outpatient (CLI) | payer MEDICARE, OTHER ==
--- NOTE | 2019-12-17 11:41 | Diagnostic Imaging Report ---
INDICATION: Routine screening. Comparison is made with prior mammogram 12/12/2018 and 08/12/2017. 2-D and 3-D bilateral screening mammography was performed with CAD. Both breasts are heterogeneously dense, limiting the sensitivity of mammography. Cardiac monitoring device overlies the left breast medially. No mass or malignant-appearing microcalcifications are seen. Axillae are unremarkable. IMPRESSION: BI-RADS Category 2 No mammographic features suspicious for malignancy are identified. ACR BI-RADS Category 2: Benign findings. Result letter will be mailed to the patient. Note: At least 10% of breast cancer is not imaged by mammography. Dictated by: Dictated on workstation # [id number]
== END ==
LOC: RAD 10:45
PROVIDERS: ATTEND Family Medicine
DX: Z12.31 Encounter for screening mammogram for malignant neoplasm of breast (principal)
CPT/HCPCS: 77063; 77067

== ENCOUNTER 2022-05-27 08:58 | Emergency (ER) | payer MEDICARE, OTHER ==
[~2022-05-27] VITALS: Ht 160 cm; Wt 90.0 kg
[~2022-05-27 08:58] MED LIST changes: -POTA10CA43 PO; +POTA10CA44 PO; -SULF1TAB35 PO; +SULF1TAB38 PO
[2022-05-27] MEDS ORDERED: ACETAMINOPHEN 500 MG TAB (TYLENOL) PO ONE (09:45)
--- NOTE | 2022-05-27 10:28 | ED Trauma-Multisystem ---
General Chief Complaint: Trauma-Non Activation Stated Complaint: FALL | FACIAL LACERATIONS Nursing Triage Note: Pt reports that she was walking up her stairs outside of her home when she tripped and fell. She reports that she struck the bridge of her nose on the ledge of the steps. c/o numb nose, posterior neck pain, bilateral arm pain and left knee pain Source of Information: Patient, Family, Old Records Exam Limitations: No Limitations (URIEL MUNOZ) History of Present Illness Date Seen by Provider: May 27, 2022 Time Seen by Provider: 09:43 Initial Comments Mrs. aHyes is a 82 yo F with PMH of A-fib, B/L rotator cuff surgery and hx of B/L forearm Fx, who presents to the ED today complaint of pain to head, face, both arms and left knee following a fall when negotiating a step. She denies feeling dizzy or LOC prior to the fall and she did not loose consciousness and can recall all the events before during and after her fall. She states that she hit her head when falling and also tried to brace herself on both outstretched arms. Localizes pain to forehead, nose, both forearms and left knee. She denies neck or back pain or lack of sensation or strength in upper and lower extremities. She denies N/V/F/C/D, denies changes to vision or hearing, denies loss of bowel control. She denies a hx of falls. Occurred: This Morning Severity: Mild Pain/Injury Location: Face, Head, Lower Extremity, Upper Extremity Method of Injury: Fall Modifying Factors: Rest Loss of Consciousness: No Loss of Consciousness Associated Symptoms (Fall): No Abdominal Pain, No Chest Pain, No Confusion, No Dizziness, No Lightheadedness, No Nausea/Vomiting, No Neck Pain, No Ringing in Ears, No Seizures, No Shortness of Air, No Slurred Speech, No Trouble Walking, No Vision Changes (URIEL MUNOZ) Allergies and Home Medications Allergies Coded Allergies: No Known Drug Allergies (Verified , 07/06/09) Patient Home Medication List Home Medication List Reviewed: Yes (MARCIO BOO MD) Acetaminophen (Tylenol Extra Strength) 500 Mg Tablet, 500 MG PO Q4H PRN for PAIN-MILD, (Reported) Entered as Reported by: MARIO GONZALEZ on 06/30/16 0830 Alprazolam (Xanax) 0.25 Mg Tablet, 0.25 MG PO HS, (Reported) Entered as Reported by: MARIO GONZALEZ on 02/20/16 1025 Apixaban (Eliquis) 5 Mg Tablet, 5 MG PO 1000,2200, (Reported) Entered as Reported by: YONATAN MAHONEY on 04/13/16 1439 Doxycycline Hyclate (Doxycycline Hyclate) 100 Mg Tablet, 100 MG PO BID Prescribed by: JULIETTE MILES on 08/04/19 1551 Furosemide (Furosemide) 40 Mg Tablet, 40 MG PO DAILY PRN for SWELLING, (Reported) Entered as Reported by: YONATAN MAHONEY on 04/13/16 1439 Potassium Chloride (Potassium Chloride) 10 Meq Tablet.er, 10 MEQ PO DAILY PRN for WHEN TAKING FUROSEMIDE, (Reported) Entered as Reported by: MARIO GONZALEZ on 06/30/16 0830 Prednisone (Prednisone) 20 Mg Tab, 40 MG PO DAILY Prescribed by: JULIETTE MILES on 08/04/19 1551 Sotalol HCl (Sotalol) 80 Mg Tablet, 80 MG PO BID, (Reported) Entered as Reported by: AMPARO ANSARI on 10/28/17 1037 Review of Systems Review of Systems Constitutional: No chills, No dizziness, No fever, No malaise, No weakness Eyes: Denies Blurred Vision, Denies Pain, Denies Photophobia Ears: Denies Dizziness, Denies Pain, Denies Bloody Discharge, Denies Clear Discharge, Denies Purulent Discharge, Denies Serosanguinous Discharge Nose: No Bloody Discharge, No Clear Discharge, No Purulent Discharge, No Serosanguinous Discharge; Pain Mouth: No Bloody Discharge, No Loose Teeth, No Pain, No Swelling Throat: No Difficulty With Fluids, No Hoarse, No Muffled, No Neck Stiffness, No Pain Respiratory: No cough, No dyspnea on exertion, No hemoptysis, No short of breath Cardiovascular: Denies Chest Pain, Denies Irregular Heart Rate Gastrointestinal: No abdominal pain, No diarrhea, No dysphagia (UIREL MUNOZ) Past Poherxa-Ilqkla-Tscsbv Hx Patient Social History Tobacco Use?: No Substance use?: No Alcohol Use?: No (URIEL MUNOZ) Immunizations Up To Date Tetanus Booster (TDap): More than 5yrs PED Vaccines UTD: Yes (URIEL MUNOZ) Seasonal Allergies Seasonal Allergies: Yes (URIEL MUNOZ) Past Medical History Surgeries: Yes (bilat rotator cuff repair, bilat CTR, L knee scope, L arm fx) Appendectomy, Gallbladder, Orthopedic Respiratory: No Currently Using CPAP: No Currently Using BIPAP: No Cardiac: Yes (mitral valve) Atrial Fibrillation, Hypertension, Valvular Heart Disease Neurological: No Reproductive Disorders: No [employer] History: Menopausal Sexually Transmitted Disease: No HIV/AIDS: No Genitourinary: No Gastrointestinal: Yes Gastroesophageal Reflux Musculoskeletal: Yes Arthritis Endocrine: No HEENT: No Cancer: No Psychosocial: No Integumentary: No Blood Disorders: No Adverse Reaction/Blood Tranf: No (URIEL MUNOZ) Family Medical History Diabetes mellitus 19 MOTHER G8 BROTHER G8 SISTER FH: heart disease G8 BROTHER Parkinson's disease G8 BROTHER Physical Exam Vital Signs Vital Signs - First Documented 05/27/22 05/27/22 09:15 10:00 Temp 35.7 Pulse 63 Resp 20 B/P (MAP) 156/96 (116) Pulse Ox 98 O2 Delivery Room Air (MARCIO BOO MD) Height, Weight, BMI Height: 5'7.00" Weight: 179lbs. 0.0oz. 81.763999pk; 35.00 BMI Method:Stated (URIEL MUNOZ) General Appearance: No Apparent Distress, WD/WN Head: Tenderness (nasal bridge and supraorbital rim on the right Contusion to tip of nose with abrasion); No Dhillon's Sign Eyes: Bilateral Eye PERRL, Bilateral Eye EOMI Ears, Nose, Throat: Hearing Grossly Normal, No Dental Injury; No Clear Fluid (Nose), No Hemotympanum, No Midface Instability, No Dental Injury; Other (significant right periorbital swelling and ecchymoses, left medial canthus ecchymoses) Neck: Full Range of Motion, Non Tender Cardiovascular: Irregularly Irregular Respiratory: Lungs Clear, Normal Breath Sounds, No Accessory Muscle Use, No Respiratory Distress Gastrointestinal: Non Tender, Soft Extremity: Other (tenderness to palpation mid forearm bilaterally, no swelling. NVI; FROM shoulders, elbows and wrists. forearms are supple; left knee mild swelling with mild abrasion, distal NVI) Neurologic/Psychiatric: Alert, Oriented x3, No Motor/Sensory Deficits, Normal Mood/Affect, radiator cleaner II-XII Norm as Tested Skin: Normal Color, Warm/Dry, Other (abrasion tip of nose) (MARCIO BOO MD) [place] Coma Score Best Eye Response ([place]): (4) Open Spontaneously Best Verbal Response ([place]): (5) Oriented Best Motor Response ([place]): (6) Obeys Commands (MARCIO BOO MD) Progress/Results/Core Measures Results/Orders My Orders Orders - MARCIO BOO MD Ct Head/Face/Cervical Wo (05/27/22 09:22) Acetaminophen Tablet (Tylenol Tablet) (05/27/22 09:45) Dipht,Pertuss(Acell),Tet Adult (Boostrix (05/27/22 10:45) Knee, Left, 3 Views (05/27/22 11:41) (MARCIO BOO MD) Medications Given in ED (MARCIO BOO MD) Vital Signs/I&O 05/27/22 05/27/22 05/27/22 09:15 10:00 12:55 Temp 35.7 Pulse 63 52 57 Resp 20 B/P (MAP) 156/96 (116) 164/81 Pulse Ox 98 99 O2 Delivery Room Air Room Air Room Air (MARCIO BOO MD) Blood Pressure Mean: 116 Progress Progress Note : Time: 11:56 Progress Note Patient seen and evaluated by me. Eval today includes physical exam, CT head (without), face and cervical spine and left knee xrays. Physical exam pertinent for extensive facial bruising, concerntrated to right eye, abrasions to bridge of nose with tenderness to palpation. No facial instability. tenderness to palpation bilateral forearms, left knee contusion with mild swelling and tenderness to medial joint line. Neuro intact. No midline cervical spine tenderness. Heart reg, lungs clear. Abdomen benign. Unk last Tdap. No LOC re ported. VSS. Ddx based on h&P - traumatic ICH/cerebral contusion, facial fractures. Extremity fractures. CT's read by radiologist only signiificant for nasal bone fracture. Left knee xray no fracture. Patient treated with tylenol PO for pain and updated Tdap. Monitored for a couple of hours with progression of bruising around right eye, nose and medial left eye. No lacerations noted that would require repair. Patient and family member at bedside counseled extensively on return precautions and what to look for as far as s/sx of delayed ICH. She is chronically anticoagulated due to Afib. She remains with normal mentation. She and family member are comfortable with discharge. All questions are sought and answered. (MARCIO BOO MD) Diagnostic Imaging Diagonstic Imaging: CT Plain Films/CT/US/NM/MRI: facial bones, c-spine, head Comments [facility] [place] [place] [place] NAME: DARYA HAYES [facility] REC#: [id number] PT STATUS: REG ER : 1940 PHYSICIAN: MARCIO BOO MD ADMIT DATE: 05/27/22/ER Signed Date of Exam:05/27/22 CT HEAD/FACE/CERVICAL WO PROCEDURE: CT head, face, and cervical spine without contrast. TECHNIQUE: Multiple contiguous axial images were obtained through the head, neck, and facial bones without the use of intravenous contrast. Sagittal and coronal reformations through the cervical spine and facial bones were also performed. Auto Exposure Controls were utilized during the CT exam to meet ALARA standards for radiation dose reduction. INDICATION: Distracting right eye injury, headache after fall, neck pain. Trauma. COMPARISON: None FINDINGS: No acute intracranial hemorrhage. The gresham-white matter differentiation is preserved. Ventricles and cortical sulci are normal. No midline shift or mass effect. No intracranial mass or fluid collection. The paranasal sinuses and mastoids are clear. No skull fracture. Globes and orbits are normal. Acute nondisplaced fracture of the bilateral nasal bone. Soft tissue swelling along the right frontal scalp and right periorbital soft tissues. The nasal septum is midline and intact. The maxilla, pterygoid plates, and zygomatic arch are intact. The orbits are intact. The mandible is intact. The mastoids and paranasal sinuses are clear. There is straightening of the cervical lordosis. Severe multilevel disc height loss and have multilevel degenerative endplate changes. No acute fracture or dislocation. Mild multilevel facet arthritis. No high-density fluid within the spinal canal. Moderate to severe multilevel spinal canal and neural foraminal narrowing, worse at C4-C5 and C5-C6. Congenital bone fusion of C2-C3. Included views of the soft tissues demonstrates bilateral carotid atherosclerosis. Included lung apices demonstrate no significant abnormality. IMPRESSION: No acute intracranial hemorrhage. No large vascular territory sierra-white loss. No intracranial mass, midline shift, or hydrocephalus. Acute nondisplaced bilateral nasal bone fractures. Right periorbital and frontal scalp hematoma. No orbital fracture or skull fracture. No acute fracture dislocation of the cervical spine. Moderate to severe spinal canal stenosis at C4-C5 and C5-C6. Dictated by: Dictated on workstation # [id number] Dict: 05/27/22 1033 Trans: 05/27/22 1058 [facility] [place] [id number] Interpreted by: MARIAA LAMBERT DO Electronically signed by: MARIAA LAMBERT DO 05/27/22 1058 Diagonstic Imaging: Xray Comments [facility] [place] NAME: DARYA HAYES [facility] REC#: [id number] PT STATUS: REG ER : 1940 PHYSICIAN: MARCIO BOO MD ADMIT DATE: 05/27/22/ER Draft Date of Exam:05/27/22 KNEE, LEFT, 3 VIEWS EXAMINATION: Left knee radiographs, 3 images. COMPARISON: None. HISTORY: 82-year-old female, left knee pain. Fall. FINDINGS: There is chondral calcinosis. There is moderate medial compartment joint space loss. There are small medial compartment osteophytes. There are small patellofemoral compartment osteophytes. There is no large left knee joint effusion. There is degenerative type enthesopathy at the distal quadriceps tendon insertion. There is nonspecific subcutaneous edema anteriorly. The bones appear potentially demineralized. There is no identified acute fracture. IMPRESSION: 1. Moderate medial and mild patellofemoral compartment osteoarthritis of the left knee without left knee joint effusion. 2. Nonspecific subcutaneous edema anteriorly. 3. No identified acute fracture. Dictated on workstation # [id number] Dict: 05/27/22 1204 Trans: 05/27/22 1212 [facility] [id number] Interpreted by: GALI BRISCOE MD Electronically signed by: (MARCIO BOO MD) Departure Impression Primary Impression: Nasal bone fracture Qualified Codes: S02.2XXA - Fracture of nasal bones, initial encounter for closed fracture Additional Impressions: Facial contusion Qualified Codes: S00.83XA - Contusion of other part of head, initial encounter Chronic anticoagulation Abrasion nasal bridge Contusion of left knee Qualified Codes: S80.02XA - Contusion of left knee, initial encounter Disposition: 01 HOME, SELF-CARE Condition: Stable Departure-Patient Inst. Decision time for Depature: 12:00 (MARCIO BOO MD) Referrals: ALAN JOYA MD (PCP/Family) Primary Care Physician Patient Instructions: Contusion (DC), Nose Fracture Add. Discharge Instructions: Ice packs off-and-on 20 minutes at a time every few hours for the next 24 hours to your face and left knee. Tylenol Extra Strength 2 tablets every 6 hours as needed for pain. Wash your facial abrasions with a mild soap and water twice daily. You can use a little triple antibiotic ointment over your nose twice daily for 24 to 48 hours. Please call your primary care provider today for a follow-up appointment next Tuesday or Tuesday. If you develop any severe headache, especially with nausea and vomiting or other emergent, concerning symptoms over the weekend please return immediately to the emergency department for reevaluation. Verification and Attestation of Medical Student E/M Service A medical student performed and documented this service in my presence. I reviewed and verified all information documented by the medical student and made modifications to such information, when appropriate. I personally performed the physical exam and medical decision making. Marcio Boo, May 28, 2022,06:22 (MARCIO BOO MD) Copy Copies To 1: ALAN JOYA MD, DAVID May 27, 2022 10:28 MARCIO BOO MD May 27, 2022 11:56
[2022-05-27] MEDS ORDERED: TETANUS,DIPTH,PERTUSS P/F (BOOSTRIX) 0.5 ML VIAL IM ONE (10:45)
--- NOTE | 2022-05-27 11:00 | Diagnostic Imaging Report ---
PROCEDURE: CT head, face, and cervical spine without contrast. TECHNIQUE: Multiple contiguous axial images were obtained through the head, neck, and facial bones without the use of intravenous contrast. Sagittal and coronal reformations through the cervical spine and facial bones were also performed. Auto Exposure Controls were utilized during the CT exam to meet ALARA standards for radiation dose reduction. INDICATION: Distracting right eye injury, headache after fall, neck pain. Trauma. COMPARISON: None FINDINGS: No acute intracranial hemorrhage. The gresham-white matter differentiation is preserved. Ventricles and cortical sulci are normal. No midline shift or mass effect. No intracranial mass or fluid collection. The paranasal sinuses and mastoids are clear. No skull fracture. Globes and orbits are normal. Acute nondisplaced fracture of the bilateral nasal bone. Soft tissue swelling along the right frontal scalp and right periorbital soft tissues. The nasal septum is midline and intact. The maxilla, pterygoid plates, and zygomatic arch are intact. The orbits are intact. The mandible is intact. The mastoids and paranasal sinuses are clear. There is straightening of the cervical lordosis. Severe multilevel disc height loss and have multilevel degenerative endplate changes. No acute fracture or dislocation. Mild multilevel facet arthritis. No high-density fluid within the spinal canal. Moderate to severe multilevel spinal canal and neural foraminal narrowing, worse at C4-C5 and C5-C6. Congenital bone fusion of C2-C3. Included views of the soft tissues demonstrates bilateral carotid atherosclerosis. Included lung apices demonstrate no significant abnormality. IMPRESSION: No acute intracranial hemorrhage. No large vascular territory sierra-white loss. No intracranial mass, midline shift, or hydrocephalus. Acute nondisplaced bilateral nasal bone fractures. Right periorbital and frontal scalp hematoma. No orbital fracture or skull fracture. No acute fracture dislocation of the cervical spine. Moderate to severe spinal canal stenosis at C4-C5 and C5-C6. Dictated by: Dictated on workstation # [id number]
--- NOTE | 2022-05-27 12:14 | Diagnostic Imaging Report ---
EXAMINATION: Left knee radiographs, 3 images. COMPARISON: None. HISTORY: 82-year-old female, left knee pain. Fall. FINDINGS: There is chondral calcinosis. There is moderate medial compartment joint space loss. There are small medial compartment osteophytes. There are small patellofemoral compartment osteophytes. There is no large left knee joint effusion. There is degenerative type enthesopathy at the distal quadriceps tendon insertion. There is nonspecific subcutaneous edema anteriorly. The bones appear potentially demineralized. There is no identified acute fracture. IMPRESSION: 1. Moderate medial and mild patellofemoral compartment osteoarthritis of the left knee without left knee joint effusion. 2. Nonspecific subcutaneous edema anteriorly. 3. No identified acute fracture. Dictated by: Dictated on workstation # [id number]
[2022-05-27 12:55] VITALS: BP 164/81
== END 2022-05-27 12:55 | disposition home or self-care (01) ==
LOC: EDUNIT# 08:58 → ER 09:00
DX: S02.2XXA Fracture of nasal bones, initial encounter for closed fracture (principal); S00.12XA Contusion of left eyelid and periocular area, initial encounter; S80.02XA Contusion of left knee, initial encounter; M79.632 Pain in left forearm; M79.631 Pain in right forearm; I48.91 Unspecified atrial fibrillation; Z79.01 Long term (current) use of anticoagulants; Z23 Encounter for immunization; W10.9XXA Fall (on) (from) unspecified stairs and steps, initial encounter; W22.8XXA Striking against or struck by other objects, initial encounter; Y92.008 Other place in unspecified non-institutional (private) residence as the place of occurrence of the external cause; Y93.01 Activity, walking, marching and hiking
CPT/HCPCS: 70450; 70486; 72125; 73562; 90715

== ENCOUNTER 2022-08-16 10:44 | Outpatient (CLI) | payer MEDICARE, OTHER ==
[~2022-08-16] VITALS: Ht 160 cm; Wt 92.5 kg
[2022-08-16] MEDS ORDERED: METO-333 PO (16:08)
== END 2022-08-16 16:15 | disposition home or self-care (01) ==
LOC: PREOP 10:44
PROVIDERS: ATTEND Surgery
DX: Z01.818 Encounter for other preprocedural examination (principal)